=== PATIENT | male | born 1950 | race Caucasian/White ===

== ENCOUNTER 2017-01-26 16:09 | Emergency (ER) | payer MEDICARE ==
[2017-01-26] MEDS ORDERED: SODIUM CHLORIDE 0.9% 1,000 ML IV STA ×2 (16:32)
--- NOTE | 2017-01-26 16:35 | ED ---
General Adult HPI - General Chief complaint: Chest Pain Stated complaint: Chest Pain Time Seen by Provider: 01/26/17 16:25 Source: patient, RN notes reviewed, old records reviewed Mode of arrival: wheelchair Limitations: no limitations - History of Present Illness Initial comments: This is a 66-year-old male ER for evaluation of chest pain. Left sided chest pain sudden onset and sudden result resolution. Patient has patient cardiac chest pain and history of heart evaluation and ER visit for chest pain. Patient states most recently in August and symptoms have been fine since. All testing has been normal. Patient denies any history of atherosclerotic disease. No recent fever, does complain of cough and congestion. The patient currently with cough now - Related Data Home Medications Medication Instructions Recorded Confirmed Montelukast [Singulair] 10 mg PO HS 08/26/15 01/26/17 Tamsulosin HCl [Flomax] 0.4 mg PO HS 08/26/15 01/26/17 Flecainide [Tambocor] 100 mg PO Q12H 10/28/15 01/26/17 Atorvastatin Calcium 10 mg PO HS 08/31/16 01/26/17 Rivaroxaban [Xarelto] 20 mg PO AC-LUNCH 08/31/16 01/26/17 Previous Rx's Medication Instructions Recorded Pantoprazole Sodium [Protonix] 40 mg PO DAILY #30 tablet. 10/16/15 amLODIPine [Norvasc] 5 mg PO DAILY #7 tab 08/29/16 Aspirin 81 mg PO DAILY #1 chewable 09/01/16 Lisinopril-Hctz 10-12.5 mg 1 tab PO HS #30 tab 09/01/16 [Zestoretic 10-12.5] Allergies Allergy/AdvReac Type Severity Reaction Status Date / Time No Known Allergies Allergy Verified 01/26/17 16:20 Review of Systems ROS Statement: Those systems with pertinent positive or pertinent negative responses have been documented in the HPI. ROS Other: All systems not noted in ROS Statement are negative. Past Medical History Past Medical History: Atrial Fibrillation, Chest Pain / Angina, Hypertension, Osteoarthritis (OA), Prostate Disorder Additional Past Medical History / Comment(s): BPH, bilateral astigmatism. arthiritis L hand fingers mostly. History of Any Multi-Drug Resistant Organisms: None Reported Past Surgical History: Cholecystectomy Additional Past Surgical History / Comment(s): Cardioversion 09/2015 at [facility]-unsuccessful, Colonscopy-7yrs ago-normal. annita cataract surgery june 2016 Past Anesthesia/Blood Transfusion Reactions: No Reported Reaction Past Psychological History: No Psychological Hx Reported Additional Psychological History / Comment(s): Pt resides with his spouse. There is also an independent adult child living with them. He is independent. He uses no assistive device. He drives. Smoking Status: Never smoker Past Alcohol Use History: None Reported Past Drug Use History: None Reported - Past Family History Father History Unknown: Yes Family Medical History: CVA/TIA Additional Family Medical History / Comment(s): Father had a CVA. He lived to be 75 yrs. old. Mother History Unknown: Yes Family Medical History: CVA/TIA Additional Family Medical History / Comment(s): Mother had a CVA x 2. He lived to be 82 yrs old. General Exam Limitations: no limitations General appearance: alert, in no apparent distress Head exam: Present: atraumatic, normocephalic, normal inspection Eye exam: Present: normal appearance, PERRL, EOMI. Absent: scleral icterus, conjunctival injection, periorbital swelling ENT exam: Present: normal exam, mucous membranes moist Neck exam: Present: normal inspection. Absent: tenderness, meningismus, lymphadenopathy Respiratory exam: Present: normal lung sounds bilaterally. Absent: respiratory distress, wheezes, rales, rhonchi, stridor Cardiovascular Exam: Present: regular rate, normal rhythm, normal heart sounds. Absent: systolic murmur, diastolic murmur, rubs, gallop, clicks GI/Abdominal exam: Present: soft, normal bowel sounds. Absent: distended, tenderness, guarding, rebound, rigid Extremities exam: Present: normal inspection, full ROM, normal capillary refill. Absent: tenderness, pedal edema, joint swelling, calf tenderness Back exam: Present: normal inspection Neurological exam: Present: alert, oriented X3, CN II-XII intact Psychiatric exam: Present: normal affect, normal mood Skin exam: Present: warm, dry, intact, normal color. Absent: rash Course Vital Signs 01/26/17 16:19 Temperature 98 F Respiratory 67 H Rate Blood Pressure 126/61 O2 Sat by Pulse 96 Oximetry - Reevaluation(s) Reevaluation #1: 01/26/17 18:15 Patient is a symptomatic EKG Findings - EKG Comments: EKG Findings:: EKG shows normal sinus rhythm rate 62, RI 160, QRS 110, QTc 460 Medical Decision Making - Medical Decision Making 66 male the ER for evaluation of chest pain. Patient does have anterior chest pain which did resolve. Patient states he was a little anxious, does have recent stress test was normal and in review of records patient did have admission in August with normal stress test, patient states he feels normal at this time feels fine and would like to be discharged home - Lab Data Result diagrams: 01/26/17 16:38 01/26/17 16:38 Lab Results 01/26/17 01/26/17 01/26/17 Range/Units 16:38 16:38 16:38 WBC 6.9 (3.8-10.6) k/uL RBC 4.11 L (4.30-5.90) m/uL Hgb 12.4 L (13.0-17.5) gm/dL Hct 35.6 L (39.0-53.0) % MCV 86.6 (80.0-100.0) fL MCH 30.1 (25.0-35.0) pg MCHC 34.8 (31.0-37.0) g/dL RDW 13.6 (11.5-15.5) % Plt Count 213 (150-450) k/uL Neutrophils % 65 % Lymphocytes % 24 % Monocytes % 6 % Eosinophils % 3 % Basophils % 0 % Neutrophils # 4.5 (1.3-7.7) k/uL Lymphocytes # 1.7 (1.0-4.8) k/uL Monocytes # 0.4 (0-1.0) k/uL Eosinophils # 0.2 (0-0.7) k/uL Basophils # 0.0 (0-0.2) k/uL PT (9.0-12.0) sec INR (<1.1) APTT (22.0-30.0) sec D-Dimer (<0.60) mg/L FEU Sodium 142 (137-145) mmol/L Potassium 3.6 (3.5-5.1) mmol/L Chloride 107 (98-107) mmol/L Carbon Dioxide 26 (22-30) mmol/L Anion Gap 9 mmol/L BUN 22 H (9-20) mg/dL Creatinine 1.20 (0.66-1.25) mg/dL Est GFR (MDRD) Af Amer >60 (>60 ml/min/1.73 sqM) Est GFR (MDRD) Non-Af >60 (>60 ml/min/1.73 sqM) Glucose 123 H (74-99) mg/dL Calcium 9.3 (8.4-10.2) mg/dL Magnesium 1.6 (1.6-2.3) mg/dL Total Bilirubin 0.6 (0.2-1.3) mg/dL AST 33 (17-59) U/L ALT 49 (21-72) U/L Alkaline Phosphatase 97 (38-126) U/L Total Creatine Kinase 140 (55-170) U/L CK-MB (CK-2) 0.9 (0.0-2.4) ng/mL CK-MB (CK-2) Rel Index 0.6 Troponin I <0.012 (0.000-0.034) ng/mL NT-Pro-B Natriuret Pep pg/mL Total Protein 6.6 (6.3-8.2) g/dL Albumin 3.7 (3.5-5.0) g/dL Lipase 79 (23-300) U/L 01/26/17 01/26/17 Range/Units 16:38 16:38 WBC (3.8-10.6) k/uL RBC (4.30-5.90) m/uL Hgb (13.0-17.5) gm/dL Hct (39.0-53.0) % MCV (80.0-100.0) fL MCH (25.0-35.0) pg MCHC (31.0-37.0) g/dL RDW (11.5-15.5) % Plt Count (150-450) k/uL Neutrophils % % Lymphocytes % % Monocytes % % Eosinophils % % Basophils % % Neutrophils # (1.3-7.7) k/uL Lymphocytes # (1.0-4.8) k/uL Monocytes # (0-1.0) k/uL Eosinophils # (0-0.7) k/uL Basophils # (0-0.2) k/uL PT 14.4 H (9.0-12.0) sec INR 1.5 (<1.1) APTT 36.0 H (22.0-30.0) sec D-Dimer 0.18 (<0.60) mg/L FEU Sodium (137-145) mmol/L Potassium (3.5-5.1) mmol/L Chloride (98-107) mmol/L Carbon Dioxide (22-30) mmol/L Anion Gap mmol/L BUN (9-20) mg/dL Creatinine (0.66-1.25) mg/dL Est GFR (MDRD) Af Amer (>60 ml/min/1.73 sqM) Est GFR (MDRD) Non-Af (>60 ml/min/1.73 sqM) Glucose (74-99) mg/dL Calcium (8.4-10.2) mg/dL Magnesium (1.6-2.3) mg/dL Total Bilirubin (0.2-1.3) mg/dL AST (17-59) U/L ALT (21-72) U/L Alkaline Phosphatase (38-126) U/L Total Creatine Kinase (55-170) U/L CK-MB (CK-2) (0.0-2.4) ng/mL CK-MB (CK-2) Rel Index Troponin I (0.000-0.034) ng/mL NT-Pro-B Natriuret Pep 521 pg/mL Total Protein (6.3-8.2) g/dL Albumin (3.5-5.0) g/dL Lipase (23-300) U/L - Radiology Data Radiology results: report reviewed (Chest x-ray negative for acute disease), image reviewed Disposition Clinical Impression: Chest pain, Bronchitis Disposition: HOME SELF-CARE Condition: Good Instructions: Chest Pain (ED), Acute Bronchitis (ED) Referrals: Johann Rubalcava MD [Primary Care Provider] - 1-2 days
[2017-01-26 16:53] LABS: Basophils % (A) 0 %; CH 30.4; CHCM 35.2; Eosinophils # (A) 0.2 k/uL (0-0.7); Eosinophils % (A) 3 %; HCT 35.6 % (39.0-53.0); HDW 3.07; HGB 12.4 gm/dL (13.0-17.5); Luc # (Auto) 0.09; Luc % (Auto) 1; Lymphocytes # (A) 1.7 k/uL (1.0-4.8); Lymphocytes % (A) 24 %; MCH 30.1 pg (25.0-35.0); MCHC 34.8 g/dL (31.0-37.0); MCV 86.6 fL (80.0-100.0); Mean Platelet Volume 7.3; Monocytes # (A) 0.4 k/uL (0-1.0); Monocytes % (A) 6 %; Neutrophils # (A) 4.5 k/uL (1.3-7.7); Neutrophils % (A) 65 %; RBC 4.11 m/uL (4.30-5.90); RDW 13.6 % (11.5-15.5); WBC 6.9 k/uL (3.8-10.6); WBC (Perox) 7.23
[2017-01-26 17:10] LABS: INR 1.5 (<1.1); Prothrombin Time 14.4 sec (9.0-12.0)
[2017-01-26 17:18] LABS: Creatine Kinase 140 U/L (55-170)
[2017-01-26 17:32] LABS: Creatine Kinase MB 0.9 ng/mL (0.0-2.4); Troponin I <0.012 ng/mL (0.000-0.034)
[2017-01-26 17:37] LABS: ALT 49 U/L (21-72); AST 33 U/L (17-59); Alkaline Phosphatase 97 U/L (38-126); Anion Gap 9 mmol/L; Blood Urea Nitrogen 22 mg/dL (9-20); Calcium 9.3 mg/dL (8.4-10.2); Carbon Dioxide 26 mmol/L (22-30); Chloride 107 mmol/L (98-107); Glucose 123 mg/dL (74-99); Magnesium 1.6 mg/dL (1.6-2.3); Non-African American GFR(MDRD) >60 (>60 ml/min/1.73 sqM); Potassium 3.6 mmol/L (3.5-5.1); Sodium 142 mmol/L (137-145); Total Bilirubin 0.6 mg/dL (0.2-1.3); Total Protein 6.6 g/dL (6.3-8.2)
--- NOTE | 2017-01-26 18:06 | XR ---
EXAMINATION TYPE: XR chest 2V DATE OF EXAM: 01/26/2017 5:11 PM COMPARISON: September 18, 2016 HISTORY: Pain TECHNIQUE: Frontal and lateral views of the chest are obtained. FINDINGS: There is no focal air space opacity, pleural effusion, or pneumothorax seen. The cardiac silhouette size is within normal limits. The osseous structures are intact. IMPRESSION: No acute cardiopulmonary process.
[2017-01-26 18:21] VITALS: BP 119/69; PULSE 57; RESP 18; TEMP 97.2
== END 2017-01-26 18:31 | disposition home or self-care (01) ==
LOC: EC 16:09
DX: R07.9 Chest pain, unspecified (principal); J20.9 Acute bronchitis, unspecified; I48.91 Unspecified atrial fibrillation; I10 Essential (primary) hypertension; M19.042 Primary osteoarthritis, left hand; Z79.899 Other long term (current) drug therapy
CPT/HCPCS: 36415; 71020; 80053; 82550; 82553; 83690; 83735; 83880; 84484; 85025; 85379; 85610; 85730; 93005; 96360; 96361; 99285

== ENCOUNTER 2017-07-28 07:56 | Day surgery (SDC) | payer MEDICARE ==
[2017-07-26 14:49] VITALS: BMI 34.4
[~2017-07-28 07:56] MED LIST: LACTATED RINGERS 1,000 ML IV SCH; LIDOCAINE 1% 20 ML VIAL (10MG/ML) FOR IV START INTRADERMA PRN
[2017-07-28 08:39] VITALS: TEMP 97.8
[2017-07-28] MEDS ORDERED: PROPOFOL 10 MG/ML 20 ML VIAL IV ONE (08:50)
--- NOTE | 2017-07-28 09:18 | P.PCN ---
Date of Procedure: 07/28/17 Preoperative Diagnosis: Postoperative Diagnosis: Procedure(s) Performed: Procedure: Total colonoscopy. Preoperative diagnosis: Screening for neoplasia. Postoperative diagnosis: Mild sigmoid diverticulosis with no evidence of acute diverticulitis, strictures, polyps or cancer. Preparation: HalfLytely prep Sedation: Was provided by anesthesia. Brief clinical history: The patient is a 67-year-old male who is referred for this evaluation for screening for neoplasia age being his risk factor. His prior exam was more than 12 years ago. At this time, he has no abdominal complaints, bleeding or anemia. There is no family history of colon cancer. Procedure: With the patient on his left lateral decubitus position and after informed consent and adequate sedation, the perianal area was inspected and it did not show any fissures or fistulas. There were no masses felt on digital rectal examination. The Olympus CFQ 180 AL videocolonoscope was then inserted in the rectum in the usual fashion and advanced to the cecum. There was occasional diverticular orifice seen in the sigmoid but there was no evidence of acute diverticulitis or strictures. No polyps or tumors were seen. I retroflexed the endoscope in the rectum before the endoscope was withdrawn. The patient tolerated the procedure well. Plan: The patient was reassured. Discussed dietary measures. He will follow up with you as planned and I recommended repeat exam in 10 years. Implants: Indications for Procedure: Operative Findings: Description of Procedure:
[2017-07-28 09:33] VITALS: RESP 16
[2017-07-28 10:00] VITALS: BP 108/68; PULSE 53
== END 2017-07-28 10:11 | disposition home or self-care (01) ==
LOC: ORWHC2ENDO 07:56
DX: Z12.11 Encounter for screening for malignant neoplasm of colon (principal); K57.30 Diverticulosis of large intestine without perforation or abscess without bleeding; I48.91 Unspecified atrial fibrillation; Z79.01 Long term (current) use of anticoagulants; J45.909 Unspecified asthma, uncomplicated; I10 Essential (primary) hypertension; M19.90 Unspecified osteoarthritis, unspecified site; N40.0 Benign prostatic hyperplasia without lower urinary tract symptoms; I25.10 Atherosclerotic heart disease of native coronary artery without angina pectoris; Z79.899 Other long term (current) drug therapy
CPT/HCPCS: J2704; G0121

== ENCOUNTER 2017-12-05 10:03 | Observation (INO) | payer MEDICARE ==
[2017-12-05 10:28] VITALS: RESP 18
[2017-12-05] MEDS ORDERED: SODIUM CHLORIDE 0.9% 1,000 ML IV STA (10:59)
--- NOTE | 2017-12-05 11:08 | ED ---
General Adult HPI - General Chief complaint: Arrhythmia/Palpitations Stated complaint: Dizziness Time Seen by Provider: 12/05/17 10:25 Source: patient, EMS, RN notes reviewed Mode of arrival: EMS Limitations: no limitations - History of Present Illness Initial comments: This is a 67-year-old male who presents emergency department with past medical history significant for atrial fibrillation. Patient states last night he was taking his pulse and noted that the be fast so he spoke with Dr. Darren Katz put him on verapamil. Patient had no symptoms at this time. Patient states this morning when he woke up and he stood up he felt as though his a pass out everything went almost black on him. Patient states he sat down everything resolved and now he feels back to his baseline. Patient states his blood pressure dropped from sitting up to standing by 30 points. Patient states the fast he noted his heart rate to be was 136. Patient denied any chest pain patient denied any palpitations that he noted. Patient denies any shortness of breath or difficulty breathing. Patient denies abdominal pain patient denies nausea vomiting diarrhea. - Related Data Home Medications Medication Instructions Recorded Confirmed Montelukast [Singulair] 10 mg PO HS 08/26/15 12/05/17 Tamsulosin HCl [Flomax] 0.4 mg PO HS 08/26/15 12/05/17 Atorvastatin Calcium 10 mg PO HS 08/31/16 12/05/17 Rivaroxaban [Xarelto] 20 mg PO AC-LUNCH 08/31/16 12/05/17 Fluticasone/Salmeterol [Advair 1 puff INHALATION RT-BID 10/21/17 12/05/17 250-50 Diskus] Loratadine [Claritin] 10 mg PO DAILY 10/21/17 12/05/17 Verapamil [Isoptin] 80 mg PO DIRECTED 12/05/17 12/05/17 Previous Rx's Medication Instructions Recorded Pantoprazole Sodium [Protonix] 40 mg PO DAILY #30 tablet. 10/16/15 amLODIPine [Norvasc] 5 mg PO DAILY #7 tab 08/29/16 Flecainide [Tambocor] 50 mg PO Q12HR #60 tab 10/24/17 Nitroglycerin Sl Tabs [Nitrostat] 0.4 mg SUBLINGUAL Q5M PRN #20 tab 10/24/17 Allergies Allergy/AdvReac Type Severity Reaction Status Date / Time No Known Allergies Allergy Verified 12/05/17 10:58 Review of Systems ROS Statement: Those systems with pertinent positive or pertinent negative responses have been documented in the HPI. ROS Other: All systems not noted in ROS Statement are negative. Past Medical History Past Medical History: Atrial Fibrillation, Chest Pain / Angina, Hypertension, Osteoarthritis (OA), Prostate Disorder Additional Past Medical History / Comment(s): BPH, bilateral astigmatism. History of Any Multi-Drug Resistant Organisms: None Reported Past Surgical History: Appendectomy, Cholecystectomy Additional Past Surgical History / Comment(s): Cardioversion 09/2015 at [facility]-unsuccessful, Colonscopy. annita cataract surgery Past Anesthesia/Blood Transfusion Reactions: No Reported Reaction Past Psychological History: No Psychological Hx Reported Smoking Status: Never smoker Past Alcohol Use History: None Reported Past Drug Use History: None Reported - Past Family History Father History Unknown: Yes Family Medical History: CVA/TIA Additional Family Medical History / Comment(s): Father had a CVA. He lived to be 75 yrs. old. Mother History Unknown: Yes Family Medical History: CVA/TIA Additional Family Medical History / Comment(s): Mother had a CVA x 2. He lived to be 82 yrs old. General Exam - General Exam Comments Initial Comments: GENERAL: Patient is well-developed and well-nourished. Patient is nontoxic and well- hydrated and is in no acute distress ENT: Neck is soft and supple. No significant lymphadenopathy is noted. Oropharynx is clear. Moist mucous membranes. Neck has full range of motion without eliciting any pain. EYES: The sclera were anicteric and conjunctiva were pink and moist. Extraocular movements were intact and pupils were equal round and reactive to light. Eyelids were unremarkable. PULMONARY: Unlabored respirations. Good breath sounds bilaterally. No audible rales rhonchi or wheezing was noted. CARDIOVASCULAR: There is a regular rate and rhythm without any murmurs gallops or rubs. ABDOMEN: Soft and nontender with normal bowel sounds. No palpable organomegaly was noted. There is no palpable pulsatile mass. SKIN: Skin is clear with no lesions or rashes and otherwise unremarkable. NEUROLOGIC: Patient is alert and oriented x3. Cranial nerves II through XII are grossly intact. Motor and sensory are also intact. Normal speech, volume and content. Symmetrical smile. MUSCULOSKELETAL: Normal extremities with adequate strength and full range of motion. No lower extremity swelling or edema. No calf tenderness. LYMPHATICS: No significant lymphadenopathy is noted PSYCHIATRIC: Normal psychiatric evaluation. Limitations: no limitations Course Vital Signs 12/05/17 10:25 Temperature 97.8 F Pulse Rate 84 Respiratory 18 Rate Blood Pressure 137/85 O2 Sat by Pulse 94 L Oximetry Medical Decision Making - Medical Decision Making EKG shows atrial fibrillation at 86 bpm QRS is 120 QT was 416 QTC is 497. Patient's EKG shows a right bundle wiliam block when I compared this EKG to an old EKG there are no significant changes. Chest x-ray showed no acute abnormality. I spoke with Dr. Banks and he wanted the patient admitted overnight and have his heart rate medications adjusted. - Lab Data Result diagrams: 12/05/17 10:20 12/05/17 10:20 Lab Results 12/05/17 12/05/17 12/05/17 Range/Units 10:20 10:20 10:20 WBC (3.8-10.6) k/uL RBC (4.30-5.90) m/uL Hgb (13.0-17.5) gm/dL Hct (39.0-53.0) % MCV (80.0-100.0) fL MCH (25.0-35.0) pg MCHC (31.0-37.0) g/dL RDW (11.5-15.5) % Plt Count (150-450) k/uL Neutrophils % % Lymphocytes % % Monocytes % % Eosinophils % % Basophils % % Neutrophils # (1.3-7.7) k/uL Lymphocytes # (1.0-4.8) k/uL Monocytes # (0-1.0) k/uL Eosinophils # (0-0.7) k/uL Basophils # (0-0.2) k/uL PT 11.9 (9.0-12.0) sec INR 1.3 H (<1.2) APTT 26.2 (22.0-30.0) sec D-Dimer 0.18 (<0.60) mg/L FEU Sodium 142 (137-145) mmol/L Potassium 4.1 (3.5-5.1) mmol/L Chloride 106 (98-107) mmol/L Carbon Dioxide 25 (22-30) mmol/L Anion Gap 11 mmol/L BUN 18 (9-20) mg/dL Creatinine 1.00 (0.66-1.25) mg/dL Est GFR (MDRD) Af Amer >60 (>60 ml/min/1.73 sqM) Est GFR (MDRD) Non-Af >60 (>60 ml/min/1.73 sqM) Glucose 108 H (74-99) mg/dL Calcium 9.3 (8.4-10.2) mg/dL Magnesium 1.7 (1.6-2.3) mg/dL Total Bilirubin 0.8 (0.2-1.3) mg/dL AST 26 (17-59) U/L ALT 40 (21-72) U/L Alkaline Phosphatase 84 (38-126) U/L Total Creatine Kinase 44 L (55-170) U/L CK-MB (CK-2) 0.5 (0.0-2.4) ng/mL CK-MB (CK-2) Rel Index 1.1 Troponin I <0.012 (0.000-0.034) ng/mL Total Protein 6.6 (6.3-8.2) g/dL Albumin 3.6 (3.5-5.0) g/dL TSH 2.920 (0.465-4.680) mIU/L Free T4 1.45 (0.78-2.19) ng/dL 12/05/17 Range/Units 10:20 WBC 7.2 (3.8-10.6) k/uL RBC 5.09 (4.30-5.90) m/uL Hgb 14.8 (13.0-17.5) gm/dL Hct 43.5 (39.0-53.0) % MCV 85.5 (80.0-100.0) fL MCH 29.0 (25.0-35.0) pg MCHC 33.9 (31.0-37.0) g/dL RDW 14.4 (11.5-15.5) % Plt Count 226 (150-450) k/uL Neutrophils % 72 % Lymphocytes % 19 % Monocytes % 6 % Eosinophils % 1 % Basophils % 0 % Neutrophils # 5.2 (1.3-7.7) k/uL Lymphocytes # 1.4 (1.0-4.8) k/uL Monocytes # 0.4 (0-1.0) k/uL Eosinophils # 0.1 (0-0.7) k/uL Basophils # 0.0 (0-0.2) k/uL PT (9.0-12.0) sec INR (<1.2) APTT (22.0-30.0) sec D-Dimer (<0.60) mg/L FEU Sodium (137-145) mmol/L Potassium (3.5-5.1) mmol/L Chloride (98-107) mmol/L Carbon Dioxide (22-30) mmol/L Anion Gap mmol/L BUN (9-20) mg/dL Creatinine (0.66-1.25) mg/dL Est GFR (MDRD) Af Amer (>60 ml/min/1.73 sqM) Est GFR (MDRD) Non-Af (>60 ml/min/1.73 sqM) Glucose (74-99) mg/dL Calcium (8.4-10.2) mg/dL Magnesium (1.6-2.3) mg/dL Total Bilirubin (0.2-1.3) mg/dL AST (17-59) U/L ALT (21-72) U/L Alkaline Phosphatase (38-126) U/L Total Creatine Kinase (55-170) U/L CK-MB (CK-2) (0.0-2.4) ng/mL CK-MB (CK-2) Rel Index Troponin I (0.000-0.034) ng/mL Total Protein (6.3-8.2) g/dL Albumin (3.5-5.0) g/dL TSH (0.465-4.680) mIU/L Free T4 (0.78-2.19) ng/dL Disposition Clinical Impression: Atrial fibrillation with rapid ventricular response, Near syncope Disposition: ADMITTED IP TO THIS HOSP Referrals: Johann Rubalcava MD [Primary Care Provider] - 1-2 days Time of Disposition: 12:26
[2017-12-05 11:20] LABS: Basophils % (A) 0 %; Eosinophils # (A) 0.1 k/uL (0-0.7); Eosinophils % (A) 1 %; HCT 43.5 % (39.0-53.0); HGB 14.8 gm/dL (13.0-17.5); Lymphocytes # (A) 1.4 k/uL (1.0-4.8); Lymphocytes % (A) 19 %; MCHC 33.9 g/dL (31.0-37.0); MCV 85.5 fL (80.0-100.0); Mean Platelet Volume 7.7; Monocytes # (A) 0.4 k/uL (0-1.0); Monocytes % (A) 6 %; Neutrophils # (A) 5.2 k/uL (1.3-7.7); Neutrophils % (A) 72 %; Platelet Count 226 k/uL (150-450); RBC 5.09 m/uL (4.30-5.90); RDW 14.4 % (11.5-15.5); WBC 7.2 k/uL (3.8-10.6)
--- NOTE | 2017-12-05 11:20 | XR ---
EXAMINATION TYPE: XR chest 2V DATE OF EXAM: 12/05/2017 COMPARISON: 10/21/2017 HISTORY: Dysrhythmia and dizziness. TECHNIQUE: Frontal and lateral views of the chest are obtained. FINDINGS: There is no focal air space opacity, pleural effusion, or pneumothorax seen. The cardiac silhouette size is within normal limits. The osseous structures are intact. Multilevel moderate deg enerative changes of the thoracic spine are present. Cholecystectomy clips reside within the right up per quadrant. IMPRESSION: No acute cardiopulmonary process.
[2017-12-05 11:26] LABS: ALT 40 U/L (21-72); AST 26 U/L (17-59); Albumin 3.6 g/dL (3.5-5.0); Alkaline Phosphatase 84 U/L (38-126); Anion Gap 11 mmol/L; Blood Urea Nitrogen 18 mg/dL (9-20); Calcium 9.3 mg/dL (8.4-10.2); Carbon Dioxide 25 mmol/L (22-30); Chloride 106 mmol/L (98-107); Glucose 108 mg/dL (74-99); Magnesium 1.7 mg/dL (1.6-2.3); Potassium 4.1 mmol/L (3.5-5.1); Sodium 142 mmol/L (137-145); Total Bilirubin 0.8 mg/dL (0.2-1.3); Total Protein 6.6 g/dL (6.3-8.2)
[2017-12-05 11:43] LABS: T4, Free (Free Thyroxine) 1.45 ng/dL (0.78-2.19)
[2017-12-05 11:44] LABS: Creatine Kinase 44 U/L (55-170)
[2017-12-05 11:55] LABS: D-Dimer 0.18 mg/L FEU (<0.60)
[2017-12-05 11:56] LABS: Creatine Kinase MB 0.5 ng/mL (0.0-2.4); Troponin I <0.012 ng/mL (0.000-0.034)
[2017-12-05 11:59] LABS: INR 1.3 (<1.2); Partial Thromboplastin Time 26.2 sec (22.0-30.0); Prothrombin Time 11.9 sec (9.0-12.0)
[2017-12-05] MEDS ORDERED: NITROGLYCERIN SL TABS 0.4 MG TAB SUBLINGUAL PRN ×2 (12:27→18:15)
[2017-12-05 16:43] LABS: Creatine Kinase 43 U/L (55-170)
[2017-12-05 16:56] LABS: Creatine Kinase MB 0.5 ng/mL (0.0-2.4); Troponin I <0.012 ng/mL (0.000-0.034)
[2017-12-05] MEDS ORDERED: NALOXONE 0.4 MG/ML 1 ML VIAL IV PRN (18:18)
[2017-12-05] MEDS ORDERED: RIVAROXABAN 10 MG TAB PO STA (19:57)
[2017-12-05] MEDS: FLECAINIDE 50 MG TAB PO SCH (20:02)
--- NOTE | 2017-12-05 20:10 | P.HPIM ---
History of Present Illness H&P Date: 12/05/17 Chief Complaint: Rapid heart rate HISTORY OF PRESENT ILLNESS: 67-year-old male patient of Dr. Rubalcava with chronic stable medical conditions that include hypertension, hyperlipidemia, benign prostatic hypertrophy. Patient presented to the emergency department with atrial fibrillation, began last night he was taking his pulse noted to be fast so he called Dr. Barry who put him on a dose of verapamil and this seemed to help this morning patient got up and stood up and felt as though he was going to pass out and everything around him with black. He sat down and it resolved was instructed by Dr. Barry to be evaluated in the emergency department. Denies any chest pain shortness of breath difficulty breathing abdominal pain nausea, vomiting, diarrhea. REVIEW OF SYSTEMS GEN.: [ Tired] EYES: [None] HEENT: [None] NECK: [None] RESPIRATORY: [None] CARDIOVASCULAR: [None] GASTROINTESTINAL: [None] GENITOURINARY: [None] MUSCULOSKELETAL: [None] LYMPHATICS: [None] HEMATOLOGICAL: [None] PSYCHIATRY: [None] NEUROLOGICAL: [None] PAST MEDICAL HISTORY Past medical history: Atrial fibrillation, chest pain/angina, hypertension, osteoarthritis, benign static hypertrophy. Past surgical history: Appendectomy, cholecystectomy, cardioversion in 2015 at [facility] which was unsuccessful, colonoscopy, bilateral cataract surgery. Past psychological history: Denies SOCIAL HISTORY: Additional psychological/social history: None Smoking use history: Never Alcohol use history: Denies Drug use history: Denies Marital status: Living situation: Lives with Work history: Retired FAMILY HISTORY: Father: : CVA TIA lived to be 75 Mother: : CVA/TIA lived to be 82 ALLERGIES: NO KNOWN ALLERGIES HOME MEDICATION: Verapamil 80 mg by mouth as directed Amlodipine 5 mg by mouth daily Pantoprazole 40 mg by mouth daily Nitroglycerin sublingual 0.4 mg sublingual every 5 minutes when necessary Loratidine 10 mg by mouth daily Flecainide 50 mg by mouth every 12 hours Tamsulosin 0.4 mg by mouth at bedtime Xarelto 20 mg by mouth before meals lunch Singulair 10 mg by mouth at bedtime Advair 250-50 Diskus 1 puff inhalation twice daily Atorvastatin calcium 10 mg by mouth at bedtime VITAL SIGNS: [Temperature 96.7, pulse 106, respiratory rate 18, blood pressure 125/87, oxygen saturation 96% on 2 L. BMI noted] GENERAL: [Average built, sitting up, comfortable]. EYES: [Pupils equal. Conjunctiva susan]l. HEENT: [External appearance of nose and ears normal, oral cavity grossly normal] . NECK: [JVD not raised; masses not palpable]. HEART: [First and second heart sounds are irregular; no edema]. LUNGS:[ Respiratory rate normal; clear to auscultation]. ABDOMEN: [Soft, nontender, liver spleen not palpable, no masses palpable]. LYMPHATICS: [No lymph nodes palpable in the axilla and neck]. PSYCH: [Alert and oriented x3; mood and affect susan]l. NEUROLOGICAL: [Cranial nerves grossly intact; no facial asymmetry, power and sensation grossly intact]. INVESTIGATIONS: LABS: BMP and CBC grossly unremarkable, INR 1.3, d-dimer 0.18 ASSESSMENT: -Paroxysmal Atrial flutter fibrillation, in a patient who has a history of dysrhythmia, on Xarelto -Essential hypertension. -Hyperlipidemia. -Benign prostatic hypertrophy. -Obesity body mass index 35.2 PLAN: Home medications reordered, cardiology consulted as well as Dr. Barry. We' ll await additional input from cardiology, plan of care discussed with the patient the bedside we will follow closely. RET[employer] MARKETING EXECUTIVE STATEMENT: Patient was seen and examined by nurse practitioner Laxmi Kothari and all elements of the case were discussed with attending Dr. Godinez. Past Medical History Past Medical History: Atrial Fibrillation, Chest Pain / Angina, Hypertension, Osteoarthritis (OA), Prostate Disorder Additional Past Medical History / Comment(s): BPH, bilateral astigmatism. History of Any Multi-Drug Resistant Organisms: None Reported Past Surgical History: Appendectomy, Cholecystectomy Additional Past Surgical History / Comment(s): Cardioversion 09/2015 at [facility]-unsuccessful, Colonscopy. annita cataract surgery Past Anesthesia/Blood Transfusion Reactions: No Reported Reaction Smoking Status: Never smoker - Past Family History Father History Unknown: Yes Family Medical History: CVA/TIA Additional Family Medical History / Comment(s): Father had a CVA. He lived to be 75 yrs. old. Mother History Unknown: Yes Family Medical History: CVA/TIA Additional Family Medical History / Comment(s): Mother had a CVA x 2. He lived to be 82 yrs old. Medications and Allergies Home Medications Medication Instructions Recorded Confirmed Type Montelukast [Singulair] 10 mg PO HS 08/26/15 12/05/17 History Tamsulosin HCl [Flomax] 0.4 mg PO HS 08/26/15 12/05/17 History Pantoprazole Sodium [Protonix] 40 mg PO DAILY #30 tablet. 10/16/15 12/05/17 Rx amLODIPine [Norvasc] 5 mg PO DAILY #7 tab 08/29/16 12/05/17 Rx Atorvastatin Calcium 10 mg PO HS 08/31/16 12/05/17 History Rivaroxaban [Xarelto] 20 mg PO AC-LUNCH 08/31/16 12/05/17 History Fluticasone/Salmeterol [Advair 1 puff INHALATION RT-BID 10/21/17 12/05/17 History 250-50 Diskus] Loratadine [Claritin] 10 mg PO DAILY 10/21/17 12/05/17 History Flecainide [Tambocor] 50 mg PO Q12HR #60 tab 10/24/17 12/05/17 Rx Nitroglycerin Sl Tabs [Nitrostat] 0.4 mg SUBLINGUAL Q5M PRN #20 tab 10/24/1707/15 Rx Verapamil [Isoptin] 80 mg PO DIRECTED 12/05/17 12/05/17 History Allergies Allergy/AdvReac Type Severity Reaction Status Date / Time No Known Allergies Allergy Verified 12/05/17 10:58 Physical Exam Vitals: Vital Signs Temp Pulse Pulse Resp BP BP BP 12/05/17 18:04 97.5 F L 89 18 148/94 12/05/17 17:46 96.7 F L 106 H 18 125/87 12/05/17 17:00 104 H 18 12/05/17 16:00 98 F 83 18 137/86 12/05/17 15:00 110 H 18 146/83 12/05/17 14:01 96.9 F L 78 115/66 123/91 12/05/17 14:00 112 H 18 12/05/17 13:51 96.9 F L 104 H 18 123/85 12/05/17 13:32 97.1 F L 108 H 18 136/79 12/05/17 10:25 97.8 F 84 18 137/85 BP Pulse Ox 12/05/17 18:04 96 12/05/17 17:46 96 12/05/17 17:00 99 12/05/17 16:00 96 12/05/17 15:00 96 12/05/17 14:01 124/81 98 12/05/17 14:00 12/05/17 13:51 100 12/05/17 13:32 95 12/05/17 10:25 94 L Intake and Output 12/05/17 12/05/17 12/05/17 06:59 14:59 22:59 Intake Total 10 Balance 10 Intake: Amount of Fluid Infused ( 10 ml) Other: Weight 111.13 kg Patient Weight 12/06/17 06:59 Weight 111.13 kg Results CBC & Chem 7: 12/05/17 10:20 12/05/17 10:20 Labs: Abnormal Lab Results - Last 24 Hours (Table) 12/05/17 12/05/17 12/05/17 Range/Units 10:20 10:20 10:20 INR 1.3 H (<1.2) Glucose 108 H (74-99) mg/dL Total Creatine Kinase 44 L (55-170) U/L 12/05/17 Range/Units 16:12 INR (<1.2) Glucose (74-99) mg/dL Total Creatine Kinase 43 L (55-170) U/L Thrombosis Risk Factor Assmnt - Choose All That Apply Each Factor Represents 1 point: Obesity (BMI >25) Each Risk Factor Represents 2 Points: Age 61-74 years Thrombosis Risk Factor Assessment Total Risk Factor Score: 3 Thrombosis Risk Factor Assessment Level: Moderate Risk
[2017-12-05] MEDS ORDERED: TAMSULOSIN 0.4 MG CAP.ER.24H PO SCH (21:00)
[2017-12-05] MEDS ORDERED: MONTELUKAST 10 MG TAB PO SCH (21:00)
[2017-12-05] MEDS ORDERED: ATORVASTATIN 10 MG TAB PO SCH (21:00)
[2017-12-05] MEDS: VERAPAMIL 40 MG TAB PO SCH (21:21)
[2017-12-05] MEDS: SYMBICORT 80-4.5 MCG INHALER INHALATION SCH (21:37)
[2017-12-05 22:47] LABS: Creatine Kinase 50 U/L (55-170)
[2017-12-05 23:00] LABS: Creatine Kinase MB 0.5 ng/mL (0.0-2.4); Troponin I <0.012 ng/mL (0.000-0.034)
[2017-12-06] MEDS ORDERED: PANTOPRAZOLE 40 MG TABLET PO SCH (06:30)
[2017-12-06 06:52] LABS: Basophils % (A) 0 %; Eosinophils # (A) 0.2 k/uL (0-0.7); Eosinophils % (A) 3 %; HCT 43.5 % (39.0-53.0); HGB 14.4 gm/dL (13.0-17.5); Lymphocytes # (A) 2.2 k/uL (1.0-4.8); Lymphocytes % (A) 28 %; MCH 28.5 pg (25.0-35.0); MCHC 33.1 g/dL (31.0-37.0); MCV 86.2 fL (80.0-100.0); Mean Platelet Volume 7.2; Monocytes # (A) 0.6 k/uL (0-1.0); Monocytes % (A) 7 %; Neutrophils # (A) 4.6 k/uL (1.3-7.7); Neutrophils % (A) 60 %; Platelet Count 240 k/uL (150-450); RBC 5.05 m/uL (4.30-5.90); RDW 13.3 % (11.5-15.5); WBC 7.6 k/uL (3.8-10.6)
[2017-12-06 07:09] LABS: Anion Gap 10 mmol/L; Blood Urea Nitrogen 16 mg/dL (9-20); Calcium 9.6 mg/dL (8.4-10.2); Carbon Dioxide 28 mmol/L (22-30); Chloride 104 mmol/L (98-107); Cholesterol 129 mg/dL (<200); Glucose 97 mg/dL (74-99); HDL Cholesterol 32 mg/dL (40-60); LDL Cholesterol,Calculated 74 mg/dL (0-99); Potassium 4.1 mmol/L (3.5-5.1); Sodium 142 mmol/L (137-145); Triglycerides 116 mg/dL (<150)
[2017-12-06] MEDS: VERAPAMIL 40 MG TAB PO SCH (08:29)
[2017-12-06] MEDS: FLECAINIDE 50 MG TAB PO SCH (08:30)
[2017-12-06] MEDS: ASPIRIN 325 MG TAB PO SCH ×2 (08:30→08:36)
[2017-12-06 08:35] VITALS: PULSE 92
[2017-12-06] MEDS ORDERED: LORATADINE 10 MG TAB PO SCH (09:00)
[2017-12-06] MEDS ORDERED: amLODIPine 5 MG TAB PO SCH (09:00)
[2017-12-06] MEDS: SYMBICORT 80-4.5 MCG INHALER INHALATION SCH (10:53)
[2017-12-06 11:32] VITALS: BP 139/66; TEMP 97.5
--- NOTE | 2017-12-06 11:57 | P.CRDCN ---
History of Present Illness Consult date: 12/06/17 Requesting physician: Alfredo Godinez Consult reason: atrial fibrillation Chief complaint: Palpitations and near syncope History of present illness: This is a pleasant 67-year-old gentleman with history of hypertension , paroxysmal atrial fibrillation, hyperlipidemia, mild asthma, nonsmoker, nondiabetic, mild hyperlipidemia who follows with Dr. Tray Fernandes in the office. He is scheduled to undergo atrial fibrillation ablation with pulmonary vein isolation on Tuesday with Dr. Katz. Patient states that he's been in a normal sinus rhythm since September, on Tuesday he noted that his heartbeat was irregular, he had a prescription called into the pharmacy by Dr. Katz for verapamil 80 mg. He states that his picked up his prescription, he took a verapamil along with all of his other medications, states that he went to stand up and felt as though everything was going black and he may pass out. He sat down, his son who works for EMS did check orthostatics on him which were noted to be significant by a drop of at least 30 systolic. He came to the emergency room for that reason. Blood pressure on arrival here 137/85, heart rate in the 80s, 94% on room air. Orthostatics were obtained here which came back to be negative. But pressure this morning is 138/60, heart rate in the 90s, he's been up ambulating in the hallway most of the morning. CBC is normal, d-dimer negative, sodium 142, potassium 4.1, BUN 16, creatinine 1.1. Troponins negative 3, TSH 2.9. At the time of my examination this morning, he continues to be in A. fib with controlled ventricular response, feels well overall quite eager to be discharged home. Past Medical History Past Medical History: Atrial Fibrillation, Chest Pain / Angina, Hypertension, Osteoarthritis (OA), Prostate Disorder Additional Past Medical History / Comment(s): BPH, bilateral astigmatism. History of Any Multi-Drug Resistant Organisms: None Reported Past Surgical History: Appendectomy, Cholecystectomy Additional Past Surgical History / Comment(s): Cardioversion 09/2015 at [facility]-unsuccessful, Colonscopy. annita cataract surgery Past Anesthesia/Blood Transfusion Reactions: No Reported Reaction Smoking Status: Never smoker - Past Family History Father History Unknown: Yes Family Medical History: CVA/TIA Additional Family Medical History / Comment(s): Father had a CVA. He lived to be 75 yrs. old. Mother History Unknown: Yes Family Medical History: CVA/TIA Additional Family Medical History / Comment(s): Mother had a CVA x 2. He lived to be 82 yrs old. Medications and Allergies Home Medications Medication Instructions Recorded Confirmed Type Montelukast [Singulair] 10 mg PO HS 08/26/15 12/05/17 History Tamsulosin HCl [Flomax] 0.4 mg PO HS 08/26/15 12/05/17 History Pantoprazole Sodium [Protonix] 40 mg PO DAILY #30 tablet. 10/16/15 12/05/17 Rx amLODIPine [Norvasc] 5 mg PO DAILY #7 tab 08/29/16 12/05/17 Rx Atorvastatin Calcium 10 mg PO HS 08/31/16 12/05/17 History Rivaroxaban [Xarelto] 20 mg PO AC-LUNCH 08/31/16 12/05/17 History Fluticasone/Salmeterol [Advair 1 puff INHALATION RT-BID 10/21/17 12/05/17 History 250-50 Diskus] Loratadine [Claritin] 10 mg PO DAILY 10/21/17 12/05/17 History Flecainide [Tambocor] 50 mg PO Q12HR #60 tab 10/24/17 12/05/17 Rx Nitroglycerin Sl Tabs [Nitrostat] 0.4 mg SUBLINGUAL Q5M PRN #20 tab 10/24/1707/15 Rx Verapamil [Isoptin] 80 mg PO DIRECTED 12/05/17 12/05/17 History Allergies Allergy/AdvReac Type Severity Reaction Status Date / Time No Known Allergies Allergy Verified 12/05/17 10:58 Physical Exam Vitals: Vital Signs Temp Pulse Pulse Resp BP BP BP 12/06/17 11:32 97.5 F L 92 18 139/66 12/06/17 08:29 96.6 F L 92 18 144/93 12/06/17 04:00 66 18 123/69 12/05/17 23:23 108 H 18 12/05/17 23:20 97.2 F L 108 H 18 117/75 12/05/17 20:00 105 H 18 12/05/17 19:45 97.9 F 105 H 18 130/69 12/05/17 18:04 97.5 F L 89 18 148/94 12/05/17 17:46 96.7 F L 106 H 18 125/87 12/05/17 17:00 104 H 18 12/05/17 16:00 98 F 83 18 137/86 12/05/17 15:00 110 H 18 146/83 12/05/17 14:01 96.9 F L 78 115/66 123/91 12/05/17 14:00 112 H 18 12/05/17 13:51 96.9 F L 104 H 18 123/85 12/05/17 13:32 97.1 F L 108 H 18 136/79 BP Pulse Ox 12/06/17 11:32 96 12/06/17 08:29 95 12/06/17 04:00 95 12/05/17 23:23 12/05/17 23:20 96 12/05/17 20:00 12/05/17 19:45 96 12/05/17 18:04 96 12/05/17 17:46 96 12/05/17 17:00 99 12/05/17 16:00 96 12/05/17 15:00 96 12/05/17 14:01 124/81 98 12/05/17 14:00 12/05/17 13:51 100 12/05/17 13:32 95 Intake and Output 12/05/17 12/06/17 12/06/17 22:59 06:59 14:59 Intake Total 10 Balance 10 Intake: Amount of Fluid Infused ( 10 ml) Other: Voiding Method Toilet Toilet # Voids 2 Weight 112.2 kg PHYSICAL EXAMINATION: HEENT: Head is atraumatic, normocephalic. Pupils equal, round. Neck is supple. There is no elevated jugular venous pressure. HEART EXAMINATION: Heart S1 and S2 irregularly irregular CHEST EXAMINATION: Lungs are clear to auscultation and precussion. No chest wall tenderness is noted on palpation or with deep breathing. ABDOMEN: Soft, nontender. Bowel sounds are heard. No organomegaly noted. EXTREMITIES: 2+ peripheral pulses with no evidence of peripheral edema and no calf tenderness noted. NEUROLOGIC patient is awake, alert and oriented -3. . Results 12/06/17 06:05 12/06/17 06:05 Cardiac Enzymes 12/05/17 12/05/17 12/05/17 Range/Units 10:20 10:20 16:12 AST 26 (17-59) U/L CK-MB (CK-2) 0.5 0.5 (0.0-2.4) ng/mL Troponin I <0.012 <0.012 (0.000-0.034) ng/mL 12/05/17 Range/Units 22:07 AST (17-59) U/L CK-MB (CK-2) 0.5 (0.0-2.4) ng/mL Troponin I <0.012 (0.000-0.034) ng/mL Coagulation 12/05/17 Range/Units 10:20 PT 11.9 (9.0-12.0) sec APTT 26.2 (22.0-30.0) sec Lipids 12/06/17 Range/Units 06:05 Triglycerides 116 (<150) mg/dL Cholesterol 129 (<200) mg/dL HDL Cholesterol 32 L (40-60) mg/dL CBC 12/06/17 Range/Units 06:05 WBC 7.6 (3.8-10.6) k/uL RBC 5.05 (4.30-5.90) m/uL Hgb 14.4 (13.0-17.5) gm/dL Hct 43.5 (39.0-53.0) % Plt Count 240 (150-450) k/uL Comprehensive Metabolic Panel 12/05/17 12/06/17 Range/Units 10:20 06:05 Sodium 142 142 (137-145) mmol/L Potassium 4.1 4.1 (3.5-5.1) mmol/L Chloride 106 104 (98-107) mmol/L Carbon Dioxide 25 28 (22-30) mmol/L BUN 18 16 (9-20) mg/dL Creatinine 1.00 1.10 (0.66-1.25) mg/dL Glucose 108 H 97 (74-99) mg/dL Calcium 9.3 9.6 (8.4-10.2) mg/dL AST 26 (17-59) U/L ALT 40 (21-72) U/L Alkaline Phosphatase 84 (38-126) U/L Total Protein 6.6 (6.3-8.2) g/dL Albumin 3.6 (3.5-5.0) g/dL Current Medications Generic Name Dose Route Start Last Admin Trade Name Freq PRN Reason Stop Dose Admin Amlodipine Besylate 5 mg 12/06/17 09:00 12/06/17 08:29 Norvasc PO 5 mg DAILY [facility] Administration Aspirin 325 mg 12/06/17 09:00 12/06/17 08:36 Aspirin PO Not Given DAILY [facility] Atorvastatin Calcium 10 mg 12/05/17 21:00 12/05/17 20:02 Lipitor PO 10 mg HS [facility] Administration Budesonide/Formoterol Fumarate 2 puff 12/05/17 20:00 12/06/17 10:53 Symbicort 80-4.5 Mcg Inhaler INHALATION Not Given RT-BID [facility] Flecainide Acetate 50 mg 12/05/17 21:00 12/06/17 08:30 Tambocor PO 50 mg Q12HR [facility] Administration Loratadine 10 mg 12/06/17 09:00 12/06/17 08:29 Claritin PO 10 mg DAILY [facility] Administration Montelukast Sodium 10 mg 12/05/17 21:00 12/05/17 20:02 Singulair PO 10 mg HS [facility] Administration Naloxone HCl 0.2 mg 12/05/17 18:18 Narcan IV Q2M PRN Opioid Reversal Nitroglycerin 0.4 mg 12/05/17 18:15 Nitrostat SUBLINGUAL Q5M PRN Chest Pain Pantoprazole Sodium 40 mg 12/06/17 06:30 12/06/17 06:05 Protonix PO 40 mg DAILY@0630 [facility] Administration Rivaroxaban 20 mg 12/06/17 12:30 Xarelto PO AC-LUNCH [facility] Tamsulosin HCl 0.4 mg 12/05/17 21:00 12/05/17 20:02 Flomax PO 0.4 mg HS [facility] Administration Verapamil HCl 40 mg 12/05/17 21:00 12/06/17 08:29 Isoptin PO 40 mg BID [facility] Administration Intake and Output 12/05/17 12/06/17 12/06/17 22:59 06:59 14:59 Intake Total 10 Balance 10 Intake: Amount of Fluid Infused ( 10 ml) Other: Voiding Method Toilet Toilet # Voids 2 Weight 112.2 kg 12/06/17 06:05 12/06/17 06:05 EKG Interpretations (text) EKG shows atrial fibrillation with moderately rapid ventricular response Assessment and Plan Plan: Assessment and plan #1 atrial fibrillation, paroxysmal. Patient remains in atrial fibrillation this morning, rate under control. #2 near syncope, likely secondary to orthostatic hypotension. Blood pressure today is normal, no orthostatics documented. #3 hypertension #4 mild hyperlipidemia #5 paroxysmal A. fib, patient scheduled for A. fib ablation and possible pulmonary vein isolation next Tuesday #6 mild asthma Plan We will discontinue the Norvasc, continue verapamil 40 mg one tablet by mouth twice a day along with the patient's other home medications. From cardiology's perspective he may be able to be discharged. DNP note has been reviewed, I agree with a documented findings and plan of care. Patient was seen and examined.
[2017-12-06] MEDS ORDERED: RIVAROXABAN 10 MG TAB PO SCH (12:30)
--- NOTE | 2017-12-06 20:47 | P.DS ---
Providers Date of admission: 12/05/17 12:27 Expected date of discharge: 12/06/17 Attending physician: Alfredo Godinez Consults: 12/05/17 12:27 Consult Physician Urgent Consulting Provider: [facility] Consult Reason/Comments: A. fib with rapid ventricular response, near syncope Do you want consulting provider notified?: Already Contacted Primary care physician: [facility] Course: FINAL DIAGNOSES: -Paroxysmal Atrial flutter fibrillation, in a patient who has a history of dysrhythmia, on Xarelto -Essential hypertension. -Hyperlipidemia. -Benign prostatic hypertrophy. -Obesity body mass index 35.2 HOSPTIAL COURSE: 67-year-old male who presented to the emergency department with atrial fibrillation and had an episode where he felt as though he was going to black out. Prior to admission patient received a dose of verapamil to try and get his heart rate under control from Dr. Barry. Patient experienced his episode of syncope and was directed to come to the emergency department. Home medications were ordered cardiology consulted, medications adjusted. Patient had no further episodes of passing out in atrial fibrillation under control, tolerating his diet ambulatory in the room and [address]. Consultants agree patient is stable for discharge. PHYSICAL EXAM: CARDIOVASCULAR: Irregular rhythm, rate controlled, no edema RESPIRATORY: Respiratory effort normal lung sounds clear to auscultation bilaterally. GI: Abdomen soft nontender liver and spleen not palpable. PSYCHIATRY: Alert and oriented 3 mood and affect normal. Patient was seen and examined by nurse practitioner Laxmi Kothari in all elements of the case discussed with attending Dr. Godinez DISPOSITION: Discharge home Plan - Discharge Summary Discharge Rx Participant: Yes New Discharge Prescriptions: New Verapamil [Isoptin] 40 mg PO BID tab Continue Montelukast [Singulair] 10 mg PO HS Tamsulosin HCl [Flomax] 0.4 mg PO HS Pantoprazole Sodium [Protonix] 40 mg PO DAILY #30 tablet. Rivaroxaban [Xarelto] 20 mg PO AC-LUNCH Atorvastatin Calcium 10 mg PO HS Loratadine [Claritin] 10 mg PO DAILY Fluticasone/Salmeterol [Advair 250-50 Diskus] 1 puff INHALATION RT-BID Flecainide [Tambocor] 50 mg PO Q12HR #60 tab Discontinued amLODIPine [Norvasc] 5 mg PO DAILY #7 tab Nitroglycerin Sl Tabs [Nitrostat] 0.4 mg SUBLINGUAL Q5M PRN #20 tab PRN Reason: Chest Pain Verapamil [Isoptin] 80 mg PO DIRECTED Discharge Medication List Montelukast [Singulair] 10 mg PO HS 08/26/15 [History] Tamsulosin HCl [Flomax] 0.4 mg PO HS 08/26/15 [History] Pantoprazole Sodium [Protonix] 40 mg PO DAILY #30 tablet. 10/16/15 [Rx] Atorvastatin Calcium 10 mg PO HS 08/31/16 [History] Rivaroxaban [Xarelto] 20 mg PO AC-LUNCH 08/31/16 [History] Fluticasone/Salmeterol [Advair 250-50 Diskus] 1 puff INHALATION RT-BID 10/21/17 [History] Loratadine [Claritin] 10 mg PO DAILY 10/21/17 [History] Flecainide [Tambocor] 50 mg PO Q12HR #60 tab 10/24/17 [Rx] Verapamil [Isoptin] 40 mg PO BID tab 12/06/17 [Rx] Follow up Appointment(s)/Referral(s): Bronson Suh MD [REFERRING] - 12/13/17 Alisia Fernandes MD [STAFF PHYSICIAN] - 1 Week (Office will call with appointment time.) Johann Rubalcava MD [Primary Care Provider] - 1-2 days (Please call office to make an appointment) Patient Instructions/Handouts: A-fib (Atrial Fibrillation) (DC), Heart Healthy Diet (DC) Activity/Diet/Wound Care/Special Instructions: Heart Healthy diet Discharge Disposition: HOME SELF-CARE
--- NOTE | 2017-12-06 21:14 | HP ---
HISTORY AND PHYSICAL DATE OF ADMISSION: 12/05/17 DATE OF SERVICE: 12/05/17. ATTENDING NOTE: This patient is seen examined by me on yesterday 12/05/17. HISTORY OF PRESENT ILLNESS: This is a patient who follows with Dr. Rubalcava and Dr. Katz. The patient presented after noticed his pulse to be racing high and the patient already taking flecainide. The patient's dose of verapamil was an increased by Dr. Katz. Next morning patient then nearly passed out, and then patient was brought in. Patient presented to the ER. EKG did showed atrial fibrillation and Cardiology was consulted. EXAMINATION: HEART: Sounds irregular. LUNGS: Clear. White count 7.2, hemoglobin 14.8 potassium 4.1. TSH normal. Troponin negative. ASSESSMENT: 1. Persistent atrial flutter fibrillation with rapid ventricular rate with episode of syncope. 2. Essential hypertension. 3. Hyperlipidemia. 4. Benign prostatic hypertrophy. 5. Obesity BMI 35.2. PLAN: Cardiology was consulted along with Dr. Katz. We will await their input. Care was discussed with the patient. MMODL / IJN: [id number] /
== END 2017-12-06 12:31 | disposition home or self-care (01) ==
LOC: EC 10:03 → 6SEL 12:27 → INTOOBSV 12:27 → 6SEL 17:32
PROVIDERS: ADMIT Hospitalist; ATTEND Hospitalist
DX: I48.0 Paroxysmal atrial fibrillation (principal); I10 Essential (primary) hypertension; R55 Syncope and collapse; E78.5 Hyperlipidemia, unspecified; Z79.01 Long term (current) use of anticoagulants; N40.0 Benign prostatic hyperplasia without lower urinary tract symptoms; Z68.35 Body mass index [BMI] 35.0-35.9, adult; E66.9 Obesity, unspecified; I48.92 Unspecified atrial flutter; I48.1 Persistent atrial fibrillation; J45.909 Unspecified asthma, uncomplicated; Z79.899 Other long term (current) drug therapy; Z82.3 Family history of stroke; M19.90 Unspecified osteoarthritis, unspecified site
CPT/HCPCS: 36415; 71046; 80048; 80053; 80061; 82550; 82553; 83735; 84439; 84443; 84484; 85025; 85379; 85610; 85730; 93005; 94640; 96360; 96361; 99285

== ENCOUNTER 2017-12-13 08:16 | Day surgery (SDC) | payer MEDICARE ==
[2017-12-01 16:34] VITALS: BMI 35.2
[~2017-12-13 08:16] MED LIST changes: -LIDOCAINE 1% 20 ML VIAL (10MG/ML) FOR IV START INTRADERMA PRN; +SODIUM CHLORIDE 0.9% 1,000 ML IV SCH
[2017-12-13] MEDS ORDERED: LIDOCAINE 1% INJ 10MG/ML (20 ML MDV) ONE (10:55)
[2017-12-13] MEDS ORDERED: fentaNYL (PF) 50 MCG/ML 2 ML AMP ONE (10:55)
[2017-12-13] MEDS ORDERED: MIDAZOLAM 2 MG/2 ML VIAL ONE (10:55)
[2017-12-13] MEDS ORDERED: PROPOFOL 10 MG/ML 20 ML VIAL IV ONE (10:55)
[2017-12-13] MEDS ORDERED: HEPARIN SODIUM,PORCINE 10,000 UNIT/ML 1 ML VIAL ONE (10:55)
[2017-12-13] MEDS ORDERED: PROTAMINE SULFATE 10 MG/ML 5 ML VIAL IV ONE (10:55)
[2017-12-13] MEDS ORDERED: ISOPROTERENOL 250 MCG/1.25 ML SYR IV ONE (10:55)
[2017-12-13] MEDS ORDERED: PHENYLEPHRINE-0.9% NACL SYG 1 MG/10 ML SYRINGE ONE (10:55)
[2017-12-13] MEDS ORDERED: SUCCINYLCHOLINE CHLORIDE VIAL 200 MG/10 ML VIAL IV ONE (10:55)
[2017-12-13] MEDS ORDERED: HEPARIN SOD,PORK IN 0.45% NACL 25,000 UNIT in 0.45% NACL 1 500ML.BAG IV ONE (11:55)
[2017-12-13] MEDS ORDERED: LIDOCAINE 2% INJ 20 MG/ML SQ ONE (11:57)
[2017-12-13] MEDS ORDERED: IOHEXOL 350 MG/ML 125ML BOTTLE INJ ONE (14:09)
[2017-12-13] MEDS ORDERED: HYDROcodone/APAP 5-325MG 1 EACH TAB PO PRN (14:27)
[2017-12-13] MEDS ORDERED: ACETAMINOPHEN TAB 325 MG TAB PO PRN (14:27)
--- NOTE | 2017-12-13 14:51 | P.PCN ---
Preoperative Diagnosis: Indication for the procedure Recurrent paroxysmal atrial fibrillation, symptomatic, drug refractory and mild sick sinus syndrome with bradycardia Unable to use higher doses of flecainide for suppression of atrial fibrillation Hospital admission for paroxysmal atrial fibrillation Procedures performed (PVI - CRYO Ablation) Invasive hemodynamic monitoring while general anesthesia, right femoral arterial line for monitoring and sampling Comprehensive diagnostic EP study with attempted arrhythmia induction CS pacing and recording Drug infusion Catheter the mapping of the tachycardia (NOT 3D mapping) Intracardiac echocardiography Pulmonary vein isolation with transseptal and comprehensive EPS, [id number] Procedure details Patient was brought to the EP lab in a fasting state. Written informed consent was obtained prior to the procedure. Procedure performed under general anesthesia After initial muscle relaxant use, muscle relaxants were not given thereafter in order to assess phrenic nerve during procedure Patient prepped and draped as per protocol Full cryo-set up with standard preparation of the cryoablation tools done Femoral Venous access obtained on the right and left groins Sheaths placed Diagnostic catheters for the high right atrium, phrenic nerve stimulation and pacing, His bundle, RV and coronary sinus placed Intracardiac echo catheter placed Long sheath placed in the right atrium Left and right transseptal catheterization performed under intracardiac echo guidance Intravenous heparin with aCT above 300 Later, catheter positioning and balloon positioning under intracardiac echo Baseline measurements Sinus cycle length 1101 him a [place] interval 136 ms, QRS 104 ms, QT 496 ms. Baseline AH interval 67 ms and Baseline HV interval 52 ms Comprehensive diagnostic EP study with drug infusion Atrial pacing performed from the high right atrium and the coronary sinus Sinus recovery times at 600 504 100 ms were 950, 1036 and 1537 ms respectively AV node Wenckebach block to 30 ms no delta waves pathway conduction, pacing the HRA VA Wenckebach block to 90 ms Transseptal catheterization performed RA pressure 22/12/17 LA pressure 34/10/21 Transseptal catheterization performed with standard sheath. The cryoablation sheath was then placed with an over the wire exchange without any acute complications. All 4 pulmonary veins were isolated in the following sequence: Left superior followed by left inferior followed by right superior followed by right inferior The cryo-ablation balloon was placed at the os of each vein 1.5 mL of IV dye was injected to confirm an occluded vein Goal during cryoablation was to achieve -30C in the first 30 seconds. If not the balloon was repositioned to obtain this result After completion of Cryoblation with durations from 180-240 seconds, entrance block was confirmed with the Attain circular catheter in a roving fashion around the antrum of the pulmonary veins Phrenic nerve pacing was performed from the SVC, right innominate vein area and diaphragm voltage was monitored as well as manually Parameter goals for each cryo freeze -30C by 30 seconds -40C by 60 seconds Mediated between minus 40-55 Thaw time greater than 10 seconds Balloon visualized by intracardiac echo to ensure that the proximal one third was within the left atrium/antrum Left superior pulmonary vein A total of 5 minutes of cryoablation with complete entrance and exit block Left inferior pulmonary vein Total of 5 minutes of cryoablation with entrance and exit block Right superior pulmonary vein, during phrenic nerve pacing 4 minutes of cryoablation with complete entrance and exit block Right inferior pulmonary vein, during phrenic nerve pacing 3 minutes followed by 3 minutes of cryoablation, complete isolation with entrance and exit block At the end of the procedure the Achieve catheter was once again used to check for entrance block Phrenic nerve stimulation was performed to confirm diaphragmatic stimulation the end of the procedure Cine fluoroscopy was performed at the very end of the procedure to confirm movement of both diaphragms with inspiration and expiration At the end of the procedure the patient was extubated Heparin was reversed Venous sheaths were removed and hemostasis assured Result Successful pulmonary vein isolation using cryo-ablation Complete entrance block in all 4 veins confirmed No evidence for phrenic nerve injury Anesthesia: GETA Condition: stable Disposition: floor
[2017-12-13] MEDS ORDERED: ACETAMINOPHEN IV (For NPO) 1,000 MG/100 ML VIAL IVPB ONE (15:54)
[2017-12-13] MEDS ORDERED: ACETAMINOPHEN IV (For NPO) 1,000 MG in EMPTY BAG 1 BAG IVPB ONE (18:00)
[2017-12-13] MEDS: SYMBICORT 80-4.5 MCG INHALER INHALATION SCH (19:09)
[2017-12-13] MEDS: FLECAINIDE 50 MG TAB PO SCH (20:12)
[2017-12-13] MEDS ORDERED: ATORVASTATIN 10 MG TAB PO SCH (21:00)
[2017-12-13] MEDS ORDERED: TAMSULOSIN 0.4 MG CAP.ER.24H PO SCH (21:00)
[2017-12-13] MEDS ORDERED: MONTELUKAST 10 MG TAB PO SCH (21:00)
[2017-12-14 04:14] VITALS: RESP 18
--- NOTE | 2017-12-14 08:18 | P.DS ---
Providers Attending physician: Chriss Katz Primary care physician: [facility] Course: Patient is doing well. No chest discomfort no breathing trouble cough. He has a slight sore throat. Because of feeling well minimal pain/tenderness On examination ulcer disease in the 60s sinus rhythm afebrile 98.7F blood pressure 119/81 mmHg normal respirations Breath sounds are clear no rhonchi no crackles Heart sounds S1-S2 normal no murmurs or gallops Abdomen soft nontender Extent is warm edema present. Well-known hematoma no tenderness Impression Paroxysmal atrial fibrillation, symptomatic sick sinus syndrome Plan Discharge home by [address] Fernandes. No changes in medications. Continue anticoagulation Patient Condition at Discharge: Stable Plan - Discharge Summary Discharge Rx Participant: Yes New Discharge Prescriptions: Continue Montelukast [Singulair] 10 mg PO HS Tamsulosin HCl [Flomax] 0.4 mg PO HS Pantoprazole Sodium [Protonix] 40 mg PO DAILY #30 tablet. Rivaroxaban [Xarelto] 20 mg PO AC-LUNCH Atorvastatin Calcium 10 mg PO HS Loratadine [Claritin] 10 mg PO DAILY Fluticasone/Salmeterol [Advair 250-50 Diskus] 1 puff INHALATION RT-BID Flecainide [Tambocor] 50 mg PO Q12HR #60 tab Verapamil [Isoptin] 40 mg PO BID tab Discharge Medication List Montelukast [Singulair] 10 mg PO HS 08/26/15 [History] Tamsulosin HCl [Flomax] 0.4 mg PO HS 08/26/15 [History] Pantoprazole Sodium [Protonix] 40 mg PO DAILY #30 tablet. 10/16/15 [Rx] Atorvastatin Calcium 10 mg PO HS 08/31/16 [History] Rivaroxaban [Xarelto] 20 mg PO AC-LUNCH 08/31/16 [History] Fluticasone/Salmeterol [Advair 250-50 Diskus] 1 puff INHALATION RT-BID 10/21/17 [History] Loratadine [Claritin] 10 mg PO DAILY 10/21/17 [History] Flecainide [Tambocor] 50 mg PO Q12HR #60 tab 10/24/17 [Rx] Verapamil [Isoptin] 40 mg PO BID tab 12/06/17 [Rx] Follow up Appointment(s)/Referral(s): Alisia Fernandes MD [STAFF PHYSICIAN] - 1 Week Patient Instructions/Handouts: Electrophysiology Study (DC) Activity/Diet/Wound Care/Special Instructions: Post EP study - Ablation instructions 1. Keep access sites dry for 2 days. 2. No heavy lifting or straining for 2 days. 3. Avoid bending the hips repeatedly for 2 days. 4. You may go up and down stairs slowly Call if the following is noted 1. Bleeding, increasing swelling or pain at the access sites. 2. Increasing chest discomfort, especially upon taking a deep breath. 3. Increasing shortness of breath, at rest or with exertion. 4. Undue cough / phlegm 5. Difficulty or pain while swallowing. 6. Pain or change in color in the extremities. 7. Fever, chills, rigors. 8. Increasing headache or neurologic symptoms. 9. Dizziness, fainting, palpitations Follow Dr. Fernandes in 2 weeks Continue all home medications as before including verapamil short-acting 40 mg twice daily Continue home medications unchanged Continue anticoagulation Discharge Disposition: HOME SELF-CARE
[2017-12-14] MEDS: FLECAINIDE 50 MG TAB PO SCH (08:39)
[2017-12-14] MEDS: SYMBICORT 80-4.5 MCG INHALER INHALATION SCH (08:47)
[2017-12-14] MEDS ORDERED: VERAPAMIL 40 MG TAB PO SCH (09:00)
[2017-12-14] MEDS ORDERED: PANTOPRAZOLE 40 MG TABLET PO SCH (09:00)
[2017-12-14 11:47] VITALS: BP 140/88; PULSE 65; TEMP 97.6
[2017-12-14] MEDS ORDERED: RIVAROXABAN 10 MG TAB PO SCH (12:30)
== END 2017-12-14 15:16 | disposition home or self-care (01) ==
LOC: CATHEP 08:16 → 3OBS 17:07 → CATHEP 12-14 15:16
PROVIDERS: ATTEND Internal Medicine Clinical Cardiac Electrophysiology
DX: I48.0 Paroxysmal atrial fibrillation (principal); Z79.01 Long term (current) use of anticoagulants; I49.5 Sick sinus syndrome; I10 Essential (primary) hypertension; E78.00 Pure hypercholesterolemia, unspecified; J45.20 Mild intermittent asthma, uncomplicated; N40.0 Benign prostatic hyperplasia without lower urinary tract symptoms; Z79.51 Long term (current) use of inhaled steroids; Z79.899 Other long term (current) drug therapy
CPT/HCPCS: 94640 ×2; 85347; 93662; 93609; 93656; C1894 ×3; C1769 ×4; C1730 ×2; C1759; C1893; C1733; C1766; J2001; J1644; J0131; Q9967

== ENCOUNTER → 2018-02-15 | Outpatient (CLI) | payer MEDICARE ==
--- NOTE | 2018-02-15 16:51 | XR ---
EXAMINATION TYPE: XR chest 2V DATE OF EXAM: 02/15/2018 COMPARISON: Prior chest 12/05/2017 HISTORY: Chronic cough TECHNIQUE: Frontal and lateral views of the chest are obtained. FINDINGS: Patient is rotated. Heart remains enlarged. No pneumothorax or pleural effusion evident. P ulmonary vascularity and brittnee are stable. Surgical clips again noted in the upper abdomen. Suspect in terval airspace disease in the right lower lobe. IMPRESSION: Findings may represent right lower lobe pneumonia. Persistent cardiomegaly. Follow-up t o resolution. Results relayed to the office of the referring clinician at the time of interpretation at exam telephonically.
--- NOTE | 2018-02-15 16:52 | XR ---
Soft tissue neck HISTORY: Chronic cough 2 views of the neck Cervical vertebral bodies show preserved height, alignment, and bone mineralization. Prevertebral sof t tissues are normal. Airway is patent. No radiopaque foreign body. Epiglottis shows normal appearanc e in profile. IMPRESSION: No significant abnormalities evident.
== END | disposition home or self-care (01) ==
LOC: RADXRMAIN 13:41
PROVIDERS: ATTEND Pediatrics
DX: I51.7 Cardiomegaly (principal)
CPT/HCPCS: 70360; 71046

== ENCOUNTER → 2018-03-06 | Outpatient (CLI) | payer MEDICARE ==
--- NOTE | 2018-03-06 14:29 | XR ---
EXAMINATION TYPE: XR chest 2V DATE OF EXAM: 03/06/2018 COMPARISON: 02/15/2018 TECHNIQUE: PA and lateral views submitted. HISTORY: Chronic cough FINDINGS: The lungs are clear and there is no pneumothorax, pleural effusion, or focal pneumonia. Hypertrophi c and degenerative change of the spine. Surgical clips in the abdomen. IMPRESSION: 1. No acute process.
== END | disposition home or self-care (01) ==
LOC: RADXRMAIN 14:15
PROVIDERS: ATTEND Pediatrics
DX: R05 Cough (principal)
CPT/HCPCS: 71046

== ENCOUNTER 2018-03-25 16:33 | Emergency (ER) | payer MEDICARE ==
[2018-03-25 16:45] VITALS: RESP 18
--- NOTE | 2018-03-25 17:28 | ED ---
Lower Extremity Injury HPI - General Chief Complaint: Extremity Injury, Lower Stated Complaint: Leg injury Time Seen by Provider: 03/25/18 16:46 Source: patient Mode of arrival: ambulatory Limitations: no limitations - History of Present Illness Initial Comments: Patient is a 67-year-old male that presents for left leg injury. He states that he is currently on Zaroxolyn for atrial fibrillation and that last week he was hit with a softball on his condition again. Since that time, he has had bruising as well as swelling of the left leg with some mild pain. He states that the pain has been fairly consistent and swelling decreasing. He has also been putting ice on it and wrapping the leg. He states that there is some discomfort that is intermittent but worse with movement. - Related Data Home Medications Medication Instructions Recorded Confirmed Montelukast [Singulair] 10 mg PO HS 08/26/15 12/05/17 Tamsulosin HCl [Flomax] 0.4 mg PO HS 08/26/15 12/05/17 Atorvastatin Calcium 10 mg PO HS 08/31/16 12/05/17 Rivaroxaban [Xarelto] 20 mg PO AC-LUNCH 08/31/16 12/05/17 Fluticasone/Salmeterol [Advair 1 puff INHALATION RT-BID 10/21/17 12/05/17 250-50 Diskus] Loratadine [Claritin] 10 mg PO DAILY 10/21/17 12/05/17 Previous Rx's Medication Instructions Recorded Pantoprazole Sodium [Protonix] 40 mg PO DAILY #30 tablet. 10/16/15 Flecainide [Tambocor] 50 mg PO Q12HR #60 tab 10/24/17 Verapamil [Isoptin] 40 mg PO BID tab 12/06/17 Allergies Allergy/AdvReac Type Severity Reaction Status Date / Time No Known Allergies Allergy Verified 12/05/17 10:58 Review of Systems ROS Statement: Those systems with pertinent positive or pertinent negative responses have been documented in the HPI. Constitutional: Negative for chills, fatigue and fever. HENT: Negative for congestion. Respiratory: Negative for chest tightness, shortness of breath and wheezing. Negative for cough Cardiovascular: Negative for chest pain and palpitations. Gastrointestinal: Negative for abdominal pain. Negative for abdominal distention , diarrhea, nausea and vomiting. Genitourinary: Negative for dysuria. Musculoskeletal: Negative for back pain, neck pain and neck stiffness. Positive for swelling of the left calf and pain in the left calf Skin: Positive for ecchymosis of the left lower leg Neurological: Negative for dizziness, speech difficulty, weakness and light- headedness. Psychiatric/Behavioral: Negative for agitation and confusion. The patient is not nervous/anxious. ROS Other: All systems not noted in ROS Statement are negative. Past Medical History Past Medical History: Atrial Fibrillation, Chest Pain / Angina, Hypertension, Osteoarthritis (OA), Prostate Disorder Additional Past Medical History / Comment(s): BPH, bilateral astigmatism. History of Any Multi-Drug Resistant Organisms: None Reported Past Surgical History: Appendectomy, Cholecystectomy Additional Past Surgical History / Comment(s): Cardioversion 09/2015 at [facility]-unsuccessful, Colonscopy. annita cataract surgery ablation 2017 Past Anesthesia/Blood Transfusion Reactions: No Reported Reaction Past Psychological History: No Psychological Hx Reported Smoking Status: Never smoker Past Alcohol Use History: None Reported Past Drug Use History: None Reported - Past Family History Father History Unknown: Yes Family Medical History: CVA/TIA Additional Family Medical History / Comment(s): Father had a CVA. He lived to be 75 yrs. old. Mother History Unknown: Yes Family Medical History: CVA/TIA Additional Family Medical History / Comment(s): Mother had a CVA x 2. He lived to be 82 yrs old. General Exam - General Exam Comments Initial Comments: Constitutional: Pt is oriented to person, place, and time. Pt appears well- developed and well-nourished. No distress. HENT: Head: Normocephalic and atraumatic. Eyes: EOM are normal. Neck: Normal range of motion. Neck supple. Cardiovascular: Normal rate, regular rhythm, S1 normal, S2 normal and normal heart sounds. Exam reveals no gallop and no friction rub. No murmur heard. 2+ DP and PT pulses of the left foot Pulmonary/Chest: Effort normal and breath sounds normal. No tachypnea and no bradypnea. No respiratory distress. No wheezes or rales noted. Abdominal: Soft. Bowel sounds are normal. Pt exhibits no shifting dullness, no distension, no pulsatile liver, no fluid wave, no abdominal bruit and no ascites. There is no tenderness. There is no rigidity, no rebound, no guarding, no tenderness at McBurney's point and negative Cottrell's sign. Musculoskeletal: Normal range of motion. There is no significant tenderness to palpation of the left leg. There is mild swelling of the left calf compared to the right. There is ecchymosis with no obvious cellulitis on the anterior aspect of the calf as well as the anterior aspect of the left ankle. Neurological: Pt is alert and oriented to person, place, and time. No cranial nerve deficit. Skin: Skin is warm and dry. No rash noted. Pt is not diaphoretic. No erythema. No pallor. Psychiatric: Pt has a normal mood and affect. Pt behavior is normal. Thought content normal. Limitations: no limitations Course Vital Signs 03/25/18 16:41 Temperature 97.0 F L Pulse Rate 68 Respiratory 18 Rate Blood Pressure 145/81 O2 Sat by Pulse 96 Oximetry Medical Decision Making - Medical Decision Making Laboratory studies revealed that hemoglobin was stable. Also based on physical exam, this does not appear to be compartment syndrome as there is good pulses in the foot and calf have good coloration. However, patient was advised to return to emergency department if there are significant changes in the appearance of the leg and or if the pain became worse. Lower show any Doppler was performed and showed no evidence of DVT as well. Additionally, the patient was advised to follow-up with his PCP on Tuesday. Patient and are agreeable plan. - Lab Data Result diagrams: 03/25/18 17:29 Lab Results 03/25/18 03/25/18 Range/Units 17:29 17:29 WBC 7.9 (3.8-10.6) k/uL RBC 4.55 (4.30-5.90) m/uL Hgb 12.8 L (13.0-17.5) gm/dL Hct 38.4 L (39.0-53.0) % MCV 84.5 (80.0-100.0) fL MCH 28.1 (25.0-35.0) pg MCHC 33.3 (31.0-37.0) g/dL RDW 13.9 (11.5-15.5) % Plt Count 223 (150-450) k/uL Neutrophils % 58 % Lymphocytes % 30 % Monocytes % 8 % Eosinophils % 3 % Basophils % 0 % Neutrophils # 4.6 (1.3-7.7) k/uL Lymphocytes # 2.3 (1.0-4.8) k/uL Monocytes # 0.6 (0-1.0) k/uL Eosinophils # 0.2 (0-0.7) k/uL Basophils # 0.0 (0-0.2) k/uL PT 10.4 (9.0-12.0) sec INR 1.1 (<1.2) APTT 26.1 (22.0-30.0) sec Disposition Clinical Impression: Leg hematoma Disposition: HOME SELF-CARE Condition: Good Instructions: Hematoma (ED) Is patient prescribed a controlled substance at d/c from ED?: No Referrals: Johann Rubalcava MD [Primary Care Provider] - 1-2 days Time of Disposition: 19:13
[2018-03-25 17:39] LABS: Basophils % (A) 0 %; Eosinophils # (A) 0.2 k/uL (0-0.7); Eosinophils % (A) 3 %; HCT 38.4 % (39.0-53.0); HGB 12.8 gm/dL (13.0-17.5); Lymphocytes # (A) 2.3 k/uL (1.0-4.8); Lymphocytes % (A) 30 %; MCH 28.1 pg (25.0-35.0); MCHC 33.3 g/dL (31.0-37.0); MCV 84.5 fL (80.0-100.0); Mean Platelet Volume 7.7; Monocytes # (A) 0.6 k/uL (0-1.0); Monocytes % (A) 8 %; Neutrophils # (A) 4.6 k/uL (1.3-7.7); Neutrophils % (A) 58 %; Platelet Count 223 k/uL (150-450); RBC 4.55 m/uL (4.30-5.90); RDW 13.9 % (11.5-15.5); WBC 7.9 k/uL (3.8-10.6)
[2018-03-25 17:49] LABS: INR 1.1 (<1.2); Partial Thromboplastin Time 26.1 sec (22.0-30.0); Prothrombin Time 10.4 sec (9.0-12.0)
--- NOTE | 2018-03-25 19:06 | US ---
EXAMINATION TYPE: US venous doppler duplex LE LT DATE OF EXAM: 03/25/2018 6:58 PM COMPARISON: NONE CLINICAL HISTORY: 67-year-old male Pain. Left lower leg pain following hit by softball 1 week ago, horace tient on blood thinners SIDE PERFORMED: Left TECHNIQUE: The lower extremity deep venous system is examined utilizing real time linear array sonog adi with graded compression, doppler sonography and color-flow sonography. FINDINGS: VESSELS IMAGED: External Iliac Vein (EIV) Common Femoral Vein Deep Femoral Vein Greater Saphenous Vein * Femoral Vein Popliteal Vein Small Saphenous Vein * Proximal Calf Veins (* superficial vessels) Left Leg: Appears negative for DVT IMPRESSION: No evidence for DVT within the left lower extremity imaged from the groin to the upper calf.
[2018-03-25 19:26] VITALS: BP 130/81; PULSE 56; TEMP 98.4
== END 2018-03-25 19:26 | disposition home or self-care (01) ==
LOC: EC 16:33
DX: S80.12XA Contusion of left lower leg, initial encounter (principal); S90.02XA Contusion of left ankle, initial encounter; M79.89 Other specified soft tissue disorders; I48.91 Unspecified atrial fibrillation; I10 Essential (primary) hypertension; N40.0 Benign prostatic hyperplasia without lower urinary tract symptoms; Z79.01 Long term (current) use of anticoagulants; Z79.51 Long term (current) use of inhaled steroids; Z79.899 Other long term (current) drug therapy; W21.07XA Struck by softball, initial encounter; Y92.89 Other specified places as the place of occurrence of the external cause
CPT/HCPCS: 36415; 85025; 85610; 85730; 99284

== ENCOUNTER → 2018-04-10 | Outpatient (CLI) | payer MEDICARE ==
--- NOTE | 2018-04-10 08:11 | CT ---
EXAMINATION TYPE: CT sinus wo con DATE OF EXAM: 04/10/2018 COMPARISON: NONE HISTORY: Chronic sinusitis CT DLP: 583 mGycm. Automated Exposure Control for Dose Reduction was Utilized. TECHNIQUE: CT scan of the sinuses is performed without contrast, axial images are obtained, coronal r eformatted images are also reviewed. FINDINGS: There is very mild mucosal thickening involving the ethmoid air cells and maxillary antrum. No air-fluid levels. The ostiomeatal complex is patent bilaterally on the coronal images. Visualized portion of mastoid air cells show no abnormal opacification. The globes are intact bilate rally. IMPRESSION: 1. Findings suggest mild chronic sinusitis.
== END | disposition home or self-care (01) ==
LOC: RADCTMAIN 06:56
PROVIDERS: ATTEND Otolaryngology
DX: J32.9 Chronic sinusitis, unspecified (principal)
CPT/HCPCS: 70486

== ENCOUNTER 2018-04-21 13:08 | Day surgery (SDC) | payer MEDICARE ==
--- NOTE | 2018-04-21 12:27 | HP ---
HISTORY AND PHYSICAL This is a 67-year-old gentleman with a known history of paroxysmal symptomatic atrial fibrillation, hypertension, hyperlipidemia, who underwent radiofrequency ablation performed by Dr. Katz on December 13. He had a cryoablation performed 2 days later, developed atrial tachycardia requiring cardioversion. For the last 2 days he has been having symptoms of palpitations and I saw him here in the office today. He has atrial flutter/atrial fibrillation at the rate of about 120 beats per minute and patient is symptomatic with some dizziness. He did have his meal today. I have advised him to proceed with electrical cardioversion after another 6 hours or so. I explained to him the rationale, risks, benefits, and options. The EKG suggests atrial flutter with a 3:1 block with a rate of about 115. Right bundle branch block pattern is noted. The patient will have electrical cardioversion. I explained to him the rationale, risks, benefits, and options. He understands and wishes to proceed. He also additionally has hypertension which is under decent control. At the time of my evaluation, he is feeling well, but appears to have symptoms when he ambulates. He is on Xarelto 20 mg daily with which he has been very faithful. I am advising electrical cardioversion to be performed and patient understands risks, benefits, options and wishes to proceed. PAST MEDICAL HISTORY: 1. Paroxysmal persistent atrial fibrillation with status post pulmonary vein isolation and electrical cardioversion for atrial tachycardia performed in November. 2. Hypertension. 3. Hyperlipidemia. 4. Patient had a stress echo in August 2016, which was normal and a carotid Doppler that was unremarkable also. PHYSICAL EXAMINATION: On examination, blood pressure is 140/70, pulse rate is about 120, irregular. HEENT: Unremarkable. Fundus was not examined by me. Neck is supple. There is no JVD. I do not hear a carotid bruit. There is no thyromegaly. Heart exam reveals S1, S2 heard normally with tachycardia and some irregularity. No significant murmurs. Lungs reveal bilateral decent air entry. Abdomen is soft, nontender. Lower extremities reveal diminished pulses. Central nervous system is normal. IMPRESSION: 1. Paroxysmal persistent atrial flutter fibrillation syndrome, status post previous pulmonary vein isolation. 2. Hypertension. 3. Hyperlipidemia. RECOMMENDATION: I am recommending that we continue current medications, while I will increase the flecainide to 100 mg b.i.d. and we will proceed with electrical cardioversion today. Patient is well anticoagulated and he will be kept n.p.o. Discussed my thoughts in detail with the patient and he understands and wishes to proceed with the procedure. DAQUAN / BHAVIN: [id number] / MTDD
[2018-04-21] MEDS ORDERED: SODIUM CHLORIDE 0.9% 500 ML IV ONE (13:30)
[2018-04-21 13:39] VITALS: TEMP 98.7
[2018-04-21] MEDS ORDERED: PROPOFOL 10 MG/ML 20 ML VIAL IV ONE (13:50)
[2018-04-21 14:01] LABS: Anion Gap 14 mmol/L; Blood Urea Nitrogen 23 mg/dL (9-20); Calcium 9.4 mg/dL (8.4-10.2); Carbon Dioxide 22 mmol/L (22-30); Chloride 110 mmol/L (98-107); Glucose 90 mg/dL (74-99); Potassium 4.2 mmol/L (3.5-5.1); Sodium 146 mmol/L (137-145)
--- NOTE | 2018-04-21 14:45 | CE ---
CARDIAC ELECTROPHYSIOLOGY REPORT DATE OF SERVICE: 04/21/2018 PROCEDURE: Electrical cardioversion. Performed by Dr. Naima Fernandes. CLINICAL INFORMATION: Mr. Dung Sahni is a 67-year-old gentleman with a history of hypertension and paroxysmal symptomatic atrial fib, who underwent a cryoablation performed by Dr. Katz in November. Following 2 days later he had about atrial tachycardia requiring cardioversion. For the last 2-3 days he has been having atrial flutter with a rapid rate. I saw him in the office today and advised cardioversion, rate was in the 120s. Risks, benefits, options and rationale were explained. PROCEDURE NOTE: Under the influence of ultra short-acting intravenous anesthetic agent with the attendance of the anesthesiologist, initially an 100 joule shock was delivered with anterior and posterior patches in a synchronized fashion. Patient converted from atrial flutter to a sustained atrial fibrillation. I then gave an additional shock at 250 joules synchronized and with this he converted to sinus rhythm, remained hemodynamically stable and neurologically intact. This was a successful cardioversion on the second shock. Patient will be discharged around 6 pm after he is up and about, has ambulated and also had some supper. He will be discharged home on flecainide 100 mg b.i.d., verapamil 40 mg b.i.d., and I will see him in the office as scheduled in the next couple of weeks. MMODL / DAMIENN: [id number] /
[2018-04-21 15:22] VITALS: RESP 18
[2018-04-21 16:26] VITALS: BP 125/77; PULSE 82
== END 2018-04-21 17:50 | disposition home or self-care (01) ==
LOC: CATHCVL 13:08
PROVIDERS: ATTEND Internal Medicine Interventional Cardiology
DX: I48.0 Paroxysmal atrial fibrillation (principal); I48.1 Persistent atrial fibrillation; I10 Essential (primary) hypertension; E78.5 Hyperlipidemia, unspecified; J45.909 Unspecified asthma, uncomplicated; N40.0 Benign prostatic hyperplasia without lower urinary tract symptoms; K21.9 Gastro-esophageal reflux disease without esophagitis; Z79.01 Long term (current) use of anticoagulants; Z79.51 Long term (current) use of inhaled steroids; Z79.899 Other long term (current) drug therapy
CPT/HCPCS: 92960; 80048; J2704

== ENCOUNTER 2018-07-13 14:56 | Emergency (ER) | payer MEDICARE ==
[2018-07-13 15:06] VITALS: RESP 16
[2018-07-13] MEDS ORDERED: SODIUM CHLORIDE 0.9% 1,000 ML IV STA (15:34)
[2018-07-13] MEDS ORDERED: SODIUM CHLORIDE 0.9% 500 ML IV STA (15:34)
--- NOTE | 2018-07-13 15:37 | ED ---
Arrhythmia/Palpitations HPI - General Chief Complaint: Arrhythmia/Palpitations Stated Complaint: Cardiac Issues Time Seen by Provider: 07/13/18 15:18 Source: patient, RN notes reviewed Mode of arrival: EMS Limitations: no limitations - History of Present Illness Initial Comments: This is a 68-year-old male with a history of atrial fibrillation who states he had an ablation in November and was cardioverted at the end of March of this year who states he had the onset prior to admission of palpitations and elevated heart rate. He was brought in by EMS he did spontaneously convert and route he had no chest pain source of breath fevers chills nausea vomiting sweats or other symptoms. He states it felt like his typical atrial fibrillation. He has been taking his medications as directed he drinks about 2 cups of coffee per day. Nothing out of the ordinary. He states he has been taking his medications as directed and take the same medication for about 6 months. No other modifying factors at this time MD Complaint: rapid heart beat, irregular heart beat, atrial fibrillation - Related Data Home Medications Medication Instructions Recorded Confirmed Montelukast [Singulair] 10 mg PO HS 08/26/15 07/13/18 Tamsulosin HCl [Flomax] 0.4 mg PO HS 08/26/15 07/13/18 Atorvastatin Calcium 10 mg PO HS 08/31/16 07/13/18 Rivaroxaban [Xarelto] 20 mg PO AC-LUNCH 08/31/16 07/13/18 Fluticasone/Salmeterol [Advair 1 puff INHALATION RT-BID 10/21/17 07/13/18 250-50 Diskus] Loratadine [Claritin] 10 mg PO DAILY 10/21/17 07/13/18 Flecainide [Tambocor] 100 mg PO BID 07/13/18 07/13/18 Fluticasone Nasal [place] [Flonase 1 spray EA NOSTRIL HS 07/13/18 07/13/18 Nasal [place]] Previous Rx's Medication Instructions Recorded Pantoprazole Sodium [Protonix] 40 mg PO DAILY #30 tablet. 10/16/15 Verapamil [Isoptin] 40 mg PO BID tab 12/06/17 Allergies Allergy/AdvReac Type Severity Reaction Status Date / Time No Known Allergies Allergy Verified 07/13/18 15:39 Review of Systems ROS Statement: Those systems with pertinent positive or pertinent negative responses have been documented in the HPI. ROS Other: All systems not noted in ROS Statement are negative. Past Medical History Past Medical History: Atrial Fibrillation, Chest Pain / Angina, Hypertension, Osteoarthritis (OA), Prostate Disorder Additional Past Medical History / Comment(s): BPH, bilateral astigmatism. History of Any Multi-Drug Resistant Organisms: None Reported Past Surgical History: Appendectomy, Cholecystectomy Additional Past Surgical History / Comment(s): Cardioversion 09/2015 at [facility]-unsuccessful, Colonscopy. annita cataract surgery ablation 2018 Past Anesthesia/Blood Transfusion Reactions: No Reported Reaction Past Psychological History: No Psychological Hx Reported Smoking Status: Never smoker Past Alcohol Use History: None Reported Past Drug Use History: None Reported - Past Family History Father History Unknown: Yes Family Medical History: CVA/TIA Additional Family Medical History / Comment(s): Father had a CVA. He lived to be 75 yrs. old. Mother History Unknown: Yes Family Medical History: CVA/TIA Additional Family Medical History / Comment(s): Mother had a CVA x 2. He lived to be 82 yrs old. General Exam - General Exam Comments Initial Comments: This is a well-developed well-nourished awake alert oriented 3 male Limitations: no limitations General appearance: alert, in no apparent distress Head exam: Present: atraumatic, normocephalic, normal inspection Eye exam: Present: normal appearance, PERRL, EOMI. Absent: scleral icterus, conjunctival injection, periorbital swelling ENT exam: Present: normal exam, mucous membranes moist Neck exam: Present: normal inspection. Absent: tenderness, meningismus, lymphadenopathy Respiratory exam: Present: normal lung sounds bilaterally. Absent: respiratory distress, wheezes, rales, rhonchi, stridor Cardiovascular Exam: Present: regular rate, normal rhythm, normal heart sounds. Absent: systolic murmur, diastolic murmur, rubs, gallop, clicks GI/Abdominal exam: Present: soft, normal bowel sounds. Absent: distended, tenderness, guarding, rebound, rigid Extremities exam: Present: normal inspection, full ROM, normal capillary refill. Absent: tenderness, pedal edema, joint swelling, calf tenderness Back exam: Present: normal inspection Neurological exam: Present: alert, oriented X3, CN II-XII intact Psychiatric exam: Present: normal affect, normal mood Skin exam: Present: warm, dry, intact, normal color. Absent: rash Course Vital Signs 07/13/18 07/13/18 07/13/18 15:04 16:37 17:52 Temperature 97.9 F Pulse Rate 83 59 L 56 L Respiratory 16 16 16 Rate Blood Pressure 147/91 133/77 163/87 O2 Sat by Pulse 94 L 97 98 Oximetry EKG Findings - EKG Results: EKG: interpreted by JEWELL, sinus rhythm (As rhythm with first-degree AV block rate was 84. Interval 220 QRS duration 142 QT since QTC 420/505 right bundle- branch block nonspecific T-wave configuration) Medical Decision Making - Medical Decision Making Patient is feeling improved no further episodes A. fib patient did require magnesium as he was at the low end of normal he will be discharged after the infusion he is to follow-up with his doctor return when necessary - Lab Data Result diagrams: 07/13/18 15:22 07/13/18 15:22 Lab Results 07/13/18 07/13/18 07/13/18 Range/Units 15:22 15:22 15:22 WBC 7.4 (3.8-10.6) k/uL RBC 4.98 (4.30-5.90) m/uL Hgb 14.4 (13.0-17.5) gm/dL Hct 42.1 (39.0-53.0) % MCV 84.6 (80.0-100.0) fL MCH 29.0 (25.0-35.0) pg MCHC 34.3 (31.0-37.0) g/dL RDW 13.6 (11.5-15.5) % Plt Count 226 (150-450) k/uL Neutrophils % 66 % Lymphocytes % 24 % Monocytes % 6 % Eosinophils % 3 % Basophils % 0 % Neutrophils # 4.9 (1.3-7.7) k/uL Lymphocytes # 1.8 (1.0-4.8) k/uL Monocytes # 0.5 (0-1.0) k/uL Eosinophils # 0.2 (0-0.7) k/uL Basophils # 0.0 (0-0.2) k/uL PT (9.0-12.0) sec INR (<1.2) APTT (22.0-30.0) sec Sodium 141 (137-145) mmol/L Potassium 4.3 (3.5-5.1) mmol/L Chloride 109 H (98-107) mmol/L Carbon Dioxide 23 (22-30) mmol/L Anion Gap 9 mmol/L BUN 16 (9-20) mg/dL Creatinine 0.90 (0.66-1.25) mg/dL Est GFR (CKD-EPI)AfAm >90 (>60 ml/min/1.73 sqM) Est GFR (CKD-EPI)NonAf 88 (>60 ml/min/1.73 sqM) Glucose 95 (74-99) mg/dL Calcium 9.3 (8.4-10.2) mg/dL Magnesium 1.8 (1.6-2.3) mg/dL Total Bilirubin 0.6 (0.2-1.3) mg/dL AST 29 (17-59) U/L ALT 40 (21-72) U/L Alkaline Phosphatase 106 (38-126) U/L Total Creatine Kinase 106 (55-170) U/L CK-MB (CK-2) 0.8 (0.0-2.4) ng/mL CK-MB (CK-2) Rel Index 0.8 Troponin I <0.012 (0.000-0.034) ng/mL Total Protein 6.8 (6.3-8.2) g/dL Albumin 3.8 (3.5-5.0) g/dL TSH 2.100 (0.465-4.680) mIU/L 07/13/18 Range/Units 15:22 WBC (3.8-10.6) k/uL RBC (4.30-5.90) m/uL Hgb (13.0-17.5) gm/dL Hct (39.0-53.0) % MCV (80.0-100.0) fL MCH (25.0-35.0) pg MCHC (31.0-37.0) g/dL RDW (11.5-15.5) % Plt Count (150-450) k/uL Neutrophils % % Lymphocytes % % Monocytes % % Eosinophils % % Basophils % % Neutrophils # (1.3-7.7) k/uL Lymphocytes # (1.0-4.8) k/uL Monocytes # (0-1.0) k/uL Eosinophils # (0-0.7) k/uL Basophils # (0-0.2) k/uL PT 12.7 H (9.0-12.0) sec INR 1.3 H (<1.2) APTT 36.5 H (22.0-30.0) sec Sodium (137-145) mmol/L Potassium (3.5-5.1) mmol/L Chloride (98-107) mmol/L Carbon Dioxide (22-30) mmol/L Anion Gap mmol/L BUN (9-20) mg/dL Creatinine (0.66-1.25) mg/dL Est GFR (CKD-EPI)AfAm (>60 ml/min/1.73 sqM) Est GFR (CKD-EPI)NonAf (>60 ml/min/1.73 sqM) Glucose (74-99) mg/dL Calcium (8.4-10.2) mg/dL Magnesium (1.6-2.3) mg/dL Total Bilirubin (0.2-1.3) mg/dL AST (17-59) U/L ALT (21-72) U/L Alkaline Phosphatase (38-126) U/L Total Creatine Kinase (55-170) U/L CK-MB (CK-2) (0.0-2.4) ng/mL CK-MB (CK-2) Rel Index Troponin I (0.000-0.034) ng/mL Total Protein (6.3-8.2) g/dL Albumin (3.5-5.0) g/dL TSH (0.465-4.680) mIU/L - Radiology Data Radiology results: report reviewed (Imaging shows no evidence of acute findings) , image reviewed Disposition Clinical Impression: Paroxysmal atrial fibrillation Disposition: HOME SELF-CARE Condition: Good Instructions: Palpitations (ED), A-fib (Atrial Fibrillation) (ED) Is patient prescribed a controlled substance at d/c from ED?: No Referrals: Johann Rubalcava MD [Primary Care Provider] - 1-2 days
[2018-07-13 15:51] LABS: Basophils % (A) 0 %; Eosinophils # (A) 0.2 k/uL (0-0.7); Eosinophils % (A) 3 %; HCT 42.1 % (39.0-53.0); HGB 14.4 gm/dL (13.0-17.5); Lymphocytes # (A) 1.8 k/uL (1.0-4.8); Lymphocytes % (A) 24 %; MCHC 34.3 g/dL (31.0-37.0); MCV 84.6 fL (80.0-100.0); Mean Platelet Volume 7.1; Monocytes # (A) 0.5 k/uL (0-1.0); Monocytes % (A) 6 %; Neutrophils # (A) 4.9 k/uL (1.3-7.7); Neutrophils % (A) 66 %; Platelet Count 226 k/uL (150-450); RBC 4.98 m/uL (4.30-5.90); RDW 13.6 % (11.5-15.5); WBC 7.4 k/uL (3.8-10.6)
[2018-07-13 16:02] LABS: INR 1.3 (<1.2)
[2018-07-13 16:03] LABS: ALT 40 U/L (21-72); AST 29 U/L (17-59); Albumin 3.8 g/dL (3.5-5.0); Alkaline Phosphatase 106 U/L (38-126); Anion Gap 9 mmol/L; Blood Urea Nitrogen 16 mg/dL (9-20); Calcium 9.3 mg/dL (8.4-10.2); Carbon Dioxide 23 mmol/L (22-30); Chloride 109 mmol/L (98-107); Glucose 95 mg/dL (74-99); Magnesium 1.8 mg/dL (1.6-2.3); Partial Thromboplastin Time 36.5 sec (22.0-30.0); Potassium 4.3 mmol/L (3.5-5.1); Prothrombin Time 12.7 sec (9.0-12.0); Sodium 141 mmol/L (137-145); Total Bilirubin 0.6 mg/dL (0.2-1.3); Total Protein 6.8 g/dL (6.3-8.2)
[2018-07-13 16:08] LABS: Creatine Kinase 106 U/L (55-170)
[2018-07-13 16:21] LABS: Creatine Kinase MB 0.8 ng/mL (0.0-2.4); Troponin I <0.012 ng/mL (0.000-0.034)
[2018-07-13] MEDS ORDERED: MAGNESIUM SULFATE-D5W PMX 1 GM in DEXTROSE/WATER 1 100ML.BAG IVPB ONE (16:57)
[2018-07-13 17:53] VITALS: BP 163/87; PULSE 56
[2018-07-13 18:29] VITALS: TEMP 97.8
--- NOTE | 2018-07-14 10:24 | XR ---
EXAMINATION TYPE: XR chest 2V DATE OF EXAM: 07/13/2018 COMPARISON: 03/06/2018 TECHNIQUE: PA and lateral views submitted. HISTORY: Dysrhythmia FINDINGS: The case was originally not dictated by the radiologist preparation room worker and is submitted on 03/15/20 18 at 10:20 AM for dictation. The heart size is stable. Hypertrophic and degenerative changes are seen. Linear change at the left l susy base noted. Surgical clips in the right upper quadrant. No overt failure or pneumothorax. IMPRESSION: 1. Left basilar linear changes most likely the basis of atelectasis correlate clinically to exclude o ther etiologies.
== END 2018-07-13 18:28 | disposition home or self-care (01) ==
LOC: EC 14:56
DX: I48.0 Paroxysmal atrial fibrillation (principal); I10 Essential (primary) hypertension; N40.0 Benign prostatic hyperplasia without lower urinary tract symptoms; Z79.01 Long term (current) use of anticoagulants; Z79.51 Long term (current) use of inhaled steroids; Z79.899 Other long term (current) drug therapy; Z98.890 Other specified postprocedural states
CPT/HCPCS: 36415; 93005; 80053; 82550; 82553; 83735; 84443; 84484; 85025; 85610; 85730; 71046; 99285; 96365; 96361; J3475

== ENCOUNTER 2018-08-30 23:35 | Observation (INO) | payer MEDICARE ==
--- NOTE | 2018-08-31 01:05 | ED ---
Arrhythmia/Palpitations HPI - General Source: patient Mode of arrival: wheelchair Limitations: no limitations - History of Present Illness Complaint: rapid heart beat, irregular heart beat Onset/Timin -: hour(s) Context: occurred during rest Arrhythmia History: atrial fibrillation, history of ablation Associated Symptoms: denies other symptoms <Yuri Jovel - Last Filed: 08/31/18 01:02> <Kristopher Ramos - Last Filed: 08/31/18 08:42> - General Chief Complaint: Arrhythmia/Palpitations Stated Complaint: Afib-sent by Time Seen by Provider: 08/31/18 00:17 - Related Data Home Medications Medication Instructions Recorded Confirmed Montelukast [Singulair] 10 mg PO HS 08/26/15 08/31/18 Tamsulosin HCl [Flomax] 0.4 mg PO HS 08/26/15 08/31/18 Atorvastatin Calcium 10 mg PO HS 08/31/16 08/31/18 Fluticasone/Salmeterol [Advair 1 puff INHALATION RT-BID 10/21/17 08/31/18 250-50 Diskus] Loratadine [Claritin] 10 mg PO HS 10/21/17 08/31/18 Flecainide [Tambocor] 100 mg PO BID 07/13/18 08/31/18 Fluticasone Nasal [place] [Flonase 1 spray EA NOSTRIL HS 07/13/18 08/31/18 Nasal [place]] Esomeprazole Magnesium [NexIUM] 40 mg PO DAILY 08/31/18 08/31/18 Magnesium Powder 5 ml PO DAILY 08/31/18 08/31/18 Rivaroxaban [Xarelto] 20 mg PO AC-LUNCH 08/31/18 08/31/18 Previous Rx's Medication Instructions Recorded Verapamil [Isoptin] 40 mg PO BID tab 12/06/17 Allergies Allergy/AdvReac Type Severity Reaction Status Date / Time No Known Allergies Allergy Verified 08/31/18 08:36 Review of Systems ROS Other: All systems not noted in ROS Statement are negative. Constitutional: Denies: fever, chills Respiratory: Denies: cough, dyspnea Cardiovascular: Reports: palpitations. Denies: chest pain, orthopnea, edema, syncope Gastrointestinal: Denies: abdominal pain, nausea, vomiting Genitourinary: Denies: dysuria Skin: Denies: rash, lesions Neurological: Denies: headache, weakness, numbness <Yuri Jovel - Last Filed: 08/31/18 01:02> ROS Other: All systems not noted in ROS Statement are negative. <Kristopher Ramos - Last Filed: 08/31/18 08:42> ROS Statement: Those systems with pertinent positive or pertinent negative responses have been documented in the HPI. Past Medical History Past Medical History: Atrial Fibrillation, Chest Pain / Angina, Hypertension, Osteoarthritis (OA), Prostate Disorder Additional Past Medical History / Comment(s): BPH, bilateral astigmatism. History of Any Multi-Drug Resistant Organisms: None Reported Past Surgical History: Appendectomy, Cholecystectomy Additional Past Surgical History / Comment(s): Cardioversion 09/2015 at [facility]-unsuccessful, Colonscopy. annita cataract surgery ablation 2018 Past Anesthesia/Blood Transfusion Reactions: No Reported Reaction Past Psychological History: No Psychological Hx Reported Smoking Status: Never smoker Past Alcohol Use History: None Reported Past Drug Use History: None Reported - Past Family History Father History Unknown: Yes Family Medical History: CVA/TIA Additional Family Medical History / Comment(s): Father had a CVA. He lived to be 75 yrs. old. Mother History Unknown: Yes Family Medical History: CVA/TIA Additional Family Medical History / Comment(s): Mother had a CVA x 2. He lived to be 82 yrs old. <Yuri Jovel - Last Filed: 08/31/18 01:02> General Exam Limitations: no limitations General appearance: alert, in no apparent distress Head exam: Present: atraumatic, normocephalic Eye exam: Present: normal appearance. Absent: scleral icterus, conjunctival injection Respiratory exam: Present: normal lung sounds bilaterally. Absent: respiratory distress, wheezes, rales, rhonchi, stridor Cardiovascular Exam: Present: tachycardia, irregular rhythm, normal heart sounds. Absent: systolic murmur, diastolic murmur, rubs, gallop GI/Abdominal exam: Present: soft. Absent: distended, tenderness, guarding, rebound, mass Extremities exam: Present: normal inspection, normal capillary refill. Absent: pedal edema, calf tenderness Back exam: Present: normal inspection. Absent: CVA tenderness (R), CVA tenderness (L) Neurological exam: Present: alert Skin exam: Present: warm, dry, intact, normal color. Absent: rash <Yuri Jovel - Last Filed: 08/31/18 01:02> Vital Signs 08/30/18 08/31/18 08/31/18 23:46 01:00 02:25 Temperature 98.0 F Pulse Rate 76 120 H 106 H Respiratory 18 16 16 Rate Blood Pressure 123/73 127/86 126/62 O2 Sat by Pulse 97 97 Oximetry 08/31/18 08/31/18 08/31/18 03:25 04:25 05:00 Temperature Pulse Rate 102 H 102 H 100 Respiratory 16 16 16 Rate Blood Pressure 111/59 136/74 132/70 O2 Sat by Pulse 100 97 97 Oximetry 08/31/18 08/31/18 06:25 08:00 Temperature Pulse Rate 102 H 87 Respiratory 16 20 Rate Blood Pressure 121/83 130/76 O2 Sat by Pulse 97 98 Oximetry EKG Findings - EKG Results: EKG: interpreted by ERMD, normal axis EKG shows: atrial fibrillation (Rate approximately 117 bpm) - Blocks, [place], Hypertrophy, ST Abn: AV and intraventricular conduction: right bundle branch block (fixed/ intermittent, complete/incomplete) Repolarization changes or abnormalities: ST or T wave suggestive of ischemia <Yuri Jovel - Last Filed: 08/31/18 01:02> Medical Decision Making <Yuri Jovel - Last Filed: 08/31/18 01:02> - Lab Data Result diagrams: 08/31/18 00:05 08/31/18 00:05 <Kristopher Ramos - Last Filed: 08/31/18 08:42> - Medical Decision Making The patient was endorsed to me by Dr. Jovel at our shift change pending cardiology evaluation. Patient initially did not want to be admitted. Patient will be admitted for cardioversion. Dr. Miller did come the emergency department see the patient. Patient is awake alert oriented 3 in no distress. He still maintains atrial fibrillation rhythm. (Kristopher Ramos) - Lab Data Lab Results 08/31/18 08/31/18 08/31/18 Range/Units 00:05 00:05 00:05 WBC 9.2 (3.8-10.6) k/uL RBC 5.04 (4.30-5.90) m/uL Hgb 14.4 (13.0-17.5) gm/dL Hct 45.2 (39.0-53.0) % MCV 89.6 D (80.0-100.0) fL MCH 28.6 (25.0-35.0) pg MCHC 31.9 (31.0-37.0) g/dL RDW 13.7 (11.5-15.5) % Plt Count 229 (150-450) k/uL Neutrophils % 62 % Lymphocytes % 25 % Monocytes % 8 % Eosinophils % 3 % Basophils % 0 % Neutrophils # 5.7 (1.3-7.7) k/uL Lymphocytes # 2.3 (1.0-4.8) k/uL Monocytes # 0.7 (0-1.0) k/uL Eosinophils # 0.3 (0-0.7) k/uL Basophils # 0.0 (0-0.2) k/uL PT (9.0-12.0) sec INR (<1.2) APTT (22.0-30.0) sec Sodium 141 (137-145) mmol/L Potassium 4.2 (3.5-5.1) mmol/L Chloride 108 H (98-107) mmol/L Carbon Dioxide 23 (22-30) mmol/L Anion Gap 10 mmol/L BUN 20 (9-20) mg/dL Creatinine 1.01 (0.66-1.25) mg/dL Est GFR (CKD-EPI)AfAm 89 (>60 ml/min/1.73 sqM) Est GFR (CKD-EPI)NonAf 77 (>60 ml/min/1.73 sqM) Glucose 106 H (74-99) mg/dL Calcium 9.5 (8.4-10.2) mg/dL Magnesium 1.9 (1.6-2.3) mg/dL Total Bilirubin 0.4 (0.2-1.3) mg/dL AST 30 (17-59) U/L ALT 33 (21-72) U/L Alkaline Phosphatase 118 (38-126) U/L Total Creatine Kinase 168 (55-170) U/L CK-MB (CK-2) 1.0 (0.0-2.4) ng/mL CK-MB (CK-2) Rel Index 0.6 Troponin I <0.012 (0.000-0.034) ng/mL Total Protein 6.9 (6.3-8.2) g/dL Albumin 3.8 (3.5-5.0) g/dL Urine Color Urine Appearance (Clear) Urine pH (5.0-8.0) Ur Specific [place] (1.001-1.035) Urine Protein (Negative) Urine Glucose (UA) (Negative) Urine Ketones (Negative) Urine Blood (Negative) Urine Nitrite (Negative) Urine Bilirubin (Negative) Urine Urobilinogen (<2.0) mg/dL Ur Leukocyte Esterase (Negative) 08/31/18 08/31/18 Range/Units 00:05 01:06 WBC (3.8-10.6) k/uL RBC (4.30-5.90) m/uL Hgb (13.0-17.5) gm/dL Hct (39.0-53.0) % MCV (80.0-100.0) fL MCH (25.0-35.0) pg MCHC (31.0-37.0) g/dL RDW (11.5-15.5) % Plt Count (150-450) k/uL Neutrophils % % Lymphocytes % % Monocytes % % Eosinophils % % Basophils % % Neutrophils # (1.3-7.7) k/uL Lymphocytes # (1.0-4.8) k/uL Monocytes # (0-1.0) k/uL Eosinophils # (0-0.7) k/uL Basophils # (0-0.2) k/uL PT 11.9 (9.0-12.0) sec INR 1.3 H (<1.2) APTT 32.5 H (22.0-30.0) sec Sodium (137-145) mmol/L Potassium (3.5-5.1) mmol/L Chloride (98-107) mmol/L Carbon Dioxide (22-30) mmol/L Anion Gap mmol/L BUN (9-20) mg/dL Creatinine (0.66-1.25) mg/dL Est GFR (CKD-EPI)AfAm (>60 ml/min/1.73 sqM) Est GFR (CKD-EPI)NonAf (>60 ml/min/1.73 sqM) Glucose (74-99) mg/dL Calcium (8.4-10.2) mg/dL Magnesium (1.6-2.3) mg/dL Total Bilirubin (0.2-1.3) mg/dL AST (17-59) U/L ALT (21-72) U/L Alkaline Phosphatase (38-126) U/L Total Creatine Kinase (55-170) U/L CK-MB (CK-2) (0.0-2.4) ng/mL CK-MB (CK-2) Rel Index Troponin I (0.000-0.034) ng/mL Total Protein (6.3-8.2) g/dL Albumin (3.5-5.0) g/dL Urine Color Light Yellow Urine Appearance Clear (Clear) Urine pH 5.5 (5.0-8.0) Ur Specific [place] 1.007 (1.001-1.035) Urine Protein Negative (Negative) Urine Glucose (UA) Negative (Negative) Urine Ketones Negative (Negative) Urine Blood Negative (Negative) Urine Nitrite Negative (Negative) Urine Bilirubin Negative (Negative) Urine Urobilinogen <2.0 (<2.0) mg/dL Ur Leukocyte Esterase Negative (Negative) Disposition <Yuri Jovel - Last Filed: 08/31/18 01:02> <Kristopher Ramos - Last Filed: 08/31/18 08:42> Clinical Impression: Atrial fibrillation Disposition: ADMITTED IP TO THIS HOSP Condition: Stable Referrals: Johann Rubalcava MD [Primary Care Provider] - 1-2 days
[2018-08-31] MEDS ORDERED: FLECAINIDE 50 MG TAB PO STA (01:08)
--- NOTE | 2018-08-31 01:11 | XR ---
EXAMINATION TYPE: XR chest 1V portable DATE OF EXAM: 08/31/2018 COMPARISON: 07/13/2018 HISTORY: Atrial fibrillation TECHNIQUE: Single frontal view of the chest is obtained. FINDINGS: There is no heart failure nor confluent pneumonic infiltrate. Heart appears enlarged. Cost ophrenic angles are clear. There are chest leads. Bony thorax appears intact. IMPRESSION: Mild cardiomegaly. No acute lung disease. No change.
[2018-08-31 01:12] LABS: Basophils % (A) 0 %; Eosinophils # (A) 0.3 k/uL (0-0.7); Eosinophils % (A) 3 %; HCT 45.2 % (39.0-53.0); HGB 14.4 gm/dL (13.0-17.5); Lymphocytes # (A) 2.3 k/uL (1.0-4.8); Lymphocytes % (A) 25 %; MCH 28.6 pg (25.0-35.0); MCHC 31.9 g/dL (31.0-37.0); Monocytes # (A) 0.7 k/uL (0-1.0); Monocytes % (A) 8 %; Neutrophils # (A) 5.7 k/uL (1.3-7.7); Neutrophils % (A) 62 %; Platelet Count 229 k/uL (150-450); RBC 5.04 m/uL (4.30-5.90); RDW 13.7 % (11.5-15.5); WBC 9.2 k/uL (3.8-10.6)
[2018-08-31 01:15] LABS: MCV 89.6 fL (80.0-100.0)
[2018-08-31 01:21] LABS: INR 1.3 (<1.2); Partial Thromboplastin Time 32.5 sec (22.0-30.0); Prothrombin Time 11.9 sec (9.0-12.0)
[2018-08-31 01:22] LABS: Albumin 3.8 g/dL (3.5-5.0); Calcium 9.5 mg/dL (8.4-10.2); Magnesium 1.9 mg/dL (1.6-2.3); Potassium 4.2 mmol/L (3.5-5.1); Total Bilirubin 0.4 mg/dL (0.2-1.3); Total Protein 6.9 g/dL (6.3-8.2)
[2018-08-31 01:32] LABS: Appearance,Urine Clear (Clear); Bilirubin,Urine Negative (Negative); Blood,Urine Negative (Negative); Color,Urine Light Yellow; Glucose,Urine (UA) Negative (Negative); Ketones,Urine Negative (Negative); Leukocyte Esterase,Urine Negative (Negative); Nitrite,Urine Negative (Negative); PH, Urine 5.5 (5.0-8.0); Protein,Urine Negative (Negative); Specific Gravity,Urine 1.007 (1.001-1.035); Urobilinogen,Urine <2.0 mg/dL (<2.0)
[2018-08-31 01:33] LABS: Creatine Kinase 168 U/L (55-170)
[2018-08-31 01:46] LABS: Troponin I <0.012 ng/mL (0.000-0.034)
[2018-08-31] MEDS ORDERED: NALOXONE 0.4 MG/ML 1 ML VIAL IV PRN (08:42)
[2018-08-31] MEDS ORDERED: SODIUM CHLORIDE 0.9% 1,000 ML IV SCH ×2 (08:45→12:15)
[2018-08-31] MEDS ORDERED: FLECAINIDE 50 MG TAB PO SCH (09:00)
[2018-08-31] MEDS ORDERED: MAGNESIUM OXIDE 400 MG TAB PO SCH (09:00)
[2018-08-31] MEDS ORDERED: VERAPAMIL 40 MG TAB PO SCH (09:00)
--- NOTE | 2018-08-31 10:37 | CONS ---
CONSULTATION Mr. Sahni is a 68-year-old gentleman with history of paroxysmal atrial fibrillation status post ablation, hypertension, and COPD who comes into hospital complaining of palpitations. He was found to be in atrial fibrillation with rapid ventricular rate. In the ER they gave him a dose of flecainide following which his heart rate became better controlled. At the time of my evaluation, he appears comfortable at rest, but remains in atrial fibrillation. The patient had cryoablation for atrial fibrillation in November of this year. Subsequently in March, Dr. Naima Fernandes his primary packaging sales consultant had performed an electrical cardioversion. He had an echocardiogram in March of this year that showed normal LV systolic function with a mildly dilated aortic root. I reviewed the patient's symptomatology, EKG, his office records and prior interventions and advised him to undergo a cardioversion today. If we can successfully cardiovert him, we may be able to discharge him home later this afternoon or tomorrow morning. The patient is currently on anticoagulation in the form of Xarelto. PAST MEDICAL HISTORY: Past medical history is significant for paroxysmal atrial fibrillation, status post ablation, status post prior cardioversions, hypertension, and dyslipidemia. CURRENT MEDICATIONS: Current medications include verapamil 40 b.i.d., Xarelto 20 q. daily, Singulair, Claritin, Advair, Flonase, Tambocor 100 b.i.d., Nexium, and atorvastatin. ALLERGIES: There are no known drug allergies. FAMILY HISTORY: Family history is negative for premature coronary artery disease. SOCIAL HISTORY: Social history is negative for current smoking, EtOH abuse, or drug abuse. REVIEW OF SYSTEMS: HEENT is unremarkable. CARDIAC: As described above. RESPIRATORY: As described above. GI: Negative. GENITOURINARY: Negative. ALLERGY/IMMUNOLOGY: Negative. SKIN: Negative. MUSCULOSKELETAL: Negative. ENDOCRINE: Negative. HEMATOLOGICAL: Negative. DERM: Negative. CONSTITUTIONAL: Negative. ONCOLOGICAL: Negative. CLIENT SUPPORT PROFESSIONAL: Negative. Rest of the system review is not relevant. PHYSICAL EXAMINATION: On exam, patient is comfortable at rest. Afebrile. Heart rate is 90 beats per minute, irregular. Blood pressure is 149/88. Respiratory rate is 18. O2 sat is 98% on 2 L. There is no jugular venous distention. Carotid upstroke is normal. There is no bruit. Chest exam reveals good air entry bilaterally. Heart exam reveals first and second heart sounds, irregular rhythm. No murmur. Abdomen is soft, nontender. Examination of the extremities did not reveal any edema. Peripheral pulses are felt. EKG shows atrial fibrillation with nonspecific ST-T wave changes and right bundle branch block. LABS: Labs show that hemoglobin is 14.4, creatinine is 1, potassium is 4.2. Troponin is 0.012. ASSESSMENT: 1. Paroxysmal atrial fibrillation with poorly controlled ventricular rate. 2. History of hypertension. PLAN: Patient will undergo BESSIE and cardioversion later this morning. MMODL / IJN: [id number] /
[2018-08-31] MEDS ORDERED: LACTATED RINGERS 1,000 ML IV ONE ×2 (11:03)
[2018-08-31] MEDS ORDERED: LIDOCAINE 1% INJ 10MG/ML (20 ML MDV) ONE (11:10)
[2018-08-31] MEDS ORDERED: fentaNYL (PF) 50 MCG/ML 2 ML AMP ONE (11:10)
[2018-08-31] MEDS ORDERED: PROPOFOL 10 MG/ML 20 ML VIAL IV ONE (11:10)
[2018-08-31] MEDS ORDERED: MIDAZOLAM 2 MG/2 ML VIAL ONE (11:10)
[2018-08-31] MEDS: BENZOCAINE SPRAY 1 CAN MUCOUS MEM ONE ×2 (11:10→11:14)
[2018-08-31 11:14] VITALS: RESP 16
[2018-08-31] MEDS ORDERED: RIVAROXABAN 20 MG TAB PO SCH (12:30)
--- NOTE | 2018-08-31 12:52 | CE ---
CARDIAC ELECTROPHYSIOLOGY REPORT CARDIOVERSION NOTE After obtaining informed consent, the patient was anesthetized by the federal district clerk, is adequately anticoagulated with Xarelto. He underwent single synchronized shock of about 260 joules converted to sinus rhythm. He is on flecainide, which he is going to continue. He is on Xarelto, which he is going to continue. The patient upon discharge will be followed by his primary motor coach bus driver, Dr. Fernandes. MMMARGIE / DAMIENN: [id number] /
--- NOTE | 2018-08-31 12:58 | ECHOT ---
TRANSESOPHAGEAL ECHOCARDIOGRAM INDICATION: Paroxysmal atrial fibrillation to rule out intracardiac thrombus prior to cardioversion. The patient was anesthetized by the yeast culture operator. A transesophageal echocardiogram was performed using an Omniplane probe in left lateral position. The patient tolerated the procedure well without any obvious immediate complications. FINDINGS: 1. There is no intracardiac thrombus within the left atrial appendage, left atrium, right atrium, right ventricle or left ventricle. 2. Left ventricle has normal size and systolic function. 3. Mitral valve is anatomically normal. There is mild mitral regurgitation noted. 4. Aortic valve is a 3-leaflet valve. There is mild aortic regurgitation noted. 5. Interatrial septum: There is evidence of left to right shunt by color-flow Doppler and [id number] shunt by agitated saline contrast study. 6. He has a small atrial septal defect measuring about 0.8 cm. CONCLUSIONS: 1. No intracardiac thrombus. 2. Normal left ventricular function. 3. Mild aortic regurgitation. 4. Small atrial septal defect measuring 0.8 cm with bidirectional shunt. PLAN: Patient will undergo cardioversion. MMODL / IJN: [id number] /
[2018-08-31 16:08] VITALS: BP 109/74; PULSE 63; TEMP 96.5
[2018-08-31] MEDS ORDERED: SYMBICORT 80-4.5 MCG INHALER INHALATION SCH (20:00)
--- NOTE | 2018-08-31 20:04 | DS ---
DISCHARGE SUMMARY DATE OF ADMISSION: 08/31/2018. DATE OF DISCHARGE: 08/31/2018. PRESENT COMPLAINT: Heart racing. HISTORY OF PRESENTING COMPLAINT: A very pleasant 68-year-old patient who follows with Dr. Rubalcava and also Dr. Naima Fernandes. Chronic stable medical conditions include GERD, hypertension, primary osteoarthritis, BPH. The patient has a known history of paroxysmal atrial fibrillation and has been on Xarelto. Last night the patient started watching the game, suddenly felt his heart racing, became very slightly short of breath. No dizziness. No lightheadedness. No chest pain. He decided to come in. The patient was found to be in atrial fibrillation with rapid ventricular rate. The patient's troponin was negative. The patient did undergo a BESSIE by Dr. Alex Miller. No thrombus was found. A small ASD was found. Then patient underwent DC cardioversion and has been back in sinus rhythm. REVIEW OF SYSTEMS: CONSTITUTIONAL: None. HEENT: None. CARDIOVASCULAR: As above. GASTROINTESTINAL: Heartburn. GENITOURINARY: BPH symptoms. DERMATOLOGICAL, HEMATOLOGIC, LYMPHATICS: None. PSYCHIATRY: None. NEUROLOGIC: None. MUSCULOSKELETAL: Arthritic pain in joints. PAST MEDICAL HISTORY: Paroxysmal atrial fibrillation, GERD, hypertension, osteoarthritis, BPH. PAST SURGICAL HISTORY: Appendectomy, cholecystectomy, PVI, cryoablation, cardioversions, bilateral cataracts removed. SOCIAL HISTORY: . Does not smoke or drink alcohol. FAMILY HISTORY: Mother had 2 strokes. HOME MEDICATIONS: 1. Isoptin 40 mg b.i.d. 2. Flomax 0.4 mg at bedtime. 3. Xarelto 20 mg before lunch. 4. Singulair 10 mg at bedtime. 5. Magnesium. 6. Claritin 10 mg at bedtime. 7. Advair 250/50 one puff b.i.d. 8. Flonase. 9. Tambocor 100 mg b.i.d. 10.Nexium 40 mg p.o. daily. 11.Atorvastatin 10 mg p.o. at bedtime. ALLERGIES: None. PHYSICAL EXAMINATION: Vital signs on presentation, temperature 98, pulse 120, respirations 16, blood pressure 127/86, pulse ox 97% on room air. GENERAL APPEARANCE: Well built. BMI 34.4, lying in bed, awake. EYES: Pupils equal. Conjunctivae normal. HEENT: External appearance of nose and ears normal. Oral cavity normal. NECK: JVD not raised. Mass not palpable. Respiratory effort normal. LUNGS: Slightly decreased breath sounds. CARDIOVASCULAR: 1st and 2nd heart sounds normal. No edema. ABDOMEN: Soft, nontender. Liver and spleen not palpable. LYMPHATIC: No lymph nodes palpable in the neck and axillae. PSYCHIATRY: Alert, oriented X3. Mood and affect normal. NEUROLOGIC: Pupils equal. Cranial nerves grossly intact. Power and sensation grossly intact. INVESTIGATIONS: White count 9.2, hemoglobin 14.4, potassium 4.2, BUN and creatinine normal. Troponin less than 0.012. EKG tracing personally reviewed by me shows right bundle branch block and atrial fibrillation with rapid ventricular rate. Chest x-ray personally reviewed by, it is a portable film, shows some cardiomegaly. No venous prominence. BESSIE done earlier today shows normal LV function and a small ASD measuring 0.8 cm. ASSESSMENT: 1. Paroxysmal atrial fibrillation, symptomatic, with a rapid ventricular rate. The patient was DC cardioverted, has gone back into sinus rhythm. 2. Mild persistent asthma controlled. 3. Gastroesophageal reflux disease. 4. Essential hypertension. 5. Primary osteoarthritis. 6. Benign prostatic hypertrophy. PLAN: Home medications are resumed. The patient was seen by Cardiology, was DC cardioverted. Back on Xarelto. The patient is to continue on his home medications. Care was discussed. CONSULTATION: Dr. Alex Miller. FOLLOWUP: 1. Follow up with Dr. Naima Fernandes in 1 week. 2. Follow up with Dr. Rubalcava on 09/05/2018. MMGIOL / DAMIENN: [id number] /
[2018-08-31] MEDS ORDERED: ATORVASTATIN 10 MG TAB PO SCH (21:00)
[2018-08-31] MEDS ORDERED: LORATADINE 10 MG TAB PO SCH (21:00)
[2018-08-31] MEDS ORDERED: MONTELUKAST 10 MG TAB PO SCH (21:00)
[2018-08-31] MEDS ORDERED: FLUTICASONE 50MCG/SPRAY NASAL 16GM EA NOSTRIL SCH (21:00)
[2018-08-31] MEDS ORDERED: TAMSULOSIN 0.4 MG CAP.ER.24H PO SCH (21:00)
[2018-09-01] MEDS ORDERED: PANTOPRAZOLE 40 MG TABLET PO SCH (07:30)
== END 2018-08-31 18:06 | disposition home or self-care (01) ==
LOC: EC 23:35 → 6SEL 08-31 08:43
PROVIDERS: ADMIT Hospitalist; ATTEND Hospitalist
DX: I48.0 Paroxysmal atrial fibrillation (principal); J45.30 Mild persistent asthma, uncomplicated; K21.9 Gastro-esophageal reflux disease without esophagitis; I10 Essential (primary) hypertension; M19.91 Primary osteoarthritis, unspecified site; N40.0 Benign prostatic hyperplasia without lower urinary tract symptoms; E78.5 Hyperlipidemia, unspecified; J44.9 Chronic obstructive pulmonary disease, unspecified; Z90.49 Acquired absence of other specified parts of digestive tract; Z82.3 Family history of stroke; Z79.899 Other long term (current) drug therapy; Z79.51 Long term (current) use of inhaled steroids; Z79.01 Long term (current) use of anticoagulants
CPT/HCPCS: 99285; 36415; 93005 ×2; 93312; 93320; 93325; 92960; 80053; 82550; 82553; 83735; 84484; 85025; 85610; 85730; 81003; 71045; G0378; J2250; J2001; J3010; J2704

== ENCOUNTER → 2018-10-31 | Outpatient (CLI) | payer MEDICARE ==
[2018-10-31 15:00] LABS: HCT 43.3 % (39.0-53.0); HGB 14.6 gm/dL (13.0-17.5); MCH 29.9 pg (25.0-35.0); MCHC 33.7 g/dL (31.0-37.0); MCV 88.6 fL (80.0-100.0); Mean Platelet Volume 7.3; Platelet Count 187 k/uL (150-450); RBC 4.89 m/uL (4.30-5.90); RDW 13.5 % (11.5-15.5); WBC 18.1 k/uL (3.8-10.6)
[2018-10-31 15:18] LABS: Potassium 4.5 mmol/L (3.5-5.1)
== END | disposition home or self-care (01) ==
LOC: LABPAT 13:46
PROVIDERS: ATTEND Internal Medicine Clinical Cardiac Electrophysiology
DX: Z01.812 Encounter for preprocedural laboratory examination (principal); I47.1 Supraventricular tachycardia; I48.1 Persistent atrial fibrillation
CPT/HCPCS: 36415; 80051; 82565; 84520; 85027

== ENCOUNTER 2018-11-14 06:05 | Day surgery (SDC) | payer MEDICARE ==
[~2018-11-14 06:05] MED LIST changes: -LACTATED RINGERS 1,000 ML IV SCH
[2018-11-14 07:10] LABS: Basophils % (A) 0 %; Eosinophils # (A) 0.1 k/uL (0-0.7); Eosinophils % (A) 1 %; HCT 42.8 % (39.0-53.0); HGB 13.6 gm/dL (13.0-17.5); Lymphocytes # (A) 2.3 k/uL (1.0-4.8); Lymphocytes % (A) 24 %; MCH 28.6 pg (25.0-35.0); MCHC 31.8 g/dL (31.0-37.0); MCV 89.9 fL (80.0-100.0); Mean Platelet Volume 6.6; Monocytes # (A) 0.6 k/uL (0-1.0); Monocytes % (A) 6 %; Neutrophils # (A) 6.6 k/uL (1.3-7.7); Neutrophils % (A) 68 %; Platelet Count 197 k/uL (150-450); RBC 4.76 m/uL (4.30-5.90); RDW 13.8 % (11.5-15.5); WBC 9.6 k/uL (3.8-10.6)
[2018-11-14] MEDS ORDERED: SUCCINYLCHOLINE CHLORIDE 100 MG/5 ML SYR IV ONE (07:27)
[2018-11-14] MEDS ORDERED: PROTAMINE SULFATE 10 MG/ML 5 ML VIAL IV ONE (07:27)
[2018-11-14] MEDS ORDERED: NEOSTIGMINE 1 MG/ML 10 ML VIAL ONE (07:27)
[2018-11-14] MEDS ORDERED: MIDAZOLAM 2 MG/2 ML VIAL ONE (07:27)
[2018-11-14] MEDS ORDERED: fentaNYL (PF) 50 MCG/ML 2 ML AMP ONE (07:27)
[2018-11-14] MEDS ORDERED: ROCURONIUM BROMIDE 10 MG/ML 10 ML VIAL IV ONE (07:27)
[2018-11-14] MEDS ORDERED: HEPARIN SODIUM,PORCINE 10,000 UNIT/ML 1 ML VIAL ONE (07:27)
[2018-11-14] MEDS ORDERED: PROPOFOL 10 MG/ML 20 ML VIAL IV ONE (07:27)
[2018-11-14] MEDS ORDERED: GLYCOPYRROLATE 0.2 MG/ML 2 ML VIAL ONE (07:27)
[2018-11-14] MEDS ORDERED: HEPARIN SODIUM (1,000 UNIT/ML) 1,000 UNIT in SODIUM CHLORIDE 0.9% 1,000 ML IRRIGATION ONE (07:50)
[2018-11-14] MEDS ORDERED: LIDOCAINE 1% INJ 10MG/ML (20 ML MDV) SQ ONE (08:05)
[2018-11-14] MEDS ORDERED: HEPARIN SOD,PORK IN 0.45% NACL 25,000 UNIT in 0.45% NACL 1 250ML.BAG IV ONE (09:40)
[2018-11-14] MEDS ORDERED: ACETAMINOPHEN TAB 325 MG TAB PO PRN (13:07)
[2018-11-14] MEDS ORDERED: ACETAMINOPHEN IV (For NPO) 1,000 MG in EMPTY BAG 1 BAG IVPB ONE (13:30)
[2018-11-14] MEDS ORDERED: ACETAMINOPHEN IV (For NPO) 1,000 MG/100 ML VIAL IVPB ONE (13:36)
[2018-11-14 14:56] VITALS: RESP 18
[2018-11-14 15:23] VITALS: BMI 34.4
[2018-11-14] MEDS ORDERED: RIVAROXABAN 20 MG TAB PO SCH (17:30)
[2018-11-14] MEDS: PROMETHAZINE HCL 6.25 MG/5 ML CUP PO PRN (18:46)
[2018-11-14] MEDS: FLECAINIDE 50 MG TAB PO SCH (19:59)
[2018-11-14] MEDS: VERAPAMIL 40 MG TAB PO SCH (19:59)
[2018-11-14] MEDS ORDERED: BENZOCAINE/MENTHOL LOZENG 1 EACH LOZENGE MUCOUS MEM PRN (20:13)
[2018-11-14] MEDS ORDERED: MONTELUKAST 10 MG TAB PO SCH (21:00)
[2018-11-14] MEDS ORDERED: ATORVASTATIN 10 MG TAB PO SCH (21:00)
[2018-11-15] MEDS: HYDROcodone/APAP 5-325MG 1 EACH TAB PO PRN ×2 (03:18→12:49)
[2018-11-15] MEDS: PROMETHAZINE HCL 6.25 MG/5 ML CUP PO PRN (03:22)
[2018-11-15] MEDS ORDERED: FUROSEMIDE 40 MG TAB PO SCH (07:00)
--- NOTE | 2018-11-15 08:09 | PCN ---
PROCEDURE NOTE Dung Sahni is a 68-year-old male patient with a history of paroxysmal atrial fibrillation who had undergone cryoablation earlier this year. He came back with atrial tachycardia recurrent episodes despite flecainide. His dose of flecainide was increased to 100 mg twice daily and he is also on low-dose verapamil. He is having breakthrough episodes on this. He also has underlying sick sinus syndrome. Patient was brought to the EP lab in a fasting state. Written informed consent was obtained prior to the procedure. The initial diagnostic study was performed under conscious sedation. The rest of the mapping and ablation was performed under general anesthesia. Right groin was prepped and draped as per protocol. Three venous sheaths were placed in the right femoral vein, via these diagnostic catheters were placed in the right heart including high right atrium, His bundle area, RV coronary sinus. Later in intracardiac echo catheter. A PentaRay catheter and mapping ablation catheter were placed. Sinus cycle length 941 milliseconds. WI interval 153 milliseconds, QRS 142 milliseconds and QT interval 444 milliseconds. AH interval 48 milliseconds, HV interval 52 milliseconds. Baseline AH 48 milliseconds, baseline HV interval 52 milliseconds. Sinus node recovery times at 500 milliseconds were 1218 milliseconds, VA Wenckebach block 330 milliseconds, ventricular extra stimulation was performed. Ventricular ERP 600/240 milliseconds. AV node Wenckebach block 310 milliseconds. Atrial extra stimulation was performed after double extrastimuli from the high right atrium and the atrial ERP is a 500/370/300 milliseconds. CS extra stimulation was performed from the coronary sinus and the ERP is 450\260\250 millisecond. Burst stimulation was performed from the coronary sinus and irregular atrial tachycardia/organized atrial fibrillation was induced and burst stimulation at 320 milliseconds. Therefore, the rest of the procedure was performed under general anesthesia. Intracardiac echocardiography was performed. The interatrial septum was identified. Left right transseptal catheterization was performed. RA and LA pressures were measured . Blood pressures were measured and documented. The 3D mapping/paced mapping, voltage mapping was performed. All 4 pulmonary veins were completely isolated. However, fractionated electrograms were noted along the anterior antrum of the right-sided veins and fractionated electrograms were also noted along the anterior left-sided veins in the ridge. These two areas were completely ablated anteriorly only. This resulted in slight alterization of atrial tachycardia. A roof line was made anteriorly and when this roof line was completed anatomically and the tachycardia organized to an atrial tachycardia with a cycle length of about 285 milliseconds with concentric activation. A 3D anatomic mapping was performed from the left atrium but the left atrium was not involved in the atrial tachycardia and cycle length was not met and therefore heparin was discontinued and the right atrium was mapped. This appeared to be in a vijaya- tricuspid circuit and entrainment mapping was performed in the cava tricuspid isthmus. The post pacing interval was close to the tachycardia cycle length. RF ablation was applied in the cava tricuspid isthmus and this resulted in termination of the tachycardia and resumption of sinus rhythm. Following that, a full atrial flutter line was made, complete bidirectional block was proven, non capture along the line was proven. Isthmus conduction time of 175-180 milliseconds was noted, differential pacing proved bidirectional block was performed. This was a long procedure involving 3D electron anatomic mapping of the right atrium and twice on the left atrium, first to map the initial tachycardia with a scar map and second to perform activation mapping of the left atrium. There was no evidence for perimitral reentry. This was a long procedure involving the mapping of the right and left atrium on multiple occasions as well as in multiple linear ablations including pulmonary vein isolation anteriorly along the antrum of the right and left veins outside of the PVI to enlarge the PPA dimensions. This finally resulted in organization to an atrial flutter when the roof line was completed. The patient tolerated the procedure well without any acute complications. PLAN: Reduce flecainide 50 mg twice daily and then you can stop this for a month. Continue anticoagulation with Xarelto. MMODL / IJN: [id number] /
--- NOTE | 2018-11-15 08:11 | P.DS ---
Providers Attending physician: Chriss Katz Primary care physician: [facility] Course: This morning the patient complains of a bit of chest discomfort which is constant mid chest. He also has a cough with expectoration no fever chills or breathing difficulty. He is sitting up comfortably in bed he has been ablating in the hallways Blood pressure 121/75 mmHg pulse rate is in the 70s and 80s in sinus rhythm temperature is normal 98.4F normal respirations Breath sounds are clear no rhonchi no crackles but air entry is reduced bilaterally at the bases Heart sounds S1 and S2 normal no rub or gallop Abdomen soft nontender No lower symmetry edema no JVD Impression Inducible organized atrial fibrillation/irregular atrial tachycardia status post ablation at the antral level, anteriorly in both the right left sites, left atrial roof line which resulted in further organization of the atrial tachycardia to atrial flutter and then successful atrial flutter ablation for the management of atrial fibrillation Previously the patient had a successful PVI with cryoablation and the pulmonary veins were quiescent and isolated at the ostial level Plan Colchicine 0.6 g twice daily for 3 days with an H2 wes Incentive spirometry Discussed with numbness Continue and granulation Reduce flecainide to 50 g twice daily Follow up with Dr. Fernandes in a week Oral fluids ad gonzález. Patient Condition at Discharge: Stable Plan - Discharge Summary Discharge Rx Participant: Yes New Discharge Prescriptions: New RX: Flecainide [Tambocor] 50 mg PO Q12HR #90 tablet Discontinued RX: Flecainide [Tambocor] 100 mg PO BID No Action RX: Montelukast [Singulair] 10 mg PO HS RX: Tamsulosin HCl [Flomax] 0.4 mg PO HS RX: Atorvastatin Calcium 10 mg PO HS RX: Loratadine [Claritin] 10 mg PO HS RX: Verapamil [Isoptin] 40 mg PO BID tab Fluticasone Nasal [place] [Flonase Nasal [place]] 1 spray EA NOSTRIL HS Rivaroxaban [Xarelto] 20 mg PO AC-LUNCH Guaifenesin W/ Codeine 1 dose PO Q4HR PRN PRN Reason: Cough Fluticasone/Salmeterol [Advair 100-50 Diskus] 1 puff INHALATION BID Discharge Medication List RX: Montelukast [Singulair] 10 mg PO HS 08/26/15 [History] RX: Tamsulosin HCl [Flomax] 0.4 mg PO HS 08/26/15 [History] RX: Atorvastatin Calcium 10 mg PO HS 08/31/16 [History] RX: Loratadine [Claritin] 10 mg PO HS 10/21/17 [History] RX: Verapamil [Isoptin] 40 mg PO BID tab 12/06/17 [Rx] Fluticasone Nasal [place] [Flonase Nasal [place]] 1 spray EA NOSTRIL HS 07/13/18 [ History] Rivaroxaban [Xarelto] 20 mg PO AC-LUNCH 08/31/18 [History] Guaifenesin W/ Codeine 1 dose PO Q4HR PRN 11/10/18 [History] Fluticasone/Salmeterol [Advair 100-50 Diskus] 1 puff INHALATION BID 11/14/18 [ History] RX: Flecainide [Tambocor] 50 mg PO Q12HR #90 tablet 11/14/18 [Rx] Follow up Appointment(s)/Referral(s): Alisia Fernandes MD [Family Provider] - 1 Week (Groin check with Dr. Fernandes) Activity/Diet/Wound Care/Special Instructions: Post EP study - Ablation instructions 1. Keep access sites dry for 2 days. 2. No heavy lifting or straining for 2 days. 3. Avoid bending the hips repeatedly for 2 days. 4. You may go up and down stairs slowly Call if the following is noted 1. Bleeding, increasing swelling or pain at the access sites. 2. Increasing chest discomfort, especially upon taking a deep breath. 3. Increasing shortness of breath, at rest or with exertion. 4. Undue cough / phlegm 5. Difficulty or pain while swallowing. 6. Pain or change in color in the extremities. 7. Fever, chills, rigors. 8. Increasing headache or neurologic symptoms. 9. Dizziness, fainting, palpitations Reduce flecainide to 50 MG twice daily Discharge Disposition: HOME SELF-CARE
[2018-11-15] MEDS: FLECAINIDE 50 MG TAB PO SCH (08:43)
[2018-11-15] MEDS: VERAPAMIL 40 MG TAB PO SCH (08:43)
[2018-11-15] MEDS ORDERED: COLCHICINE 0.6 MG EACH PO SCH (09:00)
[2018-11-15 11:47] VITALS: BP 180/95; PULSE 87; TEMP 98.2
[2018-11-15 13:05] LABS: Appearance,Urine Clear (Clear); Bilirubin,Urine Negative (Negative); Blood,Urine Negative (Negative); Color,Urine Yellow; Glucose,Urine (UA) Negative (Negative); Ketones,Urine Negative (Negative); Leukocyte Esterase,Urine Negative (Negative); Nitrite,Urine Negative (Negative); Protein,Urine Negative (Negative); Specific Gravity,Urine 1.018 (1.001-1.035); Urobilinogen,Urine <2.0 mg/dL (<2.0)
[2018-11-15 13:44] LABS: Basophils % (A) 0 %; Eosinophils # (A) 0.1 k/uL (0-0.7); Eosinophils % (A) 1 %; HCT 43.3 % (39.0-53.0); HGB 13.9 gm/dL (13.0-17.5); Lymphocytes % (A) 9 %; MCH 28.8 pg (25.0-35.0); MCHC 32.2 g/dL (31.0-37.0); MCV 89.4 fL (80.0-100.0); Mean Platelet Volume 6.7; Monocytes # (A) 0.6 k/uL (0-1.0); Monocytes % (A) 5 %; Neutrophils % (A) 85 %; Platelet Count 212 k/uL (150-450); RBC 4.84 m/uL (4.30-5.90); RDW 13.7 % (11.5-15.5); WBC 11.8 k/uL (3.8-10.6)
--- NOTE | 2018-11-15 13:53 | XR ---
EXAMINATION TYPE: XR chest 2V DATE OF EXAM: 11/15/2018 COMPARISON: 08/31/2018 TECHNIQUE: PA and lateral views submitted. HISTORY: Cough possible pneumonia FINDINGS: The lungs are clear and there is no pneumothorax, pleural effusion, or focal pneumonia. Heart size stable. Linear changes at the right lung base are noted. No pneumothorax. Underlying COPD suspected. Hypertrophic and degenerative change of the spine. Surgical clips in the abdomen. IMPRESSION: 1. Mild cardiomegaly with right basilar atelectasis favored over early infiltrate. Correlate clinical ly. 2. Correlate for COPD.
--- NOTE | 2018-11-16 13:04 | ECHOF ---
Referral Reason:pericarditis MEASUREMENTS -------- HEIGHT: 177.8 cm WEIGHT: 108.4 kg BP: 180/95 RVIDd: 3.0 cm (< 3.3) IVSd: 1.5 cm (0.6 - 1.1) LVIDd: 5.3 cm (3.9 - 5.3) LVPWd: 1.5 cm (0.6 - 1.1) IVSs: 2.1 cm LVIDs: 3.3 cm LVPWs: 1.7 cm LA Diam: 4.5 cm (2.7 - 3.8) LAESV Index (A-L): 42.97 ml/m Ao Diam: 4.5 cm (2.0 - 3.7) AV Cusp: 1.8 cm (1.5 - 2.6) EPSS: 1.0 cm MV E Vijay: 0.65 m/s MV DecT: 159 ms MV A Vijay: 0.38 m/s MV E/A Ratio: 1.72 AR PHT: 1001 ms RAP: 5.00 mmHg RVSP: 47.75 mmHg MV EF SLOPE: 28.48 mm/s (70 - 150) MV EXCURSION: 1.23 cm (> 18.000) FINDINGS -------- Sinus rhythm. This was a technically difficult study with suboptimal views. The left ventricular size is normal. There is moderate concentric left ventricular hypertrophy. O verall left ventricular systolic function is normal with, an EF between 55 - 60 %. The right ventricle is normal in size. LA is severely dilated >40 ml/m2 The right atrium is normal in size. There is mild aortic valve sclerosis. There is mild aortic regurgitation. Mild mitral regurgitation is present. Loose chordae Mild tricuspid regurgitation present. There is moderate pulmonary hypertension. The right ventric ular systolic pressure, as measured by Doppler, is 47.75mmHg. Trace/mild (physiologic) pulmonic regurgitation. 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 IVC Not well visulized. There is no pericardial effusion. 3 ml of Lumason was utilized for enhancement of images. CONCLUSIONS -------- 1. Sinus rhythm. 2. This was a technically difficult study with suboptimal views. 3. The left ventricular size is normal. 4. There is moderate concentric left ventricular hypertrophy. 5. Overall left ventricular systolic function is normal with, an EF between 55 - 60 %. 6. The right ventricle is normal in size. 7. LA is severely dilated >40 ml/m2 8. The right atrium is normal in size. 9. Loose chordae 10. 3 ml of Lumason was utilized for enhancement of images. 11. There is mild aortic valve sclerosis. 12. There is mild aortic regurgitation. 13. Mild mitral regurgitation is present. 14. Mild tricuspid regurgitation present. 15. There is moderate pulmonary hypertension. 16. The right ventricular systolic pressure, as measured by Doppler, is 47.75mmHg. 17. Trace/mild (physiologic) pulmonic regurgitation. 18. 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 19. IVC Not well visulized. 20. There is no pericardial effusion. SCRATCHER: LENNY Dean
== END 2018-11-15 15:55 | disposition home or self-care (01) ==
LOC: CATHEP 06:05 → 1SOBS 12:35 → CATHEP 11-15 15:55
PROVIDERS: ATTEND Internal Medicine Clinical Cardiac Electrophysiology
DX: I48.0 Paroxysmal atrial fibrillation (principal); I08.3 Combined rheumatic disorders of mitral, aortic and tricuspid valves; I47.1 Supraventricular tachycardia; I49.5 Sick sinus syndrome; I27.20 Pulmonary hypertension, unspecified; I10 Essential (primary) hypertension; E78.00 Pure hypercholesterolemia, unspecified; J45.20 Mild intermittent asthma, uncomplicated; N40.0 Benign prostatic hyperplasia without lower urinary tract symptoms; Z79.01 Long term (current) use of anticoagulants; Z79.51 Long term (current) use of inhaled steroids; Z79.899 Other long term (current) drug therapy
CPT/HCPCS: 85347; 93462; 93662; 93613; 93653; 85025 ×2; 81003; 87086; 71046; C8929; C1894 ×2; C1769 ×3; C1730 ×3; C1731; C1759; C1893; C1732; J2250; J2720; J1644 ×3; J2710; J2001; J3010; J0131; J0330; J2704; Q9950; 93306

== ENCOUNTER 2018-11-15 21:09 | Emergency (ER) | payer MEDICARE ==
--- NOTE | 2018-11-15 21:47 | ED ---
General Adult HPI - General Chief complaint: Abdominal Pain Stated complaint: Abd pain Time Seen by Provider: 11/15/18 21:20 Source: EMS, RN notes reviewed Mode of arrival: EMS Limitations: no limitations - History of Present Illness Initial comments: This is a 68-year-old male who comes emergency Department complaining of lower abdominal pain. Patient states he has only been able to urinate dribbles since last night and the pain continues to get worse. Patient states he recently had an ablation in the last 2 days. Patient states also been slightly constipated his last normal bowel movement was on Tuesday. Patient denies any dysuria or hematuria. Patient denies any catheterization that he knows of. Patient denies any history of urinary tract infections or urinary retention the past. Patient denies any injury or trauma. - Related Data Home Medications Medication Instructions Recorded Confirmed Montelukast [Singulair] 10 mg PO HS 08/26/15 11/14/18 Tamsulosin HCl [Flomax] 0.4 mg PO HS 08/26/15 11/14/18 Atorvastatin Calcium 10 mg PO HS 08/31/16 11/14/18 Loratadine [Claritin] 10 mg PO HS 10/21/17 11/14/18 Fluticasone Nasal [place] [Flonase 1 spray EA NOSTRIL HS 07/13/18 11/14/18 Nasal [place]] Rivaroxaban [Xarelto] 20 mg PO AC-LUNCH 08/31/18 11/14/18 Guaifenesin W/ Codeine 1 dose PO Q4HR PRN 11/10/18 11/14/18 Fluticasone/Salmeterol [Advair 1 puff INHALATION BID 11/14/18 11/14/18 100-50 Diskus] Previous Rx's Medication Instructions Recorded Verapamil [Isoptin] 40 mg PO BID tab 12/06/17 Flecainide [Tambocor] 50 mg PO Q12HR #90 tablet 11/14/18 Allergies Allergy/AdvReac Type Severity Reaction Status Date / Time No Known Allergies Allergy Verified 11/10/18 10:52 Review of Systems ROS Statement: Those systems with pertinent positive or pertinent negative responses have been documented in the HPI. ROS Other: All systems not noted in ROS Statement are negative. Past Medical History Past Medical History: Atrial Fibrillation, Atrial Flutter, Asthma, Chest Pain / Angina, Eye Disorder, GERD/Reflux, Hypertension, Osteoarthritis (OA), Prostate Disorder Additional Past Medical History / Comment(s): Paroxysmal Afib, aflutter, RVR, bronchitis, BPH, bilateral astigmatism, sinus problems. History of Any Multi-Drug Resistant Organisms: None Reported Past Surgical History: Appendectomy, Cholecystectomy Additional Past Surgical History / Comment(s): 12/13/17 PVI/cryoablation, cardioversions, colonoscopy, bilateral cataract removals. Past Anesthesia/Blood Transfusion Reactions: No Reported Reaction Additional Psychological History / Comment(s): Pt resides with his spouse. He is retired. There is also an independent adult child living with them. He is independent. He uses no assistive device. He drives.no past service. Past Alcohol Use History: None Reported - Past Family History Father History Unknown: Yes Family Medical History: CVA/TIA Additional Family Medical History / Comment(s): Father had a CVA. He lived to be 75 yrs. old. Mother History Unknown: Yes Family Medical History: CVA/TIA Additional Family Medical History / Comment(s): Mother had a CVA x 2. He lived to be 82 yrs old. General Exam - General Exam Comments Initial Comments: GENERAL: Patient is well-developed and well-nourished. Patient is nontoxic and well- hydrated and is in moderate distress. ENT: Neck is soft and supple. No significant lymphadenopathy is noted. Neck has full range of motion without eliciting any pain EYES: The sclera were anicteric and conjunctiva were pink and moist. Extraocular movements were intact and pupils were equal round and reactive to light. Eyelids were unremarkable. PULMONARY: Unlabored respirations. Good breath sounds bilaterally. No audible rales rhonchi or wheezing was noted. CARDIOVASCULAR: Patient is tachycardic ABDOMEN: Patient's abdomen is distended in the suprapubic region and extremely tender to palpation. Upper abdomen is nontender nondistended SKIN: Skin is clear with no lesions or rashes and otherwise unremarkable. NEUROLOGIC: Patient is alert and oriented x3. Cranial nerves II through XII are grossly intact. Motor and sensory are also intact. Normal speech, volume and content. Symmetrical smile. MUSCULOSKELETAL: Normal extremities with adequate strength and full range of motion. LYMPHATICS: No significant lymphadenopathy is noted PSYCHIATRIC: Normal psychiatric evaluation. Limitations: no limitations Course Vital Signs 11/15/18 11/15/18 11/15/18 21:20 21:30 22:01 Temperature 98.4 F Pulse Rate 118 H 126 H 98 Respiratory 20 14 21 Rate Blood Pressure 139/118 139/118 149/102 O2 Sat by Pulse 92 L 95 92 L Oximetry 11/16/18 00:01 Temperature 98 F Pulse Rate 89 Respiratory 20 Rate Blood Pressure 132/92 O2 Sat by Pulse 96 Oximetry Medical Decision Making - Medical Decision Making Patient had a Tariq placed and had initially 600 out very quickly and he felt much improved. After another half hour he had no pain whatsoever. - Lab Data Lab Results 11/15/18 Range/Units 22:01 Urine Color Yellow Urine Appearance Clear (Clear) Urine pH 5.0 (5.0-8.0) Ur Specific Jenner 1.010 (1.001-1.035) Urine Protein Negative (Negative) Urine Glucose (UA) Negative (Negative) Urine Ketones Negative (Negative) Urine Blood Moderate H (Negative) Urine Nitrite Negative (Negative) Urine Bilirubin Negative (Negative) Urine Urobilinogen <2.0 (<2.0) mg/dL Ur Leukocyte Esterase Negative (Negative) Urine RBC 165 H (0-5) /hpf Urine WBC 2 (0-5) /hpf Urine Bacteria Rare H (None) /hpf Urine Mucus Rare H (None) /hpf Disposition Clinical Impression: Urinary retention Disposition: HOME SELF-CARE Instructions: Urinary Retention in Men (ED) Is patient prescribed a controlled substance at d/c from ED?: No Referrals: Johann Rubalcava MD [Primary Care Provider] - 1-2 days
[2018-11-15 22:27] LABS: Appearance,Urine Clear (Clear); Bacteria,Urine Rare /hpf; Bilirubin,Urine Negative (Negative); Blood,Urine Moderate (Negative); Color,Urine Yellow; Glucose,Urine (UA) Negative (Negative); Ketones,Urine Negative (Negative); Leukocyte Esterase,Urine Negative (Negative); Mucus,Urine Rare /hpf; Nitrite,Urine Negative (Negative); Protein,Urine Negative (Negative); RBC,Urine 165 /hpf (0-5); Urobilinogen,Urine <2.0 mg/dL (<2.0); WBC,Urine 2 /hpf (0-5)
--- NOTE | 2018-11-15 22:45 | XR ---
EXAMINATION TYPE: XR KUB DATE OF EXAM: 11/15/2018 COMPARISON: NONE HISTORY: Abdominal pain TECHNIQUE: 2 views upright FINDINGS: There is no sign of intestinal obstruction or pneumoperitoneum. There are clips from cholec ystectomy. There are no pathologic calcifications over the kidneys. Lung bases are clear. There is no sign of a mass. IMPRESSION: Nonacute abdomen.
[2018-11-16 00:03] VITALS: BP 132/92; PULSE 89; RESP 20; TEMP 98
== END 2018-11-16 | disposition home or self-care (01) ==
LOC: EC 21:09
DX: R33.9 Retention of urine, unspecified (principal); J45.909 Unspecified asthma, uncomplicated; I48.91 Unspecified atrial fibrillation; I48.92 Unspecified atrial flutter; K21.9 Gastro-esophageal reflux disease without esophagitis; I10 Essential (primary) hypertension; N40.0 Benign prostatic hyperplasia without lower urinary tract symptoms; M19.90 Unspecified osteoarthritis, unspecified site; Z79.51 Long term (current) use of inhaled steroids; Z79.01 Long term (current) use of anticoagulants; Z79.899 Other long term (current) drug therapy; Z90.49 Acquired absence of other specified parts of digestive tract
CPT/HCPCS: 51702; 74018; 81001; 99284

== ENCOUNTER 2018-11-18 05:24 | Inpatient (IN) | payer MEDICARE ==
[2018-11-18] MEDS ORDERED: DILTIAZEM DRIP BOLUS FROM BAG 1 MG SOLN IV ONE ×2 (06:10→07:29)
--- NOTE | 2018-11-18 06:15 | ED ---
Arrhythmia/Palpitations HPI - General Chief Complaint: Arrhythmia/Palpitations Stated Complaint: Palpitations Time Seen by Provider: 11/18/18 05:58 Source: patient Mode of arrival: ambulatory Limitations: no limitations - History of Present Illness Initial Comments: This patient is a 68-year-old man who presents tonight for 2 issues. The patient states that he believes the main inciting thing was that he was not able urinate and then started having lower abdominal pain that he believes is related to his bladder. The patient states that shortly after this started he noticed that his heart felt like it had gone back into atrial fibrillation. He noticed rapid irregular heartbeat that he has had previously. The patient states that he had recently undergone an ablation for atrial fibrillation and that they had been able to restore him to sinus rhythm. The patient however did go back into suspected atrial fibrillation when he had urinary retention following the procedure, and was seen here. MD Complaint: rapid heart beat, irregular heart beat, atrial fibrillation -: hour(s) Context: occurred during rest Arrhythmia History: atrial fibrillation, history of ablation Associated Symptoms: denies other symptoms - Related Data Home Medications Medication Instructions Recorded Confirmed Montelukast [Singulair] 10 mg PO HS 08/26/15 11/18/18 Tamsulosin HCl [Flomax] 0.8 mg PO HS 08/26/15 11/18/18 Atorvastatin Calcium 10 mg PO HS 08/31/16 11/18/18 Loratadine [Claritin] 10 mg PO HS 10/21/17 11/18/18 Fluticasone Nasal [place] [Flonase 1 spray EA NOSTRIL HS 07/13/18 11/18/18 Nasal [place]] Rivaroxaban [Xarelto] 20 mg PO AC-LUNCH 08/31/18 11/18/18 Fluticasone/Salmeterol [Advair 1 puff INHALATION RT-BID 11/14/18 11/18/18 100-50 Diskus] Nitrofurantoin Macrocrystal 100 mg PO Q12H 11/18/18 11/18/18 [Macrodantin] Previous Rx's Medication Instructions Recorded Verapamil [Isoptin] 40 mg PO BID tab 12/06/17 Flecainide [Tambocor] 50 mg PO Q12HR #90 tablet 11/14/18 Allergies Allergy/AdvReac Type Severity Reaction Status Date / Time No Known Allergies Allergy Verified 11/18/18 08:12 Review of Systems ROS Statement: Those systems with pertinent positive or pertinent negative responses have been documented in the HPI. ROS Other: All systems not noted in ROS Statement are negative. Constitutional: Denies: fever, chills Respiratory: Reports: dyspnea. Denies: cough Cardiovascular: Reports: palpitations. Denies: chest pain, edema, syncope Gastrointestinal: Reports: as per HPI, abdominal pain. Denies: nausea, vomiting , diarrhea, constipation Genitourinary: Reports: other (Urine retention). Denies: dysuria, hematuria, testicular pain Musculoskeletal: Reports: back pain (Chronic back pain) Skin: Denies: rash Neurological: Denies: headache, weakness, numbness Past Medical History Past Medical History: Atrial Fibrillation, Atrial Flutter, Asthma, Chest Pain / Angina, Eye Disorder, GERD/Reflux, Hypertension, Osteoarthritis (OA), Prostate Disorder Additional Past Medical History / Comment(s): Paroxysmal Afib, aflutter, RVR, bronchitis, BPH, bilateral astigmatism, sinus problems. History of Any Multi-Drug Resistant Organisms: None Reported Past Surgical History: Appendectomy, Cardiac Ablation, Cholecystectomy Additional Past Surgical History / Comment(s): 12/13/17 PVI/cryoablation, cardioversions, colonoscopy, bilateral cataract removals. Past Anesthesia/Blood Transfusion Reactions: No Reported Reaction Past Psychological History: No Psychological Hx Reported Past Alcohol Use History: None Reported - Past Family History Father History Unknown: Yes Family Medical History: CVA/TIA Additional Family Medical History / Comment(s): Father had a CVA. He lived to be 75 yrs. old. Mother History Unknown: Yes Family Medical History: CVA/TIA Additional Family Medical History / Comment(s): Mother had a CVA x 2. He lived to be 82 yrs old. General Exam Limitations: no limitations General appearance: alert, in distress Head exam: Present: atraumatic, normocephalic ENT exam: Present: normal oropharynx Respiratory exam: Present: normal lung sounds bilaterally. Absent: respiratory distress, wheezes, rales, rhonchi, stridor Cardiovascular Exam: Present: tachycardia, irregular rhythm, normal heart sounds. Absent: systolic murmur, diastolic murmur, rubs, gallop GI/Abdominal exam: Present: soft, guarding (Suprapubic), other (There is suprapubic fullness consistent with bladder). Absent: distended, tenderness, rebound, rigid Extremities exam: Present: normal inspection, normal capillary refill. Absent: pedal edema, calf tenderness Skin exam: Present: warm, dry, intact, normal color. Absent: rash, cyanosis, diaphoretic, erythema, petechiae, pallor, mottled Course Vital Signs 11/18/18 11/18/18 11/18/18 05:24 06:00 06:58 Temperature 97.8 F Pulse Rate 78 116 H Pulse Rate [ 146 H Group Managing Director ] Respiratory 16 18 Rate Blood Pressure 139/89 103/76 O2 Sat by Pulse 97 98 Oximetry 11/18/18 11/18/18 11/18/18 07:30 08:00 09:00 Temperature Pulse Rate 113 H 112 H 133 H Pulse Rate [ Group Managing Director ] Respiratory 14 18 32 H Rate Blood Pressure 103/76 115/70 109/77 O2 Sat by Pulse 99 98 96 Oximetry 11/18/18 11/18/18 11/18/18 09:30 10:00 10:30 Temperature Pulse Rate 114 H 137 H 112 H Pulse Rate [ Group Managing Director ] Respiratory 14 14 9 L Rate Blood Pressure 117/84 102/72 105/64 O2 Sat by Pulse 96 96 94 L Oximetry EKG Findings - EKG Results: EKG: interpreted by ERMD EKG shows: atrial fibrillation (Rate approximately 136 bpm) - Blocks, [place], Hypertrophy, ST Abn: AV and intraventricular conduction: right bundle branch block (fixed/ intermittent, complete/incomplete) Repolarization changes or abnormalities: ST or T wave suggestive of ischemia ( Inferolateral) Medical Decision Making - Lab Data Result diagrams: 11/18/18 06:20 11/18/18 06:20 Lab Results 11/18/18 11/18/18 11/18/18 Range/Units 06:20 06:20 06:20 WBC 10.4 (3.8-10.6) k/uL RBC 4.75 (4.30-5.90) m/uL Hgb 13.7 (13.0-17.5) gm/dL Hct 42.3 (39.0-53.0) % MCV 88.9 (80.0-100.0) fL MCH 28.8 (25.0-35.0) pg MCHC 32.4 (31.0-37.0) g/dL RDW 13.7 (11.5-15.5) % Plt Count 217 (150-450) k/uL Neutrophils % 78 % Lymphocytes % 13 % Monocytes % 6 % Eosinophils % 2 % Basophils % 0 % Neutrophils # 8.1 H (1.3-7.7) k/uL Lymphocytes # 1.3 (1.0-4.8) k/uL Monocytes # 0.6 (0-1.0) k/uL Eosinophils # 0.2 (0-0.7) k/uL Basophils # 0.0 (0-0.2) k/uL PT (9.0-12.0) sec INR (<1.2) APTT (22.0-30.0) sec Sodium (137-145) mmol/L Potassium (3.5-5.1) mmol/L Chloride (98-107) mmol/L Carbon Dioxide (22-30) mmol/L Anion Gap mmol/L BUN (9-20) mg/dL Creatinine (0.66-1.25) mg/dL Est GFR (CKD-EPI)AfAm (>60 ml/min/1.73 sqM) Est GFR (CKD-EPI)NonAf (>60 ml/min/1.73 sqM) Glucose (74-99) mg/dL Calcium (8.4-10.2) mg/dL Magnesium (1.6-2.3) mg/dL Total Bilirubin (0.2-1.3) mg/dL AST (17-59) U/L ALT (21-72) U/L Alkaline Phosphatase (38-126) U/L Total Creatine Kinase 91 (55-170) U/L CK-MB (CK-2) 1.2 (0.0-2.4) ng/mL CK-MB (CK-2) Rel Index 1.3 Troponin I 0.088 H* (0.000-0.034) ng/mL Total Protein (6.3-8.2) g/dL Albumin (3.5-5.0) g/dL Triglycerides (<150) mg/dL Cholesterol (<200) mg/dL LDL Cholesterol, Calc (0-99) mg/dL HDL Cholesterol (40-60) mg/dL Urine Color Yellow Urine Appearance Cloudy (Clear) Urine pH 5.5 (5.0-8.0) Ur Specific [place] 1.014 (1.001-1.035) Urine Protein Trace H (Negative) Urine Glucose (UA) Negative (Negative) Urine Ketones Negative (Negative) Urine Blood Large H (Negative) Urine Nitrite Negative (Negative) Urine Bilirubin Negative (Negative) Urine Urobilinogen <2.0 (<2.0) mg/dL Ur Leukocyte Esterase Moderate H (Negative) Urine RBC 135 H (0-5) /hpf Urine WBC 38 H (0-5) /hpf Urine Bacteria Rare H (None) /hpf Urine Mucus Rare H (None) /hpf Urine Yeast (Budding) Occasional H (None) /hpf 11/18/18 11/18/18 11/18/18 Range/Units 06:20 06:20 06:20 WBC (3.8-10.6) k/uL RBC (4.30-5.90) m/uL Hgb (13.0-17.5) gm/dL Hct (39.0-53.0) % MCV (80.0-100.0) fL MCH (25.0-35.0) pg MCHC (31.0-37.0) g/dL RDW (11.5-15.5) % Plt Count (150-450) k/uL Neutrophils % % Lymphocytes % % Monocytes % % Eosinophils % % Basophils % % Neutrophils # (1.3-7.7) k/uL Lymphocytes # (1.0-4.8) k/uL Monocytes # (0-1.0) k/uL Eosinophils # (0-0.7) k/uL Basophils # (0-0.2) k/uL PT 11.7 (9.0-12.0) sec INR 1.1 (<1.2) APTT 31.8 H (22.0-30.0) sec Sodium 140 (137-145) mmol/L Potassium 4.4 (3.5-5.1) mmol/L Chloride 102 (98-107) mmol/L Carbon Dioxide 31 H (22-30) mmol/L Anion Gap 7 mmol/L BUN 22 H (9-20) mg/dL Creatinine 1.16 (0.66-1.25) mg/dL Est GFR (CKD-EPI)AfAm 76 (>60 ml/min/1.73 sqM) Est GFR (CKD-EPI)NonAf 65 (>60 ml/min/1.73 sqM) Glucose 103 H (74-99) mg/dL Calcium 9.4 (8.4-10.2) mg/dL Magnesium 2.4 H (1.6-2.3) mg/dL Total Bilirubin 0.9 (0.2-1.3) mg/dL AST 26 (17-59) U/L ALT 48 (21-72) U/L Alkaline Phosphatase 98 (38-126) U/L Total Creatine Kinase (55-170) U/L CK-MB (CK-2) (0.0-2.4) ng/mL CK-MB (CK-2) Rel Index Troponin I (0.000-0.034) ng/mL Total Protein 5.9 L (6.3-8.2) g/dL Albumin 3.1 L (3.5-5.0) g/dL Triglycerides 91 (<150) mg/dL Cholesterol 147 (<200) mg/dL LDL Cholesterol, Calc 73 (0-99) mg/dL HDL Cholesterol 56 (40-60) mg/dL Urine Color Urine Appearance (Clear) Urine pH (5.0-8.0) Ur Specific [place] (1.001-1.035) Urine Protein (Negative) Urine Glucose (UA) (Negative) Urine Ketones (Negative) Urine Blood (Negative) Urine Nitrite (Negative) Urine Bilirubin (Negative) Urine Urobilinogen (<2.0) mg/dL Ur Leukocyte Esterase (Negative) Urine RBC (0-5) /hpf Urine WBC (0-5) /hpf Urine Bacteria (None) /hpf Urine Mucus (None) /hpf Urine Yeast (Budding) (None) /hpf Critical Care Time Critical Care Time: Yes (40 minutes) Disposition Clinical Impression: Atrial fibrillation with RVR, Chest pain, Urinary retention, Elevated troponin Disposition: ADMITTED IP TO THIS HOSP Condition: Fair
[2018-11-18 06:37] LABS: Basophils % (A) 0 %; Eosinophils # (A) 0.2 k/uL (0-0.7); Eosinophils % (A) 2 %; HCT 42.3 % (39.0-53.0); HGB 13.7 gm/dL (13.0-17.5); Lymphocytes # (A) 1.3 k/uL (1.0-4.8); Lymphocytes % (A) 13 %; MCH 28.8 pg (25.0-35.0); MCHC 32.4 g/dL (31.0-37.0); MCV 88.9 fL (80.0-100.0); Monocytes # (A) 0.6 k/uL (0-1.0); Monocytes % (A) 6 %; Neutrophils # (A) 8.1 k/uL (1.3-7.7); Neutrophils % (A) 78 %; Platelet Count 217 k/uL (150-450); RBC 4.75 m/uL (4.30-5.90); RDW 13.7 % (11.5-15.5); WBC 10.4 k/uL (3.8-10.6)
--- NOTE | 2018-11-18 06:42 | XR ---
EXAMINATION TYPE: XR chest 1V portable DATE OF EXAM: 11/18/2018 COMPARISON: 11/15/2018 HISTORY: Palpitations TECHNIQUE: Single frontal view of the chest is obtained. FINDINGS: There is no heart failure nor confluent pneumonic infiltrate. Heart appears enlarged. Cost ophrenic angles are clear. IMPRESSION: Cardiomegaly. No active cardiopulmonary disease. No change.
[2018-11-18 06:45] LABS: Albumin 3.1 g/dL (3.5-5.0); Calcium 9.4 mg/dL (8.4-10.2); INR 1.1 (<1.2); Magnesium 2.4 mg/dL (1.6-2.3); Partial Thromboplastin Time 31.8 sec (22.0-30.0); Potassium 4.4 mmol/L (3.5-5.1); Prothrombin Time 11.7 sec (9.0-12.0); Total Bilirubin 0.9 mg/dL (0.2-1.3); Total Protein 5.9 g/dL (6.3-8.2)
[2018-11-18 06:47] LABS: Appearance,Urine Cloudy (Clear); Bacteria,Urine Rare /hpf; Bilirubin,Urine Negative (Negative); Blood,Urine Large (Negative); Budding Yeast,Urine Occasional /hpf; Color,Urine Yellow; Glucose,Urine (UA) Negative (Negative); Ketones,Urine Negative (Negative); Leukocyte Esterase,Urine Moderate (Negative); Mucus,Urine Rare /hpf; Nitrite,Urine Negative (Negative); PH, Urine 5.5 (5.0-8.0); Protein,Urine Trace (Negative); RBC,Urine 135 /hpf (0-5); Specific Gravity,Urine 1.014 (1.001-1.035); Urobilinogen,Urine <2.0 mg/dL (<2.0); WBC,Urine 38 /hpf (0-5)
[2018-11-18] MEDS: DILTIAZEM 50 MG in SODIUM CHLORIDE 0.9% 40 ML IV SCH ×2 (06:54→20:46)
[2018-11-18 07:13] LABS: Creatine Kinase MB 1.2 ng/mL (0.0-2.4)
[2018-11-18 07:21] LABS: Troponin I 0.088 ng/mL (0.000-0.034)
[2018-11-18] MEDS ORDERED: NITROGLYCERIN SL TABS 0.4 MG TAB SUBLINGUAL PRN (07:45)
[2018-11-18] MEDS ORDERED: FLECAINIDE 50 MG TAB PO SCH (09:00)
[2018-11-18] MEDS: VERAPAMIL 40 MG TAB PO SCH ×3 (10:27→20:47)
[2018-11-18 13:12] LABS: Creatine Kinase MB 0.8 ng/mL (0.0-2.4)
[2018-11-18 13:13] LABS: Troponin I 0.081 ng/mL (0.000-0.034)
[2018-11-18 14:40] VITALS: BMI 33.7
[2018-11-18] MEDS: RIVAROXABAN 20 MG TAB PO SCH (15:09)
--- NOTE | 2018-11-18 18:01 | P.CRDCN ---
History of Present Illness Consult date: 11/18/18 History of present illness: This is a 68-year-old gentleman with history of atrial fibrillation with successful cryoablation of all 4 pulmonary veins done in November. Patient was having breakthrough atrial tachycardia and was brought in about a week ago and had an ablation done. Patient went home after the procedure but developed significant lower abdominal pain and came to the emergency room about 3 days ago. He was found to have distended bladder and had a Tariq insertion with the drainage of large amount of urine. He felt better and his Tariq was removed. Patient was sent home in a stable condition. However, patient was hardly urinating and developed lower abdominal pain and came to the emergency room again. Once he started having abdominal pain. His heart became irregular and out of atrial fibrillation with rapid ventricular response. Currently is on IV Cardizem with heart rates in the about 100 to 110 and patient seemed to be comfortable. Patient also had Tariq insertion. Patient has history of prostate problem. Most probably needs a urology consult. I'm going to increase the dose of flecainide to 100 mg by mouth twice a day and continue with the Cardizem. He patient doesn't convert to sinus rhythm, we consider cardioversion or trial off amiodarone. In the past, echo Cardigan showed preserved LV function Review of Systems As per the chart Past Medical History Past Medical History: Atrial Fibrillation, Atrial Flutter, Asthma, Chest Pain / Angina, Eye Disorder, GERD/Reflux, Hypertension, Osteoarthritis (OA), Prostate Disorder Additional Past Medical History / Comment(s): Paroxysmal Afib, aflutter, RVR, bronchitis, BPH, bilateral astigmatism, sinus problems. History of Any Multi-Drug Resistant Organisms: None Reported Past Surgical History: Appendectomy, Cardiac Ablation, Cholecystectomy Additional Past Surgical History / Comment(s): 12/13/17 PVI/cryoablation, cardioversions, colonoscopy, bilateral cataract removals. Past Anesthesia/Blood Transfusion Reactions: No Reported Reaction Past Psychological History: No Psychological Hx Reported Additional Psychological History / Comment(s): Pt resides with his spouse. He is retired. There is also an independent adult child living with them. He is independent. He uses no assistive device. He drives.no past service. Smoking Status: Never smoker Past Alcohol Use History: None Reported Past Drug Use History: None Reported - Past Family History Father History Unknown: Yes Family Medical History: CVA/TIA Additional Family Medical History / Comment(s): Father had a CVA. He lived to be 75 yrs. old. Mother History Unknown: Yes Family Medical History: CVA/TIA Additional Family Medical History / Comment(s): Mother had a CVA x 2. He lived to be 82 yrs old. Medications and Allergies Home Medications Medication Instructions Recorded Confirmed Type Montelukast [Singulair] 10 mg PO HS 08/26/15 11/18/18 History Tamsulosin HCl [Flomax] 0.8 mg PO HS 08/26/15 11/18/18 History Atorvastatin Calcium 10 mg PO HS 08/31/16 11/18/18 History Loratadine [Claritin] 10 mg PO HS 10/21/17 11/18/18 History Verapamil [Isoptin] 40 mg PO BID tab 12/06/17 11/18/18 Rx Fluticasone Nasal [place] [Flonase 1 spray EA NOSTRIL HS 07/13/18 11/18/18 History Nasal [place]] Rivaroxaban [Xarelto] 20 mg PO AC-LUNCH 08/31/18 11/18/18 History Flecainide [Tambocor] 50 mg PO Q12HR #90 tablet 11/14/18 11/18/18 Rx Fluticasone/Salmeterol [Advair 1 puff INHALATION RT-BID 11/14/18 11/18/18 History 100-50 Diskus] Nitrofurantoin Macrocrystal 100 mg PO Q12H 11/18/18 11/18/18 History [Macrodantin] Allergies Allergy/AdvReac Type Severity Reaction Status Date / Time No Known Allergies Allergy Verified 11/18/18 08:12 Physical Exam Vitals: Vital Signs Temp Pulse Pulse Resp BP BP Pulse Ox 11/18/18 15:43 97.4 F L 107 H 12 106/68 98 11/18/18 12:00 97.4 F L 104 H 12 104/83 98 11/18/18 10:30 112 H 9 L 105/64 94 L 11/18/18 10:00 137 H 14 102/72 96 11/18/18 09:30 114 H 14 117/84 96 11/18/18 09:00 133 H 32 H 109/77 96 11/18/18 08:00 112 H 18 115/70 98 11/18/18 07:30 113 H 14 103/76 99 11/18/18 06:58 116 H 18 103/76 98 11/18/18 06:00 146 H 11/18/18 05:24 97.8 F 78 16 139/89 97 Intake and Output 11/18/18 11/18/18 11/18/18 06:59 14:59 22:59 Intake Total 1005 Output Total 800 900 Balance -800 105 Intake: Intake, IV Titration 25 Amount Diltiazem 50 mg In Sodium 25 Chloride 0.9% 40 ml @ 5 MG/HR 5 mls/hr IV .Q10H [facility] Rx#:[id number] Oral 980 Output: Urine 800 900 Uretheral (Tariq) 800 Other: Voiding Method Indwelling Catheter Weight 106.594 kg 106.594 kg GENERAL EXAM: Patient is alert and oriented and doesn't appear to be in any acute distress HEENT: Normocephalic. Normal reaction of pupils, equal size, normal range of extraocular motion. No erythema or exudates in the throat. NECK: No masses, no nuchal rigidity. CHEST: No chest wall deformity. LUNGS: Equal air entry with no crackles or wheeze. HEART: Supple and S2 normal with irregular heart sounds ABDOMEN: No hepatosplenomegaly, normal bowel sounds, no guarding or rigidity. SKIN: No rashesS1 and S2 normal with no audible mumurs or gallops. Regular rhythm, femorals equal on both side CENTRAL NERVOUS SYSTEM: No focal deficits. EXTREMITIES: No cyanosis, clubbing or edema. Results 11/18/18 06:20 11/18/18 06:20 Cardiac Enzymes 11/18/18 11/18/18 11/18/18 Range/Units 06:20 06:20 11:57 AST 26 (17-59) U/L CK-MB (CK-2) 1.2 0.8 (0.0-2.4) ng/mL Troponin I 0.088 H* 0.081 H* (0.000-0.034) ng/mL Coagulation 11/18/18 Range/Units 06:20 PT 11.7 (9.0-12.0) sec APTT 31.8 H (22.0-30.0) sec CBC 11/18/18 Range/Units 06:20 WBC 10.4 (3.8-10.6) k/uL RBC 4.75 (4.30-5.90) m/uL Hgb 13.7 (13.0-17.5) gm/dL Hct 42.3 (39.0-53.0) % Plt Count 217 (150-450) k/uL Comprehensive Metabolic Panel 11/18/18 Range/Units 06:20 Sodium 140 (137-145) mmol/L Potassium 4.4 (3.5-5.1) mmol/L Chloride 102 (98-107) mmol/L Carbon Dioxide 31 H (22-30) mmol/L BUN 22 H (9-20) mg/dL Creatinine 1.16 (0.66-1.25) mg/dL Glucose 103 H (74-99) mg/dL Calcium 9.4 (8.4-10.2) mg/dL AST 26 (17-59) U/L ALT 48 (21-72) U/L Alkaline Phosphatase 98 (38-126) U/L Total Protein 5.9 L (6.3-8.2) g/dL Albumin 3.1 L (3.5-5.0) g/dL Current Medications Generic Name Dose Route Start Last Admin Trade Name Freq PRN Reason Stop Dose Admin Aspirin 325 mg 11/19/18 09:00 Aspirin PO DAILY [facility] Atorvastatin Calcium 10 mg 11/18/18 21:00 Lipitor PO HS [facility] Budesonide/Formoterol Fumarate 2 puff 11/18/18 20:00 Symbicort 80-4.5 Mcg Inhaler INHALATION RT-BID [facility] Flecainide Acetate 50 mg 11/18/18 09:00 11/18/18 10:27 Tambocor PO 50 mg Q12HR [facility] Administration Guaifenesin/Codeine Phosphate 10 ml 11/18/18 07:48 Robitussin Ac PO Q4HR PRN [facility] Diltiazem HCl 50 mg/ Sodium 50 mls @ 5 mls/hr 11/18/18 06:15 11/18/18 06:54 Chloride IV 5 mg/hr .Q10H [facility] 5 mls/hr Administration 5 MG/HR Montelukast Sodium 10 mg 11/18/18 21:00 Singulair PO HS [facility] Nitroglycerin 0.4 mg 11/18/18 07:45 Nitrostat SUBLINGUAL Q5M PRN Chest Pain Rivaroxaban 20 mg 11/18/18 12:30 11/18/18 15:09 Xarelto PO 20 mg AC-LUNCH [facility] Administration Tamsulosin HCl 0.4 mg 11/18/18 21:00 Flomax PO HS [facility] Verapamil HCl 40 mg 11/18/18 09:00 11/18/18 10:27 Isoptin PO 40 mg BID [facility] Administration Intake and Output 11/18/18 11/18/18 11/18/18 06:59 14:59 22:59 Intake Total 1005 Output Total 800 900 Balance -800 105 Intake: Intake, IV Titration 25 Amount Diltiazem 50 mg In Sodium 25 Chloride 0.9% 40 ml @ 5 MG/HR 5 mls/hr IV .Q10H [facility] Rx#:[id number] Oral 980 Output: Urine 800 900 Uretheral (Tariq) 800 Other: Voiding Method Indwelling Catheter Weight 106.594 kg 106.594 kg Patient Weight 11/19/18 06:59 Weight 106.594 kg 11/18/18 06:20 11/18/18 06:20 EKG Interpretations (text) Atrial fibrillation with rapid ventricular response Assessment and Plan (1) Atrial fibrillation with RVR Current Visit: No Status: Acute Code(s): I48.91 - UNSPECIFIED ATRIAL FIBRILLATION SNOMED Code(s): 703678435883396 (2) Urinary retention Current Visit: No Status: Acute Code(s): R33.9 - RETENTION OF URINE, UNSPECIFIED SNOMED Code(s): 666490232 Plan: Continue with IV Cardizem and anticoagulation. I will increase the dose of flecainide to 100 mg by mouth twice a day. If patient doesn't convert to sinus rhythm, may consider cardioversion or a trial of amiodarone and patient also needs urology consult
[2018-11-18] MEDS: SYMBICORT 80-4.5 MCG INHALER INHALATION SCH (19:52)
[2018-11-18 20:16] LABS: Creatine Kinase MB 0.7 ng/mL (0.0-2.4)
[2018-11-18 20:26] LABS: Troponin I 0.062 ng/mL (0.000-0.034)
[2018-11-18] MEDS: FLECAINIDE 50 MG TAB PO SCH (20:46)
[2018-11-18] MEDS: TAMSULOSIN 0.4 MG CAP.ER.24H PO SCH (20:47)
[2018-11-18] MEDS: ATORVASTATIN 10 MG TAB PO SCH (20:47)
[2018-11-18] MEDS: MONTELUKAST 10 MG TAB PO SCH (20:47)
[2018-11-18 23:12] LABS: Cholesterol 147 mg/dL (<200); HDL Cholesterol 56 mg/dL (40-60); LDL Cholesterol,Calculated 73 mg/dL (0-99); Triglycerides 91 mg/dL (<150)
--- NOTE | 2018-11-18 23:18 | HP ---
HISTORY AND PHYSICAL DATE OF ADMISSION: 11/18/2018. DATE OF SERVICE: 11/18/2018. PRESENTING COMPLAINT: Abdominal pain. HISTORY OF PRESENTING COMPLAINT: This is a very pleasant 68-year-old patient who follows with Dr. Rubalcava. The patient's chronic stable medical conditions include GERD, hypertension, primary osteoarthritis. The patient has known atrial fibrillation. Also known BPH. The patient this Tuesday have ablation done by Dr. Katz. Everything went good. When patient was leaving he started having lower abdominal discomfort, by the time he went home his abdominal discomfort had greatly worsened. He was unable to make urine. He went down to Dr. Rubalcava and then came down to the ER. The patient's pain was rather severe. Tariq catheter was placed. A large amount of urine was obtained. The patient also went into atrial fibrillation, was put on IV Cardizem drip and admitted to the hospital for the same. In fact, patient had 2 visits to the ER. He was decompressed once and then had it again. The patient remains in atrial fibrillation. REVIEW OF SYSTEMS: CONSTITUTIONAL: None. HEENT: None. CARDIOVASCULAR: As above, heart racing. GASTROINTESTINAL: Some heartburn. GENITOURINARY: The patient has been having worsening BPH symptoms. Dose of Flomax in the evening was doubled. DERMATOLOGICAL, HEMATOLOGIC, LYMPHATICS: None. PSYCHIATRY: None. NEUROLOGIC: None. MUSCULOSKELETAL: Arthritic pain in joints. PAST MEDICAL HISTORY: Paroxysmal atrial fibrillation, GERD, hypertension, osteoarthritis, BPH. PAST SURGICAL HISTORY: Appendectomy, cholecystectomy, cryoablation, cardioversion, bilateral cataracts. SOCIAL HISTORY: . Does not smoke or drink alcohol. FAMILY HISTORY: Mother had 2 strokes. HOME MEDICATIONS: 1. Flomax 0.8 mg at bedtime. 2. Isoptin 40 mg p.o. b.i.d. 3. Xarelto 20 mg with lunch. 4. Macrodantin 100 mg p.o. every 12 hours. 5. Singulair 10 mg at bedtime. 6. Claritin 10 mg at bedtime. 7. Advair 1 puff b.i.d. 8. Flonase 50 mg ever 12 hours. 9. Lipitor 10 mg at bedtime. ALLERGIES: None. PHYSICAL EXAMINATION: VITAL SIGNS: Vital signs on presentation, temp 97.8, pulse 140, respiration 18, blood pressure 103/76, pulse ox 98% on room air. GENERAL APPEARANCE: Well built, BMI 33.7, sitting up comfortable. EYES: Pupils equal. Conjunctivae normal. HEENT: External nose and ears normal. Oral cavity normal. NECK: JVD not raised. No mass palpable. Respiratory effort normal. LUNGS: Fair air entry. CARDIOVASCULAR: Heart sounds regular. No edema. ABDOMEN: Soft, nontender. Liver and spleen not palpable. LYMPHATIC: No lymph node palpable. PSYCHIATRY: Alert and oriented x3. Mood and affect normal. NEUROLOGIC: Pupils equal. Cranial nerves grossly intact. Power and sensation grossly intact. GENITOURINARY: The patient has a Tariq catheter in place. INVESTIGATIONS: White count 10.5, hemoglobin 13.7, potassium 4.4, BUN 22, creatinine 1.16. Troponin 0.088, 0.081, 0.062. EKG tracing personally reviewed by me shows atrial fibrillation with rapid ventricular rate with right bundle branch block pattern. Chest x-ray film personally reviewed by me shows some cardiomegaly and some venous prominence. ASSESSMENT: 1. Recurrent atrial fibrillation with rapid ventricular rate. The patient has had cardioversion in the past, also earlier this week, now rate uncontrolled. 2. Troponin leak from uncontrolled atrial fibrillation. 3. Gastroesophageal reflux disease. 4. Essential hypertension. 5. Primary osteoarthritis. 6. Acute urinary retention from enlarged benign prostatic hypertrophy. 7. Bilateral astigmatism. 8. Moderate persistent asthma for which patient at home is on Advair. 9. Obesity, BMI 33.7. PLAN: Home medications are resumed. Patient is put on IV Cardizem drip. The patient is already on Xarelto. The patient also was put on verapamil. Dose of flecainide was increased to 100 mg twice a day by Cardiology. Care was discussed with the patient. We will keep the Tariq catheter in. The patient will need to see Urology as an outpatient. Care was discussed with the patient. Questions were answered. MMODL / IJN: [id number] /
[2018-11-19] MEDS: DILTIAZEM 50 MG in SODIUM CHLORIDE 0.9% 40 ML IV SCH ×3 (04:00→23:05)
[2018-11-19] MEDS: SYMBICORT 80-4.5 MCG INHALER INHALATION SCH ×2 (08:10→19:30)
--- NOTE | 2018-11-19 08:44 | P.GSCN ---
History of Present Illness Consult date: 11/19/18 History of present illness: The patient is a 68-year-old gentleman who is in the hospital with urine retention and rapid rate atrial fibrillation. Patient has a known history of BPH and is been on Flomax for some time. Approximately a month ago he noticed increasing difficulty with voiding. The patient had a cardiac cath recently and went into retention after that. He had a straight cath for large volume of urine. His Flomax was increased to twice a day. He presented yesterday again in urine retention and a rapid rate atrial fibrillation. He catheter was placed for large volume of urine. We have been asked see the patient. The patient has never seen a urologist. His last prostate examination was a couple years ago. He has been on Flomax 0.4 mg daily and just recently increased to 0.8 mg daily. He has had some urgency incontinence. He does have a slow stream. There's been no infection or bleeding. His father did have BPH. He has not recently been constipated. He has not been on new medications that would can contribute to his urine retention. Review of Systems - Constitutional Reports as per HPI - Cardiovascular Reports as per HPI - Genitourinary Reports as per HPI Past Medical History Past Medical History: Atrial Fibrillation, Atrial Flutter, Asthma, Chest Pain / Angina, Eye Disorder, GERD/Reflux, Hypertension, Osteoarthritis (OA), Prostate Disorder Additional Past Medical History / Comment(s): Paroxysmal Afib, aflutter, RVR, bronchitis, BPH, bilateral astigmatism, sinus problems. History of Any Multi-Drug Resistant Organisms: None Reported Past Surgical History: Appendectomy, Cardiac Ablation, Cholecystectomy Additional Past Surgical History / Comment(s): 12/13/17 PVI/cryoablation, cardioversions, colonoscopy, bilateral cataract removals. Past Anesthesia/Blood Transfusion Reactions: No Reported Reaction Past Psychological History: No Psychological Hx Reported Additional Psychological History / Comment(s): Pt resides with his spouse. He is retired. There is also an independent adult child living with them. He is independent. He uses no assistive device. He drives.no past service. Smoking Status: Never smoker Past Alcohol Use History: None Reported Past Drug Use History: None Reported - Past Family History Father History Unknown: Yes Family Medical History: CVA/TIA Additional Family Medical History / Comment(s): Father had a CVA. He lived to be 75 yrs. old. Mother History Unknown: Yes Family Medical History: CVA/TIA Additional Family Medical History / Comment(s): Mother had a CVA x 2. He lived to be 82 yrs old. Medications and Allergies Home Medications Medication Instructions Recorded Confirmed Type Montelukast [Singulair] 10 mg PO HS 08/26/15 11/18/18 History Tamsulosin HCl [Flomax] 0.8 mg PO HS 08/26/15 11/18/18 History Atorvastatin Calcium 10 mg PO HS 08/31/16 11/18/18 History Loratadine [Claritin] 10 mg PO HS 10/21/17 11/18/18 History Verapamil [Isoptin] 40 mg PO BID tab 12/06/17 11/18/18 Rx Fluticasone Nasal [place] [Flonase 1 spray EA NOSTRIL HS 07/13/18 11/18/18 History Nasal [place]] Rivaroxaban [Xarelto] 20 mg PO AC-LUNCH 08/31/18 11/18/18 History Flecainide [Tambocor] 50 mg PO Q12HR #90 tablet 11/14/18 11/18/18 Rx Fluticasone/Salmeterol [Advair 1 puff INHALATION RT-BID 11/14/18 11/18/18 History 100-50 Diskus] Nitrofurantoin Macrocrystal 100 mg PO Q12H 11/18/18 11/18/18 History [Macrodantin] Allergies Allergy/AdvReac Type Severity Reaction Status Date / Time No Known Allergies Allergy Verified 11/18/18 08:12 Surgical - Exam Vital Signs Temp Pulse Resp BP Pulse Ox 97.8 F 78 16 139/89 97 11/18/18 05:24 11/18/18 05:24 11/18/18 05:24 11/18/18 05:24 11/18/18 05:24 - General well developed, well nourished, no distress - Eyes PERRL - ENT no hearing loss - Neck trachea midline - Respiratory normal expansion, normal respiratory effort - Cardiovascular Rhythm: irregularly irregular - Abdomen Abdomen: soft, non tender - Genitourinary Indwelling catheter, prostate 40-50 g enlarged and benign normal penis with no external lesions, testicles present - Rectum Rectum: normal sphincter tone - Integumentary no rash, no growths - Neurologic normal coordination, normal sensation - Musculoskeletal normal posture - Psychiatric oriented to time, oriented to person, oriented to place, speech is normal, memory intact Results - Labs 11/18/18 06:20 11/18/18 06:20 Abnormal Lab Results - Last 24 Hours (Table) 11/18/18 11/18/18 Range/Units 11:57 18:17 Total Creatine Kinase 50 L (55-170) U/L Troponin I 0.081 H* 0.062 H* (0.000-0.034) ng/mL Diabetes panel 11/18/18 Range/Units 06:20 Triglycerides 91 (<150) mg/dL HDL Cholesterol 56 (40-60) mg/dL Assessment and Plan Assessment: Impression: BPH with obstruction, chronic. Urine retention post procedure. Cardiac arrhythmia. Recommendations: I leave indwelling catheter for approximately a week. At that time the catheter can be removed for a voiding trial. This most likely will be done in our office. I given the patient my phone number to be seen in approximately week for voiding trial.
[2018-11-19] MEDS: ASPIRIN 325 MG TAB PO SCH (08:48)
[2018-11-19] MEDS: FLECAINIDE 50 MG TAB PO SCH ×2 (08:48→20:22)
--- NOTE | 2018-11-19 13:25 | P.PN ---
Subjective Progress Note Date: 11/19/18 This is a 68-year-old gentleman with history of atrial fibrillation and atrial tachycardia who recently had ablation. Subsequently is admitted to the hospital with urinary retention. This time patient came with recurrence of atrial fibrillation. Patient is still in atrial fib with heart rate in the 100s. Patient is on flecainide and metoprolol. Patient has been on anti- cognition therapy. I will increase the dose of the fact night 150 mg by mouth twice a day. The patient is still [place] fibrillation. We'll proceed with cardioversion tomorrow. He was seen by urologist and advised that patient keep the Tariq catheter for one week. Following that patient will have follow-up with the urologist. Objective - Vital Signs Vital signs: Vital Signs Temp 98.6 F 11/19/18 04:00 Pulse 90 11/19/18 04:00 Resp 20 11/19/18 04:00 BP 109/72 11/19/18 04:00 Pulse Ox 96 11/19/18 04:00 Intake & Output 11/18/18 11/19/18 11/19/18 18:59 06:59 18:59 Intake Total 1295 36.167 Output Total 900 1300 Balance 395 -1263.833 Weight 106.594 kg 106.9 kg Intake: Intake, IV Titration 75 36.167 Amount Diltiazem 50 mg In Sodium 75 36.167 Chloride 0.9% 40 ml @ 5 MG/HR 5 mls/hr IV .Q10H [facility] Rx#:[id number] Oral 1220 Output: Urine 900 1300 Other: Voiding Method Indwelling Catheter Indwelling Catheter - Exam GENERAL EXAM: Patient is alert and oriented and doesn't appear to be in any acute distress HEENT: Normocephalic. Normal reaction of pupils, equal size, normal range of extraocular motion. No erythema or exudates in the throat. NECK: No masses, no nuchal rigidity. CHEST: No chest wall deformity. LUNGS: Equal air entry with no crackles or wheeze. HEART: S1 and S2 normal . Irregular heart rhythm ABDOMEN: No hepatosplenomegaly, normal bowel sounds, no guarding or rigidity. SKIN: No rashes CENTRAL NERVOUS SYSTEM: No focal deficits. EXTREMITIES: No cyanosis, clubbing or edema. - Labs CBC & Chem 7: 11/18/18 06:20 11/18/18 06:20 Labs: Abnormal Lab Results - Last 24 Hours (Table) 11/18/18 Range/Units 18:17 Total Creatine Kinase 50 L (55-170) U/L Troponin I 0.062 H* (0.000-0.034) ng/mL Assessment and Plan (1) Atrial fibrillation with RVR Current Visit: No Status: Acute Code(s): I48.91 - UNSPECIFIED ATRIAL FIBRILLATION SNOMED Code(s): 769993734589007 (2) Urinary retention Current Visit: No Status: Acute Code(s): R33.9 - RETENTION OF URINE, UNSPECIFIED SNOMED Code(s): 779601858 Plan: Patient history the [place] fibrillation with moderate to rapid ventricular response. I'm going to increase the dose of the flecainide to 150 twice a day and also increase the dose of the beta wes. He patient doesn't convert to sinus rhythm, we'll may consider cardioversion tomorrow with BESSIE
[2018-11-19] MEDS: RIVAROXABAN 20 MG TAB PO SCH (15:27)
[2018-11-19] MEDS: guaiFENesin-Coden 100-10MG/5ML 10 ML CUP PO PRN ×2 (16:19→23:04)
[2018-11-19] MEDS: VERAPAMIL 40 MG TAB PO SCH ×2 (18:40→20:50)
[2018-11-19] MEDS: ATORVASTATIN 10 MG TAB PO SCH (20:22)
[2018-11-19] MEDS: MONTELUKAST 10 MG TAB PO SCH (20:22)
[2018-11-19] MEDS: TAMSULOSIN 0.4 MG CAP.ER.24H PO SCH ×3 (20:23→20:51)
--- NOTE | 2018-11-19 22:36 | PN ---
PROGRESS NOTE DATE OF SERVICE: 11/19/2018 PRESENTING COMPLAINT: Atrial fibrillation. INTERVAL HISTORY: This is a patient who just had ablation of atrial fibrillation. Did have acute urinary retention and went back into atrial fibrillation rapid ventricular rate. The patient had a Tariq catheter placed x2. Remains in atrial fibrillation with rapid ventricular rate. The patient has been on a Cardizem drip and also on Xarelto. Does feel a bit tired. is present. REVIEW OF SYSTEMS: Done for constitutional, cardiovascular, GI, pulmonary; relevant findings as above. CURRENT MEDICATIONS: Reviewed and include IV Cardizem, flecainide 150 mg q.12 and Xarelto. PHYSICAL EXAMINATION: VITAL SIGNS: Temperature 98.2, pulse 107, respirations 16, blood pressure 99/57, pulse ox 95% on room air. GENERAL APPEARANCE: Sitting up in a chair, tired-appearing. EYES: Pupils equal. Conjunctivae normal. NECK: JVD not raised. Mass not palpable. RESPIRATORY: Effort normal. LUNGS: Fair air entry. CARDIOVASCULAR: Heart sounds irregular. No edema. ABDOMEN: Soft, nontender. Liver and spleen not palpable. Tariq catheter in place. PSYCHIATRY: Alert and oriented x3. Mood and affect normal. INVESTIGATIONS: Troponin 0.062. ASSESSMENT: 1. Recurrent atrial fibrillation with rapid ventricular rate, status post cardioversion. 2. Troponin leak from uncontrolled atrial fibrillation. No evidence of acute coronary syndrome. 3. Gastroesophageal reflux disease. 4. Essential hypertension. 5. Primary osteoarthritis. 6. Acute urinary retention, probably from enlarged benign prostatic hypertrophy. 7. Bilateral astigmatism. 8. Moderate persistent asthma for which patient is on Advair. 9. Obesity; BMI 33.7. PLAN: Care was discussed at length with Dr. Chicas from Urology. At this point, the plan is to keep the catheter in and have the patient follow up with Dr. Chicas in about a week's time. Also discussed the care with the patient, his and follow with Cardiology. The patient is also on verapamil, we will increase that to 3 times a day. MMODL / IJN: [id number] /
[2018-11-20] MEDS: VERAPAMIL 40 MG TAB PO SCH ×3 (07:57→20:19)
[2018-11-20] MEDS: FLECAINIDE 50 MG TAB PO SCH ×2 (07:57→20:18)
[2018-11-20] MEDS: SYMBICORT 80-4.5 MCG INHALER INHALATION SCH ×2 (09:25→20:21)
--- NOTE | 2018-11-20 11:40 | P.PN ---
Subjective Progress Note Date: 11/20/18 The patient was seen for urine retention. He has a little blood in the urine as to be expected. He should be seen in my office next week for catheter removal and a voiding trial. He should stay on the Flomax twice daily. Objective - Vital Signs Vital signs: Vital Signs Temp 98.6 F 11/20/18 08:00 Pulse 119 H 11/20/18 08:00 Resp 14 11/20/18 08:00 BP 96/64 11/20/18 08:00 Pulse Ox 96 11/20/18 08:00 Intake & Output 11/19/18 11/20/18 11/20/18 18:59 06:59 18:59 Intake Total 1170 34.167 240 Output Total 1050 1825 Balance 120 -1790.833 240 Weight 108.8 kg Intake: Intake, IV Titration 50 34.167 Amount Diltiazem 50 mg In Sodium 50 34.167 Chloride 0.9% 40 ml @ 5 MG/HR 5 mls/hr IV .Q10H [facility] Rx#:[id number] Oral 1120 240 Output: Urine 1050 1825 Other: Voiding Method Indwelling Catheter Indwelling Catheter Indwelling Catheter # Voids 3 - Labs CBC & Chem 7: 11/18/18 06:20 11/18/18 06:20
[2018-11-20] MEDS: DILTIAZEM 50 MG in SODIUM CHLORIDE 0.9% 40 ML IV SCH ×2 (14:29→18:50)
[2018-11-20] MEDS: ASPIRIN 325 MG TAB PO SCH (16:44)
[2018-11-20] MEDS: RIVAROXABAN 20 MG TAB PO SCH (16:49)
[2018-11-20] MEDS: guaiFENesin-Coden 100-10MG/5ML 10 ML CUP PO PRN ×2 (16:52→22:43)
[2018-11-20] MEDS: ATORVASTATIN 10 MG TAB PO SCH (20:18)
[2018-11-20] MEDS: MONTELUKAST 10 MG TAB PO SCH (20:19)
[2018-11-20] MEDS: TAMSULOSIN 0.4 MG CAP.ER.24H PO SCH (20:19)
--- NOTE | 2018-11-21 01:53 | PN ---
PROGRESS NOTE DATE OF SERVICE: 11/20/2018. PRESENTING COMPLAINT: Atrial fibrillation. INTERVAL HISTORY: This patient who had just had ablation of atrial last week, presented with atrial fibrillation with rapid ventricular rate, acute urinary retention and Tariq catheter is in place. The patient was to go down for DC cardioversion, because of scheduling did not go for the same. The patient had been on Cardizem drip and Xarelto. Otherwise, patient has been up and about. REVIEW OF SYSTEMS: Done for constitutional, cardiovascular, GI, pulmonary; relevant findings as above. MEDICATIONS: Reviewed, that include: 1. IV Cardizem. 2. Flecainide 150 mg every 12 hours. 3. Xarelto. 4. Flomax. 5. Isoptin 40 mg 3 times a day. PHYSICAL EXAMINATION: Temperature 98.2, pulse 120, respirations 12, blood pressure 110/68, pulse 95% on room air. GENERAL APPEARANCE: Sitting up in a chair comfortable. EYES: Pupils equal. Conjunctivae normal. NECK: JVD not raised, pulses not palpable. Respiratory effort. NECK: Clear. CARDIOVASCULAR: Heart sounds irregular, no edema. ABDOMEN: Soft, nontender. Liver and spleen not palpable Tariq catheter in place psychiatry alert and oriented x3. Mood and affect normal. INVESTIGATIONS: No blood work from today. ASSESSMENT: 1. Recurrent atrial fibrillation now with rapid ventricular rate, uncontrolled, status post cardioversion last week. 2. Troponin leak from uncontrolled atrial fibrillation. No evidence of acute coronary syndrome. 3. Gastroesophageal reflux disease. 4. Essential hypertension. 5. Primary osteoarthritis. 6. Acute retention from bladder outflow obstruction, patient has a Tariq catheter in place. 7. Bilateral astigmatism. 8. Moderate persistent asthma, stable. 9. Obesity; BMI 33.7. 10.IV Cardizem drip. PLAN: Continue current medication and treatment plan. Await further input from Cardiology. Heart rate remains to be uncontrolled. MMODL / IJN: [id number] /
[2018-11-21] MEDS: DILTIAZEM 50 MG in SODIUM CHLORIDE 0.9% 40 ML IV SCH (03:35)
[2018-11-21 03:40] VITALS: TEMP 97.4
[2018-11-21] MEDS ORDERED: PROPOFOL 10 MG/ML 20 ML VIAL IV ONE (07:30)
[2018-11-21 07:35] VITALS: RESP 16
--- NOTE | 2018-11-21 08:36 | P.PCN ---
Date of Procedure: 11/21/18 Preoperative Diagnosis: Atrial fibrillation with RVR Postoperative Diagnosis: Sinus rhythm Procedure(s) Performed: Cardioversion Description of Procedure: This is a 68-year-old gentleman with history of atrial fibrillation and also atrial tachycardia for which he had ablation done recently. Patient is readmitted now with Joanie anne with RVR. Patient is advised to have cardioversion. Patient has been on long-term anticoagulation. Procedure: Patient was brought to the lab in a fasting state. He was prepped and draped in the usual fashion. Department of anesthesia. Provide IV sedation. Anterior posterior paddles were applied. A single shock of 200 J, synchronized, converted patient to sinus rhythm. Patient tolerated the procedure well. Final impression: Successful cardioversion. Plan: Patient will be monitored on the telemetry unit. If stable patient be discharged home later today
[2018-11-21] MEDS: SYMBICORT 80-4.5 MCG INHALER INHALATION SCH (08:44)
[2018-11-21] MEDS ORDERED: SODIUM CHLORIDE 0.9% 1,000 ML IV SCH (08:45)
[2018-11-21 08:48] VITALS: BP 102/57; PULSE 66
[2018-11-21] MEDS: ASPIRIN 325 MG TAB PO SCH (09:55)
[2018-11-21] MEDS: FLECAINIDE 50 MG TAB PO SCH (09:56)
[2018-11-21] MEDS: VERAPAMIL 40 MG TAB PO SCH (09:56)
[2018-11-21] MEDS: RIVAROXABAN 20 MG TAB PO SCH (12:19)
[2018-11-21] MEDS ORDERED: LEVOFLOXACIN 500 MG TAB PO SCH (12:30)
--- NOTE | 2018-11-22 09:00 | DS ---
DISCHARGE SUMMARY DATE OF ADMISSION: 11/18/2018 DATE OF DISCHARGE: 11/21/2018 FINAL DIAGNOSES: 1. Acute on chronic recurrent atrial fibrillation with rapid ventricular rate, present on admission. 2. Troponin leak from uncontrolled atrial fibrillation. No evidence of acute coronary artery syndrome. 3. Gastroesophageal reflux disease. 4. Essential hypertension. 5. Primary osteoarthritis. 6. Acute retention from bladder outflow obstruction, patient has a Tariq catheter. 7. Bilateral astigmatism. 8. Moderate persistent asthma, stable. 9. Obesity; body mass index of 33.7. HOSPITAL COURSE: This very pleasant 68-year-old gentleman just exactly a week ago underwent ablation by Dr. Katz. Patient went and left the hospital, was having abdominal discomfort and then had urine retention, came to the ER. Tariq catheter was placed and went he went back again, urine retention had come back again and Tariq catheter had to placed yet again. At the same time, patient is found to be in atrial fibrillation with rapid ventricular rate. Patient was tried on an increased dose of flecainide, did not go down. Today, patient was DC cardioverted to 200 joules and went back into sinus rhythm, has remained on the same. Hence being discharged, also seen by Dr. Chicas, told to keep the Tariq catheter in and his dose of flow Flomax was increased to follow up in the office. PHYSICAL EXAMINATION: Afebrile, pulse 86, respiration 16, blood pressure 102/57, pulse ox 97% on room air. LUNGS: fair entry. The patient has got a Tariq catheter. INVESTIGATIONS: Troponin was 0.081, 0.062. CONSULTATION: 1. Dr. Naima Fernandes from Cardiology. 2. Dr. Chicas from Urology. DISCHARGE MEDICATIONS: 1. Singulair 10 mg q.h.s. 2. Flomax 0.8 mg q.h.s. 3. Lipitor 10 mg q.h.s. 4. Isoptin 40 mg p.o. b.i.d. 5. Flonase 1 spray each nostril q.h.s. 6. Xarelto 20 mg a.c. lunch. 7. Advair 100/50 one puff b.i.d. 8. Flecainide 150 mg q.12. 9. Levaquin 500 mg a day for 5 tablets. 10.Melatonin 3 mg p.o. q.h.s. FOLLOW UP: Follow up with Dr. Katz in 10 days. Follow up with Dr. Rubalcava in 1 week. Follow up with Dr. Chicas in 1 week. MMODL / IJN: [id number] /
== END 2018-11-21 12:55 | disposition home or self-care (01) | DRG 309 ==
LOC: EC 05:24 → 3SCARD 07:45
PROVIDERS: ADMIT Hospitalist; ATTEND Hospitalist
PROC: 5A2204Z Restoration of Cardiac Rhythm, Single (ICD-10-PCS; principal; 2018-11-21 08:00)
DX: I48.0 Paroxysmal atrial fibrillation (principal); N13.8 Other obstructive and reflux uropathy; E66.9 Obesity, unspecified; I10 Essential (primary) hypertension; J45.40 Moderate persistent asthma, uncomplicated; K21.9 Gastro-esophageal reflux disease without esophagitis; M19.90 Unspecified osteoarthritis, unspecified site; N32.0 Bladder-neck obstruction; N40.1 Benign prostatic hyperplasia with lower urinary tract symptoms; R33.8 Other retention of urine; R74.8 Abnormal levels of other serum enzymes; Z68.33 Body mass index [BMI] 33.0-33.9, adult; Z79.01 Long term (current) use of anticoagulants; Z79.899 Other long term (current) drug therapy; Z82.3 Family history of stroke; I48.92 Unspecified atrial flutter; Z98.42 Cataract extraction status, left eye; Z98.41 Cataract extraction status, right eye; Z90.49 Acquired absence of other specified parts of digestive tract
CPT/HCPCS: 36415; 51702; 71045; 80053; 80061; 81001; 82550; 82553; 83735; 84484; 85025; 85610; 85730; 92960; 93005; 94640; 94760; 96365; 96366; 96376; 99291

== ENCOUNTER 2018-12-27 21:26 | Emergency (ER) | payer MEDICARE ==
[2018-12-27 21:34] VITALS: TEMP 98.2
[2018-12-27 22:20] LABS: Basophils % (A) 0 %; Eosinophils # (A) 0.4 k/uL (0-0.7); Eosinophils % (A) 4 %; HCT 39.6 % (39.0-53.0); HGB 12.8 gm/dL (13.0-17.5); Lymphocytes # (A) 1.7 k/uL (1.0-4.8); Lymphocytes % (A) 17 %; MCH 28.8 pg (25.0-35.0); MCHC 32.4 g/dL (31.0-37.0); MCV 88.9 fL (80.0-100.0); Mean Platelet Volume 7.9; Monocytes # (A) 0.6 k/uL (0-1.0); Monocytes % (A) 6 %; Neutrophils # (A) 7.2 k/uL (1.3-7.7); Neutrophils % (A) 72 %; Platelet Count 216 k/uL (150-450); RBC 4.46 m/uL (4.30-5.90); RDW 14.4 % (11.5-15.5)
[2018-12-27 22:30] LABS: ALT 27 U/L (21-72); AST 19 U/L (17-59); Albumin 3.5 g/dL (3.5-5.0); Alkaline Phosphatase 94 U/L (38-126); Anion Gap 6 mmol/L; Blood Urea Nitrogen 14 mg/dL (9-20); Calcium 9.4 mg/dL (8.4-10.2); Carbon Dioxide 26 mmol/L (22-30); Chloride 108 mmol/L (98-107); Glucose 125 mg/dL (74-99); Magnesium 1.9 mg/dL (1.6-2.3); Potassium 4.1 mmol/L (3.5-5.1); Sodium 140 mmol/L (137-145); Total Bilirubin 0.6 mg/dL (0.2-1.3); Total Protein 6.6 g/dL (6.3-8.2)
[2018-12-27 22:34] LABS: D-Dimer 0.47 mg/L FEU (<0.60); INR 0.9 (<1.2); Partial Thromboplastin Time 24.5 sec (22.0-30.0); Prothrombin Time 9.8 sec (9.0-12.0)
[2018-12-27 22:36] LABS: Creatine Kinase 34 U/L (55-170)
--- NOTE | 2018-12-27 22:37 | ED ---
Chest Pain HPI - General Chief Complaint: Chest Pain Stated Complaint: Chest pain Time Seen by Provider: 12/27/18 21:57 Source: patient, family Mode of arrival: ambulatory Limitations: no limitations - History of Present Illness Initial Comments: This patient is a 68-year-old man who presents to be evaluated for episodes of chest pain that is been going on since about 6:30 tonight. The patient states that he was watching television when the first one came on. He indicates the left upper chest near the anterior axillary line. He states that the pains last 3-4 seconds at a time. They're sharp. Moderate intensity. The patient has not discovered anything that we'll bring the pain on or modify it. The pains just come on and then are over. There are no accompanying symptoms. MD Complaint: chest pain Onset/Timin -: hour(s) Onset: during rest Pain Location: left chest Pain Radiation: none Severity: moderate Quality: aching Consistency: intermittent Improves With: nothing Worsens With: nothing Treatments Prior to Arrival: none - Related Data Home Medications Medication Instructions Recorded Confirmed Montelukast [Singulair] 10 mg PO HS 08/26/15 12/27/18 Tamsulosin HCl [Flomax] 0.4 mg PO HS 08/26/15 12/27/18 Atorvastatin Calcium 10 mg PO HS 08/31/16 12/27/18 Fluticasone Nasal [place] [Flonase 1 spray EA NOSTRIL HS 07/13/18 12/27/18 Nasal [place]] Esomeprazole Magnesium [NexIUM] 40 mg PO DAILY 12/27/18 12/27/18 Flecainide Acetate [Tambocor] 100 mg PO Q12HR 12/27/18 12/27/18 Fluticasone/Salmeterol [Advair 1 inhalation PO RT-BID 12/27/18 12/27/18 250-50 Diskus] Loratadine 10 mg PO HS 12/27/18 12/27/18 Previous Rx's Medication Instructions Recorded Verapamil [Isoptin] 40 mg PO BID tab 12/06/17 Allergies Allergy/AdvReac Type Severity Reaction Status Date / Time No Known Allergies Allergy Verified 12/27/18 22:43 Review of Systems ROS Statement: Those systems with pertinent positive or pertinent negative responses have been documented in the HPI. ROS Other: All systems not noted in ROS Statement are negative. Constitutional: Denies: fever, chills Respiratory: Denies: cough, dyspnea Cardiovascular: Reports: as per HPI, chest pain. Denies: palpitations, dyspnea on exertion, orthopnea, edema, syncope Gastrointestinal: Denies: abdominal pain, nausea, vomiting, diarrhea Genitourinary: Reports: other (Patient currently has a Tariq catheter following TURP). Denies: testicular pain, testicular mass Musculoskeletal: Denies: back pain Skin: Denies: rash Neurological: Denies: headache, weakness, numbness, paresthesias EKG Findings - EKG Results: EKG: sinus rhythm (Rate 75 bpm), normal axis, normal ST/T - Blocks, [place], Hypertrophy, ST Abn: AV and intraventricular conduction: right bundle branch block (fixed/ intermittent, complete/incomplete) Past Medical History Past Medical History: Atrial Fibrillation, Atrial Flutter, Asthma, Chest Pain / Angina, Eye Disorder, GERD/Reflux, Hypertension, Osteoarthritis (OA), Prostate Disorder Additional Past Medical History / Comment(s): Paroxysmal Afib, aflutter, RVR, bronchitis, BPH, bilateral astigmatism, sinus problems. prostate, current catheter 12/27/17 History of Any Multi-Drug Resistant Organisms: None Reported Past Surgical History: Appendectomy, Cardiac Ablation, Cholecystectomy Additional Past Surgical History / Comment(s): 12/13/17 PVI/cryoablation, cardioversions, colonoscopy, bilateral cataract removals. Past Anesthesia/Blood Transfusion Reactions: No Reported Reaction Past Psychological History: No Psychological Hx Reported Smoking Status: Never smoker Past Alcohol Use History: Occasional Past Drug Use History: None Reported - Past Family History Father History Unknown: Yes Family Medical History: CVA/TIA Additional Family Medical History / Comment(s): Father had a CVA. He lived to be 75 yrs. old. Mother History Unknown: Yes Family Medical History: CVA/TIA Additional Family Medical History / Comment(s): Mother had a CVA x 2. He lived to be 82 yrs old. General Exam Limitations: no limitations General appearance: alert, in no apparent distress Head exam: Present: atraumatic, normocephalic Eye exam: Present: normal appearance. Absent: scleral icterus, conjunctival injection ENT exam: Present: normal oropharynx Neck exam: Present: normal inspection, full ROM Respiratory exam: Present: normal lung sounds bilaterally. Absent: respiratory distress, wheezes, rales, rhonchi, stridor, chest wall tenderness Cardiovascular Exam: Present: regular rate, normal rhythm, normal heart sounds. Absent: bradycardia, tachycardia, systolic murmur, diastolic murmur, rubs, gallop GI/Abdominal exam: Present: soft. Absent: tenderness, guarding, rebound, organomegaly, mass, pulsatile mass Extremities exam: Present: normal inspection, normal capillary refill. Absent: pedal edema, calf tenderness Back exam: Present: normal inspection. Absent: CVA tenderness (R), CVA tenderness (L) Neurological exam: Present: alert Skin exam: Present: warm, dry, intact, normal color. Absent: rash Course Vital Signs 12/27/18 21:30 Temperature 98.2 F Pulse Rate 79 Respiratory 20 Rate Blood Pressure 149/90 O2 Sat by Pulse 97 Oximetry Chest Pain MDM - MDM This patient is 68-year-old man presenting with brief episodes of atypical chest pain. His initial workup is negative. I discussed results with the patient and the rationale for repeating second set of cardiac enzymes. The patient at this point is declining area he states that his symptoms have subsided. He does understand the reasoning probable would like to go home and will follow-up with cardiology. He does have close cardiology care including the recent ablation. He does agree to return should symptoms recur or if any of the other symptoms that we discussed develop. Disposition Clinical Impression: Chest pain Disposition: HOME SELF-CARE Condition: Good Instructions (If sedation given, give patient instructions): Chest Pain (ED) Is patient prescribed a controlled substance at d/c from ED?: No Referrals: Johann Rubalcava MD [Primary Care Provider] - 1-2 days
--- NOTE | 2018-12-27 22:41 | XR ---
EXAMINATION TYPE: XR chest 2V DATE OF EXAM: 12/27/2018 COMPARISON: NONE HISTORY: Chest pain TECHNIQUE: Frontal and lateral views of the chest are obtained. FINDINGS: There is no heart failure nor confluent pneumonic infiltrate. Costophrenic angles are cindy r. Bony thorax is intact. There are chest leads. IMPRESSION: No active cardiopulmonary disease. No change.
[2018-12-27 22:49] LABS: Creatine Kinase MB 0.4 ng/mL (0.0-2.4); Troponin I <0.012 ng/mL (0.000-0.034)
[2018-12-27 23:18] VITALS: BP 118/87; PULSE 80; RESP 18
== END 2018-12-27 23:17 | disposition home or self-care (01) ==
LOC: EC 21:26
DX: R07.89 Other chest pain (principal); I48.92 Unspecified atrial flutter; I48.0 Paroxysmal atrial fibrillation; K21.9 Gastro-esophageal reflux disease without esophagitis; J45.909 Unspecified asthma, uncomplicated; N40.0 Benign prostatic hyperplasia without lower urinary tract symptoms; Z98.890 Other specified postprocedural states; Z79.51 Long term (current) use of inhaled steroids; Z79.899 Other long term (current) drug therapy; Z53.29 Procedure and treatment not carried out because of patient's decision for other reasons
CPT/HCPCS: 36415; 71046; 80053; 82550; 82553; 83735; 84484; 85025; 85379; 85610; 85730; 93005; 99285

== ENCOUNTER 2019-03-14 10:13 | Observation (INO) | payer MEDICARE ==
[2019-03-14] MEDS ORDERED: NITROGLYCERIN OINT 1 INCH/GM PACKET TOPICAL STA (10:39)
[2019-03-14] MEDS ORDERED: ASPIRIN 81 MG PO STA (10:39)
--- NOTE | 2019-03-14 10:50 | ED ---
General Adult HPI - General Chief complaint: Shortness of Breath Stated complaint: HIGH BP, Chest burning Time Seen by Provider: 03/14/19 10:20 Source: patient, RN notes reviewed Mode of arrival: wheelchair Limitations: no limitations - History of Present Illness Initial comments: This is a 68-year-old male presents emergency department stating that today he comes in because he's had multiple symptoms over the last few days. Patient states on he was taken off his verapamil for his A. fib but he remains on flecainide and Xarelto. Patient states shortly thereafter he started having some fluttering in his chest he took a half of verapamil that he normally took it went away completely. Patient states again Tuesday started having some chest discomfort and a little tingling down the left arm after a short period of time it seemed to subside. Patient states last night he started having shortness of breath when he woke up this morning he continued to have shortness of breath. Patient states he was at a hardware store and he came out of the hardware store and was short of breath and felt like he might pass out. Patient at that time did not feel any fluttering but over the last couple of days he has had fullness in his chest that he thought might be heartburn. Patient denies any recent fever chills or cough. Patient denies taking any more verapamil other than the one he took an . Patient denies any abdominal pain patient denies nausea vomiting diarrhea. Patient denies any calf pain or leg swelling. - Related Data Home Medications Medication Instructions Recorded Confirmed Montelukast [Singulair] 10 mg PO HS 08/26/15 03/14/19 Atorvastatin Calcium 10 mg PO HS 08/31/16 03/14/19 Fluticasone Nasal [place] [Flonase 1 spray EA NOSTRIL HS 07/13/18 03/14/19 Nasal [place]] Esomeprazole Magnesium [NexIUM] 40 mg PO DAILY 12/27/18 03/14/19 Flecainide Acetate [Tambocor] 100 mg PO DAILY 12/27/18 03/14/19 Fluticasone/Salmeterol [Advair 1 inhalation PO RT-BID 12/27/18 03/14/19 250-50 Diskus] Benzonatate [Tessalon Perles] 200 mg PO HS 03/14/19 03/14/19 Flecainide [Tambocor] 50 mg PO HS 03/14/19 03/14/19 Rivaroxaban [Xarelto] 20 mg PO HS 03/14/19 03/14/19 Allergies Allergy/AdvReac Type Severity Reaction Status Date / Time No Known Allergies Allergy Verified 03/14/19 10:42 Review of Systems ROS Statement: Those systems with pertinent positive or pertinent negative responses have been documented in the HPI. ROS Other: All systems not noted in ROS Statement are negative. Past Medical History Past Medical History: Atrial Fibrillation, Atrial Flutter, Asthma, Chest Pain / Angina, Eye Disorder, GERD/Reflux, Hypertension, Osteoarthritis (OA), Prostate Disorder Additional Past Medical History / Comment(s): Paroxysmal Afib, aflutter, RVR, bronchitis, BPH, bilateral astigmatism, sinus problems. prostate, current catheter 12/27/17 History of Any Multi-Drug Resistant Organisms: None Reported Past Surgical History: Appendectomy, Cardiac Ablation, Cholecystectomy Additional Past Surgical History / Comment(s): 12/13/17 PVI/cryoablation, cardioversions, colonoscopy, bilateral cataract removals. Past Anesthesia/Blood Transfusion Reactions: No Reported Reaction Past Psychological History: No Psychological Hx Reported Smoking Status: Never smoker Past Alcohol Use History: Occasional Past Drug Use History: None Reported - Past Family History Father History Unknown: Yes Family Medical History: CVA/TIA Additional Family Medical History / Comment(s): Father had a CVA. He lived to be 75 yrs. old. Mother History Unknown: Yes Family Medical History: CVA/TIA Additional Family Medical History / Comment(s): Mother had a CVA x 2. He lived to be 82 yrs old. General Exam - General Exam Comments Initial Comments: GENERAL: Patient is well-developed and well-nourished. Patient is nontoxic and well- hydrated and is in mild distress. ENT: Neck is soft and supple. No significant lymphadenopathy is noted. Oropharynx is clear. Moist mucous membranes. Neck has full range of motion without eliciting any pain. EYES: The sclera were anicteric and conjunctiva were pink and moist. Extraocular movements were intact and pupils were equal round and reactive to light. Eyelids were unremarkable. PULMONARY: Unlabored respirations. Good breath sounds bilaterally. No audible rales rhonchi or wheezing was noted. CARDIOVASCULAR: There is a regular rate and rhythm without any murmurs gallops or rubs. ABDOMEN: Soft and nontender with normal bowel sounds. SKIN: Skin is clear with no lesions or rashes and otherwise unremarkable. NEUROLOGIC: Patient is alert and oriented x3. Cranial nerves II through XII are grossly intact. Motor and sensory are also intact. Normal speech, volume and content. Symmetrical smile. MUSCULOSKELETAL: Normal extremities with adequate strength and full range of motion. No lower extremity swelling or edema. No calf tenderness. LYMPHATICS: No significant lymphadenopathy is noted PSYCHIATRIC: Normal psychiatric evaluation. Limitations: no limitations Course Vital Signs 03/14/19 10:22 Temperature 97.6 F Pulse Rate 67 Respiratory 18 Rate Blood Pressure 158/93 O2 Sat by Pulse 99 Oximetry Medical Decision Making - Medical Decision Making EKG shows normal sinus rhythm at 63 bpm VT interval is 188 QRSs 142 QT interval 476 QTC is 47 per patient's EKG shows a right bundle branch block. Patient EKG shows no ST segment elevation. Chest x-ray shows no acute abnormality. I spoke with Dr. schroeder he agreed to admit the patient admitted the patient I consult cardiology. - Lab Data Result diagrams: 03/14/19 11:12 03/14/19 11:12 Lab Results 03/14/19 03/14/19 Range/Units 11:12 11:12 WBC 7.4 (3.8-10.6) k/uL RBC 5.08 (4.30-5.90) m/uL Hgb 14.4 (13.0-17.5) gm/dL Hct 43.4 (39.0-53.0) % MCV 85.4 (80.0-100.0) fL MCH 28.4 (25.0-35.0) pg MCHC 33.3 (31.0-37.0) g/dL RDW 14.0 (11.5-15.5) % Plt Count 255 (150-450) k/uL Neutrophils % 68 % Lymphocytes % 21 % Monocytes % 6 % Eosinophils % 3 % Basophils % 0 % Neutrophils # 5.0 (1.3-7.7) k/uL Lymphocytes # 1.6 (1.0-4.8) k/uL Monocytes # 0.4 (0-1.0) k/uL Eosinophils # 0.2 (0-0.7) k/uL Basophils # 0.0 (0-0.2) k/uL Sodium 140 (137-145) mmol/L Potassium 4.9 (3.5-5.1) mmol/L Chloride 109 H (98-107) mmol/L Carbon Dioxide 24 (22-30) mmol/L Anion Gap 7 mmol/L BUN 17 (9-20) mg/dL Creatinine 0.77 (0.66-1.25) mg/dL Est GFR (CKD-EPI)AfAm >90 (>60 ml/min/1.73 sqM) Est GFR (CKD-EPI)NonAf >90 (>60 ml/min/1.73 sqM) Glucose 89 (74-99) mg/dL Calcium 9.8 (8.4-10.2) mg/dL Magnesium 1.9 (1.6-2.3) mg/dL Total Bilirubin 1.0 (0.2-1.3) mg/dL AST 41 (17-59) U/L ALT 29 (21-72) U/L Alkaline Phosphatase 78 (38-126) U/L Total Protein 7.2 (6.3-8.2) g/dL Albumin 4.2 (3.5-5.0) g/dL Disposition Clinical Impression: Near syncope, Dyspnea, Chest pain Disposition: ADMITTED IP TO THIS [facility] Referrals: Johann Rubalcava MD [Primary Care Provider] - 1-2 days Time of Disposition: 11:49
[2019-03-14 11:25] LABS: Basophils % (A) 0 %; Eosinophils # (A) 0.2 k/uL (0-0.7); Eosinophils % (A) 3 %; HCT 43.4 % (39.0-53.0); HGB 14.4 gm/dL (13.0-17.5); Lymphocytes # (A) 1.6 k/uL (1.0-4.8); Lymphocytes % (A) 21 %; MCH 28.4 pg (25.0-35.0); MCHC 33.3 g/dL (31.0-37.0); MCV 85.4 fL (80.0-100.0); Mean Platelet Volume 7.4; Monocytes # (A) 0.4 k/uL (0-1.0); Monocytes % (A) 6 %; Neutrophils % (A) 68 %; Platelet Count 255 k/uL (150-450); RBC 5.08 m/uL (4.30-5.90); WBC 7.4 k/uL (3.8-10.6)
[2019-03-14 11:34] LABS: ALT 29 U/L (21-72); AST 41 U/L (17-59); Albumin 4.2 g/dL (3.5-5.0); Alkaline Phosphatase 78 U/L (38-126); Anion Gap 7 mmol/L; Blood Urea Nitrogen 17 mg/dL (9-20); Calcium 9.8 mg/dL (8.4-10.2); Carbon Dioxide 24 mmol/L (22-30); Chloride 109 mmol/L (98-107); Glucose 89 mg/dL (74-99); Magnesium 1.9 mg/dL (1.6-2.3); Sodium 140 mmol/L (137-145); Total Protein 7.2 g/dL (6.3-8.2)
[2019-03-14 11:39] LABS: Potassium 4.9 mmol/L (3.5-5.1)
--- NOTE | 2019-03-14 11:45 | XR ---
EXAMINATION TYPE: XR chest 2V DATE OF EXAM: 03/14/2019 COMPARISON: 12/27/2018 INDICATION: Difficulty breathing chest pain TECHNIQUE: Frontal and lateral views of the chest are obtained. FINDINGS: The heart size is mildly prominent. The pulmonary vasculature is normal. The lungs are clear. IMPRESSION: 1. Mild cardiomegaly.
[2019-03-14] MEDS ORDERED: NITROGLYCERIN SL TABS 0.4 MG TAB SUBLINGUAL PRN (11:49)
[2019-03-14] MEDS ORDERED: NITROGLYCERIN OINT 1 INCH/GM PACKET TOPICAL SCH (12:00)
[2019-03-14 12:46] LABS: INR 1.1 (<1.2); Partial Thromboplastin Time 22.1 sec (22.0-30.0); Prothrombin Time 11.1 sec (9.0-12.0)
--- NOTE | 2019-03-14 14:16 | P.CRDCN ---
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 He follows in the office with Dr. Fernandes. We have been asked to see him in consultation for chest pain. He states one day last week he felt like his heart was racing and so he checked his pulse and states his rate was in the 130's. He took verapamil 40 mg tablet that he had at home and his heart rate went back to the 80 shortly thereafter. Today while he was out running some errands he started feeling symptoms of shortness of breath, light headed and chest discomfort described as a full burning sensation in the left precoridal region with radiation into the left axillary region. Upon arrival here his heart rates were in the 60s and he has been maintaining sinus mechanism. His shortness of breath, dizziness and chest discomfort has subsided. EKG reveals normal sinus mechanism right bundle branch block with a heart rate of 63. Chest x-ray reveals mild cardiomegaly with no evidence of an acute cardiopulmonary process. Laboratory data reviewed, WBC 7.4, hemoglobin 14.4, platelets 255, sodium 140, potassium 4.9, creatinine 0.77, magnesium 1.9, cardiac enzymes negative 1, NT proBNP 249. Current cardiac medications include atorvastatin 10 mg daily, flecainide 100 mg in the morning and 50 mg at bedtime and Xarelto 20 mg daily. Most recent stress echocardiogram obtained in the office in 2016 was negative for stress-induced cardiac ischemia. Event monitoring from January to February of this year revealed one episode of atrial fibrillation and one episode of wide complex tachycardia, 7 beat run most likely related to an aberrantly conducted beats. An October 2018 he underwent a radiofrequency ablation for atrial flutter/atrial tachycardia and also pulmonary vein isolation, November 2017 he underwent cryoablation was already vein isolation. At the time of my exam: CONSTITUTIONAL: Denies fever. Denies chills. EYES: Denies blurred vision. Denies vision changes. Denies eye pain. EARS, NOSE, MOUTH & THROAT: Denies headache. Denies sore throat. Denies ear pain. CARDIOVASCULAR: Denies chest pain. Denies shortness of breath. Denies orthopnea. Denies PND. Denies palpitations. RESPIRATORY: Denies cough. GASTROINTESTINAL: Denies abdominal pain. Denies diarrhea. Denies constipation. Denies nausea. Denies vomiting. MUSCULOSKELETAL: Denies myalgias. INTEGUMENTARY: Denies pruitis. Denies rash. NEUROLOGIC: Denies numbness. Denies tingling. Denies weakness. PSYCHIATRIC: Denies anxiety. Denies depression. ENDOCRINE: Denies fatigue. Denies weight change. Denies polydipsia. Denies polyurina. GENITOURINARY: Denies burning, hematuria or urgency with micturation. HEMATOLOGIC: Denies history of anemia. Denies bleeding. Blood pressure 159/88 heart rate 59 afebrile maintaining oxygen saturation on room air GENERAL: This is a 68-year-old male in no apparent distress at the time of my examination. HEENT: Head is atraumatic, normocephalic. Pupils are equal, round. Sclerae anicteric. Conjunctivae are clear. Mucous membranes of the mouth are moist. Neck is supple. There is no jugular venous distention. No carotid bruit is heard. LUNGS: Clear to auscultation no wheezes, rales or rhonchi. No chest wall tenderness is noted on palpation or with deep breathing. HEART: Regular rate and rhythm without murmurs, rubs or gallops. S1 and S2 heard. ABDOMEN: Soft, nontender. Bowel sounds are heard. No organomegaly noted. EXTREMITIES: No evidence of peripheral edema and no calf tenderness noted. VASCULAR: Radial and dorsalis pedis pulses palpated, no evidence of clubbing. NEUROLOGIC: Patient is awake, alert and oriented x3. ASSESSMENT Chest discomfort associated with dizziness and shortness of breath. Persistent atrial fibrillation on long-term anticoagulation status post ablation, currently maintaining sinus mechanism Hypertension Dyslipidemia PLAN Continue to obtain serial cardiac enzymes to rule out an acute coronary event. Check d-dimer. Ongoing telemetry monitoring for an acute arrhythmia. Obtain 2D echocardiogram and doppler study to assess cardiac structure and function. If enzymes are normal we will proceed with a stress echocardiogram in the morning, if abnormal we will consider coronary angiography. Thank you kindly for this consultation. Nurse Practitioner note has been reviewed, I agree with a documented findings and plan of care. Patient was seen and examined. 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 History of Any Multi-Drug Resistant Organisms: None Reported Past Surgical History: Appendectomy, Cardiac Ablation, Cholecystectomy, Prostate Surgery Additional Past Surgical History / Comment(s): 12/13/17 PVI/cryoablation of 4 pulmonary veins, cardiac ablation, BESSIE/cardioversions, colonoscopy, bilateral cataract removals, TURP. Past Anesthesia/Blood Transfusion Reactions: No Reported Reaction Smoking Status: Never smoker - Past Family History Father History Unknown: Yes Family Medical History: CVA/TIA Additional Family Medical History / Comment(s): Father had a CVA. He lived to be 75 yrs. old. Mother History Unknown: Yes Family Medical History: CVA/TIA Additional Family Medical History / Comment(s): Mother had a CVA x 2. He lived to be 82 yrs old. Medications and Allergies Home Medications Medication Instructions Recorded Confirmed Type Montelukast [Singulair] 10 mg PO HS 08/26/15 03/14/19 History Atorvastatin Calcium 10 mg PO HS 08/31/16 03/14/19 History Fluticasone Nasal [place] [Flonase 1 spray EA NOSTRIL HS 07/13/18 03/14/19 History Nasal [place]] Esomeprazole Magnesium [NexIUM] 40 mg PO DAILY 12/27/18 03/14/19 History Flecainide Acetate [Tambocor] 100 mg PO DAILY 12/27/18 03/14/19 History Fluticasone/Salmeterol [Advair 1 inhalation PO RT-BID 12/27/18 03/14/19 History 250-50 Diskus] Benzonatate [Tessalon Perles] 200 mg PO HS 03/14/19 03/14/19 History Flecainide [Tambocor] 50 mg PO HS 03/14/19 03/14/19 History Rivaroxaban [Xarelto] 20 mg PO HS 03/14/19 03/14/19 History Allergies Allergy/AdvReac Type Severity Reaction Status Date / Time No Known Allergies Allergy Verified 03/14/19 10:42 Physical Exam Vitals: Vital Signs Temp Pulse Pulse Resp BP BP Pulse Ox 03/14/19 12:51 97.6 F 59 L 18 159/88 99 03/14/19 12:21 98.0 F 67 18 139/86 98 03/14/19 11:00 152/90 03/14/19 10:45 64 19 150/89 97 03/14/19 10:22 97.6 F 67 18 158/93 99 Intake and Output 03/13/19 03/14/19 03/14/19 22:59 06:59 14:59 Intake Total 200 Balance 200 Intake: Oral 200 Other: Voiding Method Toilet # Voids 1 Weight 104.326 kg Results 03/14/19 11:12 03/14/19 11:12 Cardiac Enzymes 03/14/19 03/14/19 Range/Units 11:12 11:12 AST 41 (17-59) U/L Troponin I <0.012 (0.000-0.034) ng/mL Coagulation 03/14/19 Range/Units 11:12 PT 11.1 (9.0-12.0) sec APTT 22.1 (22.0-30.0) sec CBC 03/14/19 Range/Units 11:12 WBC 7.4 (3.8-10.6) k/uL RBC 5.08 (4.30-5.90) m/uL Hgb 14.4 (13.0-17.5) gm/dL Hct 43.4 (39.0-53.0) % Plt Count 255 (150-450) k/uL Comprehensive Metabolic Panel 03/14/19 Range/Units 11:12 Sodium 140 (137-145) mmol/L Potassium 4.9 (3.5-5.1) mmol/L Chloride 109 H (98-107) mmol/L Carbon Dioxide 24 (22-30) mmol/L BUN 17 (9-20) mg/dL Creatinine 0.77 (0.66-1.25) mg/dL Glucose 89 (74-99) mg/dL Calcium 9.8 (8.4-10.2) mg/dL AST 41 (17-59) U/L ALT 29 (21-72) U/L Alkaline Phosphatase 78 (38-126) U/L Total Protein 7.2 (6.3-8.2) g/dL Albumin 4.2 (3.5-5.0) g/dL Current Medications Generic Name Dose Route Start Last Admin Trade Name Freq PRN Reason Stop Dose Admin Aspirin 325 mg 03/15/19 09:00 Aspirin PO DAILY [facility] Atorvastatin Calcium 10 mg 03/14/19 21:00 Lipitor PO HS [facility] Benzonatate 200 mg 03/14/19 21:00 Tessalon Perles PO HS [facility] Flecainide Acetate 50 mg 03/14/19 21:00 Tambocor PO HS [facility] Montelukast Sodium 10 mg 03/14/19 21:00 Singulair PO HS [facility] Nitroglycerin 0.4 mg 03/14/19 11:49 Nitrostat SUBLINGUAL Q5M PRN Chest Pain Non-Formulary Medication 40 mg 03/15/19 09:00 Esomeprazole Magnesium [Nexium] PO DAILY [facility] Non-Formulary Medication 100 mg 03/15/19 09:00 Flecainide Acetate [Tambocor] PO DAILY [facility] Non-Formulary Medication 1 inhalation 03/14/19 20:00 Fluticasone/Salmeterol [Advair 250-50 Diskus] PO RT-BID [facility] Rivaroxaban 20 mg 03/14/19 21:00 Xarelto PO HS [facility] Intake and Output 03/13/19 03/14/19 03/14/19 22:59 06:59 14:59 Intake Total 200 Balance 200 Intake: Oral 200 Other: Voiding Method Toilet # Voids 1 Weight 104.326 kg Patient Weight 03/15/19 06:59 Weight 104.326 kg 03/14/19 11:12 03/14/19 11:12
[2019-03-14] MEDS: SYMBICORT 80-4.5 MCG INHALER INHALATION SCH (18:51)
[2019-03-14] MEDS ORDERED: MONTELUKAST 10 MG TAB PO SCH (21:00)
[2019-03-14] MEDS ORDERED: BENZONATATE 100 MG CAP PO SCH (21:00)
[2019-03-14] MEDS ORDERED: RIVAROXABAN 20 MG TAB PO SCH (21:00)
[2019-03-14] MEDS ORDERED: FLECAINIDE 50 MG TAB PO SCH (21:00)
[2019-03-14] MEDS ORDERED: ATORVASTATIN 10 MG TAB PO SCH (21:00)
--- NOTE | 2019-03-14 22:34 | HP ---
HISTORY AND PHYSICAL DATE OF ADMISSION: 03/14/2019 DATE OF SERVICE: 03/14/2019 PRESENTING COMPLAINT: Nausea, vomiting and diarrhea. HISTORY OF PRESENTING COMPLAINT: This is a pleasant 68-year-old patient of Dr. Ruablcava. Chronic stable medical conditions include GERD, hypertension, osteoarthritis, asthma, obesity. The patient had atrial flutter fibrillation in the past. Did have ablation. Seen by Dr. Katz. The patient is on flecainide and now has been off verapamil. Two days ago, he started out with nausea, vomiting, diarrhea, became rather severe and pretty much has remained in bed. Had some headache, tired, run down. No nasal congestion. May have had a low- grade fever. Tired, run down. The patient also had felt his heart racing. Was earlier seen by Cardiology and the patient may have had some runs of atrial fibrillation they think. The patient's and daughter at the bedside. The patient is also having chills. REVIEW OF SYSTEMS: CONSTITUTIONAL: Weak, tired, run down. HEENT: Occasional headache. RESPIRATORY: None. CARDIOVASCULAR: Heart racing occasionally. GASTROINTESTINAL: As above. Slight abdominal pain. GENITOURINARY: None. MUSCULOSKELETAL: Arthritic pain in joints. DERMATOLOGICAL, HEMATOLOGIC, LYMPHATIC: none. PSYCHIATRY none. NEUROLOGICAL: None. PAST MEDICAL HISTORY: Of atrial fibrillation, GERD, hypertension, osteoarthritis, asthma, obesity, prostate disorder, bilateral astigmatism, BPH with outflow obstruction. PAST SURGICAL HISTORY: 1. Appendectomy. 2. Cardiac ablation. 3. Cholecystectomy. 4. Prostate surgeries. 5. Cryoablation for pulmonary vein. 6. Bilateral cataract removed. 7. TURP. SOCIAL HISTORY: , retired. No smoking. Alcohol rarely. FAMILY HISTORY: Father had a stroke. HOME MEDICATIONS: 1. Tessalon Perles 200 mg q.h.s. 2. Nexium 40 mg p.o. daily. 3. Xarelto 20 mg q.h.s. 4. Flonase 1 spray each nostril q.h.s. 5. Flecainide 50 mg q.h.s. 6. Tambocor 100 mg p.o. daily. 7. Lipitor 10 mg at bedtime. 8. Singulair 10 mg q.h.s. 9. Advair 250/50 one puff b.i.d. ALLERGIES: None. PHYSICAL EXAMINATION: VITAL SIGNS: Temperature 98, pulse 57, respiratory 18, blood pressure 139/86, pulse ox 98% on room air. GENERAL APPEARANCE: Average built, BMI 33, lying in bed, tired-appearing. EYES: Pupils equal. Conjunctivae normal. HEENT: External appearance of nose and ears normal. Oral cavity normal. NECK: JVD not raised. Mass not palpable. RESPIRATORY: Effort normal. Lungs are clear. CARDIOVASCULAR: First and second sounds normal. No edema. ABDOMEN: Soft, nontender. Liver and spleen not palpable. LYMPHATICS: No lymph nodes palpable in the neck and axilla. PSYCHIATRY: Alert and oriented x3. Mood and affect normal. NEUROLOGICAL: Pupils equal. Cranial nerves grossly intact. Power and sensation grossly intact. INVESTIGATIONS: White count 7.4, hemoglobin 14.4, potassium 4.9, BUN and creatinine is normal. Troponin times two negative. EKG tracing personally reviewed by me shows right bundle branch block pattern. Chest x-ray film personally reviewed by me shows some cardiomegaly. Lung bae are clear. ASSESSMENT: 1. This is a patient who presents with 2 days of nausea, vomiting, diarrhea, low-grade fever, tired, run down. No respiratory symptoms. Probably acute severe gastroenteritis likely viral in nature. There has been no documented fever or white count. Paroxysmal atrial fibrillation. Patient has a prior history of ablation with Dr. Katz for which he has been on flecainide. 2. Essential hypertension. 3. Gastroesophageal reflux disease. 4. Primary osteoarthritis. 5. Moderate persistent asthma. 6. Obesity, BMI 33.0. PLAN: The patient is probably clinically dehydrated. Start the patient on IV fluids. Cardiology was consulted. Home medications are resumed. Care was discussed with the patient's family at the bedside. Questions were answered. Copy to Dr. Rubalcava. MMODL / IJN: [id number] /
[2019-03-15] MEDS: LACTATED RINGERS 1,000 ML IV SCH ×2 (00:40→04:42)
[2019-03-15 03:48] LABS: Cholesterol 135 mg/dL (<200); HDL Cholesterol 35 mg/dL (40-60); LDL Cholesterol,Calculated 80 mg/dL (0-99); Triglycerides 101 mg/dL (<150)
[2019-03-15] MEDS: SYMBICORT 80-4.5 MCG INHALER INHALATION SCH (07:18)
--- NOTE | 2019-03-15 07:27 | ECHOF ---
Referral Reason:Chest pain and shortness of breath MEASUREMENTS -------- HEIGHT: 152.4 cm WEIGHT: 104.3 kg BP: RVIDd: 3.7 cm (< 3.3) IVSd: 1.4 cm (0.6 - 1.1) LVIDd: 5.3 cm (3.9 - 5.3) LVPWd: 1.8 cm (0.6 - 1.1) IVSs: 1.6 cm LVIDs: 4.6 cm LVPWs: 2.0 cm LA Diam: 5.2 cm (2.7 - 3.8) LAESV Index (A-L): 42.83 ml/m Ao Diam: 4.1 cm (2.0 - 3.7) AV Cusp: 1.8 cm (1.5 - 2.6) LA Diam: 4.1 cm (2.7 - 3.8) MV EXCURSION: 26.464 mm (> 18.000) MV EF SLOPE: 79 mm/s (70 - 150) EPSS: 0.5 cm MV E Vijay: 0.64 m/s MV DecT: 150 ms MV A Vijay: 0.18 m/s MV E/A Ratio: 3.60 AR PHT: 628 ms RAP: 5.00 mmHg RVSP: 15.95 mmHg FINDINGS -------- Sinus rhythm. This was a techncally difficult study with suboptimal views, , Lumason utilized for enhancement of im ages. The left ventricular size is normal. There is mild concentric left ventricular hypertrophy. Overa ll left ventricular systolic function is normal with, an EF between 55 - 60 %. The right ventricle is normal in size. The left atrium is moderately dilated. LA is severely dilated >40 ml/m2 The right atrial size is normal. 5.0mg OF Lumason UTLIZED: 2 OR MORE WALL SEGMENTS NOT VISUALIZED. There is mild aortic valve sclerosis. There is mild aortic regurgitation. Mild mitral annular calcification present. Mild mitral regurgitation is present. Mild tricuspid regurgitation present. There is no evidence of pulmonary hypertension. The right v entricular systolic pressure, as measured by Doppler, is 15.95mmHg. There is no pulmonic regurgitation present. The aortic root size is normal. Echo free space represents a pericardial fat pad. CONCLUSIONS -------- 1. This was a techncally difficult study with suboptimal views, , Lumason utilized for enhancement of images. 2. The left ventricular size is normal. 3. There is mild concentric left ventricular hypertrophy. 4. Overall left ventricular systolic function is normal with, an EF between 55 - 60 %. 5. The right ventricle is normal in size. 6. The left atrium is moderately dilated. 7. LA is severely dilated >40 ml/m2 8. The right atrial size is normal. 9. 5.0mg OF Lumason UTLIZED: 2 OR MORE WALL SEGMENTS NOT VISUALIZED. 10. There is mild aortic valve sclerosis. 11. There is mild aortic regurgitation. 12. Mild mitral annular calcification present. 13. Mild mitral regurgitation is present. 14. Mild tricuspid regurgitation present. 15. There is no evidence of pulmonary hypertension. 16. The right ventricular systolic pressure, as measured by Doppler, is 15.95mmHg. 17. There is no pulmonic regurgitation present. 18. The aortic root size is normal. 19. Echo free space represents a pericardial fat pad. INSPECTOR BOILER: Kirti Ziegler RDCS
[2019-03-15] MEDS ORDERED: PANTOPRAZOLE 40 MG TABLET PO SCH (07:30)
[2019-03-15 07:35] VITALS: RESP 18
[2019-03-15] MEDS ORDERED: FLECAINIDE 50 MG TAB PO SCH (09:00)
[2019-03-15] MEDS ORDERED: ASPIRIN 81 MG PO SCH (09:00)
[2019-03-15] MEDS ORDERED: ASPIRIN 325 MG TAB PO SCH (09:00)
[2019-03-15 11:43] VITALS: BP 158/101; PULSE 72; TEMP 98
--- NOTE | 2019-03-15 12:44 | ECHOS ---
STRESS ECHOCARDIOGRAM DATE OF SERVICE: 03/15/2019 INDICATIONS: Chest pain. MEDICATIONS: BASELINE HEART RATE: 63 BASELINE BLOOD PRESSURE: 153/84 MAXIMUM HEART RATE: 135 MAXIMUM BLOOD PRESSURE: 196/90 85% MPHR: 130 100% MPHR: 153 METS: 7.1 MAXIMUM STAGE REACHED: II TOTAL EXERCISE TIME: 5 minutes 42 seconds CLINICAL INFORMATION: Baseline EKG revealed normal sinus rhythm with a right bundle branch block pattern and repolarization abnormality. Patient walked for 5 minutes 42 seconds achieved a maximal heart rate of 135 beats per minute which is more than 85% of predicted maximal. He developed fatigue and shortness of breath but did not have angina. EKG did not reveal any ST-segment changes to indicate ischemia. He maintained sinus rhythm and there was no significant arrhythmia. By EKG criteria, even though he had a right bundle this is considered as a negative stress test with limited exercise capacity. Baseline echo images revealed normal wall motion, wall thickening of all segments. At peak exercise, there was good augmentation of left ventricular wall motion and wall thickening of all segments suggesting that there is no evidence of any stress-induced ischemia. Echo contrast was used to enhance the quality of images both at rest and also on peak images. MMODL / IJN: [id number] /
--- NOTE | 2019-03-15 14:19 | P.PN ---
Subjective This is a pleasant 68-year-old male past medical history significant for atrial flutter/fibrillation s/p ablation maintained on flecanide and mcc anti-coagulation, asthma, hypertension and dyslipidemia. He follows in the office with Dr. Fernandes. He is seen and examined in the stress lab getting ready for a stress echocardiogram. He denies any further symptoms of chest discomfort and has had no palpitations or dizziness. Telemetry tracings reviewed and reveal small episodes of atrial tachycardia lasting less than 5-10 beats. Blood pressure 147/91 heart rate 64 afebrile maintaining oxygen saturation on room air. Laboratory data reviewed, cardiac enzymes negative 3 d-dimer 0.24. Echocardiogram reveals preserved left ventricular systolic function with ejection fraction 55-60%, severely dilated left atrium, mild aortic regur gitation, mild mitral regurgitation and mild tricuspid regurgitation. GENERAL: This is a 68-year-old male in no apparent distress at the time of my examination. HEENT: Head is atraumatic, normocephalic. Pupils are equal, round. Sclerae anicteric. Conjunctivae are clear. Mucous membranes of the mouth are moist. Neck is supple. There is no jugular venous distention. No carotid bruit is heard. LUNGS: Clear to auscultation no wheezes, rales or rhonchi. No chest wall tenderness is noted on palpation or with deep breathing. HEART: Regular rate and rhythm without murmurs, rubs or gallops. S1 and S2 heard. EXTREMITIES: No evidence of peripheral edema and no calf tenderness noted. ASSESSMENT Chest discomfort associated with dizziness and shortness of breath. Persistent atrial fibrillation on long-term anticoagulation status post ablation, currently maintaining sinus mechanism Hypertension Dyslipidemia PLAN Proceed with stress test as previously discussed. If stress test is normal he is stable from a cardiac perspective to be discharged home. Follow-up in the office with Dr. Fernandes upon discharge. Nurse Practitioner note has been reviewed, I agree with a documented findings and plan of care. Patient was seen and examined. Objective - Vital Signs Vital signs: Vital Signs Temp 98.0 F 03/15/19 11:42 Pulse 72 03/15/19 11:42 Resp 18 03/15/19 11:42 BP 158/101 03/15/19 11:42 Pulse Ox 95 03/15/19 11:42 Intake & Output 03/14/19 03/15/19 03/15/19 18:59 06:59 18:59 Intake Total 200 Balance 200 Weight 104.326 kg Intake: Oral 200 Other: Voiding Method Toilet Toilet Toilet # Voids 1 1 - Labs CBC & Chem 7: 03/14/19 11:12 03/14/19 11:12 Labs: Abnormal Lab Results - Last 24 Hours (Table) 03/14/19 Range/Units 11:12 HDL Cholesterol 35 L (40-60) mg/dL
--- NOTE | 2019-03-16 00:02 | DS ---
DISCHARGE SUMMARY DATE OF ADMISSION: 03/14/2019. DATE OF DISCHARGE: 03/15/2019. FINAL DIAGNOSES: 1. Acute severe gastroenteritis, likely viral in nature. 2. Essential hypertension. 3. Gastroesophageal reflux disease. 4. Primary osteoarthritis. 5. Moderate persistent asthma. 6. Obesity; BMI 33.0. 7. Chest discomfort could be from reflux. HOSPITAL COURSE: The patient presented with nausea, vomiting, diarrhea, heart racing, felt to have severe gastroenteritis that did respond to initial n.p.o. and IV fluids. The patient recently had some antiarrhythmics adjusted. Heart was racing. The patient did undergo a stress echocardiogram that was unremarkable. The patient doing much better today, tolerating a diet. A 2D echocardiogram showed the EF of 55 to 60 percent. CONSULTATIONS: Dr. Naima Fernandes from Cardiology. PHYSICAL EXAMINATION: Temperature 98, pulse 72, respiratory rate 18, blood pressure 1/40 7 x 91 pulse 97% on room air. LUNGS: Fair air entry. CARDIOVASCULAR: 1st and 2nd heart sounds. ABDOMEN: Soft, nontender. INVESTIGATIONS: White count 7.4, hemoglobin 14.4. Troponin x3 negative. LDL 80. A 2D echo showed preserved LV function. Stress echocardiogram negative. DISCHARGE MEDICATIONS: 1. Singulair 10 mg at bedtime. 2. Lipitor 10 mg at bedtime. 3. Nexium 40 mg a day. 4. Flecainide 100 mg a day. 5. Advair 250/50 one puff b.i.d. 6. Tessalon Perles 200 mg at bedtime. 7. Flecainide 50 mg at bedtime. 8. Xarelto 20 mg at bedtime. FOLLOWUP: 1. Follow up with Dr. Naima Fernandes in 2 weeks. 2. Follow up with Dr. Rubalcava in 3 days. MMODL / IJN: [id number] /
== END 2019-03-15 15:07 | disposition home or self-care (01) ==
LOC: EC 10:13 → 1SOBS 12:01
PROVIDERS: ADMIT Hospitalist; ATTEND Hospitalist
DX: K52.9 Noninfective gastroenteritis and colitis, unspecified (principal); R55 Syncope and collapse; E66.9 Obesity, unspecified; Z68.33 Body mass index [BMI] 33.0-33.9, adult; R07.89 Other chest pain; K21.9 Gastro-esophageal reflux disease without esophagitis; E78.5 Hyperlipidemia, unspecified; M19.90 Unspecified osteoarthritis, unspecified site; I45.10 Unspecified right bundle-branch block; I48.0 Paroxysmal atrial fibrillation; N40.0 Benign prostatic hyperplasia without lower urinary tract symptoms; M19.91 Primary osteoarthritis, unspecified site; J45.40 Moderate persistent asthma, uncomplicated; I11.9 Hypertensive heart disease without heart failure; I47.1 Supraventricular tachycardia; H52.203 Unspecified astigmatism, bilateral; Z90.49 Acquired absence of other specified parts of digestive tract; Z98.42 Cataract extraction status, left eye; Z98.41 Cataract extraction status, right eye; Z79.01 Long term (current) use of anticoagulants; Z79.52 Long term (current) use of systemic steroids; Z79.899 Other long term (current) drug therapy; Z87.01 Personal history of pneumonia (recurrent); Z98.890 Other specified postprocedural states; Z82.3 Family history of stroke
CPT/HCPCS: 99285; 36415; 94640 ×2; 93005; 85379; 83880; 80061; 80053; 83735; 84484; 85025; 85610; 85730; 71046; G0378 ×2; C8929; C8930; Q9950 ×2; 93306; 93351

== ENCOUNTER 2019-09-01 19:49 | Inpatient (IN) | payer MEDICARE ==
[2019-09-01 20:20] LABS: Basophils % (A) 1 %; Eosinophils # (A) 0.2 k/uL (0-0.7); Eosinophils % (A) 2 %; HGB 13.8 gm/dL (13.0-17.5); Lymphocytes # (A) 1.9 k/uL (1.0-4.8); Lymphocytes % (A) 26 %; MCH 30.1 pg (25.0-35.0); MCHC 33.6 g/dL (31.0-37.0); MCV 89.4 fL (80.0-100.0); Mean Platelet Volume 6.9; Monocytes # (A) 0.5 k/uL (0-1.0); Monocytes % (A) 7 %; Neutrophils # (A) 4.7 k/uL (1.3-7.7); Neutrophils % (A) 64 %; Platelet Count 222 k/uL (150-450); RBC 4.58 m/uL (4.30-5.90); RDW 13.8 % (11.5-15.5); WBC 7.4 k/uL (3.8-10.6)
[2019-09-01 20:33] LABS: INR 1.2 (<1.2); Partial Thromboplastin Time 32.2 sec (22.0-30.0); Prothrombin Time 12.5 sec (9.0-12.0)
[2019-09-01 20:34] LABS: ALT 28 U/L (21-72); AST 28 U/L (17-59); African American GFR (CKD) >90 (>60 ml/min/1.73 sqM); Albumin 3.9 g/dL (3.5-5.0); Alkaline Phosphatase 112 U/L (38-126); Anion Gap 8 mmol/L; Blood Urea Nitrogen 15 mg/dL (9-20); Calcium 9.7 mg/dL (8.4-10.2); Carbon Dioxide 26 mmol/L (22-30); Chloride 107 mmol/L (98-107); Glucose 108 mg/dL (74-99); Potassium 4.1 mmol/L (3.5-5.1); Sodium 141 mmol/L (137-145); Total Bilirubin 0.7 mg/dL (0.2-1.3); Total Protein 6.8 g/dL (6.3-8.2)
--- NOTE | 2019-09-01 20:40 | XR ---
EXAMINATION TYPE: XR chest 2V DATE OF EXAM: 09/01/2019 COMPARISON: 03/14/2019 HISTORY: Chest pain TECHNIQUE: Frontal and lateral views of the chest are obtained. FINDINGS: Heart is enlarged. There is no heart failure. There are no hilar masses. There are chest l yohana. Costophrenic angles are clear. Bony thorax is intact. IMPRESSION: No active cardiopulmonary disease. Mild cardiomegaly. No change.
--- NOTE | 2019-09-01 20:43 | ED ---
Chest Pain HPI - General Chief Complaint: Chest Pain Stated Complaint: chest pain, l arm tingling Time Seen by Provider: 09/01/19 20:24 Source: patient Mode of arrival: wheelchair Limitations: no limitations - History of Present Illness Initial Comments: 69-year-old male patient presents to the emergency department today for evaluation of left upper abdominal pain with discomfort up into his chest. Patient states the symptoms been going on for the last 2-3 days. States they are intermittent. Denies any shortness of breath, dizziness, or weakness with this. Denies any sweats. Patient does have history of SVT and has had 2 cardiac ablations done. States that he was in to see cardiology, they recommended him trying Maalox plus however this did not seem to help either. Patient states symptoms became intense today so he presented here for further evaluation at the request of Dr. Fernandes. Patient denies any nausea, vomiting, change in appetite. Denies any constipation or diarrhea. He denies fever or chills with this. Patient states he was having some discomfort between her shoulder blades when the pain comes on. Patient denies ever having cardiac catheterization. Patient denies any recent rash, fever, chills, back pain, numbness, tingling, dizziness, weakness, hematuria, dysuria, urinary urgency, urinary frequency, headache, visual changes, or any other complaints. - Related Data Home Medications Medication Instructions Recorded Confirmed Montelukast [Singulair] 10 mg PO HS 08/26/15 09/01/19 Atorvastatin Calcium 10 mg PO HS 08/31/16 09/01/19 Fluticasone Nasal [place] [Flonase 1 spray EA NOSTRIL HS 07/13/18 09/01/19 Nasal [place]] Esomeprazole Magnesium [NexIUM] 40 mg PO DAILY 12/27/18 09/01/19 Fluticasone/Salmeterol [Advair 1 puff INHALATION RT-BID 12/27/18 09/01/19 250-50 Diskus] Flecainide [Tambocor] 50 mg PO HS 03/14/19 09/01/19 Rivaroxaban [Xarelto] 20 mg PO HS 03/14/19 09/01/19 Flecainide [Tambocor] 100 mg PO DAILY 09/01/19 09/01/19 Allergies Allergy/AdvReac Type Severity Reaction Status Date / Time No Known Allergies Allergy Verified 09/01/19 20:14 Review of Systems ROS Statement: Those systems with pertinent positive or pertinent negative responses have been documented in the HPI. ROS Other: All systems not noted in ROS Statement are negative. EKG Findings - EKG Comments: EKG Findings:: EKG obtained at 1959 shows normal sinus rhythm with a right bundle branch block. Ventricular rate is 60, IL interval 188, QRS duration 144, QTC 468, QTC 468. No evidence of ST elevation or depression. 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 History of Any Multi-Drug Resistant Organisms: None Reported Past Surgical History: Appendectomy, Cardiac Ablation, Cholecystectomy, Prostate Surgery Additional Past Surgical History / Comment(s): 12/13/17 PVI/cryoablation of 4 pulmonary veins, cardiac ablation, BESSIE/cardioversions, colonoscopy, bilateral cataract removals, TURP. Past Anesthesia/Blood Transfusion Reactions: No Reported Reaction Past Psychological History: No Psychological Hx Reported Smoking Status: Never smoker Past Alcohol Use History: None Reported Past Drug Use History: None Reported - Past Family History Father History Unknown: Yes Family Medical History: CVA/TIA Additional Family Medical History / Comment(s): Father had a CVA. He lived to be 75 yrs. old. Mother History Unknown: Yes Family Medical History: CVA/TIA Additional Family Medical History / Comment(s): Mother had a CVA x 2. He lived to be 82 yrs old. General Exam Limitations: no limitations General appearance: alert, in no apparent distress, other (This is a well- developed, well-nourished adult male patient in no acute distress. Vital signs upon presentation are temperature 98.2F, pulse 68, respirations 18, blood pressure 173/103, pulse ox 97% on room air.) Eye exam: Present: normal appearance, PERRL, EOMI. Absent: scleral icterus, conjunctival injection, periorbital swelling ENT exam: Present: normal exam, normal oropharynx, mucous membranes moist Respiratory exam: Present: normal lung sounds bilaterally. Absent: respiratory distress, wheezes, rales, rhonchi, stridor Cardiovascular Exam: Present: regular rate, normal rhythm, normal heart sounds. Absent: systolic murmur, diastolic murmur, rubs, gallop, clicks GI/Abdominal exam: Present: soft, normal bowel sounds. Absent: distended, tenderness, guarding, rebound, rigid Neurological exam: Present: alert, oriented X3, CN II-XII intact Psychiatric exam: Present: normal affect, normal mood Skin exam: Present: warm, dry, intact, normal color. Absent: rash Course Vital Signs 09/01/19 09/01/19 09/01/19 20:04 21:00 21:30 Temperature 98.2 F Pulse Rate 68 53 L 59 L Pulse Rate [ Pulse Oximetery ] Respiratory 18 19 21 Rate Blood Pressure 173/103 151/96 142/88 Blood Pressure [Left Arm] O2 Sat by Pulse 97 98 96 Oximetry 09/01/19 09/01/19 22:00 22:13 Temperature 98 F Pulse Rate 58 L Pulse Rate [ 58 L Pulse Oximetery ] Respiratory 10 L 18 Rate Blood Pressure 146/98 Blood Pressure 190/94 [Left Arm] O2 Sat by Pulse 97 96 Oximetry Chest Pain MDM - [facility] RADIOLOGY:Two-view x-ray of the chest is obtained. Report was reviewed in its entirety. Impression by Dr. Rodriguez shows no active cardiopulmonary disease. Mild cardiomegaly. No change. MDM: 69-year-old male patient presented to the emergency department today for evaluation of upper abdominal pain and chest pain. Patient is also reporting mid upper back pain. Physical examination is unremarkable. No abdominal tenderness. Labs reviewed and are unremarkable. Thoracic, abdominal, and pelvic aorta angiography was obtained. Did reveal 4.4 cm ascending aorta aneurysm. No evidence for rupture or dissection. EKG showed normal sinus rhythm. Initial troponin is negative. Other labs are unremarkable. Patient will be admitted for further evaluation by cardiology and vascular. Return parameters were discussed in detail. He verbalizes understanding and agrees with this plan. Disposition Clinical Impression: Chest pain, Ascending aortic aneurysm Disposition: ADMITTED IP TO THIS [facility] Condition: Serious Decision to Admit Reason: Admit from EC Decision Date: 09/01/19 Decision Time: 22:05
--- NOTE | 2019-09-01 21:38 | CT ---
EXAMINATION TYPE: CT angio thor/abd pel aorta DATE OF EXAM: 09/01/2019 COMPARISON: HISTORY: Chest, back and upper abdominal pain. CT DLP: 2743.8 mGycm. Automated Exposure Control for Dose Reduction was Utilized. CONTRAST: CT scan of the thorax, abdomen and pelvis is performed without and with IV Contrast, patient injected with 100ml mL of Isovue 370. FINDINGS: Multiple axial sections were obtained from the thoracic inlet to the floor the pelvis without and wit h IV contrast. There are 3-D post processed images. FINDINGS: There is 4.4 cm aneurysm of the ascending aorta. There is no evidence of dissection. Mediastinum is n ormal. There are no hilar masses. There is normal contrast opacification of the pulmonary arteries. I see no filling defect. The lungs are clear of infiltrate. There is minimal subsegmental atelectasis at the posterior lung bases. Liver spleen pancreas appear normal. There are clips from cholecystectomy. Stomach appears normal. Bi le ducts are not dilated. There is normal contrast opacification of the kidneys. There is no hydronep hrosis. Bladder distends smoothly. Ureters are not dilated. There is no inguinal hernia. There is bilateral normal contrast opacification of the femoral and iliac arteries. Abdominal aorta h as normal size. There is no aneurysm or dissection. There is patency of the celiac artery and superio r mesenteric artery. There is no ascites. There is no mesenteric edema. Thoracic and lumbar spine are intact. IMPRESSION: Mild aneurysm of the ascending aorta. No evidence of aortic dissection. No evidence of pulmonary embo lism. No evidence of hemodynamic arterial stenosis.
[2019-09-01] MEDS ORDERED: NITROGLYCERIN SL TABS 0.4 MG TAB SUBLINGUAL PRN (21:55)
[2019-09-01] MEDS ORDERED: RIVAROXABAN 20 MG TAB PO SCH (22:00)
[2019-09-01 22:34] VITALS: BMI 33.5
[2019-09-01] MEDS ORDERED: amLODIPine 5 MG TAB PO STA (23:09)
[2019-09-01] MEDS ORDERED: ZOLPIDEM 5 MG TAB PO PRN (23:11)
[2019-09-02 02:44] LABS: Cholesterol 117 mg/dL (<200); HDL Cholesterol 39 mg/dL (40-60); LDL Cholesterol,Calculated 65 mg/dL (0-99); Triglycerides 67 mg/dL (<150)
[2019-09-02] MEDS: ACETAMINOPHEN TAB 325 MG TAB PO PRN ×2 (05:00→20:11)
[2019-09-02] MEDS: ASPIRIN 325 MG TAB PO SCH (08:29)
[2019-09-02] MEDS: FLECAINIDE 50 MG TAB PO SCH (08:29)
[2019-09-02] MEDS: PANTOPRAZOLE 40 MG TABLET PO SCH ×2 (08:29→20:11)
--- NOTE | 2019-09-02 19:57 | CONS ---
CONSULTATION Mr. Dung Sahni is a 69-year-old gentleman with a history of bronchial asthma, persistent atrial fibrillation, atrial flutter, typical status post both pulmonary vein isolation for atrial fib and also flutter ablation in the past. He had a previous negative stress test. However, in the last 3-4 weeks, he has been experiencing chest pressure, epigastric discomfort, burning sensation, sometimes comes on randomly then sometimes with activity. As recently as February of this year he had a stress echo, walked for over 6 minutes at a heart rate of more than 135 beats per minute without ischemia. About a week ago he called and saw my nurse practitioner with complaints of chest burning, was given omeprazole, had some relief, but again he had recurrent symptoms and yesterday he called me and therefore I asked him to come into the emergency room. After arrival in the emergency room his symptoms seemed to be somewhat inconsistent. He said he had abdominal pain in the epigastric area coming up to the chest, a burning feeling, then it went to both upper extremities, had no shortness of breath. He felt anxious. However, these symptoms recurred repeatedly and therefore he came to the hospital. He then complained of discomfort between the shoulder blades as well. Blood pressure was not particularly high but given his presentation, he had a CT angio performed yesterday which revealed no evidence of any pulmonary embolism or any aortic dissection. However, there is a 4.4 cm ascending aortic dilatation which is not new. He is doing well at the time of my evaluation, resting comfortably without any symptoms of chest pain, shortness of breath or palpitation. His 2 sets of troponins are normal. PAST MEDICAL HISTORY: 1. Hypertension. 2. Persistent atrial fibrillation. 3. Paroxysmal atrial flutter. 4. Bronchial asthma. 5. Evidence normal stress echo in February of this year. MEDICATIONS: At home include Xarelto 20 mg daily, Singulair 10 mg daily, flecainide 100 mg in the morning, 50 mg in the evening. He takes Nexium and atorvastatin 10 mg daily. ALLERGIES: None. REVIEW OF SYSTEMS: Unremarkable other than the above-mentioned facts. PHYSICAL EXAMINATION: Blood pressure is 130/70, pulse rate is about 60, sinus. HEENT unremarkable. Fundus was not examined by me. Neck is supple. No JVD. I do not hear a carotid bruit. There is no thyromegaly. Heart exam reveals S1, S2. There is no significant murmur. Lungs revealed decent air entry. Abdomen is soft, nontender. Lower extremities reveal normal pulses. No edema. Central nervous system is normal. EKG revealed sinus rhythm, right bundle, no acute changes. LABORATORY DATA: Laboratory data revealed unremarkable troponins. Stress echo from February 2018 revealed that patient walked for nearly 6 minutes, heart rate more than 135 beats per minute. No ischemia. IMPRESSION: 1. Chest pain syndrome, persistent, recurrent, not suggestive of angina, but seems to be associated with anxiety. 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 Even though stress test is negative, I am concerned that he may have angina. 2. History of persistent atrial flutter status post radiofrequency ablation by Dr. Katz. 3. Atypical atrial flutter status post flutter ablation by Dr. Katz. 4. Bronchial asthma. 5. Borderline hypertension. RECOMMENDATIONS: I am recommending that we will obtained serial troponins. So far the 2 of them are normal. If he has no further symptoms, I will proceed with cardiac catheterization tomorrow. I will hold Xarelto today. I discussed my thoughts in detail with the patient. I also explained to him the rationale, risks, benefits, and options related to coronary angiography and if I perform intervention as well. He understands all details and wishes to proceed with the procedure. DAQUAN / BHAVIN: [id number] /
[2019-09-02] MEDS: ATORVASTATIN 10 MG TAB PO SCH (20:11)
[2019-09-02] MEDS: MONTELUKAST 10 MG TAB PO SCH (20:11)
--- NOTE | 2019-09-02 20:41 | P.HPIM ---
History of Present Illness H&P Date: 09/02/19 Chief Complaint: Lower chest burning History of presenting complaint: This is a [address] Rubalcava. Chronic stable medical conditions include hypertension, GERD, primary osteoarthritis, moderate persistent asthma, atrial fibrillation on anticoagulation. Patient now presented to 3 days of lower chest discomfort. Described more as a burning sensation. It isn't present off and on but predominantly been present. Sometimes time has helped him. Decided to come in for the same. Has had no previous coronary artery disease history. Admitted to rule out a cardiac cause. Patient's patient did have a stress echocardiogram in February of this year. That was negative. Cardiology was consulted. Patient also denies having had EGD. Review of systems: GEN.: Tired EYES: None HEENT: None NECK: None RESPIRATORY: None CARDIOVASCULAR: As above GASTROINTESTINAL: As above] GENITOURINARY: None MUSCULOSKELETAL: Pain in the joints LYMPHATICS: None HEMATOLOGICAL: None PSYCHIATRY: None NEUROLOGICAL: None Past medical history to include: Hypertension, GERD, primary osteoarthritis, moderate persistent asthma, atrial fibrillation ablation, on anticoagulation, prostate disorder, BPH treated with TURP. Social history: , retired, no smoking. Alcohol rarely. Family history: Father had a stroke Physical examination: VITAL SIGNS: 98.2, 68, 18, 173/103, repeat 151/96, 97% room air GENERAL: BMI 33.5, sitting up, awake. EYES: Pupils equal. Conjunctiva normal. HEENT: External appearance of nose and ears normal, oral cavity grossly normal. NECK: JVD not raised; masses not palpable. HEART: First and second heart sounds are normal; no edema. LUNGS: Respiratory rate normal; clear to auscultation. ABDOMEN: Soft, nontender, liver spleen not palpable, no masses palpable. PSYCH: Alert and oriented x3; mood and affect normal. NEUROLOGICAL: Cranial nerves grossly intact; no facial asymmetry, power and sensation grossly intact. LYMPHATICS: No lymph nodes palpable in the axilla and neck INVESTIGATIONS, reviewed in the clinical context: White count 7.4 hemoglobin 13.8 potassium 4.1 creatinine 0.91 Troponin I 3 negative LDL 65 EKG tracing-ST reviewed by me shows right bundle branch block CT chest-4.4 cm aneurysm of the ascending aorta Chest x-ray film personally reviewed by me-possibly some chronic changes Assessment: -Burning sensation in lower posterolateral chest wall with some relief from Tums present 4-3 days with some exacerbation. Cardiac cause to be ruled out. More likely patient may have underlying gastritis/esophagitis. -4.4 cm ascending aorta aneurysm -Essential hypertension -GERD -Primary osteoarthritis -Moderate persistent asthma -History of atrial fibrillation with ablation chronically on anticoagulation -Obesity BMI 33.5 Assessment: Cardiology was consulted. Home medications resumed. Patient being scheduled for a cardiac catheterization tomorrow. Xarelto is being held. Patient oriented taking Nexium. At the cardiac catheterization is negative. He'll need outpatient EGD. Care was discussed with the patient. Questions were answered. 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 History of Any Multi-Drug Resistant Organisms: None Reported Past Surgical History: Appendectomy, Cardiac Ablation, Cholecystectomy, Prostate Surgery Additional Past Surgical History / Comment(s): 12/13/17 PVI/cryoablation of 4 pulmonary veins, cardiac ablation, BESSIE/cardioversions, colonoscopy, bilateral cataract removals, TURP. Past Anesthesia/Blood Transfusion Reactions: No Reported Reaction Past Psychological History: No Psychological Hx Reported Smoking Status: Never smoker Past Alcohol Use History: None Reported Past Drug Use History: None Reported - Past Family History Father History Unknown: Yes Family Medical History: CVA/TIA Additional Family Medical History / Comment(s): Father had a CVA. He lived to be 75 yrs. old. Mother History Unknown: Yes Family Medical History: CVA/TIA Additional Family Medical History / Comment(s): Mother had a CVA x 2. He lived to be 82 yrs old. Medications and Allergies Home Medications Medication Instructions Recorded Confirmed Type Montelukast [Singulair] 10 mg PO HS 08/26/15 09/01/19 History Atorvastatin Calcium 10 mg PO HS 08/31/16 09/01/19 History Fluticasone Nasal [place] [Flonase 1 spray EA NOSTRIL HS 07/13/18 09/01/19 History Nasal [place]] Esomeprazole Magnesium [NexIUM] 40 mg PO DAILY 12/27/18 09/01/19 History Fluticasone/Salmeterol [Advair 1 puff INHALATION RT-BID 12/27/18 09/01/19 History 250-50 Diskus] Flecainide [Tambocor] 50 mg PO HS 03/14/19 09/01/19 History Rivaroxaban [Xarelto] 20 mg PO HS 03/14/19 09/01/19 History Flecainide [Tambocor] 100 mg PO DAILY 09/01/19 09/01/19 History Allergies Allergy/AdvReac Type Severity Reaction Status Date / Time No Known Allergies Allergy Verified 09/01/19 20:14 Physical Exam Vitals: Vital Signs Temp Pulse Pulse Resp BP BP Pulse Ox 09/02/19 08:00 97.7 F 55 L 18 154/85 95 09/02/19 02:59 98.2 F 65 18 112/72 96 09/02/19 00:00 62 18 165/79 95 09/01/19 22:13 98 F 58 L 18 190/94 96 09/01/19 22:00 58 L 10 L 146/98 97 09/01/19 21:30 59 L 21 142/88 96 09/01/19 21:00 53 L 19 151/96 98 09/01/19 20:04 98.2 F 68 18 173/103 97 Intake and Output 09/01/19 09/02/19 09/02/19 22:59 06:59 14:59 Intake Total 240 Balance 240 Intake: Oral 240 Other: # Voids 1 Weight 106.594 kg 106 kg Results CBC & Chem 7: 09/01/19 19:34 09/01/19 19:34 Labs: Abnormal Lab Results - Last 24 Hours (Table) 09/01/19 09/01/19 09/02/19 Range/Units 19:34 19:34 02:06 PT 12.5 H (9.0-12.0) sec INR 1.2 H (<1.2) APTT 32.2 H (22.0-30.0) sec Glucose 108 H (74-99) mg/dL HDL Cholesterol 39 L (40-60) mg/dL Thrombosis Risk Factor Assmnt - Choose All That Apply Any of the Below Risk Factors Present?: Yes Each Factor Represents 1 point: Obesity (BMI >25) Other Risk Factors: Yes Each Risk Factor Represents 2 Points: Age 61-74 years Thrombosis Risk Factor Assessment Total Risk Factor Score: 3 Thrombosis Risk Factor Assessment Level: Moderate Risk
[2019-09-02] MEDS ORDERED: FLECAINIDE 50 MG TAB PO SCH (21:00)
[2019-09-03] MEDS: PANTOPRAZOLE 40 MG TABLET PO SCH (06:34)
[2019-09-03] MEDS: ASPIRIN 325 MG TAB PO SCH (08:55)
[2019-09-03] MEDS: FLECAINIDE 50 MG TAB PO SCH ×2 (08:56→20:37)
[2019-09-03] MEDS ORDERED: ASPIRIN 325 MG TAB PO STA (10:54)
[2019-09-03] MEDS ORDERED: NITROGLYCERIN SL TABS 0.4 MG TAB SUBLINGUAL PRN (10:54)
[2019-09-03] MEDS ORDERED: SODIUM CHLORIDE 0.9% 1,000 ML in EMPTY BAG 1 BAG IV ONE (10:54)
[2019-09-03] MEDS ORDERED: ATORVASTATIN 80 MG TAB PO STA (10:54)
[2019-09-03] MEDS ORDERED: ALPRAZolam 0.25 MG TAB PO PRN (10:54)
[2019-09-03] MEDS ORDERED: ALPRAZolam 0.5 MG TAB PO PRN (10:54)
[2019-09-03 12:16] LABS: Glucose,Whole Blood 99 mg/dL (75-99)
[2019-09-03] MEDS ORDERED: IV FLUID CONTINUATION 225 ML IV ONE (13:10)
[2019-09-03] MEDS ORDERED: VERAPAMIL 2.5 MG/ML 2 ML AMP ONE (13:19)
[2019-09-03] MEDS ORDERED: LIDOCAINE 1% INJ 10MG/ML (20 ML MDV) ONE (13:19)
[2019-09-03] MEDS ORDERED: HYDROmorphone 1 MG/ML 1 ML SYRINGE ONE (13:40)
[2019-09-03] MEDS ORDERED: MIDAZOLAM PF (FBP) 2 MG/2 ML VIAL IV ONE (13:41)
[2019-09-03] MEDS ORDERED: HYDROmorphone 1 MG/ML 1 ML SYRINGE IVP ONE (13:45)
[2019-09-03] MEDS ORDERED: LIDOCAINE 1% INJ 10MG/ML (20 ML MDV) SQ ONE (13:47)
[2019-09-03] MEDS ORDERED: HEPARIN SODIUM 1,000 UN/ML (10ML VL) ONE (13:47)
[2019-09-03] MEDS: VERAPAMIL SYRINGE (5 MG/10 ML) IV ONE ×2 (13:50→14:18)
[2019-09-03] MEDS ORDERED: IOPAMIDOL-370 125ML BTL INJ ONE (14:18)
[2019-09-03] MEDS ORDERED: SODIUM CHLORIDE 0.9% 1,000 ML IV ONE (14:19)
[2019-09-03] MEDS ORDERED: SODIUM CHLORIDE 0.9% 1,000 ML IV SCH ×2 (14:30→22:30)
--- NOTE | 2019-09-03 20:26 | CC ---
CARDIAC CATHETERIZATION REPORT DATE OF SERVICE: 09/03/2019 PROCEDURE: Left heart catheterization and coronary angiography. PERFORMED BY: Dr. Naima Fernandes Moderate conscious sedation time was 37 minutes. Patient was administered Versed and Dilaudid. His oxygen saturation, hemodynamics and EKG were monitored closely. CLINICAL INFORMATION: Mr. Dung Sahni is a 69-year-old gentleman with a known history of persistent atrial fibrillation and flutter, status post ablation for both these conditions. He also has hyperlipidemia and hypertension, borderline. He has been doing fairly well. In February he had a negative stress echo, but he comes into the hospital with episode of chest discomfort. He was also seen in the office with a recurrent episode of chest pressure with activity. 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 In view of his ongoing pain, even though he had a negative stress test, given the circumstances, I recommended coronary angiography. Risks, benefits, options and rationale were explained. PROCEDURE NOTE: Under local anesthesia and strict aseptic precautions, a 6-[place] introducer was placed in the right radial artery. The patient has a slightly dilated aortic root that measures about 4.4 cm. Initially I used a JR4, then switched over to a JR 6-[place] catheter. With this I did selective coronary angiography of the right coronary artery. I was able to cross the LV, but the pressure acquisition was somewhat incomplete. I then used a JL3.5 catheter to perform selective coronary angiography of the left system. Again I tried to pass the pigtail a second time, but I did not persist because of vasospasm. The sheath was taken out and TR band applied as per protocol with oxygen saturation of more than 90% in the fingers of the right hand. The patient tolerated the procedure well without complications. CARDIAC CATHETERIZATION FINDINGS: The left ventricle was crossed, but the LV pressures were not accurately quantified. Systolic pressure was about 140 mmHg. CORONARY ANGIOGRAPHY FINDINGS: RIGHT CORONARY ARTERY: Technically a dominant vessel. No significant disease. Distally bifurcates into PDA and PLV. PDA is smaller. PLV is larger. A sizable amount of myocardium. No significant disease. LEFT MAIN CORONARY ARTERY: This is a short, patent, disease-free vessel that trifurcates into LAD, circumflex and ramus intermedius. Left main itself is free of significant disease. LEFT ANTERIOR DESCENDING CORONARY ARTERY: Good-caliber vessel extends along the anterior wall and gives off a few septal branches and 2 diagonal branches. Runs towards the apex. Has no significant disease. Supplies a sizable amount of myocardium. LAD therefore is a disease-free vessel. LAD in the distal aspect is small in caliber. It does not quite reach the apex. LEFT POSTERIOR CIRCUMFLEX CORONARY ARTERY: This is a good-caliber, good-distribution vessel that runs laterally, has minor irregularities. No significant disease. RAMUS INTERMEDIUS: This is a fair-caliber, fair-distribution vessel. Has no significant disease. Distally bifurcates into 2 small branches. FINAL IMPRESSION: This patient has a right-dominant system, no significant coronary artery disease. Left ventricular pressures were not well quantified. RECOMMENDATIONS: Findings were discussed with the patient and his . No intervention is necessary from a CAD standpoint. Continued medical therapy with risk factor modification was advised. Patient will be hydrated and discharged later today or more likely tomorrow. MMODL / IJN: [id number] /
[2019-09-03] MEDS: MONTELUKAST 10 MG TAB PO SCH (20:37)
[2019-09-03] MEDS: ATORVASTATIN 10 MG TAB PO SCH (20:37)
[2019-09-04] MEDS ORDERED: ASPIRIN 81 MG PO SCH (09:00)
[2019-09-04] MEDS: PANTOPRAZOLE 40 MG TABLET PO SCH (10:04)
[2019-09-04] MEDS: FLECAINIDE 50 MG TAB PO SCH (10:04)
[2019-09-04 10:13] VITALS: BP 151/84; PULSE 56; RESP 14; TEMP 97.6
--- NOTE | 2019-09-04 11:20 | P.GSCN ---
History of Present Illness Consult date: 09/04/19 Reason for Consult: Ascending TAA History of present illness: 69 year old gentleman who presented to the hospital secondary to discomfort of the chest which he stated as increasingly more severe starting on the left side and radiating across to the right. He also was complaining of left sided abdominal discomfort. He underwent CT of the chest which demonstrated an ascending TAA measuring 4.4cm. He denies any back pain, nausea, vomiting, or shortness of breath. He was admitted to the hospital and underwent a heart cath which was negative according to the patient. Currently he states his pain has resolved. Review of Systems - Constitutional Reports as per HPI Past Medical History Past Medical History: Atrial Fibrillation, Atrial Flutter, Asthma, Chest Pain / Angina, Eye Disorder, GERD/Reflux, Hypertension, Osteoarthritis (OA), Pneumonia, Prostate Disorder Additional Past Medical History / Comment(s): Paroxysmal Afib, aflutter, RVR, bronchitis, BPH, bilateral astigmatism, sinus problems, BPH with outflow obs truction but none since TURP, arthritis in fingers. History of Any Multi-Drug Resistant Organisms: None Reported Past Surgical History: Appendectomy, Cardiac Ablation, Cholecystectomy, Prostate Surgery Additional Past Surgical History / Comment(s): 12/13/17 PVI/cryoablation of 4 pulmonary veins, cardiac ablation, BESSIE/cardioversions, colonoscopy, bilateral cataract removals, TURP. Past Anesthesia/Blood Transfusion Reactions: No Reported Reaction Past Psychological History: No Psychological Hx Reported Smoking Status: Never smoker Past Alcohol Use History: None Reported Past Drug Use History: None Reported - Past Family History Father History Unknown: Yes Family Medical History: CVA/TIA Additional Family Medical History / Comment(s): Father had a CVA. He lived to be 75 yrs. old. Mother History Unknown: Yes Family Medical History: CVA/TIA Additional Family Medical History / Comment(s): Mother had a CVA x 2. He lived to be 82 yrs old. Medications and Allergies Home Medications Medication Instructions Recorded Confirmed Type Montelukast [Singulair] 10 mg PO HS 08/26/15 09/01/19 History Atorvastatin Calcium 10 mg PO HS 08/31/16 09/01/19 History Fluticasone Nasal [place] [Flonase 1 spray EA NOSTRIL HS 07/13/18 09/01/19 History Nasal [place]] Esomeprazole Magnesium [NexIUM] 40 mg PO DAILY 12/27/18 09/01/19 History Fluticasone/Salmeterol [Advair 1 puff INHALATION RT-BID 12/27/18 09/01/19 History 250-50 Diskus] Flecainide [Tambocor] 50 mg PO HS 03/14/19 09/01/19 History Rivaroxaban [Xarelto] 20 mg PO HS 03/14/19 09/01/19 History Flecainide [Tambocor] 100 mg PO DAILY 09/01/19 09/01/19 History Allergies Allergy/AdvReac Type Severity Reaction Status Date / Time No Known Allergies Allergy Verified 09/01/19 20:14 Surgical - Exam Vital Signs Temp Pulse Resp BP Pulse Ox 98.2 F 68 18 173/103 97 09/01/19 20:04 09/01/19 20:04 09/01/19 20:04 09/01/19 20:04 09/01/19 20:04 palpable dp, pt and femoral pulses bilaterally. - General well developed, well nourished, no distress - Eyes PERRL, normal ocular movement - ENT normal pinna, normal nares - Neck no masses - Respiratory normal expansion - Abdomen Abdomen: soft, non tender - Neurologic normal coordination, normal sensation - Psychiatric oriented to time, oriented to person, oriented to place Results - Labs 09/01/19 19:34 09/01/19 19:34 - Imaging CT scan - chest: report reviewed, image reviewed Assessment and Plan Assessment: 1. Ascending Thoracic aortic aneurysm 4.4 cm 2. Chest pain 3. History of persistent atrial flutter with ablation 4. HTN Plan: No surgical intervention at this time. Chest pain not secondary to aneurysm. Will need follow up in the office for abdominal ultrasound and yearly CT scans for monitoring of the TAA. Recommend blood pressure control. Will follow up in the office in 1-2 months. Will re-eval at your request. Thank you for allowing me to participate in this patients care. Please call if any questions.
--- NOTE | 2019-09-04 12:48 | PN ---
PROGRESS NOTE Mr. Sahni had a cardiac cath, right radial approach. Site is clean and dry. There was no significant obstructive CAD. He is status post ablation of atrial fibrillation and atrial flutter. He is doing well. I am recommending that he can be discharged today. Same medications except the flecainide will be 50 mg b.i.d. I will see him in the office in one week. Discharge instructions regarding activity, diet and medications were given. Vitals are stable. No JVD. S1, S2 heard normally. Lungs are clear. Abdomen and lower extremity exam otherwise are unchanged. MMODL / IJN: [id number] /
[2019-09-04] MEDS ORDERED: RIVAROXABAN 20 MG TAB PO SCH (17:30)
--- NOTE | 2019-09-05 22:58 | P.PN ---
Progress Note - Text Progress Note Date: 09/03/19 Chief Complaint: Lower chest burning Interval history: This is a [address] Rubalcava. Chronic stable medical conditions include hypertension, GERD, primary osteoarthritis, moderate persistent asthma, atrial fibrillation on anticoagulation. Patient now presented to 3 days of lower chest discomfort. Described more as a burning sensation. It isn't present off and on but predominantly been present. Sometimes time has helped him. Decided to come in for the same. Has had no previous coronary artery disease history. Admitted to rule out a cardiac cause. Patient's patient did have a stress echocardiogram in February of this year. That was negative. Ca rdiology was consulted. Patient also denies having had EGD. Today-no new symptoms. Patient is going down for cardiac catheterization. Review of systems: Was done for constitutional, cardiovascular, GI, pulmonary. relevant finding as above Today's medications reviewed in the electronic records from today's date Physical examination: VITAL SIGNS: 97.9, 50, 16, 146.90, 96% room air GENERAL: Laying in bed awake EYES: Pupils equal. Conjunctiva normal. HEENT: External appearance of nose and ears normal, oral cavity grossly normal. NECK: JVD not raised; masses not palpable. HEART: First and second heart sounds are normal; no edema. LUNGS: Respiratory rate normal; clear to auscultation. ABDOMEN: Soft, nontender, liver spleen not palpable, no masses palpable. PSYCH: Alert and oriented x3; mood and affect normal. INVESTIGATIONS, reviewed in the clinical context: White count 7.4 hemoglobin 13.8 potassium 4.1 creatinine 0.91 Troponin I 3 negative LDL 65 EKG tracing-ST reviewed by me shows right bundle branch block CT chest-4.4 cm aneurysm of the ascending aorta Chest x-ray film personally reviewed by me-possibly some chronic changes Assessment: -Burning sensation in lower posterolateral chest wall with some relief from Tums present 4-3 days with some exacerbation. Cardiac cause to be ruled out. More likely patient may have underlying gastritis/esophagitis. -4.4 cm ascending aorta aneurysm -Essential hypertension -GERD -Primary osteoarthritis -Moderate persistent asthma -History of atrial fibrillation with ablation chronically on anticoagulation -Obesity BMI 33.5 Plan: Continue current medication. Patient admitted to august cardiac cath.
--- NOTE | 2019-09-05 23:03 | P.DS ---
Providers Date of admission: 09/03/19 15:52 Expected date of discharge: 09/05/19 Attending physician: Alfredo Godinez Consults: 09/01/19 21:55 Consult Physician Routine Consulting Provider: Jagruti Tariq Consult Reason/Comments: incidental finding of 4cm ascending thoracici aneurysm Do you want consulting provider notified?: Yes, Notify in am Consult Physician Urgent Consulting Provider: [facility] Consult Reason/Comments: chest pain Do you want consulting provider notified?: Yes, Notify in am Primary care physician: Johann Rubalcava [place] Hospital Course: Chief Complaint: Lower chest burning Hospital course: This is a [address] Rubalcava. Chronic stable medical conditions include hypertension, GERD, primary osteoarthritis, moderate persistent asthma, atrial fibrillation on anticoagulation. Patient now presented to 3 days of lower chest discomfort. Described more as a burning sensation. It isn't present off and on but predominantly been present. Sometimes time has helped him. Decided to come in for the same. Has had no previous coronary artery disease history. Admitted to rule out a cardiac cause. Patient's patient did have a stress echocardiogram in February of this year. That was negative. Cardiology was consulted. Patient also denies having had EGD. Had a cardiac catheterization.-No significant disease. Discussed with the patient. He will need an outpatient EGD. Also needs annual follow-up for his ascending aorta aneurysm 4.4 cm. Consultation: Dr. NERY Fernandes from cardiology Physical examination: VITAL SIGNS: 97.9, 50, 16, 146/90, 96% room air GENERAL: Laying in bed awake EYES: Pupils equal. Conjunctiva normal. HEENT: External appearance of nose and ears normal, oral cavity grossly normal. NECK: JVD not raised; masses not palpable. HEART: First and second heart sounds are normal; no edema. LUNGS: Respiratory rate normal; clear to auscultation. ABDOMEN: Soft, nontender, liver spleen not palpable, no masses palpable. PSYCH: Alert and oriented x3; mood and affect normal. INVESTIGATIONS, reviewed in the clinical context: White count 7.4 hemoglobin 13.8 potassium 4.1 creatinine 0.91 Troponin I 3 negative LDL 65 EKG tracing-ST reviewed by me shows right bundle branch block CT chest-4.4 cm aneurysm of the ascending aorta Chest x-ray film personally reviewed by me-possibly some chronic changes Cardiac catheterization-not significant disease Discharge diagnosis: -Anterior chest wall pain-possibly esophagitis/gastritis -4.4 cm ascending aorta aneurysm, for yearly follow-up -Essential hypertension -GERD -Primary osteoarthritis -Moderate persistent asthma -History of atrial fibrillation with ablation chronically on anticoagulation -Obesity BMI 33.5 Disposition: Home Patient Condition at Discharge: Stable Plan - Discharge Summary New Discharge Prescriptions: Continue Montelukast [Singulair] 10 mg PO HS Atorvastatin Calcium 10 mg PO HS Fluticasone Nasal [place] [Flonase Nasal [place]] 1 spray EA NOSTRIL HS Fluticasone/Salmeterol [Advair 250-50 Diskus] 1 puff INHALATION RT-BID Rivaroxaban [Xarelto] 20 mg PO HS Flecainide [Tambocor] 50 mg PO HS Flecainide [Tambocor] 100 mg PO DAILY Changed Esomeprazole Magnesium [NexIUM] 40 mg PO BID #60 cap Discharge Medication List Montelukast [Singulair] 10 mg PO HS 08/26/15 [History] Atorvastatin Calcium 10 mg PO HS 08/31/16 [History] Fluticasone Nasal [place] [Flonase Nasal [place]] 1 spray EA NOSTRIL HS 07/13/18 [History] Fluticasone/Salmeterol [Advair 250-50 Diskus] 1 puff INHALATION RT-BID 12/27/18 [History] Flecainide [Tambocor] 50 mg PO HS 03/14/19 [History] Rivaroxaban [Xarelto] 20 mg PO HS 03/14/19 [History] Flecainide [Tambocor] 100 mg PO DAILY 09/01/19 [History] Esomeprazole Magnesium [NexIUM] 40 mg PO BID #60 cap 09/04/19 [Rx] Follow up Appointment(s)/Referral(s): Alisia Fernandes MD [STAFF PHYSICIAN] - 1 Week ([employer]. Office will call with a follow up appointment. ) Yuri Constantino DO [STAFF PHYSICIAN] - 11/13/19 2:15 pm (Thoracic aneurysm monitoring. ) Johann Rubalcava MD [Primary Care Provider] - 09/10/19 11:30 am Glenn Vidal MD [STAFF PHYSICIAN] - 1 Week (Gastrointestinal physician for EGD in future. Office closed for lunch, please call and make appointment stating you have a referral from Dr. Godinez who discharged you from the hospital.) Patient Instructions/Handouts: *Surgery [facility] - After Heart Catheterization - [employer] Instructions, Diet for Stomach Ulcers and Gastritis (ED), Gastroesophageal Reflux Disease (DC), Epigastric Pain (ED), Upper Endoscopy (GEN) Discharge Disposition: HOME SELF-CARE
== END 2019-09-04 13:25 | disposition home or self-care (01) | DRG 392 ==
LOC: EC 19:49 → 3SCARD 21:57 → OBSVTOIN 09-03 15:52
PROVIDERS: ADMIT Hospitalist; ATTEND Hospitalist
PROC: B2111ZZ Fluoroscopy of Multiple Coronary Arteries using Low Osmolar Contrast (ICD-10-PCS; 2019-09-03)
PROC: 4A023N7 Measurement of Cardiac Sampling and Pressure, Left Heart, Percutaneous Approach (ICD-10-PCS; principal; 2019-09-03 13:10)
DX: K29.70 Gastritis, unspecified, without bleeding (principal); I48.4 Atypical atrial flutter; I48.19 Other persistent atrial fibrillation; I71.2 Thoracic aortic aneurysm, without rupture; K21.0 Gastro-esophageal reflux disease with esophagitis; E66.9 Obesity, unspecified; R07.89 Other chest pain; I10 Essential (primary) hypertension; J45.40 Moderate persistent asthma, uncomplicated; M19.049 Primary osteoarthritis, unspecified hand; N40.0 Benign prostatic hyperplasia without lower urinary tract symptoms; H52.203 Unspecified astigmatism, bilateral; Z68.33 Body mass index [BMI] 33.0-33.9, adult; Z79.01 Long term (current) use of anticoagulants; Z79.899 Other long term (current) drug therapy; Z90.49 Acquired absence of other specified parts of digestive tract; Z90.79 Acquired absence of other genital organ(s); Z98.42 Cataract extraction status, left eye; Z98.41 Cataract extraction status, right eye; Z96.1 Presence of intraocular lens; Z87.01 Personal history of pneumonia (recurrent); Z82.3 Family history of stroke
CPT/HCPCS: 36415; 71046; 71275; 74174; 80053; 80061; 83690; 83735; 84484; 85025; 85610; 85730; 93005; 93458; 99285

== ENCOUNTER 2019-12-06 21:06 | Observation (INO) | payer MEDICARE ==
[2019-12-06] MEDS ORDERED: SODIUM CHLORIDE 0.9% 1,000 ML IV STA (21:24)
[2019-12-06] MEDS ORDERED: DILTIAZEM DRIP BOLUS FROM BAG 1 MG SOLN IV ONE (21:29)
--- NOTE | 2019-12-06 21:53 | XR ---
EXAMINATION: XR chest 2V DATE AND TIME: 12/06/2019 9:36 PM CLINICAL INDICATION: PHH; Chest Pain TECHNIQUE: Departmental protocol COMPARISON: 09/01/2019 FINDINGS: The lungs are clear. The pleural spaces are negative. The cardiac silhouette is mild moderately enlarged. The remainder of the mediastinal silhouette is un remarkable. The skeletal structures and soft tissues are negative for acute findings. IMPRESSION: NO ACUTE PROCESS.
[2019-12-06 21:59] LABS: Basophils # (A) 0.1 k/uL (0-0.2); Basophils % (A) 2 %; Eosinophils # (A) 0.2 k/uL (0-0.7); Eosinophils % (A) 3 %; HCT 44.2 % (39.0-53.0); HGB 15.1 gm/dL (13.0-17.5); Lymphocytes # (A) 1.4 k/uL (1.0-4.8); Lymphocytes % (A) 20 %; MCH 29.8 pg (25.0-35.0); MCHC 34.2 g/dL (31.0-37.0); MCV 87.3 fL (80.0-100.0); Mean Platelet Volume 8.1; Monocytes # (A) 0.6 k/uL (0-1.0); Monocytes % (A) 9 %; Neutrophils # (A) 4.5 k/uL (1.3-7.7); Neutrophils % (A) 65 %; Platelet Count 221 k/uL (150-450); RBC 5.06 m/uL (4.30-5.90); RDW 12.7 % (11.5-15.5); WBC 6.9 k/uL (3.8-10.6)
[2019-12-06] MEDS ORDERED: DILTIAZEM 125 MG in SODIUM CHLORIDE 0.9% 100 ML IV SCH ×2 (22:00→22:29)
--- NOTE | 2019-12-06 22:03 | ED ---
Arrhythmia/Palpitations HPI - General Chief Complaint: Arrhythmia/Palpitations Stated Complaint: A fib, high heart rate Time Seen by Provider: 12/06/19 21:24 Source: patient Mode of arrival: ambulatory Limitations: no limitations - History of Present Illness Initial Comments: Dung is a 59-year-old gentleman with a history of difficult to control atrial fibrillation he has undergone ablations in the past, he's on [place] in [place] and metoprolol. He's been compliant with his medications. He reports that beginning around 4:00 p.m. today he began feeling palpitations however beginning around 8:30 they became consistent and he been checking his heart rate noted that it remained over 180 which prompted him to come the hospital for evaluation. Patient reports a mild burning in his chest but no crushing retrosternal chest pain. He feels mild shortness of breath and light headedness when his heart rate is in the 180s however these improve when he slows down. - Related Data Home Medications Medication Instructions Recorded Confirmed Montelukast [Singulair] 10 mg PO HS 08/26/15 12/06/19 Atorvastatin Calcium 10 mg PO HS 08/31/16 12/06/19 Fluticasone Nasal [place] [Flonase 1 spray EA NOSTRIL HS 07/13/18 12/06/19 Nasal [place]] Fluticasone/Salmeterol [Advair 1 puff INHALATION RT-HS 12/27/18 12/06/19 250-50 Diskus] Flecainide [Tambocor] 50 mg PO BID 03/14/19 12/06/19 Rivaroxaban [Xarelto] 20 mg PO AC-LUNCH 03/14/19 12/06/19 Esomeprazole Magnesium [NexIUM] 40 mg PO AC-LUNCH 12/06/19 12/06/19 Losartan [Cozaar] 50 mg PO DAILY 12/06/19 12/06/19 Metoprolol Tartrate [Lopressor] 12.5 mg PO DAILY 12/06/19 12/06/19 Allergies Allergy/AdvReac Type Severity Reaction Status Date / Time No Known Allergies Allergy Verified 12/06/19 21:09 Review of Systems ROS Statement: Those systems with pertinent positive or pertinent negative responses have been documented in the HPI. ROS Other: All systems not noted in ROS Statement are negative. 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 History of Any Multi-Drug Resistant Organisms: None Reported Past Surgical History: Ablation, Appendectomy, Cardiac Ablation, Cholec ystectomy, Prostate Surgery Additional Past Surgical History / Comment(s): 12/13/17 PVI/cryoablation of 4 pulmonary veins, cardiac ablation, BESSIE/cardioversions, colonoscopy, bilateral cataract removals, TURP. Past Anesthesia/Blood Transfusion Reactions: No Reported Reaction Past Psychological History: No Psychological Hx Reported Smoking Status: Never smoker Past Alcohol Use History: None Reported Past Drug Use History: None Reported - Past Family History Father History Unknown: Yes Family Medical History: CVA/TIA Additional Family Medical History / Comment(s): Father had a CVA. He lived to be 75 yrs. old. Mother History Unknown: Yes Family Medical History: CVA/TIA Additional Family Medical History / Comment(s): Mother had a CVA x 2. He lived to be 82 yrs old. General Exam - General Exam Comments Initial Comments: Physical Exam GENERAL: Patient is well-developed and well-nourished. Patient is nontoxic and well-hydrated and is in no distress. HENT: Normocephalic, Atraumatic. EYES: PERRL, EOMI PULMONARY: Unlabored respirations. No audible rales rhonchi or wheezing was noted. CARDIOVASCULAR: Irregularly irregular tachycardia Warm and well perfused extremities ABDOMEN: Soft and nontender with normal bowel sounds. SKIN: Skin is clear with no lesions or rashes and otherwise unremarkable. : Deferred NEUROLOGIC: Patient is alert and oriented x3. Moving all extremities spontaneously MUSCULOSKELETAL: Normal extremities with adequate strength and full range of motion. No lower extremity swelling or edema. No calf tenderness. PSYCHIATRIC: Normal psychiatric evaluation. Limitations: no limitations Course Vital Signs 12/06/19 12/06/19 12/06/19 21:08 21:17 22:55 Temperature 98.1 F Pulse Rate 185 H 156 H 104 H Respiratory 22 18 18 Rate Blood Pressure 140/101 119/83 O2 Sat by Pulse 98 97 96 Oximetry 12/06/19 23:39 Temperature Pulse Rate 98 Respiratory 18 Rate Blood Pressure 129/86 O2 Sat by Pulse 96 Oximetry Medical Decision Making - Medical Decision Making Patient was seen and evaluated immediately upon arrival the emergency department, patient with a history of difficult to control atrial fibrillation presented with A. fib with RVR, rate in the 180s upon arrival. EKG was obtained upon arrival due to tachycardia, initial EKG obtained at 2112, rate is 179 rhythm is narrow complex tachycardia with some irregularity consistent with A. fib with RVR, with a right bundle branch block. OH 120, QRS 126, QTC 442. When compared to previous EKGs are no significant change in morphology. A repeat EKG was obtained at 2115, rate is 182 answered narrow complex regular tachycardia with a right bundle branch block. Still consistent with A. fib with RVR. No acute infarction. Upon my evaluation patient's heart rate had decreased to the 120s he is resting slightly more comfortably. Labs including electrolytes cardiac markers and coags were obtained and resulted with no acute abnormalities. Patient was started on a Cardizem drip and heart rate remained in the 90s to low 100s. Patient reported feeling much better. Patient will be admitted on a Cardizem drip for evaluation by cardiology. Patient's home medications were ordered Patient admitted to Dr. Godinez per his primary care Dr. Rubalcava's admission preference. - Lab Data Result diagrams: 12/06/19 21:25 12/06/19 21:25 Lab Results 12/06/19 12/06/19 12/06/19 Range/Units 21:25 21:25 21:25 WBC 6.9 (3.8-10.6) k/uL RBC 5.06 (4.30-5.90) m/uL Hgb 15.1 (13.0-17.5) gm/dL Hct 44.2 (39.0-53.0) % MCV 87.3 (80.0-100.0) fL MCH 29.8 (25.0-35.0) pg MCHC 34.2 (31.0-37.0) g/dL RDW 12.7 (11.5-15.5) % Plt Count 221 (150-450) k/uL Neutrophils % 65 % Lymphocytes % 20 % Monocytes % 9 % Eosinophils % 3 % Basophils % 2 % Neutrophils # 4.5 (1.3-7.7) k/uL Lymphocytes # 1.4 (1.0-4.8) k/uL Monocytes # 0.6 (0-1.0) k/uL Eosinophils # 0.2 (0-0.7) k/uL Basophils # 0.1 (0-0.2) k/uL PT 12.8 H (9.0-12.0) sec INR 1.2 H (<1.2) APTT 36.7 H (22.0-30.0) sec Sodium 140 (137-145) mmol/L Potassium 3.9 (3.5-5.1) mmol/L Chloride 109 H (98-107) mmol/L Carbon Dioxide 23 (22-30) mmol/L Anion Gap 8 mmol/L BUN 17 (9-20) mg/dL Creatinine 1.01 (0.66-1.25) mg/dL Est GFR (CKD-EPI)AfAm 88 (>60 ml/min/1.73 sqM) Est GFR (CKD-EPI)NonAf 76 (>60 ml/min/1.73 sqM) Glucose 128 H (74-99) mg/dL Calcium 9.3 (8.4-10.2) mg/dL Magnesium 1.8 (1.6-2.3) mg/dL Total Bilirubin 0.7 (0.2-1.3) mg/dL AST 37 (17-59) U/L ALT 31 (4-49) U/L Alkaline Phosphatase 134 H (38-126) U/L Troponin I (0.000-0.034) ng/mL Total Protein 6.6 (6.3-8.2) g/dL Albumin 3.8 (3.5-5.0) g/dL 12/06/19 Range/Units 21:25 WBC (3.8-10.6) k/uL RBC (4.30-5.90) m/uL Hgb (13.0-17.5) gm/dL Hct (39.0-53.0) % MCV (80.0-100.0) fL MCH (25.0-35.0) pg MCHC (31.0-37.0) g/dL RDW (11.5-15.5) % Plt Count (150-450) k/uL Neutrophils % % Lymphocytes % % Monocytes % % Eosinophils % % Basophils % % Neutrophils # (1.3-7.7) k/uL Lymphocytes # (1.0-4.8) k/uL Monocytes # (0-1.0) k/uL Eosinophils # (0-0.7) k/uL Basophils # (0-0.2) k/uL PT (9.0-12.0) sec INR (<1.2) APTT (22.0-30.0) sec Sodium (137-145) mmol/L Potassium (3.5-5.1) mmol/L Chloride (98-107) mmol/L Carbon Dioxide (22-30) mmol/L Anion Gap mmol/L BUN (9-20) mg/dL Creatinine (0.66-1.25) mg/dL Est GFR (CKD-EPI)AfAm (>60 ml/min/1.73 sqM) Est GFR (CKD-EPI)NonAf (>60 ml/min/1.73 sqM) Glucose (74-99) mg/dL Calcium (8.4-10.2) mg/dL Magnesium (1.6-2.3) mg/dL Total Bilirubin (0.2-1.3) mg/dL AST (17-59) U/L ALT (4-49) U/L Alkaline Phosphatase (38-126) U/L Troponin I <0.012 (0.000-0.034) ng/mL Total Protein (6.3-8.2) g/dL Albumin (3.5-5.0) g/dL Disposition Clinical Impression: Atrial fibrillation with RVR, Dyspnea Disposition: ADMITTED IP TO THIS HOSP Condition: Serious
[2019-12-06 22:10] LABS: Albumin 3.8 g/dL (3.5-5.0); Calcium 9.3 mg/dL (8.4-10.2); Magnesium 1.8 mg/dL (1.6-2.3); Potassium 3.9 mmol/L (3.5-5.1); Total Bilirubin 0.7 mg/dL (0.2-1.3); Total Protein 6.6 g/dL (6.3-8.2)
[2019-12-06 22:14] LABS: INR 1.2 (<1.2); Partial Thromboplastin Time 36.7 sec (22.0-30.0); Prothrombin Time 12.8 sec (9.0-12.0)
[2019-12-07 06:16] LABS: Cholesterol 135 mg/dL (<200); HDL Cholesterol 36 mg/dL (40-60); LDL Cholesterol,Calculated 79 mg/dL (0-99); Triglycerides 101 mg/dL (<150)
[2019-12-07] MEDS ORDERED: ASPIRIN 325 MG TAB PO SCH (09:00)
[2019-12-07] MEDS ORDERED: FLECAINIDE 50 MG TAB PO SCH (09:00)
[2019-12-07] MEDS: METOPROLOL TARTRATE 12.5 MG TAB PO SCH (09:45)
[2019-12-07] MEDS: LOSARTAN 50 MG TAB PO SCH (09:45)
[2019-12-07] MEDS: FLECAINIDE 50 MG TAB PO SCH ×2 (10:45→20:23)
--- NOTE | 2019-12-07 11:42 | CONS ---
CONSULTATION Mr. Dung Sahni is a 69-year-old gentleman with a known history of persistent atrial fibrillation who has undergone previous flutter ablation as well as a pulmonary vein isolation and a cryoablation. He was seen by Dr. Katz within the last 2 weeks. He comes into the hospital this time with complaints of palpitations. Apparently, when he was seen by Dr. Katz, according to the patient, he was in a normal sinus rhythm. However, he has been experiencing episodes of palpitations on and off. He is fairly active person. He has had a previous cardiac cath that did not reveal any significant obstructive disease. He is on flecainide in addition to losartan and also metoprolol tartrate and Xarelto 20 mg daily. He came in with complaints of feeling palpitation that increases in frequency, felt that his heart was racing and his heart rate was about 150 or more and he came into the hospital. On arrival, his EKG revealed atrial flutter at a rate of 150 beats per minute. Right bundle branch block pattern was noted as there was another EKG at 180 beats per minute. However, he has now gone into what seems to be like an atrial tachycardia at 110 beats per minute. He is resting comfortably without symptoms. PAST MEDICAL HISTORY: 1. Remarkable for recurrent atrial flutter, status post flutter ablation. 2. Recurrent persistent atrial fibrillation, status post prior ablation. 3. Hypertension. 4. No obstructive coronary artery disease based on a cardiac cath. 5. Benign prostatic hypertrophy. ALLERGIES: None. MEDICATIONS: Include Lopressor 12.5 mg daily, losartan 50 mg daily, flecainide 50 mg b.i.d., Xarelto 20 mg daily, Singulair 10 mg daily. He also takes a fluticasone nasal spray and atorvastatin 10 mg daily. PHYSICAL EXAMINATION: Blood pressure is 128/70, pulse rate is about 100, appears to be regular. HEENT: Unremarkable. Fundus was not examined by me. NECK: Supple. There is no JVD. No carotid bruit. HEART: Exam reveals S1, S2. Tachycardia. No significant murmurs. LUNGS: Clear. ABDOMEN: Soft, nontender. LOWER EXTREMITIES: Reveal normal pulses. No edema. CENTRAL NERVOUS SYSTEM: Normal. EKG on arrival revealed atrial flutter with a 2:1 block at a rate of 180 beats per minute. Repeat EKG this morning revealed atrial tachycardia with a right bundle branch block pattern. IMPRESSION: 1. Recurrent atrial flutter fibrillation with symptoms, now appears to be in atrial tachycardia. 2. Hypertension. 3. No evidence of coronary artery disease by catheter within the last 6-7 months. 4. Benign prostatic hypertrophy. RECOMMENDATIONS: I am recommending EP evaluation, increase the flecainide to 100 mg b.i.d. and hopefully he will convert to sinus rhythm. However, he may require a repeat EP study and ablation. Discussed my thoughts in detail with the patient and also spoke to Dr. Katz. MMODL / IJN: [id number] /
[2019-12-07] MEDS: PANTOPRAZOLE 40 MG TABLET PO SCH (12:22)
[2019-12-07] MEDS: SYMBICORT 160-4.5 MCG INHALER INHALATION SCH (19:21)
[2019-12-07] MEDS ORDERED: FLUTICASONE INHALATION SCH (20:00)
[2019-12-07] MEDS ORDERED: SALMETEROL INHALATION SCH (20:00)
[2019-12-07] MEDS: ATORVASTATIN 10 MG TAB PO SCH (20:23)
[2019-12-07] MEDS: RIVAROXABAN 20 MG TAB PO SCH (20:23)
[2019-12-07] MEDS: MONTELUKAST 10 MG TAB PO SCH (20:23)
[2019-12-07] MEDS: FLUTICASONE 50MCG/SPRAY NASAL 16GM EA NOSTRIL SCH (20:23)
--- NOTE | 2019-12-07 21:06 | P.HPIM ---
History of Present Illness H&P Date: 12/07/19 Chief Complaint: Heart racing History of presenting complaint: This is a [address] Rubalcava. Chronic stable medical conditions include hypertension, GERD, primary osteoarthritis, moderate persistent asthma, atrial fibrillation on anticoagulation,ascending aorta aneurysm 4.4 cm. in August 2019 patient had a cardiac catheterization that was negative. Patient now presents with increasing heart rate. Was up to the 180s. Patient was experiencing palpitation. No dizziness no lightheadedness. No chest pain. This was found to be in atrial fibrillation. This put on a Cardizem drip. Back in 2017 patient said Cryoblation, ablation and cardioversions. Both cardiology and terrazzo polisher helper Dr. Katz was consulted. Review of systems: GEN.: Tired EYES: None HEENT: None NECK: None RESPIRATORY: None CARDIOVASCULAR: As above GASTROINTESTINAL: Occasional heartburn GENITOURINARY: None MUSCULOSKELETAL: Pain in the joints LYMPHATICS: None HEMATOLOGICAL: None PSYCHIATRY: None NEUROLOGICAL: None Past medical history to include: Hypertension, GERD, primary osteoarthritis, moderate persistent asthma, atrial fibrillation ablation, on anticoagulation, prostate disorder, BPH treated with TURP. Negative cardiac catheterization in 2018 Social history: , retired, no smoking. Alcohol rarely. Family history: Father had a stroke Physical examination: VITAL SIGNS: 98.1, 185, 22, 140/101, 98% room air GENERAL: Sitting 1 chair, comfortable EYES: Pupils equal. Conjunctiva normal. HEENT: External appearance of nose and ears normal, oral cavity grossly normal. NECK: JVD not raised; masses not palpable. HEART: First and second heart sounds are normal; no edema. LUNGS: Respiratory rate normal; clear to auscultation. ABDOMEN: Soft, nontender, liver spleen not palpable, no masses palpable. PSYCH: Alert and oriented x3; mood and affect normal. Lymphatics: No lymph nodes palpable in the neck and axilla NEUROLOGICAL: Cranial nerves grossly intact. Power and sensation grossly intact INVESTIGATIONS, reviewed in the clinical context: White count 6.9 hemoglobin 15.1 potassium 3.9 crit 1016 Troponin I less than 0.012, 0.039, 0.030 LDL 79 EKG tracing personally reviewed by me-right bundle-branch block pattern with a rapid rate more than 180 Discharge diagnosis: -Recurrent atrial flutter fibrillation with a prior ablation -4.4 cm ascending aorta aneurysm, for yearly follow-up -Essential hypertension -GERD -Primary osteoarthritis -Moderate persistent asthma -History of atrial fibrillation with ablation chronically on anticoagulation -Obesity BMI 33.5 -Negative cardiac catheterization in August 2019 Plan: Home medications resumed. Patient initially put on a Cardizem drip. Both cardiology and electrophysiology were consulted. Care was discussed with the patient. Questions were answered. 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 History of Any Multi-Drug Resistant Organisms: None Reported Past Surgical History: Ablation, Appendectomy, Cardiac Ablation, Cholecystectomy, Prostate Surgery Additional Past Surgical History / Comment(s): 12/13/17 PVI/cryoablation of 4 pulmonary veins, cardiac ablation, BESSIE/cardioversions, colonoscopy, bilateral cataract removals, TURP. Past Anesthesia/Blood Transfusion Reactions: No Reported Reaction Past Psychological History: No Psychological Hx Reported Smoking Status: Never smoker Past Alcohol Use History: None Reported Past Drug Use History: None Reported - Past Family History Father History Unknown: Yes Family Medical History: CVA/TIA Additional Family Medical History / Comment(s): Father had a CVA. He lived to be 75 yrs. old. Mother History Unknown: Yes Family Medical History: CVA/TIA Additional Family Medical History / Comment(s): Mother had a CVA x 2. He lived to be 82 yrs old. Medications and Allergies Home Medications Medication Instructions Recorded Confirmed Type Montelukast [Singulair] 10 mg PO HS 08/26/15 12/06/19 History Atorvastatin Calcium 10 mg PO HS 08/31/16 12/06/19 History Fluticasone Nasal [place] [Flonase 1 spray EA NOSTRIL HS 07/13/18 12/06/19 History Nasal [place]] Fluticasone/Salmeterol [Advair 1 puff INHALATION RT-HS 12/27/18 12/06/19 History 250-50 Diskus] Flecainide [Tambocor] 50 mg PO BID 03/14/19 12/06/19 History Rivaroxaban [Xarelto] 20 mg PO AC-LUNCH 03/14/19 12/06/19 History Esomeprazole Magnesium [NexIUM] 40 mg PO AC-LUNCH 12/06/19 12/06/19 History Losartan [Cozaar] 50 mg PO DAILY 12/06/19 12/06/19 History Metoprolol Tartrate [Lopressor] 12.5 mg PO DAILY 12/06/19 12/06/19 History Allergies Allergy/AdvReac Type Severity Reaction Status Date / Time No Known Allergies Allergy Verified 12/06/19 21:09 Physical Exam Vitals: Vital Signs Temp Pulse Pulse Resp BP BP Pulse Ox 12/07/19 04:00 98.2 F 101 H 18 126/81 95 12/07/19 01:45 97.8 F 103 H 18 135/92 96 12/06/19 23:39 98 18 129/86 96 12/06/19 22:55 104 H 18 119/83 96 12/06/19 21:17 156 H 18 97 12/06/19 21:08 98.1 F 185 H 22 140/101 98 Intake and Output 12/06/19 12/07/19 12/07/19 22:59 06:59 14:59 Intake Total 180 Balance 180 Intake: Oral 180 Other: # Voids 1 Weight 102.058 kg 103.7 kg Results CBC & Chem 7: 12/06/19 21:25 12/06/19 21:25 Labs: Abnormal Lab Results - Last 24 Hours (Table) 12/06/19 12/06/19 12/07/19 Range/Units 21:25 21:25 04:59 PT 12.8 H (9.0-12.0) sec INR 1.2 H (<1.2) APTT 36.7 H (22.0-30.0) sec Chloride 109 H (98-107) mmol/L Glucose 128 H (74-99) mg/dL Alkaline Phosphatase 134 H (38-126) U/L Troponin I 0.039 H* (0.000-0.034) ng/mL HDL Cholesterol (40-60) mg/dL 12/07/19 Range/Units 04:59 PT (9.0-12.0) sec INR (<1.2) APTT (22.0-30.0) sec Chloride (98-107) mmol/L Glucose (74-99) mg/dL Alkaline Phosphatase (38-126) U/L Troponin I (0.000-0.034) ng/mL HDL Cholesterol 36 L (40-60) mg/dL Thrombosis Risk Factor Assmnt - Choose All That Apply Each Factor Represents 1 point: Obesity (BMI >25) Each Risk Factor Represents 2 Points: Age 61-74 years Thrombosis Risk Factor Assessment Total Risk Factor Score: 3 Thrombosis Risk Factor Assessment Level: Moderate Risk
[2019-12-08 07:17] LABS: Glucose,Whole Blood 94 mg/dL (75-99)
[2019-12-08] MEDS ORDERED: METOPROLOL TARTRATE 5 MG/5 ML VIAL IVP PRN (07:25)
[2019-12-08] MEDS ORDERED: METOPROLOL TARTRATE 5 MG/5 ML VIAL IVP ONE (07:30)
[2019-12-08] MEDS ORDERED: DILTIAZEM 125 MG in SODIUM CHLORIDE 0.9% 100 ML IV SCH (07:30)
[2019-12-08] MEDS: FLECAINIDE 50 MG TAB PO SCH ×2 (09:21→21:32)
[2019-12-08] MEDS: METOPROLOL TARTRATE 12.5 MG TAB PO SCH (09:21)
[2019-12-08] MEDS: LOSARTAN 50 MG TAB PO SCH (09:21)
[2019-12-08] MEDS: PANTOPRAZOLE 40 MG TABLET PO SCH (09:22)
[2019-12-08] MEDS ORDERED: PROPOFOL 10 MG/ML 20 ML VIAL IV ONE (11:51)
[2019-12-08] MEDS ORDERED: LIDOCAINE 1% INJ 10MG/ML (20 ML MDV) ONE (11:51)
[2019-12-08] MEDS ORDERED: SODIUM CHLORIDE 0.9% 1,000 ML IV ONE (12:28)
--- NOTE | 2019-12-08 13:00 | PN ---
PROGRESS NOTE Mr. Sahni went into atrial tachycardia, rate of over 200, became hypotensive, requiring a Cardizem drip and IV push beta wes of 2.5 mg. I came back to see him at least two times. He was in atrial tachycardia at a rate of 90 per minute. I am recommending electrical cardioversion. Rationale, risks, benefits and options were explained to the patient and his . We will perform the procedure later on today. Vital signs stable. No JVD. S1, S2 heard normally. Irregular rhythm noted. Short systolic murmur noted. Lungs are clear. Abdomen and lower extremity exam unchanged. MMODL / IJN: [id number] /
--- NOTE | 2019-12-08 13:35 | P.CRDCN ---
History of Present Illness History of present illness: This is Dr. RAMAN dictating a consult note on this patient This is an electrophysiology evaluation, patient referred by Dr. Fernandes Impression: Atrial tachycardia with RVR/post A. fib ablation, symptomatic Dyslipidemia Hypertension Increased PMI Status post cryoablation of the pulmonary veins in early 2018 Status post urinary ablation in the left atrial roof and anterior septum with organization of atrial fibrillation into atrial flutter, typical Successful typical atrial flutter ablation with termination of arrhythmias. This procedure was performed in end of 2018 Plan: Continue anticoagulation with XARELTO PatientS rhythm has degenerated to atrial fibrillation now Continue higher dose of flecainide 100 mg twice daily Continue beta blockers If he has any episodes of RVR, temporarily IV Cardizem may be used TSH level Electrical cardioversion tomorrow with Dr. Fernandes. I discussed this with Dr. Fernandes and with the patient and the nurse History of present illness: Patient presents to the hospital with palpitations of sudden onset. He was sitting when he suddenly developed palpitations. When he stood up he became a little dizzy. It of a discomfort in the chest. Very borderline troponin elevation noted Twelve-lead EKG showed atrial tachycardia with RVR, very regular This evening he is in atrial fibrillation with a controlled ventricular response He was also short of breath at that time Review of systems No fever chills or rigors No cough phlegm or expectoration No nausea vomiting or diarrhea No hematuria dysuria No muscular skeletal complaints No neurologic complaints No skin lesions On examination Blood pressure 111/71 mmHg, afebrile, heart rate 100 beats a minute Breath sounds decreased bilaterally with no rhonchi no crackles Heart sounds are somewhat tachycardic and irregular No JVD Patient is sitting comfortably in a chair no dizziness nor lightheadedness No lower extremity edema No JVD Review of data Labs are reviewed. Normal white count. Hemoglobin is normal Sodium 140, potassium 3.9, BUN 17 and creatinine 1.01 Magnesium 1.8 TSH pending Peak troponin 0.039 Past Medical History Past Medical History: Atrial Fibrillation, Atrial Flutter, Asthma, Chest Pain / Angina, Eye Disorder, GERD/Reflux, Hypertension, Osteoarthritis (OA), Pneumonia, Prostate Disorder Additional Past Medical History / Comment(s): Paroxysmal Afib, aflutter, RVR, bronchitis, BPH, bilateral astigmatism, sinus problems, BPH with outflow obstruction but none since TURP, arthritis in fingers. History of Any Multi-Drug Resistant Organisms: None Reported Past Surgical History: Ablation, Appendectomy, Cardiac Ablation, Cholecystectomy, Prostate Surgery Additional Past Surgical History / Comment(s): 12/13/17 PVI/cryoablation of 4 pulmonary veins, cardiac ablation, BESSIE/cardioversions, colonoscopy, bilateral ca taract removals, TURP. Past Anesthesia/Blood Transfusion Reactions: No Reported Reaction Past Psychological History: No Psychological Hx Reported Smoking Status: Never smoker Past Alcohol Use History: None Reported Past Drug Use History: None Reported - Past Family History Father History Unknown: Yes Family Medical History: CVA/TIA Additional Family Medical History / Comment(s): Father had a CVA. He lived to be 75 yrs. old. Mother History Unknown: Yes Family Medical History: CVA/TIA Additional Family Medical History / Comment(s): Mother had a CVA x 2. He lived to be 82 yrs old. Medications and Allergies Home Medications Medication Instructions Recorded Confirmed Type Montelukast [Singulair] 10 mg PO HS 08/26/15 12/06/19 History Atorvastatin Calcium 10 mg PO HS 08/31/16 12/06/19 History Fluticasone Nasal [place] [Flonase 1 spray EA NOSTRIL HS 07/13/18 12/06/19 History Nasal [place]] Fluticasone/Salmeterol [Advair 1 puff INHALATION RT-HS 12/27/18 12/06/19 History 250-50 Diskus] Flecainide [Tambocor] 50 mg PO BID 03/14/19 12/06/19 History Rivaroxaban [Xarelto] 20 mg PO AC-LUNCH 03/14/19 12/06/19 History Esomeprazole Magnesium [NexIUM] 40 mg PO AC-LUNCH 12/06/19 12/06/19 History Losartan [Cozaar] 50 mg PO DAILY 12/06/19 12/06/19 History Metoprolol Tartrate [Lopressor] 12.5 mg PO DAILY 12/06/19 12/06/19 History Allergies Allergy/AdvReac Type Severity Reaction Status Date / Time No Known Allergies Allergy Verified 12/06/19 21:09 Physical Exam Vitals: Vital Signs Temp Pulse Pulse Resp BP Pulse Ox 12/08/19 12:15 48 L 16 103/67 95 12/08/19 12:00 46 L 14 103/66 98 12/08/19 11:41 85 18 141/92 93 L 12/08/19 08:00 97.7 F 109 H 18 129/92 98 12/08/19 04:00 98 F 95 18 122/78 95 12/08/19 00:00 98 F 97 18 136/89 97 12/07/19 20:00 98.2 F 101 H 20 111/71 96 12/07/19 16:00 100 112/69 98 Intake and Output 12/07/19 12/08/19 12/08/19 22:59 06:59 14:59 Intake Total 180 540 400 Balance 180 540 400 Intake: IV 400 Oral 180 540 Other: Voiding Method Toilet # Voids 3 1 2 Weight 103.5 kg Results 12/06/19 21:25 12/06/19 21:25 Current Medications Generic Name Dose Route Start Last Admin Trade Name Freq PRN Reason Stop Dose Admin Atorvastatin Calcium 10 mg 12/07/19 21:00 12/07/19 20:23 Lipitor PO 10 mg HS CHITRA Administration Budesonide/Formoterol Fumarate 2 puff 12/07/19 21:00 12/07/19 19:21 Symbicort 160-4.5 Mcg Inhaler INHALATION 2 puff HS CHITRA Administration Flecainide Acetate 100 mg 12/07/19 10:00 12/08/19 09:21 Tambocor PO 100 mg BID CHITRA Administration Fluticasone Propionate 1 spray 12/07/19 21:00 12/07/19 20:23 Flonase Nasal [place] EA NOSTRIL 1 spray HS CHITRA Administration Losartan Potassium 50 mg 12/07/19 09:00 12/08/19 09:21 Cozaar PO 50 mg DAILY CHITRA Administration Metoprolol Tartrate 12.5 mg 12/07/19 09:00 12/08/19 09:21 Lopressor PO 12.5 mg DAILY CHITRA Administration Montelukast Sodium 10 mg 12/07/19 21:00 12/07/19 20:23 Singulair PO 10 mg HS CHITRA Administration Pantoprazole Sodium 40 mg 12/07/19 12:30 12/08/19 09:22 Protonix PO 40 mg AC-LUNCH CHITRA Administration Rivaroxaban 20 mg 12/07/19 21:00 12/07/19 20:23 Xarelto PO 20 mg HS CHITRA Administration Intake and Output 12/07/19 12/08/19 12/08/19 22:59 06:59 14:59 Intake Total 180 540 400 Balance 180 540 400 Intake: IV 400 Oral 180 540 Other: Voiding Method Toilet # Voids 3 1 2 Weight 103.5 kg 12/06/19 21:25 12/06/19 21:25
--- NOTE | 2019-12-08 16:20 | PCN ---
PROCEDURE NOTE PROCEDURE: Electrical cardioversion. DATE OF SERVICE: 12/08/2019. INDICATION: Persistent atrial tachycardia and atrial flutter. PERFORMED BY: Dr. Naima Fernandes. CLINICAL INFORMATION: Mr. Dung Sahni was admitted because of palpitations and was found to have atrial tachycardia of over 200 beats per minute. He was given Cardizem and Lopressor and rate came down, but he still remained in atrial tachycardia at about 100 beats per minute. He was advised electrical cardioversion after due discussion regarding the rationale, risks, benefits and options. The patient and his understood all details and wished to proceed with the procedure. PROCEDURE NOTE: Under the influence of [id number] intravenous anesthetic agent with the attendance of the anesthesiologist, a single 200-joule synchronized shock was delivered to the chest with anterior and posterior patches. Patient converted to sinus rhythm and remained hemodynamically stable and neurologically intact. This was a successful cardioversion. Results were discussed with the patient and his . MMGIOL / DAMIENN: [id number] /
[2019-12-08] MEDS: SYMBICORT 160-4.5 MCG INHALER INHALATION SCH (19:54)
[2019-12-08] MEDS: ATORVASTATIN 10 MG TAB PO SCH (21:32)
[2019-12-08] MEDS: FLUTICASONE 50MCG/SPRAY NASAL 16GM EA NOSTRIL SCH (21:32)
[2019-12-08] MEDS: RIVAROXABAN 20 MG TAB PO SCH (21:32)
[2019-12-08] MEDS: MONTELUKAST 10 MG TAB PO SCH (21:32)
--- NOTE | 2019-12-08 22:24 | P.PN ---
Progress Note - Text Progress Note Date: 12/08/19 Chief Complaint: Heart racing interval history: This is a [address] Rubalcava. Chronic stable medical conditions include hypertension, GERD, primary osteoarthritis, moderate persistent asthma, atrial fibrillation on anticoagulation,ascending aorta aneurysm 4.4 cm. in August 2019 patient had a cardiac catheterization that was negative. Patient now presents with increasing heart rate. Was up to the 180s. Patient was experiencing palpitation. No dizziness no lightheadedness. No chest pain. This was found to be in atrial tachycardia. This put on a Cardizem drip. Back in 2017 patient said Cryoblation, ablation and cardioversionsfor atrial fibrilla tion.. Both cardiology and fire watcher Dr. Katz was consulted. admitted with a diagnoses of atrial tachycardia. Prior history of atrial fibrillation Today-earlier seen by Dr. Chriss Katz from electrophysiology. Patient went down for DC cardioversion successful. Sitting up in bed. Family the bedside. No further symptoms. Review of systems: Was done for constitutional, cardiovascular, GI, pulmonary. relevant finding as above Active Medications Atorvastatin Calcium (Lipitor) 10 mg PO [facility] Last Admin: 12/08/19 21:32 Dose: 10 mg Documented by: Budesonide/Formoterol Fumarate (Symbicort 160-4.5 Mcg Inhaler) 2 puff INHALATION [facility] Last Admin: 12/08/19 19:54 Dose: 2 puff Documented by: Flecainide Acetate (Tambocor) 100 mg PO BID [facility] Last Admin: 12/08/19 21:32 Dose: 100 mg Documented by: Fluticasone Propionate (Flonase Nasal [place]) 1 spray EA NOSTRIL [facility] Last Admin: 12/08/19 21:32 Dose: 1 spray Documented by: Losartan Potassium (Cozaar) 50 mg PO DAILY [facility] Last Admin: 12/08/19 09:21 Dose: 50 mg Documented by: Metoprolol Tartrate (Lopressor) 12.5 mg PO DAILY [facility] Last Admin: 12/08/19 09:21 Dose: 12.5 mg Documented by: Montelukast Sodium (Singulair) 10 mg PO [facility] Last Admin: 12/08/19 21:32 Dose: 10 mg Documented by: Pantoprazole Sodium (Protonix) 40 mg PO AC-LUNCH [facility] Last Admin: 12/08/19 09:22 Dose: 40 mg Documented by: Rivaroxaban (Xarelto) 20 mg PO HS [facility] Last Admin: 12/08/19 21:32 Dose: 20 mg Documented by: Physical examination: VITAL SIGNS: 97.8, 50, 18, 109/71, 96% liters GENERAL: propped up in bed, comfortable EYES: Pupils equal. Conjunctiva normal. HEENT: External appearance of nose and ears normal, oral cavity grossly normal. NECK: JVD not raised; masses not palpable. HEART: First and second heart sounds are normal; no edema. LUNGS: Respiratory rate normal; clear to auscultation. ABDOMEN: Soft, nontender, liver spleen not palpable, no masses palpable. PSYCH: Alert and oriented x3; mood and affect normal. INVESTIGATIONS, reviewed in the clinical context: White count 6.9 hemoglobin 15.1 potassium 3.9 crit 1016 Troponin I less than 0.012, 0.039, 0.030 LDL 79 EKG tracing personally reviewed by me-right bundle-branch block pattern with a rapid rate more than 180 Discharge diagnosis: -atrial tachycardia with a rapid ventricular rate, status post cardioversion today -Prior atrial fibrillation with ablation and cardioversion -4.4 cm ascending aorta aneurysm, for yearly follow-up -Essential hypertension -GERD -Primary osteoarthritis -Moderate persistent asthma -History of atrial fibrillation with ablation chronically on anticoagulation -Obesity BMI 33.5 -Negative cardiac catheterization in August 2019 Plan: care was discussed with the patient. Per cardiology washed the patient on chronic process. Encouraged to ambulate. Other medications to continue.
[2019-12-09 03:48] VITALS: RESP 18
[2019-12-09] MEDS: LOSARTAN 50 MG TAB PO SCH (08:25)
[2019-12-09] MEDS ORDERED: FLECAINIDE 50 MG TAB PO SCH (10:00)
[2019-12-09] MEDS: METOPROLOL TARTRATE 12.5 MG TAB PO SCH (10:04)
[2019-12-09] MEDS: PANTOPRAZOLE 40 MG TABLET PO SCH (11:45)
[2019-12-09 11:51] VITALS: BP 134/87; PULSE 57; TEMP 97.4
[2019-12-09] MEDS: RIVAROXABAN 20 MG TAB PO SCH (13:47)
--- NOTE | 2019-12-09 15:01 | P.PN ---
Subjective Progress Note Date: 12/09/19 Principal diagnosis: Afib RVR / s/p cardioversion PROGRESS NOTE: Patient seen comfortable and sitting up in chair enjoying his lunch. Patient has no current complaints of chest pain, chest pressure, shortness of breath or palpitations. Patient continue sinus rhythm. Taking flecainide 75 mg twice daily and metoprolol 12.5 mg once daily. Continues with Xarelto 20 mg daily. Okay for discharge from cardiology standpoint. PHYSICAL EXAMINATION: HEENT: Head is atraumatic, normocephalic. Pupils are equal, round. Sclerae anicteric. Conjunctivae are clear. Mucous membranes of the mouth are moist. Neck is supple. There is no jugular venous distention. No carotid bruit is heard. No thyromegaly. LUNGS: Clear to auscultation no wheezes, rales or rhonchi. No chest wall tenderness is noted on palpation or with deep breathing. HEART: Regular rate and rhythm without murmurs, rubs or gallops. S1 and S2 heard. ABDOMEN: Abdominal exam revealed normal bowel sounds. The abdomen was soft, non- tender, and without masses, organomegaly, or appreciable enlargement of the abdominal aorta. EXTREMITIES: Examination of the extremities revealed easily palpable radial, femoral and pedal pulses. There was no cyanosis, clubbing or edema. No calf tenderness noted. VASCULAR: Radial and dorsalis pedis pulses palpated, no evidence of clubbing. NEUROLOGIC: Patient is awake, alert and oriented x3. There were no obvious focal neurologic abnormalities. LAB DATA: No new labs this day. FINAL IMPRESSION: 1. Atrial Tachycardia S/P cardioversion 2. Hypertension 3. Atrial fibrillation 4. AAA 5. Non-obstructive CAD PLAN: Okay from cardiology standpoint for discharge. Patient to continue with metoprolol tartrate 12.5 mg daily and flecainide 75 mg twice daily. Patient to follow-up with Dr. Tobar in in office in 2 weeks. Patient to call with questions or concerns. Clear for discharge. Objective - Vital Signs Vital signs: Vital Signs Temp 97.4 F L 12/09/19 11:50 Pulse 57 L 12/09/19 11:50 Resp 18 12/09/19 11:50 BP 134/87 12/09/19 11:50 Pulse Ox 98 12/09/19 11:50 Intake & Output 12/08/19 12/09/19 12/09/19 18:59 06:59 18:59 Intake Total 640 540 480 Balance 640 540 480 Weight 103.5 kg Intake: IV 400 Oral 240 540 480 Other: Voiding Method Toilet Toilet # Voids 3 1 2 - Labs CBC & Chem 7: 12/06/19 21:25 12/06/19 21:25
--- NOTE | 2019-12-09 23:46 | P.DS ---
Providers Date of admission: 12/06/19 23:15 Expected date of discharge: 12/09/19 Attending physician: Alfredo Godinez Consults: 12/06/19 23:15 Consult Physician Urgent Consulting Provider: [facility] Consult Reason/Comments: rvr Do you want consulting provider notified?: Yes, Notify in am 12/07/19 10:22 Consult Physician Routine Consulting Provider: Chriss Katz Consult Reason/Comments: recurrent AF Do you want consulting provider notified?: Yes Primary care physician: Johann Rubalcava [facility] Course: Chief Complaint: Heart racing interval history: This is a [address] Rubalcava. Chronic stable medical conditions include hypertension, GERD, primary osteoarthritis, moderate persistent asthma, atrial fibrillation on anticoagulation,ascending aorta aneurysm 4.4 cm. in August 2019 patient had a cardiac catheterization that was negative. Patient now presents with increasing heart rate. Was up to the 180s. Patient w as experiencing palpitation. No dizziness no lightheadedness. No chest pain. This was found to be in atrial tachycardia. This put on a Cardizem drip. Back in 2017 patient said Cryoblation, ablation and cardioversionsfor atrial fibrillation.. Both cardiology and financial analysis manager Dr. Katz was consulted. admitted with a diagnoses of atrial tachycardia. Prior history of atrial fibrillation. Patient had successful DC cardioversion. Today-. Remains stable. Asymptomatic. Consultation: Dr. Aleks Katz from electrophysiology Dr. NERY Fernandes from cardiology Physical examination: VITAL SIGNS: 97.8, 58, 18, 126/71, 96% room air GENERAL: propped up in bed, comfortable EYES: Pupils equal. Conjunctiva normal. HEENT: External appearance of nose and ears normal, oral cavity grossly normal. NECK: JVD not raised; masses not palpable. HEART: First and second heart sounds are normal; no edema. LUNGS: Respiratory rate normal; clear to auscultation. ABDOMEN: Soft, nontender, liver spleen not palpable, no masses palpable. PSYCH: Alert and oriented x3; mood and affect normal. INVESTIGATIONS, reviewed in the clinical context: White count 6.9 hemoglobin 15.1 potassium 3.9 crit 1016 Troponin I less than 0.012, 0.039, 0.030 LDL 79 EKG tracing personally reviewed by me-right bundle-branch block pattern with a rapid rate more than 180 Discharge diagnosis: -atrial tachycardia with a rapid ventricular rate, status post cardioversion -Prior atrial fibrillation with ablation and cardioversion -Reportedly 2 to atrial tachycardia. No acute Kyle syndrome -4.4 cm ascending aorta aneurysm, for yearly follow-up -Essential hypertension -GERD -Primary osteoarthritis -Moderate persistent asthma -History of atrial fibrillation with ablation chronically on anticoagulation -Obesity BMI 33.5 -Negative cardiac catheterization in August 2019 Disposition: Home Patient Condition at Discharge: Stable Plan - Discharge Summary Discharge Rx Participant: No New Discharge Prescriptions: New Budesonide-Formot 160-4.5 Mcg [Symbicort 160-4.5 Mcg Inhaler] 2 puff INHALATION HS #1 puff Flecainide [Tambocor] 75 mg PO BID #60 tab Continue Montelukast [Singulair] 10 mg PO HS Atorvastatin Calcium 10 mg PO HS Fluticasone Nasal [place] [Flonase Nasal [place]] 1 spray EA NOSTRIL HS Fluticasone/Salmeterol [Advair 250-50 Diskus] 1 puff INHALATION RT-HS Metoprolol Tartrate [Lopressor] 12.5 mg PO DAILY Losartan [Cozaar] 50 mg PO DAILY Esomeprazole Magnesium [NexIUM] 40 mg PO AC-LUNCH Changed Rivaroxaban [Xarelto] 20 mg PO HS #0 Discontinued Flecainide [Tambocor] 50 mg PO BID Discharge Medication List Montelukast [Singulair] 10 mg PO HS 08/26/15 [History] Atorvastatin Calcium 10 mg PO HS 08/31/16 [History] Fluticasone Nasal [place] [Flonase Nasal [place]] 1 spray EA NOSTRIL HS 07/13/18 [History] Fluticasone/Salmeterol [Advair 250-50 Diskus] 1 puff INHALATION RT-HS 12/27/18 [History] Esomeprazole Magnesium [NexIUM] 40 mg PO AC-LUNCH 12/06/19 [History] Losartan [Cozaar] 50 mg PO DAILY 12/06/19 [History] Metoprolol Tartrate [Lopressor] 12.5 mg PO DAILY 12/06/19 [History] Budesonide-Formot 160-4.5 Mcg [Symbicort 160-4.5 Mcg Inhaler] 2 puff INHALATION HS #1 puff 12/09/19 [Rx] Flecainide [Tambocor] 75 mg PO BID #60 tab 12/09/19 [Rx] Rivaroxaban [Xarelto] 20 mg PO HS #0 12/09/19 [Rx] Follow up Appointment(s)/Referral(s): Chriss Katz MD [STAFF PHYSICIAN] - 1 Week Alisia Fernandes MD [STAFF PHYSICIAN] - 1 Week Johann Rubalcava MD [Primary Care Provider] - 1-2 days Patient Instructions/Handouts: A-fib (Atrial Fibrillation) (DC) Discharge Disposition: HOME SELF-CARE
== END 2019-12-09 14:07 | disposition home or self-care (01) ==
LOC: EC 21:06 → 3SCARD 23:15 → INTOOBSV 23:15 → UNDODISIN 12-09 14:07
PROVIDERS: ADMIT Hospitalist; ATTEND Hospitalist
DX: I47.1 Supraventricular tachycardia (principal); I48.19 Other persistent atrial fibrillation; E66.9 Obesity, unspecified; E78.5 Hyperlipidemia, unspecified; I10 Essential (primary) hypertension; I45.10 Unspecified right bundle-branch block; I48.92 Unspecified atrial flutter; I71.2 Thoracic aortic aneurysm, without rupture; J45.40 Moderate persistent asthma, uncomplicated; K21.9 Gastro-esophageal reflux disease without esophagitis; M19.91 Primary osteoarthritis, unspecified site; N40.0 Benign prostatic hyperplasia without lower urinary tract symptoms; Z68.33 Body mass index [BMI] 33.0-33.9, adult; Z79.01 Long term (current) use of anticoagulants; Z79.899 Other long term (current) drug therapy; I95.9 Hypotension, unspecified; Z82.3 Family history of stroke
CPT/HCPCS: 96366 ×4; 96375; 93005 ×3; 96376; 96361; 96365; 99285; 36415; 94640 ×2; 92960; 80061; 80053; 84443; 83735; 84484 ×2; 85025; 85610; 85730; 71046; G0378 ×4; J2001; J2704

== ENCOUNTER 2019-12-24 02:31 | Observation (INO) | payer MEDICARE ==
[2019-12-24] MEDS ORDERED: DILTIAZEM DRIP BOLUS FROM BAG 1 MG SOLN IV ONE (02:52)
[2019-12-24] MEDS ORDERED: DILTIAZEM 125 MG in SODIUM CHLORIDE 0.9% 100 ML IV SCH (03:00)
--- NOTE | 2019-12-24 03:05 | ED ---
Arrhythmia/Palpitations HPI - General Chief Complaint: Arrhythmia/Palpitations Stated Complaint: Chest Pain Time Seen by Provider: 12/24/19 02:50 Source: patient, family Mode of arrival: ambulatory Limitations: no limitations - History of Present Illness Initial Comments: Dung is a 69-year-old gentleman with a history of very difficult to control atrial fibrillation with a history of multiple ablations, a cardioversion 2 weeks ago. Patient has been compliant with all of his home medications. Patient reports he was in his usual state of health throughout the day his heart rate was in the 50s when he checked it before bed. He woke suddenly with palpitations and noticed that his heart rate was in the 170s to 180s. Patient reports he only felt mildly lightheaded so he asked his to bring him to the hospital for evaluation. - Related Data Home Medications Medication Instructions Recorded Confirmed Montelukast [Singulair] 10 mg PO HS 08/26/15 12/06/19 Atorvastatin Calcium 10 mg PO HS 08/31/16 12/06/19 Fluticasone Nasal [place] [Flonase 1 spray EA NOSTRIL HS 07/13/18 12/06/19 Nasal [place]] Fluticasone/Salmeterol [Advair 1 puff INHALATION RT-HS 12/27/18 12/06/19 250-50 Diskus] Esomeprazole Magnesium [NexIUM] 40 mg PO AC-LUNCH 12/06/19 12/06/19 Losartan [Cozaar] 50 mg PO DAILY 12/06/19 12/06/19 Metoprolol Tartrate [Lopressor] 12.5 mg PO DAILY 12/06/19 12/06/19 Previous Rx's Medication Instructions Recorded Budesonide-Formot 160-4.5 Mcg 2 puff INHALATION HS #1 puff 12/09/19 [Symbicort 160-4.5 Mcg Inhaler] Flecainide [Tambocor] 75 mg PO BID #60 tab 12/09/19 Rivaroxaban [Xarelto] 20 mg PO HS #0 12/09/19 Allergies Allergy/AdvReac Type Severity Reaction Status Date / Time No Known Allergies Allergy Verified 12/24/19 02:37 Review of Systems ROS Statement: Those systems with pertinent positive or pertinent negative responses have been documented in the HPI. ROS Other: All systems not noted in ROS Statement are negative. 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 History of Any Multi-Drug Resistant Organisms: None Reported Past Surgical History: Ablation, Appendectomy, Cardiac Ablation, Cholecystectomy, Prostate Surgery Additional Past Surgical History / Comment(s): 12/13/17 PVI/cryoablation of 4 pulmonary veins, cardiac ablation, BESSIE/cardioversions, colonoscopy, bilateral cataract removals, TURP. Past Anesthesia/Blood Transfusion Reactions: No Reported Reaction Past Psychological History: No Psychological Hx Reported Smoking Status: Never smoker Past Alcohol Use History: None Reported Past Drug Use History: None Reported - Past Family History Father History Unknown: Yes Family Medical History: CVA/TIA Additional Family Medical History / Comment(s): Father had a CVA. He lived to be 75 yrs. old. Mother History Unknown: Yes Family Medical History: CVA/TIA Additional Family Medical History / Comment(s): Mother had a CVA x 2. He lived to be 82 yrs old. General Exam - General Exam Comments Initial Comments: Physical Exam GENERAL: Patient is well-developed and well-nourished. Patient is nontoxic and well- hydrated and is in no distress. HENT: Normocephalic, Atraumatic. EYES: PERRL, EOMI PULMONARY: Unlabored respirations. No audible rales rhonchi or wheezing was noted. CARDIOVASCULAR: Tachycardic, regular Warm and well perfused extremities ABDOMEN: Soft and nontender with normal bowel sounds. SKIN: Skin is clear with no lesions or rashes and otherwise unremarkable. : Deferred NEUROLOGIC: Patient is alert and oriented x3. Moving all extremities spontaneously MUSCULOSKELETAL: Normal extremities with adequate strength and full range of motion. No lower extremity swelling or edema. No calf tenderness. PSYCHIATRIC: Normal psychiatric evaluation. Limitations: no limitations Course Vital Signs 12/24/19 12/24/19 12/24/19 02:33 03:29 04:16 Temperature 97.4 F L Pulse Rate 173 H 112 H 56 L Respiratory 20 18 18 Rate Blood Pressure 138/100 128/95 119/78 O2 Sat by Pulse 99 94 L 98 Oximetry EKG Findings - EKG Comments: EKG Findings:: Initial EKG was obtained at 2:44 AM, rate is 170 rhythm is a wide complex regular tachycardia with bifascicular block. QRS is 138, QTC is 474. There is ST depression laterally likely secondary to demand ischemia. No obvious infarction. Similar to previous episodes of severe tachycardia. EKG was obtained at 3:03 AM, rate decreased to 114 rhythm is now more narrow complex irregularly irregular consistent with A. fib with RVR. QRS 148, QTC 526, ST depressions laterally seemed to decrease. No evidence of acute infarction. Repeat EKG was obtained at 417, rate is 60 rhythm is sinus with a first-degree AV block, VA prolonged at 212, QRS 154, QTC is [address] elevations or depressions there is no evidence of acute ischemia or infarction. Medical Decision Making - Medical Decision Making The patient was seen and evaluated history is obtained from patient and review of medical record Review of previous admission reveals the patient had episodes of A. fib with RVR and required electrical cardioversion however he did also respond well to beta wes and exam. Initial EKG consistent with patient's history of A. fib with RVR, Cardizem bolus and infusion was ordered and patient responded well Labs with no significant abnormalities Patient did cardiovert after approximately 90 minutes on Cardizem patient now in sinus rhythm we'll plan to admit the patient to observation for evaluation by cardiology and electrophysiology. Patient agreeable to this plan. - Lab Data Result diagrams: 12/24/19 02:34 12/24/19 02:34 Lab Results 12/24/19 12/24/19 12/24/19 Range/Units 02:34 02:34 02:34 WBC 10.2 (3.8-10.6) k/uL RBC 5.19 (4.30-5.90) m/uL Hgb 15.2 (13.0-17.5) gm/dL Hct 45.2 (39.0-53.0) % MCV 87.1 (80.0-100.0) fL MCH 29.2 (25.0-35.0) pg MCHC 33.6 (31.0-37.0) g/dL RDW 12.6 (11.5-15.5) % Plt Count 252 (150-450) k/uL Neutrophils % 63 % Lymphocytes % 26 % Monocytes % 6 % Eosinophils % 3 % Basophils % 0 % Neutrophils # 6.5 (1.3-7.7) k/uL Lymphocytes # 2.6 (1.0-4.8) k/uL Monocytes # 0.7 (0-1.0) k/uL Eosinophils # 0.3 (0-0.7) k/uL Basophils # 0.0 (0-0.2) k/uL PT (9.0-12.0) sec INR (<1.2) APTT (22.0-30.0) sec Sodium 141 (137-145) mmol/L Potassium 4.0 (3.5-5.1) mmol/L Chloride 109 H (98-107) mmol/L Carbon Dioxide 24 (22-30) mmol/L Anion Gap 8 mmol/L BUN 19 (9-20) mg/dL Creatinine 0.98 (0.66-1.25) mg/dL Est GFR (CKD-EPI)AfAm >90 (>60 ml/min/1.73 sqM) Est GFR (CKD-EPI)NonAf 80 (>60 ml/min/1.73 sqM) Glucose 107 H (74-99) mg/dL Calcium 9.9 (8.4-10.2) mg/dL Magnesium 1.8 (1.6-2.3) mg/dL Total Bilirubin 0.8 (0.2-1.3) mg/dL AST 27 (17-59) U/L ALT 23 (4-49) U/L Alkaline Phosphatase 129 H (38-126) U/L Troponin I (0.000-0.034) ng/mL NT-Pro-B Natriuret Pep 371 pg/mL Total Protein 7.0 (6.3-8.2) g/dL Albumin 4.0 (3.5-5.0) g/dL TSH 3.770 (0.465-4.680) mIU/L 12/24/19 12/24/19 Range/Units 02:34 02:34 WBC (3.8-10.6) k/uL RBC (4.30-5.90) m/uL Hgb (13.0-17.5) gm/dL Hct (39.0-53.0) % MCV (80.0-100.0) fL MCH (25.0-35.0) pg MCHC (31.0-37.0) g/dL RDW (11.5-15.5) % Plt Count (150-450) k/uL Neutrophils % % Lymphocytes % % Monocytes % % Eosinophils % % Basophils % % Neutrophils # (1.3-7.7) k/uL Lymphocytes # (1.0-4.8) k/uL Monocytes # (0-1.0) k/uL Eosinophils # (0-0.7) k/uL Basophils # (0-0.2) k/uL PT 12.3 H (9.0-12.0) sec INR 1.2 H (<1.2) APTT 32.8 H (22.0-30.0) sec Sodium (137-145) mmol/L Potassium (3.5-5.1) mmol/L Chloride (98-107) mmol/L Carbon Dioxide (22-30) mmol/L Anion Gap mmol/L BUN (9-20) mg/dL Creatinine (0.66-1.25) mg/dL Est GFR (CKD-EPI)AfAm (>60 ml/min/1.73 sqM) Est GFR (CKD-EPI)NonAf (>60 ml/min/1.73 sqM) Glucose (74-99) mg/dL Calcium (8.4-10.2) mg/dL Magnesium (1.6-2.3) mg/dL Total Bilirubin (0.2-1.3) mg/dL AST (17-59) U/L ALT (4-49) U/L Alkaline Phosphatase (38-126) U/L Troponin I <0.012 (0.000-0.034) ng/mL NT-Pro-B Natriuret Pep pg/mL Total Protein (6.3-8.2) g/dL Albumin (3.5-5.0) g/dL TSH (0.465-4.680) mIU/L Critical Care Time Critical Care Time: Yes Total Critical Care Time: 30 Critical Care Time: Critical Care Time Critical care time was exclusive of separately billable procedures and treating other patients and teaching time. Critical care was necessary to treat or prevent imminent or life-threatening deterioration. Given the critical condition in which the patient arrived, the patient was immediately assessed by myself and the nurse, and cardiac monitoring initiated due to the potential for rapid decompensation of the patient's clinical condition. During the course of the patients stay, I spent a considerable amount of time at the bedside performing serial re-evaluations of the patient's hemodynamic and clinical status because of the recognized potential threat to life or limb in this condition. I then had a chance to review not only all of the available current laboratory and radiographic studies obtained today, but I also reviewed old records available to me at the time. Additionally, any an cillary information available including supervisor roving department records were reviewed. Sequential vital signs were obtained. Disposition Clinical Impression: Atrial fibrillation with RVR Disposition: ADMITTED IP TO THIS HOSP Condition: Stable Referrals: Johann Rubalcava MD [Primary Care Provider] - 1-2 days
[2019-12-24 03:14] LABS: Basophils % (A) 0 %; Eosinophils # (A) 0.3 k/uL (0-0.7); Eosinophils % (A) 3 %; HCT 45.2 % (39.0-53.0); HGB 15.2 gm/dL (13.0-17.5); Lymphocytes # (A) 2.6 k/uL (1.0-4.8); Lymphocytes % (A) 26 %; MCH 29.2 pg (25.0-35.0); MCHC 33.6 g/dL (31.0-37.0); MCV 87.1 fL (80.0-100.0); Mean Platelet Volume 7.9; Monocytes # (A) 0.7 k/uL (0-1.0); Monocytes % (A) 6 %; Neutrophils # (A) 6.5 k/uL (1.3-7.7); Neutrophils % (A) 63 %; Platelet Count 252 k/uL (150-450); RBC 5.19 m/uL (4.30-5.90); RDW 12.6 % (11.5-15.5); WBC 10.2 k/uL (3.8-10.6)
[2019-12-24 03:17] LABS: INR 1.2 (<1.2); Partial Thromboplastin Time 32.8 sec (22.0-30.0); Prothrombin Time 12.3 sec (9.0-12.0)
[2019-12-24 03:22] LABS: ALT 23 U/L (4-49); AST 27 U/L (17-59); African American GFR (CKD) >90 (>60 ml/min/1.73 sqM); Alkaline Phosphatase 129 U/L (38-126); Anion Gap 8 mmol/L; Blood Urea Nitrogen 19 mg/dL (9-20); Calcium 9.9 mg/dL (8.4-10.2); Carbon Dioxide 24 mmol/L (22-30); Chloride 109 mmol/L (98-107); Glucose 107 mg/dL (74-99); Magnesium 1.8 mg/dL (1.6-2.3); Non-African American GFR(CKD) 80 (>60 ml/min/1.73 sqM); Sodium 141 mmol/L (137-145); Total Bilirubin 0.8 mg/dL (0.2-1.3)
--- NOTE | 2019-12-24 03:49 | XR ---
EXAMINATION TYPE: XR chest 2V DATE OF EXAM: 12/24/2019 COMPARISON: 12/06/2019 HISTORY: Chest pain TECHNIQUE: FINDINGS: There is no heart failure nor confluent pneumonic infiltrate. Costophrenic angles are fairl y clear. There are calcified granulomata at the right pulmonary hilum. There is no evidence of pleura l effusion. There are clips from cholecystectomy. IMPRESSION: Old granulomatous disease. No acute lung disease. No change.
[2019-12-24] MEDS ORDERED: NALOXONE 0.4 MG/ML 1 ML VIAL IV PRN (04:22)
[2019-12-24] MEDS: METOPROLOL TARTRATE 12.5 MG TAB PO SCH ×2 (07:49→09:28)
[2019-12-24] MEDS: LOSARTAN 50 MG TAB PO SCH (07:49)
--- NOTE | 2019-12-24 08:51 | P.CRDCN ---
History of Present Illness Consult date: 12/24/19 Requesting physician: Leobardo Chávez Chief complaint: Palpitations History of present illness: This is a pleasant 69-year-old gentleman with known history of atrial flutter, status post ablation, atrial tachycardia/A. fib, status post ablation, hypertension, hyperlipidemia, who was recently admitted to the hospital earlier this month with atrial tachycardia with rapid ventricular response. Patient on that visit did not respond to IV medications and underwent a cardioversion with Dr. NERY Fernandes. On that visit his flecainide was also increased to 75 mg daily and he was discharged home. Subsequent to that the patient did follow-up with Dr. Mendoza in the office on the of this month. The plan following that visit was to proceed with EP study and possible atrial tachycardia ablation. Patient presents to the hospital on this occasion with symptoms of palpitations and rapid heart beating. His initial EKG on presentation here showed an atrial tachycardia with a right bundle branch block pattern. His subsequent EKG shows atrial fibrillation with moderately rapid ventricular response. Chest x-ray shows old granulomatous disease with no acute lung disease. His blood pressure this morning is 128/78 with a heart rate in the 40s to 50s, 97% on room air. He is in normal sinus rhythm this morning. White blood cell count 10.2, hemoglobin 15.2, platelet count 252. Sodium 141, potassium 4.0, BUN 19, creatinine 0.9, magnesium 1.8. Troponins negative 2. TSH 3.7. 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 History of Any Multi-Drug Resistant Organisms: None Reported Past Surgical History: Ablation, Appendectomy, Cardiac Ablation, Cholecystectomy, Prostate Surgery Additional Past Surgical History / Comment(s): 12/13/17 PVI/cryoablation of 4 pulmonary veins, cardiac ablation, BESSIE/cardioversions, colonoscopy, bilateral cataract removals, TURP. Past Anesthesia/Blood Transfusion Reactions: No Reported Reaction Past Psychological History: No Psychological Hx Reported Additional Psychological History / Comment(s): Pt resides with his spouse. He is retired. He is independent. He uses no assistive device. He drives. No past service. Smoking Status: Never smoker Past Alcohol Use History: None Reported Past Drug Use History: None Reported - Past Family History Father History Unknown: Yes Family Medical History: CVA/TIA Additional Family Medical History / Comment(s): Father had a CVA. He lived to be 75 yrs. old. Mother History Unknown: Yes Family Medical History: CVA/TIA Additional Family Medical History / Comment(s): Mother had a CVA x 2. He lived to be 82 yrs old. Medications and Allergies Home Medications Medication Instructions Recorded Confirmed Type Montelukast [Singulair] 10 mg PO HS 08/26/15 12/24/19 History Atorvastatin Calcium 10 mg PO HS 08/31/16 12/24/19 History Fluticasone Nasal [place] [Flonase 1 spray EA NOSTRIL HS 07/13/18 12/24/19 History Nasal [place]] Fluticasone/Salmeterol [Advair 1 puff INHALATION RT-HS 12/27/18 12/24/19 History 250-50 Diskus] Esomeprazole Magnesium [NexIUM] 40 mg PO AC-LUNCH 12/06/19 12/24/19 History Losartan [Cozaar] 50 mg PO DAILY 12/06/19 12/24/19 History Metoprolol Tartrate [Lopressor] 12.5 mg PO DAILY 12/06/19 12/24/19 History Flecainide [Tambocor] 75 mg PO BID #60 tab 12/09/19 12/24/19 Rx Rivaroxaban [Xarelto] 20 mg PO HS #0 12/09/19 12/06/19 Rx Allergies Allergy/AdvReac Type Severity Reaction Status Date / Time No Known Allergies Allergy Verified 12/24/19 02:37 Physical Exam Vitals: Vital Signs Temp Pulse Pulse Resp BP BP Pulse Ox 12/24/19 06:54 97.9 F 50 L 16 128/79 97 12/24/19 06:00 58 L 18 106/78 98 12/24/19 04:16 56 L 18 119/78 98 12/24/19 03:29 112 H 18 128/95 94 L 12/24/19 02:33 97.4 F L 173 H 20 138/100 99 Intake and Output 01/26/20 01/27/20 01/27/20 22:59 06:59 14:59 Intake Total 12.833 Balance 12.833 Intake: Intake, IV Titration 12.833 Amount Diltiazem 125 mg In 12.833 Sodium Chloride 0.9% 100 ml @ Per Protocol IV .Q0M [facility] Rx#:[id number] Other: Weight 103.1 kg PHYSICAL EXAMINATION: GENERAL: 69-year-old gentleman in no acute distress at the time of my examination HEENT: Head is atraumatic, normocephalic. Pupils equal, round. Sclera anicteric. Conjunctiva are clear. Mucous membranes of the mouth are moist. Neck is supple. There is no elevated jugular venous pressure. No carotid bruit is heard. HEART EXAMINATION: Heart S1, S2 normal. No murmur or gallop heard. CHEST EXAMINATION: Lungs are clear to auscultation and precussion. No chest wall tenderness is noted on palpation or with deep breathing. ABDOMEN: Soft, nontender. Bowel sounds are heard. No organomegaly noted. EXTREMITIES: 2+ peripheral pulses with no evidence of peripheral edema and no calf tenderness noted. NEUROLOGIC patient is awake, alert and oriented 3 . Results 12/24/19 02:34 12/24/19 02:34 Cardiac Enzymes 12/24/19 12/24/19 12/24/19 Range/Units 02:34 02:34 06:34 AST 27 (17-59) U/L Troponin I <0.012 <0.012 (0.000-0.034) ng/mL Coagulation 12/24/19 Range/Units 02:34 PT 12.3 H (9.0-12.0) sec APTT 32.8 H (22.0-30.0) sec CBC 12/24/19 Range/Units 02:34 WBC 10.2 (3.8-10.6) k/uL RBC 5.19 (4.30-5.90) m/uL Hgb 15.2 (13.0-17.5) gm/dL Hct 45.2 (39.0-53.0) % Plt Count 252 (150-450) k/uL Comprehensive Metabolic Panel 12/24/19 Range/Units 02:34 Sodium 141 (137-145) mmol/L Potassium 4.0 (3.5-5.1) mmol/L Chloride 109 H (98-107) mmol/L Carbon Dioxide 24 (22-30) mmol/L BUN 19 (9-20) mg/dL Creatinine 0.98 (0.66-1.25) mg/dL Glucose 107 H (74-99) mg/dL Calcium 9.9 (8.4-10.2) mg/dL AST 27 (17-59) U/L ALT 23 (4-49) U/L Alkaline Phosphatase 129 H (38-126) U/L Total Protein 7.0 (6.3-8.2) g/dL Albumin 4.0 (3.5-5.0) g/dL Current Medications Generic Name Dose Route Start Last Admin Trade Name Freq PRN Reason Stop Dose Admin Atorvastatin Calcium 10 mg 12/24/19 21:00 Lipitor PO HS [facility] Budesonide/Formoterol Fumarate 2 puff 12/24/19 20:00 Symbicort 80-4.5 Mcg Inhaler INHALATION RT-BID [facility] Flecainide Acetate 75 mg 12/24/19 09:00 12/24/19 07:49 Tambocor PO 75 mg BID CHITRA Administration Fluticasone Propionate 1 spray 12/24/19 21:00 Flonase Nasal [place] EA NOSTRIL HS [facility] Losartan Potassium 50 mg 12/24/19 09:00 12/24/19 07:49 Cozaar PO 50 mg DAILY CHITRA Administration Metoprolol Tartrate 12.5 mg 12/24/19 09:00 12/24/19 07:49 Lopressor PO 12.5 mg DAILY CHITRA Administration Montelukast Sodium 10 mg 12/24/19 21:00 Singulair PO HS [facility] Naloxone HCl 0.2 mg 12/24/19 04:22 Narcan IV Q2M PRN Opioid Reversal Pantoprazole Sodium 40 mg 12/24/19 12:30 Protonix PO AC-LUNCH [facility] Rivaroxaban 20 mg 12/24/19 21:00 Xarelto PO HS [facility] Intake and Output 12/23/19 12/24/19 12/24/19 22:59 06:59 14:59 Intake Total 12.833 Balance 12.833 Intake: Intake, IV Titration 12.833 Amount Diltiazem 125 mg In 12.833 Sodium Chloride 0.9% 100 ml @ Per Protocol IV .Q0M [facility] Rx#:[id number] Other: Weight 103.1 kg 12/24/19 02:34 12/24/19 02:34 EKG Interpretations (text) Initial EKG shows an atrial tachycardia with rapid ventricular response. Assessment and Plan Plan: Assessment and plan #1 atrial tachycardia with rapid ventricular response #2 history of typical atrial flutter status post ablation, atrial tachycardia/paroxysmal A. fib status post ablation, recent cardioversion #3 hypertension #4 hyperlipidemia Plan We will continue the patient on metoprolol 12-1/2 mg daily along with the flecainide 75 mg one tablet by mouth twice a day. Patient is currently kept nothing by mouth for possible EP study with possible atrial tachycardia ablation which may be performed today. Further recommendations to follow. DNP note has been reviewed, I agree with a documented findings and plan of care. Patient was seen and examined.
[2019-12-24] MEDS ORDERED: FLECAINIDE 50 MG TAB PO SCH (09:00)
[2019-12-24] MEDS ORDERED: FUROSEMIDE 10 MG/ML 2 ML VIAL ONE (10:24)
[2019-12-24] MEDS ORDERED: SUCCINYLCHOLINE CHLORIDE 100 MG/5 ML SYR IV ONE (10:24)
[2019-12-24] MEDS ORDERED: HEPARIN SODIUM,PORCINE 10,000 UNIT/ML 1 ML VIAL ONE (10:24)
[2019-12-24] MEDS ORDERED: PROPOFOL 10 MG/ML 20 ML VIAL IV ONE (10:24)
[2019-12-24] MEDS ORDERED: fentaNYL (PF) 50 MCG/ML 2 ML AMP ONE (10:24)
[2019-12-24] MEDS ORDERED: PROTAMINE SULFATE 10 MG/ML 5 ML VIAL IV ONE (10:24)
[2019-12-24] MEDS ORDERED: ISOPROTERENOL 250 MCG/1.25 ML SYR IV ONE (10:24)
[2019-12-24] MEDS ORDERED: IV FLUID CONTINUATION 1,000 ML IV ONE (10:24)
[2019-12-24] MEDS ORDERED: NEOSTIGMINE 1 MG/ML 10 ML VIAL ONE (10:24)
[2019-12-24] MEDS ORDERED: MIDAZOLAM 2 MG/2 ML VIAL ONE (10:24)
[2019-12-24] MEDS ORDERED: ePHEDrine SULFATE/0.9% NACL/PF 50 MG/5 ML SYRINGE IV ONE (10:24)
[2019-12-24] MEDS ORDERED: WATER FOR INJECTION, STERILE 10 ML VIAL IV ONE (10:24)
[2019-12-24] MEDS ORDERED: GLYCOPYRROLATE 0.2 MG/ML 2 ML VIAL ONE (10:24)
[2019-12-24] MEDS ORDERED: ROCURONIUM BROMIDE 10 MG/ML 10 ML VIAL IV ONE (10:24)
[2019-12-24] MEDS ORDERED: LIDOCAINE 1% INJ 10MG/ML (20 ML MDV) ONE ×2 (10:50→11:12)
[2019-12-24] MEDS ORDERED: LIDOCAINE 1% INJ 10MG/ML (20 ML MDV) SQ ONE ×2 (10:57→11:13)
[2019-12-24] MEDS ORDERED: HEPARIN SODIUM (1,000 UNIT/ML) 1,000 UNIT in SODIUM CHLORIDE 0.9% 1,000 ML IRRIGATION ONE (11:34)
[2019-12-24] MEDS ORDERED: HEPARIN SOD,PORK IN 0.45% NACL 25,000 UNIT in 0.45% NACL 1 250ML.BAG IV ONE (11:36)
[2019-12-24] MEDS ORDERED: LACTATED RINGERS 1,000 ML IV ONE (12:45)
[2019-12-24] MEDS: PANTOPRAZOLE 40 MG TABLET PO SCH (13:44)
[2019-12-24] MEDS ORDERED: HYDROcodone/APAP 5-325MG 1 EACH TAB PO PRN (15:12)
[2019-12-24] MEDS ORDERED: ACETAMINOPHEN TAB 325 MG TAB PO PRN (15:12)
[2019-12-24] MEDS ORDERED: ACETAMINOPHEN IV (For NPO) 1,000 MG in EMPTY BAG 1 BAG IVPB ONE (15:12)
--- NOTE | 2019-12-24 18:39 | P.PCN ---
Preoperative Diagnosis: Patient underwent diagnostic EP study and mapping of the left atrium 3-D electro-anatomic mapping of the pulmonary veins and left atrial roof and later the entire left atrium Intracardiac echocardiography for 3-D mapping, visualization of the interatrial septum and visualization of pericardium. No pericardial effusion Multiple left atrial arrhythmias were induced and sequentially ablated The following arrhythmias were induced and the following ablations were performed #1 focal atrial tachycardia in the groove between the left atrial appendage and left inferior pulmonary vein around 7:00, anteriorly closed os of the pulmonary vein Successful ablation was performed #2 mitral reentry, successful RF ablation performed and elevated terminated #3 brought focal atrial tachycardia anterior wall below the roof anterior to the left atrial appendage, successful ablation in termination #4 septal focal atrial tachycardia with bump termination. Successful ablation of the site and the tachycardia was rendered noninducible #5 And the previous roofline and RF ablation was performed complete roofline Pulmonary veins were quiescent from the prior ablation Plan Stop flecainide Continue Xarelto
[2019-12-24] MEDS ORDERED: FLUTICASONE 50MCG/SPRAY NASAL 16GM EA NOSTRIL SCH (21:00)
[2019-12-24] MEDS ORDERED: RIVAROXABAN 20 MG TAB PO SCH (21:00)
[2019-12-24] MEDS ORDERED: MONTELUKAST 10 MG TAB PO SCH (21:00)
[2019-12-24] MEDS ORDERED: ATORVASTATIN 10 MG TAB PO SCH (21:00)
[2019-12-24] MEDS: SYMBICORT 80-4.5 MCG INHALER INHALATION SCH (21:30)
--- NOTE | 2019-12-25 01:20 | HP ---
HISTORY AND PHYSICAL DATE OF SERVICE: 12/24/2019 CHIEF COMPLAINT: Palpitations. HISTORY OF PRESENT ILLNESS: This 69-year-old gentleman with a past medical history of multiple medical problems including atrial flutter fibrillation, history of asthma, history of GERD, hypertension, DJD, history of paroxysmal atrial fibrillation, history of ablation, being followed by Dr. Johann Rubalcava in the outpatient setting has presented to [facility] with complaints of palpitations. The patient initially had cardioversion and also flecainide, atrial tachycardia ablation is being planned in the outpatient setting, and currently the patient is admitted with palpitations, rapid ventricular rate. The EKG showed wide complex QRS tachycardia. The patient underwent EP studies by Dr. Katz. Multiple left atrial arrhythmias induced and ablated. Patient being closely monitored. There is no history of fever, rigors or chills. No history of headache, loss of consciousness, seizures at this time. No chest pain. No palpitations. PAST MEDICAL HISTORY: History of cardiac arrhythmia, history of atrial flutter fibrillation, history of asthma, history of GERD, hypertension, DJD, history of appendectomy. MEDICATIONS: Prior to admission, home medications are: 2. Singulair 10 mg q.h.s. 3. Lopressor 12.5 mg daily. 4. Cozaar 50 mg p.o. daily. 5. Advair 250/50 one puff p.o. q.h.s. 6. Flonase 1 spray q.h.s. 7. Tambocor 75 mg p.o. b.i.d. 8. Nexium 40 mg a.c. lunch. 9. Lipitor 10 mg q.h.s. ALLERGIES: None. FAMILY HISTORY: History of CVA/TIA in the family. SOCIAL HISTORY: History of smoking. No history of alcohol intake. REVIEW OF SYSTEMS: ENT: No diminished hearing. Diminished vision. CARDIOVASCULAR system as mentioned earlier. RESPIRATION: As mentioned earlier. GI no nausea or vomiting. no dysuria. CENTRAL NERVOUS SYSTEM: No numbness or weakness. ALLERGY/IMMUNOLOGY: No asthma, hayfever. MUSCULOSKELETAL as mentioned earlier. HEMATOLOGY/ONCOLOGY: No history of anemia. ENDOCRINE: No history of diabetes or hypothyroidism. CONSTITUTIONAL: As mentioned earlier. DERMATOLOGY: Negative. RHEUMATOLOGY negative. PSYCHIATRY as mentioned earlier. PHYSICAL EXAMINATION: The patient is alert and oriented x3. Pulse is 66. Blood pressure 130/80, respirations 16, temperature normal, pulse ox 96% on room air. HEENT: Conjunctivae normal. NECK: No JVD. CARDIOVASCULAR: S1, S2 muffled. RESPIRATORY SYSTEM: Breath sounds diminished at the bases. A few scattered rhonchi. No crackles. ABDOMEN: Soft, nontender. No mass palpable. LEGS: No edema. No swelling. NERVOUS SYSTEM: Higher functions as mentioned earlier. Moves all 4 limbs. No focal motor or sensory deficits. Lymphatics: No lymph nodes palpable in the neck, axillae or groin. SKIN: No ulcers, rashes or bleeding. JOINTS: No active deforming arthropathy. LABS: WBC within normal limits. INR 1.2. Sodium 140. Potassium 4. ASSESSMENT: 1. Recurrent atrial tachycardia status post EP studies and ablation with a rapid ventricular response. 2. History of atrial tachycardia and previous ablation with paroxysmal atrial fibrillation and cardioversion. 3. History of asthma. 4. History of gastroesophageal reflux disease. 5. Hypertension. 6. History of degenerative joint disease. 7. History of pneumonia. 8. History of bronchitis. 9. Bilateral astigmatism. 10.History of TURP. 11.FULL CODE. RECOMMENDATIONS AND DISCUSSION: This 69-year-old gentleman who presented with multiple medical issues, we will monitor the patient closely, continue the current medications, management and symptomatic treatment. Otherwise, the patient is currently on beta blockers and Cozaar. We will continue to monitor, closely follow with Cardiology and . Further recommendations to follow. A copy of this dictation being forwarded to Dr. Rubalcava who is the primary physician. MMGIOL / IJN: [id number] / MASTER
[2019-12-25] MEDS: SYMBICORT 80-4.5 MCG INHALER INHALATION SCH (07:38)
[2019-12-25] MEDS: LOSARTAN 50 MG TAB PO SCH (08:28)
[2019-12-25] MEDS: METOPROLOL TARTRATE 12.5 MG TAB PO SCH (08:29)
[2019-12-25] MEDS ORDERED: FUROSEMIDE 40 MG TAB PO SCH (09:00)
[2019-12-25] MEDS: PANTOPRAZOLE 40 MG TABLET PO SCH (11:29)
[2019-12-25 11:32] VITALS: BP 125/79; PULSE 58; RESP 16; TEMP 98.6
--- NOTE | 2019-12-25 12:04 | P.PN ---
Subjective Progress Note Date: 12/25/19 This is a pleasant 69-year-old gentleman with known history of atrial flutter, status post ablation, atrial tachycardia/A. fib, status post ablation, hypertension, hyperlipidemia, who was recently admitted to the hospital earlier this month with atrial tachycardia with rapid ventricular response. Patient on that visit did not respond to IV medications and underwent a cardioversion with Dr. NERY Fernandes. On that visit his flecainide was also increased to 75 mg daily and he was discharged home. Subsequent to that the patient did follow-up with Dr. Mendoza in the office on the of this month. The plan following that visit was to proceed with EP study and possible atrial tachycardia ablation. Patient presents to the hospital on this occasion with symptoms of palpitations and rapid heart beating. His initial EKG on presentation here showed an atrial tachycardia with a right bundle branch block pattern. His subsequent EKG shows atrial fibrillation with moderately rapid ventricular response. Chest x-ray shows old granulomatous disease with no acute lung disease. His blood pressure this morning is 128/78 with a heart rate in the 40s to 50s, 97% on room air. He is in normal sinus rhythm this morning. White blood cell count 10.2, hemoglobin 15.2, platelet count 252. Sodium 141, potassium 4.0, BUN 19, creatinine 0.9, magnesium 1.8. Troponins negative 2. TSH 3.7. 12/25/2019 Patient was taken to the EP lab yesterday, underwent EP study with successful ablation of atrial tachycardias. He remains in a normal sinus rhythm this morning. Blood pressure 124/78 with a heart rate in the 50s, 98% on room air. No laboratory data today. Patient denies any palpitations, no chest discomfort, no dizziness or lightheadedness and his breathing overall is stable. Objective - Vital Signs Vital signs: Vital Signs Temp 98.6 F 12/25/19 11:31 Pulse 58 L 12/25/19 11:31 Resp 16 12/25/19 11:31 BP 125/79 12/25/19 11:31 Pulse Ox 98 12/25/19 11:31 Intake & Output 12/24/19 12/25/19 12/25/19 18:59 06:59 18:59 Intake Total 2964 1040 Output Total 1600 730 Balance 1364 -730 1040 Weight 104 kg Intake: IV 2644 20 Invasive Line 2 20 Oral 320 1020 Output: Urine 1600 730 Other: Voiding Method Indwelling Catheter Toilet Toilet Urinal Urinal # Voids 1 - Exam PHYSICAL EXAMINATION: GENERAL: 69-year-old gentleman in no acute distress at the time of my examination HEENT: Head is atraumatic, normocephalic. Pupils equal, round. Sclera anicteric. Conjunctiva are clear. Mucous membranes of the mouth are moist. Neck is supple. There is no elevated jugular venous pressure. No carotid bruit is heard. HEART EXAMINATION: Heart S1, S2 normal. No murmur or gallop heard. CHEST EXAMINATION: Lungs are clear to auscultation and precussion. No chest wall tenderness is noted on palpation or with deep breathing. ABDOMEN: Soft, nontender. Bowel sounds are heard. No organomegaly noted. EXTREMITIES: 2+ peripheral pulses with no evidence of peripheral edema and no calf tenderness noted. NEUROLOGIC patient is awake, alert and oriented 3 - Labs CBC & Chem 7: 12/24/19 02:34 12/24/19 02:34 Assessment and Plan Plan: Assessment and plan #1 atrial tachycardia with rapid ventricular response #2 history of typical atrial flutter status post ablation, atrial tachycardia/paroxysmal A. fib status post ablation, recent cardioversion #3 hypertension #4 hyperlipidemia Plan Patient underwent ablation procedure yesterday of multiple atrial tachycardia sites. He may be able to be discharged home today from cardiology's perspective. We will make him a follow-up appointment in the office post discharge. DNP note has been reviewed, I agree with a documented findings and plan of care. Patient was seen and examined.
--- NOTE | 2019-12-25 12:10 | DS ---
DISCHARGE SUMMARY FINAL DIAGNOSES: 1. Recurrent atrial tachycardia, status post EP studies and ablation with rapid ventricular response. 2. History of atrial tachycardia and previous ablation with paroxysmal atrial fibrillation and cardioversion. 3. History of asthma. 4. History of gastroesophageal reflux disease. 5. Mild congestive heart failure, improved. 6. Congestive heart failure with acute diastolic dysfunction, ejection fraction 50%- 55%, improved. 7. Hypertension. 8. History of degenerative joint disease. 9. History of pneumonia. 10.History of bronchitis. 11.Bilateral astigmatism. 12.History of TURP. 13.FULL CODE. DISCHARGE DISPOSITION: The patient will be discharged in a stable condition with guarded prognosis. Cardiology cleared the patient. HISTORY OF PRESENT ILLNESS: This is a 69-year-old gentleman with a past medical history of multiple medical problems, being followed by Dr. Johann Rubalcava in the outpatient setting, was admitted with atrial tachycardia. The patient underwent EP studies and ablation by Cardiology. Please refer to Cardiology notes for details. The patient improved significantly. Patient also given a small dose of Lasix because of mild CHF. The patient improved significantly. On exam, vitals are stable. CARDIOVASCULAR: S1, S2. ABDOMEN: Soft. NERVOUS SYSTEM: No focal deficit. The flecainide to be held for now per Cardiology. Will decide on followup. Please refer to Cardiology notes for further information. DISCHARGE ADVICE: 1. Diet is cardiac. 2. Activity limited followup. 3. Follow up with Dr. Rubalcava in 1-2 days. 4. Follow up with Cardiology as recommended. DISCHARGE MEDICATIONS: 1. Advair 1 puff b.i.d. 2. Lipitor 10 mg q.h.s. 3. Cozaar 50 mg p.o. daily. 4. Flonase 1 spray daily. 5. Lopressor 12.5 mg daily. 6. Desmopressin Zocor 40 mg p.o. daily. 7. Singulair 10 mg q.h.s. 8. K-Dur 10 mg p.o. daily for 10 days. 9. Lasix 20 mg daily for 10 days. 10.Flecainide 75 p.o. b.i.d., hold for now to be decided in the outpatient setting. 11.Xarelto 20 mg q.h.s. MMODL / IJN: [id number] /
--- NOTE | 2019-12-26 05:20 | CE ---
CARDIAC ELECTROPHYSIOLOGY REPORT This is a 69-year-old male patient who has recurrent atrial tachycardia with RVR. He has undergone successful isolation of the pulmonary veins with complete isolation. He has also undergone linear ablation in the left atrium and the left atrial roof in the septum. He is brought in for an EP study and radiofrequency ablation. He was admitted to the hospital with symptomatic A tach with RVR and then spontaneously converted to sinus rhythm. He has had multiple such episodes. Patient is brought to the EP lab in a fasting state. Written informed consent was obtained prior to the procedure. The initial part of the procedure was performed under conscious sedation the EP study, but later for ablation general anesthesia was used. Sinus cycle length 1215 milliseconds, GA interval 202 milliseconds, QRS 175 milliseconds, QT 495 milliseconds. AH interval 78 milliseconds, HV interval 43 milliseconds. RA [id number]/2/9 mmHg LA pressure 31/2/16 mmHg. Burst stimulation was performed via the coronary sinus and an irregular atrial fibrillation was induced which would intermittently organize. [id number] transseptal catheterization was performed. Intracardiac echocardiography was performed. The interatrial septum was identified. The pericardium was identified. The LV function was documented and was normal. There was no pericardial effusion. A PentaRay catheter was used in the left atrium for scar mapping/voltage mapping. The roof line was interrogated. There was a small gap in the roof line, in the middle of the line. RF ablation was performed using 40 peña for 15 to 20 seconds, each lesion with impedance drop of around 10 to 15 ohms. A complete anatomic line was made. Later this line was interrogated with scar mapping and this line was completely quiescent with the voltage less than 0.2 mV. Following this, the mitral area was mapped. Intermittently one could see organization to an eccentric atrial tachycardia and then degeneration to an irregular atrial fibrillation. The anterior edge of the left superior pulmonary vein was identified and the mitral anulus was identified and the shortest distance was identified. RF was begun at the edge of the left pulmonary vein and close to the edge of the left pulmonary vein, in the ridge between the left atrial appendage and the pulmonary vein termination of atrial fibrillation occurred following which with PACs, the organized atrial tachycardia was induced consistent with mitral reentry. As linear ablation within the mitral isthmus was performed, termination of tachycardia occurred. Following that, a complete RF line of block was made and this was interrogated with scar mapping as well as with pacing maneuvers. The atrial fibrillation would be paroxysmal and would terminate repeatedly just outside the left inferior pulmonary vein along its anterior inferior margin in the ridge between the appendage and the pulmonary veins. However, once the ablation of this focal atrial tachycardia was completed, this could not be induced. In addition with EP study mitral reentry could not be induced. Therefore, after completion of the atrial tachycardia ablation as well as linear ablation for mitral reentry, an EP study was once again performed. Now again an organized atrial tachycardia was induced. An activation map was performed in the left atrium and the tachycardia was localized to the anterior wall just below the left superior pulmonary vein and anterior to the left atrial appendage. Fractionated diastolic signals were noted in the area and with mechanical pressure termination occurred. RF ablation was applied here and in and around this area in areas where there was an area of fractionated intracardiac signals. Following this, this tachycardia could not be induced. However, a different tachycardia with a totally different activation pattern was induced. Repeat 3D electroanatomic mapping was performed of the left atrium and this atrial tachycardia was localized to between the transseptal puncture anteriorly and the ablated right-sided pulmonary veins posteriorly. RF ablation at this site resulted in termination of the tachycardia. Very fractionated electrical signals noted and these areas were ablated and the tachycardia could not be re-induced once again. Intracardiac echo revealed no evidence for pericardial effusion. LV function was normal and all catheters were then removed and patient was transferred to telemetry. RESULT: Diagnostic EP study revealed: 1. Multiple atrial tachycardias including left atrial ridge tachycardia (in between the left atrial appendage and the left inferior veins). 2. Mitral reentry was induced and underwent successful ablation. 3. Atrial tachycardia from the anterolateral and portion of the anterior wall outside the left atrial appendage was induced and successfully ablated. 4. An atrial tachycardia posterior to the transseptal puncture was induced and successfully ablated. 5. A gap in the roof line that was previously made was successfully ablated. All pulmonary veins that were previously isolated appeared completely quiescent. PLAN: Stop flecainide completely. The patient has sick sinus syndrome, minimize use of beta blockers. Continue anticoagulation. MMODL / IJN: [id number] /
== END 2019-12-25 14:15 | disposition home or self-care (01) ==
LOC: EC 02:31 → 3SCARD 04:22
PROVIDERS: ADMIT Hospitalist; ATTEND Hospitalist
DX: I47.1 Supraventricular tachycardia (principal); I48.0 Paroxysmal atrial fibrillation; I49.5 Sick sinus syndrome; I48.92 Unspecified atrial flutter; I45.10 Unspecified right bundle-branch block; I11.0 Hypertensive heart disease with heart failure; I50.31 Acute diastolic (congestive) heart failure; J45.909 Unspecified asthma, uncomplicated; I20.9 Angina pectoris, unspecified; E78.5 Hyperlipidemia, unspecified; K21.9 Gastro-esophageal reflux disease without esophagitis; M19.049 Primary osteoarthritis, unspecified hand; Z87.01 Personal history of pneumonia (recurrent); N40.0 Benign prostatic hyperplasia without lower urinary tract symptoms; Z90.49 Acquired absence of other specified parts of digestive tract; Z82.3 Family history of stroke; Z87.891 Personal history of nicotine dependence; Z79.01 Long term (current) use of anticoagulants; Z79.51 Long term (current) use of inhaled steroids; Z79.899 Other long term (current) drug therapy
CPT/HCPCS: 93005 ×2; 96376; 96365; 99291; 36415; 94640 ×2; 93662; 93613; 93653; 93655; 85347; 83880; 80053; 83735; 84443; 84484; 85025; 85610; 85730; 71046; G0378 ×2; C1894; C1769 ×3; C1730; C1731; C1759; C1893; C1732; J2250; J2720; J1644 ×3; J1940; J2710; J2001; J3010; J0330; J2704

== ENCOUNTER 2019-12-28 01:19 | Inpatient (IN) | payer MEDICARE ==
[2019-12-28] MEDS ORDERED: NALOXONE 0.4 MG/ML 1 ML VIAL IV PRN (01:56)
[2019-12-28 02:07] LABS: Basophils # (A) 0.1 k/uL (0-0.2); Basophils % (A) 1 %; Eosinophils # (A) 0.2 k/uL (0-0.7); Eosinophils % (A) 2 %; HCT 40.7 % (39.0-53.0); HGB 13.7 gm/dL (13.0-17.5); Lymphocytes # (A) 2.2 k/uL (1.0-4.8); Lymphocytes % (A) 22 %; MCH 29.3 pg (25.0-35.0); MCHC 33.6 g/dL (31.0-37.0); MCV 87.3 fL (80.0-100.0); Mean Platelet Volume 7.6; Monocytes # (A) 0.8 k/uL (0-1.0); Monocytes % (A) 8 %; Neutrophils # (A) 6.6 k/uL (1.3-7.7); Neutrophils % (A) 66 %; Platelet Count 240 k/uL (150-450); RBC 4.67 m/uL (4.30-5.90); RDW 12.6 % (11.5-15.5)
--- NOTE | 2019-12-28 02:13 | XR ---
EXAMINATION TYPE: XR chest 2V DATE OF EXAM: 12/28/2019 COMPARISON: 12/24/2019 HISTORY: Chest pain TECHNIQUE: FINDINGS: Heart and mediastinum are normal. Lungs are clear. Diaphragm is normal. Bony thorax is inta ct. IMPRESSION: No active cardiopulmonary disease. There is improved aeration of the lung bases compared to old exam. There is clearing of minimal atelectasis left lower lobe compared to old exam.
[2019-12-28 02:16] LABS: Albumin 3.8 g/dL (3.5-5.0); Calcium 9.4 mg/dL (8.4-10.2); Magnesium 1.8 mg/dL (1.6-2.3); Potassium 3.7 mmol/L (3.5-5.1); Total Bilirubin 0.7 mg/dL (0.2-1.3); Total Protein 7.1 g/dL (6.3-8.2)
[2019-12-28] MEDS ORDERED: DILTIAZEM 5 MG/ML 5 ML VIAL IVP STA (02:23)
[2019-12-28 02:24] LABS: INR 1.2 (<1.2); Partial Thromboplastin Time 30.5 sec (22.0-30.0); Prothrombin Time 12.1 sec (9.0-12.0)
--- NOTE | 2019-12-28 02:39 | ED ---
Arrhythmia/Palpitations HPI - General Chief Complaint: Arrhythmia/Palpitations Stated Complaint: Chest Pain Time Seen by Provider: 12/28/19 01:22 Source: EMS Mode of arrival: EMS Limitations: no limitations - History of Present Illness Initial Comments: Mayo is a 69-year-old gentleman very well known to the emergency department recently for recurrent visits for A. fib with RVR. Patient has followed with cardiology and electrophysiology he has had multiple ablations for A. fib, most recently one on Tuesday. He's been compliant with his home medications. Patient reports that this evening he began having palpitations and noted that his heart rate was in the 160s he had some mild chest pressure with this and decided to come to the ER for reevaluation. - Related Data Home Medications Medication Instructions Recorded Confirmed Montelukast [Singulair] 10 mg PO HS 08/26/15 12/24/19 Atorvastatin Calcium 10 mg PO HS 08/31/16 12/24/19 Fluticasone Nasal [place] [Flonase 1 spray EA NOSTRIL HS 07/13/18 12/24/19 Nasal [place]] Fluticasone/Salmeterol [Advair 1 puff INHALATION RT-HS 12/27/18 12/24/19 250-50 Diskus] Esomeprazole Magnesium [NexIUM] 40 mg PO AC-LUNCH 12/06/19 12/24/19 Losartan [Cozaar] 50 mg PO DAILY 12/06/19 12/24/19 Metoprolol Tartrate [Lopressor] 12.5 mg PO DAILY 12/06/19 12/24/19 Previous Rx's Medication Instructions Recorded Rivaroxaban [Xarelto] 20 mg PO HS #0 12/09/19 Furosemide [Lasix] 20 mg PO DAILY #10 tab 12/25/19 Potassium Chloride ER [K-Dur 10] 10 meq PO DAILY #10 tab 12/25/19 Allergies Allergy/AdvReac Type Severity Reaction Status Date / Time No Known Allergies Allergy Verified 12/28/19 01:26 Review of Systems ROS Statement: Those systems with pertinent positive or pertinent negative responses have been documented in the HPI. ROS Other: All systems not noted in ROS Statement are negative. 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 History of Any Multi-Drug Resistant Organisms: None Reported Past Surgical History: Ablation, Appendectomy, Cardiac Ablation, Cholecystectomy, Prostate Surgery Additional Past Surgical History / Comment(s): 12/13/17 PVI/cryoablation of 4 pulmonary veins, cardiac ablation, BESSIE/cardioversions, colonoscopy, bilateral cataract removals, TURP. Past Anesthesia/Blood Transfusion Reactions: No Reported Reaction Past Psychological History: No Psychological Hx Reported Smoking Status: Never smoker Past Alcohol Use History: None Reported Past Drug Use History: None Reported - Past Family History Father History Unknown: Yes Family Medical History: CVA/TIA Additional Family Medical History / Comment(s): Father had a CVA. He lived to be 75 yrs. old. Mother History Unknown: Yes Family Medical History: CVA/TIA Additional Family Medical History / Comment(s): Mother had a CVA x 2. He lived to be 82 yrs old. General Exam - General Exam Comments Initial Comments: Physical Exam GENERAL: Patient is well-developed and well-nourished. Patient is nontoxic and well- hydrated and is in no distress. HENT: Normocephalic, Atraumatic. EYES: PERRL, EOMI PULMONARY: Unlabored respirations. No audible rales rhonchi or wheezing was noted. CARDIOVASCULAR: There is a regular rate and rhythm without any murmurs gallops or rubs. ABDOMEN: Soft and nontender with normal bowel sounds. SKIN: Skin is clear with no lesions or rashes and otherwise unremarkable. : Deferred NEUROLOGIC: Patient is alert and oriented x3. Moving all extremities spontaneously MUSCULOSKELETAL: Normal extremities with adequate strength and full range of motion. No lower extremity swelling or edema. No calf tenderness. PSYCHIATRIC: Normal psychiatric evaluation. Limitations: no limitations Course Vital Signs 12/28/19 01:24 Temperature 98.6 F Pulse Rate 120 H Respiratory 20 Rate Blood Pressure 125/96 O2 Sat by Pulse 100 Oximetry EKG Findings - EKG Comments: EKG Findings:: EKG was obtained due to tachycardia noted on monitor in the complaint of palpitations, EKG was obtained at 1:24 AM, rate is 145 rhythm is A. fib with RVR with right bundle branch block, there is T-wave depressions laterally consistent with likely demand ischemia. No acute infarction no significant change from previous episodes of A. fib with RVR. Medical Decision Making - Medical Decision Making The patient was seen and evaluated history is obtained from the patient excited this is a very pleasant 69-year-old with unfortunately nearly impossible to control atrial fibrillation he underwent an ablation earlier this week palpitations began suddenly today, patient would very much like to avoid admission to the hospital for possible therefore a single push dose of Cardizem was ordered as historically the patient usually converts in the emergency department. Labs were obtained and resulted with an elevated troponin likely secondary to patient's recent ablation and not related to ischemia. Very did not improve with push dose Cardizem and a drip was ordered patient will be admitted for further evaluation by his merit system director. Patient remained chest pain free throughout his stay in the emergency department. - Lab Data Result diagrams: 12/28/19 01:30 12/28/19 01:30 Lab Results 12/28/19 12/28/19 12/28/19 Range/Units 01:30 01:30 01:30 WBC 10.0 (3.8-10.6) k/uL RBC 4.67 (4.30-5.90) m/uL Hgb 13.7 (13.0-17.5) gm/dL Hct 40.7 (39.0-53.0) % MCV 87.3 (80.0-100.0) fL MCH 29.3 (25.0-35.0) pg MCHC 33.6 (31.0-37.0) g/dL RDW 12.6 (11.5-15.5) % Plt Count 240 (150-450) k/uL Neutrophils % 66 % Lymphocytes % 22 % Monocytes % 8 % Eosinophils % 2 % Basophils % 1 % Neutrophils # 6.6 (1.3-7.7) k/uL Lymphocytes # 2.2 (1.0-4.8) k/uL Monocytes # 0.8 (0-1.0) k/uL Eosinophils # 0.2 (0-0.7) k/uL Basophils # 0.1 (0-0.2) k/uL PT 12.1 H (9.0-12.0) sec INR 1.2 H (<1.2) APTT 30.5 H (22.0-30.0) sec Sodium 140 (137-145) mmol/L Potassium 3.7 (3.5-5.1) mmol/L Chloride 105 (98-107) mmol/L Carbon Dioxide 27 (22-30) mmol/L Anion Gap 8 mmol/L BUN 24 H (9-20) mg/dL Creatinine 1.05 (0.66-1.25) mg/dL Est GFR (CKD-EPI)AfAm 84 (>60 ml/min/1.73 sqM) Est GFR (CKD-EPI)NonAf 73 (>60 ml/min/1.73 sqM) Glucose 120 H (74-99) mg/dL Calcium 9.4 (8.4-10.2) mg/dL Magnesium 1.8 (1.6-2.3) mg/dL Total Bilirubin 0.7 (0.2-1.3) mg/dL AST 40 (17-59) U/L ALT 25 (4-49) U/L Alkaline Phosphatase 133 H (38-126) U/L Troponin I (0.000-0.034) ng/mL Total Protein 7.1 (6.3-8.2) g/dL Albumin 3.8 (3.5-5.0) g/dL 12/28/19 Range/Units 01:30 WBC (3.8-10.6) k/uL RBC (4.30-5.90) m/uL Hgb (13.0-17.5) gm/dL Hct (39.0-53.0) % MCV (80.0-100.0) fL MCH (25.0-35.0) pg MCHC (31.0-37.0) g/dL RDW (11.5-15.5) % Plt Count (150-450) k/uL Neutrophils % % Lymphocytes % % Monocytes % % Eosinophils % % Basophils % % Neutrophils # (1.3-7.7) k/uL Lymphocytes # (1.0-4.8) k/uL Monocytes # (0-1.0) k/uL Eosinophils # (0-0.7) k/uL Basophils # (0-0.2) k/uL PT (9.0-12.0) sec INR (<1.2) APTT (22.0-30.0) sec Sodium (137-145) mmol/L Potassium (3.5-5.1) mmol/L Chloride (98-107) mmol/L Carbon Dioxide (22-30) mmol/L Anion Gap mmol/L BUN (9-20) mg/dL Creatinine (0.66-1.25) mg/dL Est GFR (CKD-EPI)AfAm (>60 ml/min/1.73 sqM) Est GFR (CKD-EPI)NonAf (>60 ml/min/1.73 sqM) Glucose (74-99) mg/dL Calcium (8.4-10.2) mg/dL Magnesium (1.6-2.3) mg/dL Total Bilirubin (0.2-1.3) mg/dL AST (17-59) U/L ALT (4-49) U/L Alkaline Phosphatase (38-126) U/L Troponin I 0.130 H* (0.000-0.034) ng/mL Total Protein (6.3-8.2) g/dL Albumin (3.5-5.0) g/dL Disposition Clinical Impression: Atrial fibrillation, Rapid atrial fibrillation Disposition: ADMITTED IP TO [facility] Condition: Stable
[2019-12-28] MEDS: DILTIAZEM 125 MG in SODIUM CHLORIDE 0.9% 100 ML IV SCH (04:32)
[2019-12-28] MEDS ORDERED: DRONEDARONE 400 MG TAB PO SCH (07:30)
[2019-12-28] MEDS: DRONEDARONE 400 MG TAB PO SCH ×3 (07:38→17:58)
--- NOTE | 2019-12-28 12:26 | P.CRDCN ---
History of Present Illness History of present illness: This is Dr. Katz dictating a consult on this patient The patient was interviewed and examined by me IMPRESSION / ASSESSMENT: Paroxysmal atrial fibrillation that is refractory to flecainide as well as refractory to pulmonary vein isolation linear ablation of the left atrium as well as ablation of multiple foci of atrial fibrillation/atrial tachycardia. All ablations was successful He still has inducible atrial fibrillation He had yet another recurrence this morning LV function is normal, and coronary artery disease Hypertension Sick sinus syndrome PLAN: Continue Rivaroxaban Multaq 400 mg twice daily When he converts Cardizem should be discontinued No beta blockers. channel blockers no digoxin Watch for bradycardia on Multaq Continue telemetry monitoring for 24 hours HPI: Patient will call in the middle the night with palpitations. He had intermittent chest discomfort but this morning when I saw him he did not have any chest discomfort and he is resting comfortably in bed lying flat no orthopnea no PND He has no shortness of breath no dizziness lightheadedness just palpitations that woke him up He recently underwent an A. fib ablation with ablation of multiple ext rapulmonary foci of atrial fibrillation successfully. However he was still inducible into an irregular atrial tachycardia No dizziness or syncope ROS: No fever chills or rigors, no cough, phlegm or expectoration, no nausea, vomiting or diarrhea, no hematuria, dysuria, no musculoskeletal complaints, no strokes or seizures, no skin lesions. EXAMINATION: Vital examination his pulse rate was in the 120s to 130s blood pressure 124/74 mmHg respirations normal Breath sounds are clear no rhonchi no crackles Normal heart sounds no rub no gallop Abdomen soft nontender plan extend is warm no edema REVIEW OF LABS, ECG & MEDICAL DATA White count 10,000, hemoglobin 13.7, platelets 240,000 Sodium 140 potassium 3.7 BUN 24 Troponin 0.13 Past Medical History Past Medical History: Atrial Fibrillation, Atrial Flutter, Chest Pain / Angina, Eye Disorder, GERD/Reflux, Hypertension, Osteoarthritis (OA), Pneumonia, Prostate Disorder Additional Past Medical History / Comment(s): Paroxysmal Afib, aflutter, atach, RVR, bronchitis, BPH, bilateral astigmatism, sinus problems, BPH with outflow obstruction but none since TURP, arthritis in fingers. History of Any Multi-Drug Resistant Organisms: None Reported Past Surgical History: Ablation, Appendectomy, Cardiac Ablation, Cholecystectomy, Prostate Surgery Additional Past Surgical History / Comment(s): 1/16/18 PVI/cryoablation of 4 pulmonary veins, cardiac ablations with last time being 12/24/19, BESSIE/cardioversions, colonoscopy, bilateral cataract removals, TURP. Past Anesthesia/Blood Transfusion Reactions: No Reported Reaction Smoking Status: Never smoker - Past Family History Father History Unknown: Yes Family Medical History: CVA/TIA Additional Family Medical History / Comment(s): Father had a CVA. He lived to be 75 yrs. old. Mother History Unknown: Yes Family Medical History: CVA/TIA Additional Family Medical History / Comment(s): Mother had a CVA x 2. He lived to be 82 yrs old. Medications and Allergies Home Medications Medication Instructions Recorded Confirmed Type RX: Montelukast [Singulair] 10 mg PO HS 08/26/15 12/28/19 History RX: Atorvastatin Calcium 10 mg PO HS 08/31/16 12/28/19 History RX: Fluticasone Nasal [place] 1 spray EA NOSTRIL HS 07/13/18 12/28/19 History [Flonase Nasal [place]] RX: Fluticasone/Salmeterol [Advair 1 puff INHALATION RT-HS 12/27/18 12/28/19 Hi story 250-50 Diskus] RX: Esomeprazole Magnesium [NexIUM] 40 mg PO AC-LUNCH 12/06/19 12/28/19 History RX: Losartan [Cozaar] 50 mg PO DAILY 12/06/19 12/28/19 History RX: Metoprolol Tartrate [Lopressor] 12.5 mg PO DAILY 12/06/19 12/28/19 History RX: Rivaroxaban [Xarelto] 20 mg PO HS #0 12/09/19 12/28/19 Rx Furosemide [Lasix] 20 mg PO DAILY #10 tab 12/25/19 12/28/19 Rx Potassium Chloride ER [K-Dur 10] 10 meq PO DAILY #10 tab 12/25/19 12/28/19 Rx Allergies Allergy/AdvReac Type Severity Reaction Status Date / Time No Known Allergies Allergy Verified 12/28/19 07:29 Physical Exam Vitals: Vital Signs Temp Pulse Pulse Resp BP BP Pulse Ox 12/28/19 11:54 62 16 108/71 98 12/28/19 11:20 84 16 99/70 96 12/28/19 10:30 104 H 16 104/64 97 12/28/19 10:00 114 H 16 108/55 95 12/28/19 09:30 122 H 16 125/71 96 12/28/19 09:00 125 H 16 137/93 95 12/28/19 08:30 93 18 104/69 94 L 12/28/19 08:00 98 18 106/78 94 L 12/28/19 07:43 131 H 12/28/19 07:41 131 H 18 106/78 12/28/19 07:30 131 H 18 98/77 94 L 12/28/19 07:23 130 H 18 96/69 99 12/28/19 07:00 133 H 18 98/77 96 12/28/19 06:00 123 H 18 98/77 97 12/28/19 05:00 130 H 18 90/75 96 12/28/19 04:00 123 H 18 102/81 96 12/28/19 03:00 98.2 F 123 H 18 99/79 96 12/28/19 02:26 126 H 12/28/19 01:24 98.6 F 120 H 20 125/96 100 Intake and Output 12/27/19 12/28/19 12/28/19 22:59 06:59 14:59 Intake Total 10.167 275.667 Balance 10.167 275.667 Intake: IV 15 Diltiazem 125 mg In 15 Sodium Chloride 0.9% 100 ml @ Per Protocol 5 mls/ hr IV .Q24H [facility] Rx#: [id number] Intake, IV Titration 10.167 20.667 Amount Diltiazem 125 mg In 10.167 20.667 Sodium Chloride 0.9% 100 ml @ Per Protocol 5 mls/ hr IV .Q24H [facility] Rx#: [id number] Oral 240 Other: # Voids 1 Weight 102.058 kg 102.058 kg Results 12/28/19 01:30 12/28/19 01:30 Cardiac Enzymes 12/28/19 12/28/19 Range/Units 01:30 01:30 AST 40 (17-59) U/L Troponin I 0.130 H* (0.000-0.034) ng/mL Coagulation 12/28/19 Range/Units 01:30 PT 12.1 H (9.0-12.0) sec APTT 30.5 H (22.0-30.0) sec CBC 12/28/19 Range/Units 01:30 WBC 10.0 (3.8-10.6) k/uL RBC 4.67 (4.30-5.90) m/uL Hgb 13.7 (13.0-17.5) gm/dL Hct 40.7 (39.0-53.0) % Plt Count 240 (150-450) k/uL Comprehensive Metabolic Panel 12/28/19 Range/Units 01:30 Sodium 140 (137-145) mmol/L Potassium 3.7 (3.5-5.1) mmol/L Chloride 105 (98-107) mmol/L Carbon Dioxide 27 (22-30) mmol/L BUN 24 H (9-20) mg/dL Creatinine 1.05 (0.66-1.25) mg/dL Glucose 120 H (74-99) mg/dL Calcium 9.4 (8.4-10.2) mg/dL AST 40 (17-59) U/L ALT 25 (4-49) U/L Alkaline Phosphatase 133 H (38-126) U/L Total Protein 7.1 (6.3-8.2) g/dL Albumin 3.8 (3.5-5.0) g/dL Current Medications Generic Name Dose Route Start Last Admin Trade Name Freq PRN Reason Stop Dose Admin Atorvastatin Calcium 10 mg 12/28/19 21:00 Lipitor PO HS [facility] Dronedarone 400 mg 12/28/19 07:00 12/28/19 07:41 Multaq PO Not Given AC-BID [facility] Diltiazem HCl 125 mg/ Sodium 125 mls @ 5 mls/hr 12/28/19 04:00 12/28/19 08:38 Chloride IV 5 mg/hr .Q24H [facility] 5 mls/hr Titration Protocol Per Protocol Losartan Potassium 50 mg 12/28/19 09:00 Cozaar PO DAILY [facility] Naloxone HCl 0.2 mg 12/28/19 01:56 Narcan IV Q2M PRN Opioid Reversal Pantoprazole Sodium 40 mg 12/29/19 07:30 Protonix PO AC-BRKFST [facility] Rivaroxaban 20 mg 12/28/19 12:30 Xarelto PO W/LUNCH [facility] Intake and Output 12/27/19 12/28/19 12/28/19 22:59 06:59 14:59 Intake Total 10.167 275.667 Balance 10 275.667 Intake: IV 15 Diltiazem 125 mg In 15 Sodium Chloride 0.9% 100 ml @ Per Protocol 5 mls/ hr IV .Q24H [facility] Rx#: [id number] Intake, IV Titration 10 20.667 Amount Diltiazem 125 mg In 10.167 20.667 Sodium Chloride 0.9% 100 ml @ Per Protocol 5 mls/ hr IV .Q24H [facility] Rx#: [id number] Oral 240 Other: # Voids 1 Weight 102.058 kg 102.058 kg Patient Weight 12/29/19 06:59 Weight 102.058 kg 12/28/19 01:30 12/28/19 01:30
[2019-12-28] MEDS: LOSARTAN 50 MG TAB PO SCH (15:24)
[2019-12-28] MEDS: RIVAROXABAN 20 MG TAB PO SCH (15:26)
[2019-12-28] MEDS: ATORVASTATIN 10 MG TAB PO SCH (20:10)
--- NOTE | 2019-12-28 21:31 | P.HPIM ---
History of Present Illness H&P Date: 12/28/19 Chief Complaint: Palpitation Chief Complaint: Heart racing History of presenting complaint: This is a [address] Rubalcava. Chronic stable medical conditions include hypertension, GERD, primary osteoarthritis, moderate persistent asthma, atrial fibrillation on anticoagulation,ascending aorta aneurysm 4.4 cm. in August 2019 patient had a cardiac catheterization that was negative. On December 25 patient was seen by data programmer Dr. Chriss Katz had ablation was carried out for atrial tachycardia. Patient again presents with chest pain palpitations. Found to go back into atrial fibrillation flutter. Patient admitted from the ER. Dr. Katz was consulted. Patient is put on multaq. Patient's also quite troubled by his reflux symptoms. Has had EGD in the past. No dizziness no lightheadedness, minimal shortness of breath. Review of systems: GEN.: Tired EYES: None HEENT: None NECK: None RESPIRATORY: None CARDIOVASCULAR: As above GASTROINTESTINAL: l heartburn GENITOURINARY: None MUSCULOSKELETAL: Pain in the joints LYMPHATICS: None HEMATOLOGICAL: None PSYCHIATRY: None NEUROLOGICAL: None Past medical history to include: Hypertension, GERD, primary osteoarthritis, moderate persistent asthma, atrial fibrillation/atrial tachycardia ablation, on anticoagulation,, BPH treated with TURP. Negative cardiac catheterization in 2019 Social history: , retired, no smoking. Alcohol rarely. Family history: Father had a stroke Physical examination: VITAL SIGNS: 98.2, 123, 18, 102/81, 96% room air GENERAL: Laying in bed, not in distress EYES: Pupils equal. Conjunctiva normal. HEENT: External appearance of nose and ears normal, oral cavity grossly normal. NECK: JVD not raised; masses not palpable. HEART: Heart sounds irregular; no edema. LUNGS: Respiratory rate normal; clear to auscultation. ABDOMEN: Soft, nontender, liver spleen not palpable, no masses palpable. PSYCH: Alert and oriented x3; mood and affect normal. Lymphatics: No lymph nodes palpable in the neck and axilla NEUROLOGICAL: Cranial nerves grossly intact. Power and sensation grossly intact INVESTIGATIONS, reviewed in the clinical context: White count and hemoglobin 13.7 potassium 3.7 creatinine 1.05 and 1.2 Troponin I 0.1 EKG tracing personally reviewed by mn-right bundle-branch block pattern with A. fib with rate in 140s Chest x-ray film personally reviewed by me-borderline cardiomegaly Assessment: -Recurrent atrial flutter fibrillation uncontrolled with a prior ablation 3. -4.4 cm ascending aorta aneurysm, for yearly follow-up -Essential hypertension -GERD -Primary osteoarthritis -Moderate persistent asthma -Obesity BMI 32.3 -Negative cardiac catheterization in August 2019 Plan: Patient seen by Dr. Chriss Katz from oncology. Has been started on more tired. Other medications are continued. Patient was educated about maneuvers to help reflux symptoms. Past Medical History Past Medical History: Atrial Fibrillation, Atrial Flutter, Chest Pain / Angina, Eye Disorder, GERD/Reflux, Hypertension, Osteoarthritis (OA), Pneumonia, Prostate Disorder Additional Past Medical History / Comment(s): Paroxysmal Afib, aflutter, atach, RVR, bronchitis, BPH, bilateral astigmatism, sinus problems, BPH with outflow obstruction but none since TURP, arthritis in fingers. History of Any Multi-Drug Resistant Organisms: None Reported Past Surgical History: Ablation, Appendectomy, Cardiac Ablation, Cholecystectomy, Prostate Surgery Additional Past Surgical History / Comment(s): 12/13/17 PVI/cryoablation of 4 pulmonary veins, cardiac ablations with last time being 12/24/19, BESSIE/cardioversions, colonoscopy, bilateral cataract removals, TURP. Past Anesthesia/Blood Transfusion Reactions: No Reported Reaction Smoking Status: Never smoker - Past Family History Father History Unknown: Yes Family Medical History: CVA/TIA Additional Family Medical History / Comment(s): Father had a CVA. He lived to be 75 yrs. old. Mother History Unknown: Yes Family Medical History: CVA/TIA Additional Family Medical History / Comment(s): Mother had a CVA x 2. He lived to be 82 yrs old. Medications and Allergies Home Medications Medication Instructions Recorded Confirmed Type Montelukast [Singulair] 10 mg PO HS 08/26/15 12/28/19 History Atorvastatin Calcium 10 mg PO HS 08/31/16 12/28/19 History Fluticasone Nasal [place] [Flonase 1 spray EA NOSTRIL HS 07/13/18 12/28/19 History Nasal [place]] Fluticasone/Salmeterol [Advair 1 puff INHALATION RT-HS 12/27/18 12/28/19 History 250-50 Diskus] Esomeprazole Magnesium [NexIUM] 40 mg PO AC-LUNCH 12/06/19 12/28/19 History Losartan [Cozaar] 50 mg PO DAILY 12/06/19 12/28/19 History Metoprolol Tartrate [Lopressor] 12.5 mg PO DAILY 12/06/19 12/28/19 History Rivaroxaban [Xarelto] 20 mg PO HS #0 12/09/19 12/28/19 Rx Furosemide [Lasix] 20 mg PO DAILY #10 tab 12/25/19 12/28/19 Rx Potassium Chloride ER [K-Dur 10] 10 meq PO DAILY #10 tab 12/25/19 12/28/19 Rx Allergies Allergy/AdvReac Type Severity Reaction Status Date / Time No Known Allergies Allergy Verified 12/28/19 07:29 Physical Exam Vitals: Vital Signs Temp Pulse Pulse Resp BP Pulse Ox 12/28/19 08:30 93 18 104/69 94 L 12/28/19 08:00 98 18 106/78 94 L 12/28/19 07:43 131 H 12/28/19 07:41 131 H 18 106/78 12/28/19 07:30 131 H 18 98/77 94 L 12/28/19 07:23 130 H 18 96/69 99 12/28/19 07:00 133 H 18 98/77 96 12/28/19 06:00 123 H 18 98/77 97 12/28/19 05:00 130 H 18 90/75 96 12/28/19 04:00 123 H 18 102/81 96 12/28/19 03:00 98.2 F 123 H 18 99/79 96 12/28/19 02:26 126 H 12/28/19 01:24 98.6 F 120 H 20 125/96 100 Intake and Output 12/27/19 12/28/19 12/28/19 22:59 06:59 14:59 Intake Total .667 Balance Intake: Intake, IV Titration . Amount Diltiazem 125 mg In . Sodium Chloride 0.9% 100 ml @ Per Protocol 5 mls/ hr IV .Q24H [facility] Rx#: [id number] Other: Weight 102.058 kg 102.058 kg Results CBC & Chem 7: 12/28/19 01:30 12/28/19 01:30 Labs: Abnormal Lab Results - Last 24 Hours (Table) 12/28/19 12/28/19 12/28/19 Range/Units 01:30 01:30 01:30 PT 12.1 H (9.0-12.0) sec INR 1.2 H (<1.2) APTT 30.5 H (22.0-30.0) sec BUN 24 H (9-20) mg/dL Glucose 120 H (74-99) mg/dL Alkaline Phosphatase 133 H (38-126) U/L Troponin I 0.130 H* (0.000-0.034) ng/mL Thrombosis Risk Factor Assmnt - Choose All That Apply Any of the Below Risk Factors Present?: Yes Each Factor Represents 1 point: Obesity (BMI >25) Other Risk Factors: Yes Each Risk Factor Represents 2 Points: Age 61-74 years Other congenital or acquired thrombophilia - If yes, enter type in comment: No Thrombosis Risk Factor Assessment Total Risk Factor Score: 3 Thrombosis Risk Factor Assessment Level: Moderate Risk
[2019-12-28] MEDS: MONTELUKAST 10 MG TAB PO SCH (21:45)
[2019-12-29] MEDS: SYMBICORT 80-4.5 MCG INHALER INHALATION SCH ×3 (00:13→19:06)
[2019-12-29] MEDS: DILTIAZEM 125 MG in SODIUM CHLORIDE 0.9% 100 ML IV SCH (01:13)
[2019-12-29] MEDS: PANTOPRAZOLE 40 MG TABLET PO SCH (06:55)
[2019-12-29] MEDS: DRONEDARONE 400 MG TAB PO SCH ×2 (06:55→17:31)
[2019-12-29] MEDS: LOSARTAN 50 MG TAB PO SCH (08:02)
[2019-12-29] MEDS: RIVAROXABAN 20 MG TAB PO SCH (12:07)
--- NOTE | 2019-12-29 16:02 | P.PN ---
Subjective Progress Note Date: 12/29/19 This is a 69-year-old gentleman with history of atrial fibrillation and flutter who recently underwent ablation. Patient is admitted with recurrent palpitation and recurrence of atrial fibrillation. Patient was initiated Multaq. Patient seemed to be converted back to sinus rhythm. Denies any chest pain or shortness of breath. Otherwise clinically stable Objective - Vital Signs Vital signs: Vital Signs Temp 98.3 F 12/29/19 08:00 Pulse 58 L 12/29/19 12:30 Resp 17 12/29/19 12:30 BP 115/69 12/29/19 12:30 Pulse Ox 98 12/29/19 12:30 Intake & Output 12/28/19 12/29/19 12/29/19 18:59 06:59 18:59 Intake Total 755.667 600 Balance 755.667 600 Weight 102.058 kg 103.6 kg Intake: IV 15 Diltiazem 125 mg In 15 Sodium Chloride 0.9% 100 ml @ Per Protocol 5 mls/ hr IV .Q24H [facility] Rx#: [id number] Intake, IV Titration 20.667 Amount Diltiazem 125 mg In 20.667 Sodium Chloride 0.9% 100 ml @ Per Protocol 5 mls/ hr IV .Q24H [facility] Rx#: [id number] Oral 720 600 Other: # Voids 1 1 2 - Exam GENERAL EXAM: Patient is alert and oriented and doesn't appear to be in any acute distress HEENT: Normocephalic. Normal reaction of pupils, equal size, normal range of extraocular motion. No erythema or exudates in the throat. NECK: No masses, no nuchal rigidity. CHEST: No chest wall deformity. LUNGS: Equal air entry with no crackles or wheeze. HEART: S1 and S2 normal with no audible mumurs or gallops. Regular rhythm, femorals equal on both sides.. ABDOMEN: No hepatosplenomegaly, normal bowel sounds, no guarding or rigidity. SKIN: No rashes CENTRAL NERVOUS SYSTEM: No focal deficits. EXTREMITIES: No cyanosis, clubbing or edema. - Labs CBC & Chem 7: 12/28/19 01:30 12/28/19 01:30 Assessment and Plan (1) Atrial fibrillation Current Visit: Yes Status: Acute Code(s): I48.91 - UNSPECIFIED ATRIAL FIBRILLATION SNOMED Code(s): 67736331 (2) Ascending aortic aneurysm Current Visit: No Status: Acute Code(s): I71.2 - THORACIC AORTIC ANEURYSM, WITHOUT RUPTURE SNOMED Code(s): 479311618 (3) Chest pain Current Visit: No Status: Acute Code(s): R07.9 - CHEST PAIN, UNSPECIFIED SNOMED Code(s): 95260822 Plan: Patient stable to be clinically stable. Back in sinus rhythm. We will repeat his EKG. If he is in sinus rhythm with the normal QT interval, patient could be discharged home
--- NOTE | 2019-12-29 18:09 | P.PN ---
Progress Note - Text Progress Note Date: 12/29/19 [facility] Complaint: Heart racing History of presenting complaint: This is a [address] Rubalcava. Chronic stable medical conditions include hypertension, GERD, primary osteoarthritis, moderate persistent asthma, atrial fibrillation on anticoagulation,ascending aorta aneurysm 4.4 cm. in August 2019 patient had a cardiac catheterization that was negative. On December 25 patient was seen by school psychological examiner Dr. Chriss Katz had ablation was carried out for atrial tachycardia. Patient again presents with chest pain palpitations. Found to go back into atrial fibrillation flutter. Patient admitted from the ER. Dr. Katz was consulted. Patient is put on multaq. Patient's also quite troubled by his reflux symptoms. Has had EGD in the past. No dizziness no lightheadedness, minimal shortness of breath. Today-patient went into sinus rhythm. Symptoms much improved. Up and about in the hallway. Breathing stable. No palpitation. Review of systems: Was done for constitutional, cardiovascular, GI, pulmonary. relevant finding as above Active Medications Atorvastatin Calcium (Lipitor) 10 mg PO [facility] Last Admin: 12/28/19 20:10 Dose: 10 mg Documented by: Budesonide/Formoterol Fumarate (Symbicort 80-4.5 Mcg Inhaler) 2 puff INHALATION RT-BID [facility] Last Admin: 12/29/19 07:38 Dose: 2 puff Documented by: Dronedarone (Multaq) 400 mg PO AC-BID [facility] Last Admin: 12/29/19 17:31 Dose: 400 mg Documented by: Diltiazem HCl 125 mg/ Sodium (Chloride) 125 mls @ 5 mls/hr IV .Q24H [facility]; Protocol Last Admin: 12/29/19 01:13 Dose: Not Given Documented by: Losartan Potassium (Cozaar) 50 mg PO DAILY [facility] Last Admin: 12/29/19 08:02 Dose: 50 mg Documented by: Montelukast Sodium (Singulair) 10 mg PO [facility] Last Admin: 12/28/19 21:45 Dose: 10 mg Documented by: Naloxone HCl (Narcan) 0.2 mg IV Q2M PRN PRN Reason: Opioid Reversal Pantoprazole Sodium (Protonix) 40 mg PO AC-BRKFST [facility] Last Admin: 12/29/19 06:55 Dose: 40 mg Documented by: Rivaroxaban (Xarelto) 20 mg PO W/LUNCH [facility] Last Admin: 12/29/19 12:07 Dose: 20 mg Documented by: Physical examination: VITAL SIGNS: 98, 57, 18, 106/60, 93% on room air GENERAL: Sitting up, comfortable EYES: Pupils equal. Conjunctiva normal. HEENT: External appearance of nose and ears normal, oral cavity grossly normal. NECK: JVD not raised; masses not palpable. HEART: First seconds are normal; no edema. LUNGS: Respiratory rate normal; clear to auscultation. ABDOMEN: Soft, nontender, liver spleen not palpable, no masses palpable. PSYCH: Alert and oriented x3; mood and affect normal. INVESTIGATIONS, reviewed in the clinical context: EKG today-sinus rhythm with prolonged QT Previous testing White count and hemoglobin 13.7 potassium 3.7 creatinine 1.05 and 1.2 Troponin I 0.1 EKG tracing personally reviewed by me-right bundle-branch block pattern with A. fib with rate in 140s Chest x-ray film personally reviewed by me-borderline cardiomegaly Assessment: -Recurrent atrial flutter fibrillation uncontrolled with a prior ablation 3. Now converted to sinus rhythm. Prolonged QT interval -4.4 cm ascending aorta aneurysm, for yearly follow-up -Essential hypertension -GERD -Primary osteoarthritis -Moderate persistent asthma -Obesity BMI 32.3 -Negative cardiac catheterization in August 2019 Plan: Patient clinically doing much better. Discussed with Dr. Alves. EKG reveals a prolonged QT interval. Patient will continue to be monitored. Follow with cardiology
[2019-12-29] MEDS: ATORVASTATIN 10 MG TAB PO SCH (20:26)
[2019-12-29] MEDS: MONTELUKAST 10 MG TAB PO SCH (20:26)
[2019-12-30] MEDS: PANTOPRAZOLE 40 MG TABLET PO SCH (07:01)
[2019-12-30] MEDS: DRONEDARONE 400 MG TAB PO SCH (07:01)
[2019-12-30] MEDS: SYMBICORT 80-4.5 MCG INHALER INHALATION SCH (07:37)
[2019-12-30] MEDS: DILTIAZEM 125 MG in SODIUM CHLORIDE 0.9% 100 ML IV SCH (07:42)
[2019-12-30] MEDS: LOSARTAN 50 MG TAB PO SCH (07:45)
[2019-12-30 07:56] VITALS: TEMP 98.3
[2019-12-30] MEDS: RIVAROXABAN 20 MG TAB PO SCH (12:35)
[2019-12-30 16:05] VITALS: BP 121/75; PULSE 57; RESP 17
--- NOTE | 2019-12-30 16:41 | P.PN ---
Subjective Progress Note Date: 12/30/19 This is a 69-year-old gentleman with history of atrial fibrillation and flutter who recently underwent ablation. Patient is admitted with recurrent palpitation and recurrence of atrial fibrillation. Patient was initiated Multaq. Patient seemed to be converted back to sinus rhythm. Denies any chest pain or shortness of breath. Otherwise clinically stable. He 12/30/2019: This patient is maintaining sinus rhythm. His corrected QT interval is 465 ms. Patient denies any chest pain or shortness of breath. Tolerating activity. Patient could be discharged home. Follow-up with Dr. Katz as an outpatient Objective - Vital Signs Vital signs: Vital Signs Temp 98.3 F 12/30/19 07:53 Pulse 57 L 12/30/19 16:00 Resp 17 12/30/19 16:00 BP 121/75 12/30/19 16:00 Pulse Ox 98 12/30/19 16:00 Intake & Output 12/29/19 12/30/19 12/30/19 18:59 06:59 18:59 Intake Total 600 600 Balance 600 600 Weight 103.4 kg Intake: Oral 600 600 Other: Voiding Method Toilet # Voids 2 2 2 - Exam GENERAL EXAM: Patient is alert and oriented and doesn't appear to be in any acute distress HEENT: Normocephalic. Normal reaction of pupils, equal size, normal range of extraocular motion. No erythema or exudates in the throat. NECK: No masses, no nuchal rigidity. CHEST: No chest wall deformity. LUNGS: Equal air entry with no crackles or wheeze. HEART: S1 and S2 normal with no audible mumurs or gallops. Regular rhythm, femorals equal on both sides.. ABDOMEN: No hepatosplenomegaly, normal bowel sounds, no guarding or rigidity. SKIN: No rashes CENTRAL NERVOUS SYSTEM: No focal deficits. EXTREMITIES: No cyanosis, clubbing or edema. - Labs CBC & Chem 7: 12/28/19 01:30 12/28/19 01:30 Assessment and Plan (1) Atrial fibrillation Status: Acute Code(s): I48.91 - UNSPECIFIED ATRIAL FIBRILLATION SNOMED Code(s): 48917617 (2) Ascending aortic aneurysm Status: Acute Code(s): I71.2 - THORACIC AORTIC ANEURYSM, WITHOUT RUPTURE SNOMED Code(s): 617228728 (3) Chest pain Status: Acute Code(s): R07.9 - CHEST PAIN, UNSPECIFIED SNOMED Code(s): 50184005 Plan: Patient is clinically stable. Maintaining sinus rhythm. EKG showed a corrected QT interval of 465 ms. Patient is being discharged home. Follow-up by Dr. Katz
--- NOTE | 2019-12-30 23:13 | P.DS ---
Providers Date of admission: 12/30/19 14:02 Expected date of discharge: 12/30/19 Attending physician: Alfredo Godinez Consults: 12/28/19 01:56 Consult Physician Stat Consulting Provider: Chriss Katz Reason/Comments: recurrent rvr Do you want consulting provider notified?: Yes, Notify in am Primary care physician: Johann Rubalcava [facility] Course: hief Complaint: Heart racing History of presenting complaint: This is a [address] Rubalcava. Chronic stable medical conditions include hypertension, GERD, primary osteoarthritis, moderate persistent asthma, atrial fibrillation on anticoagulation,ascending aorta aneurysm 4.4 cm. in August 2019 patient had a cardiac catheterization that was negative. On December 25 patient was seen by shirring machine operator automatic Dr. Chriss Katz had ablation was carried out for atrial tachycardia. Patient again presents with chest pain palpitations. Found to go back into atrial fibrillation flutter. Patient admitted from the ER. Dr. Katz was consulted. Patient is put on multaq. Patient's also quite troubled by his reflux symptoms. Has had EGD in the past. No dizziness no lightheadedness, minimal shortness of breath. Today-conditions to well. Asymptomatic. Seen by cardiology today. cleared for discharge.he will follow with Dr. Aleks Katz Consultation: Dr. Alves from cardiology Dr. Aleks Katz from electrophysiology Physical examination: VITAL SIGNS: 98.3-57-17-130/59-94% room air GENERAL: Sitting up, comfortable EYES: Pupils equal. Conjunctiva normal. HEENT: External appearance of nose and ears normal, oral cavity grossly normal. NECK: JVD not raised; masses not palpable. HEART: First seconds are normal; no edema. LUNGS: Respiratory rate normal; clear to auscultation. ABDOMEN: Soft, nontender, liver spleen not palpable, no masses palpable. PSYCH: Alert and oriented x3; mood and affect normal. INVESTIGATIONS, reviewed in the clinical context: Previous testing White count and hemoglobin 13.7 potassium 3.7 creatinine 1.05 and 1.2 Troponin I 0.1 EKG tracing personally reviewed by me-right bundle-branch block pattern with A. fib with rate in 140s Chest x-ray film personally reviewed by me-borderline cardiomegaly Assessment: -Recurrent atrial flutter fibrillation uncontrolled with a prior ablation 3. Now converted to sinus rhythm. -Prolonged QT interval -4.4 cm ascending aorta aneurysm, for yearly follow-up -Essential hypertension -GERD -Primary osteoarthritis -Moderate persistent asthma -Obesity BMI 32.3 -Negative cardiac catheterization in August 2019 disposition: Home Patient Condition at Discharge: Stable Plan - Discharge Summary Discharge Rx Participant: No New Discharge Prescriptions: New Dronedarone [Multaq] 400 mg PO AC-BID #60 tab Continue Montelukast [Singulair] 10 mg PO HS Atorvastatin Calcium 10 mg PO HS Fluticasone Nasal [place] [Flonase Nasal [place]] 1 spray EA NOSTRIL HS Fluticasone/Salmeterol [Advair 250-50 Diskus] 1 puff INHALATION RT-HS Losartan [Cozaar] 50 mg PO DAILY Esomeprazole Magnesium [NexIUM] 40 mg PO AC-LUNCH Rivaroxaban [Xarelto] 20 mg PO HS #0 Discontinued Metoprolol Tartrate [Lopressor] 12.5 mg PO DAILY Potassium Chloride ER [K-Dur 10] 10 meq PO DAILY #10 tab Furosemide [Lasix] 20 mg PO DAILY #10 tab Discharge Medication List Montelukast [Singulair] 10 mg PO HS 08/26/15 [History] Atorvastatin Calcium 10 mg PO HS 08/31/16 [History] Fluticasone Nasal [place] [Flonase Nasal [place]] 1 spray EA NOSTRIL HS 07/13/18 [History] Fluticasone/Salmeterol [Advair 250-50 Diskus] 1 puff INHALATION RT-HS 12/27/18 [History] Esomeprazole Magnesium [NexIUM] 40 mg PO AC-LUNCH 12/06/19 [History] Losartan [Cozaar] 50 mg PO DAILY 12/06/19 [History] Rivaroxaban [Xarelto] 20 mg PO HS #0 12/09/19 [Rx] Dronedarone [Multaq] 400 mg PO AC-BID #60 tab 12/30/19 [Rx] Follow up Appointment(s)/Referral(s): Chriss Katz MD [STAFF PHYSICIAN] - 1 Week Johann Rubalcava MD [Primary Care Provider] - 1-2 days Patient Instructions/Handouts: A-fib (Atrial Fibrillation) (DC), Chest Pain (DC) Discharge Disposition: HOME SELF-CARE
== END 2019-12-30 16:30 | disposition home or self-care (01) | DRG 310 ==
LOC: EC 01:19 → 3SCARD 01:57 → INTOOBSV 01:57 → 3SCARD 09:12 → OBSVTOIN 12-30 14:02
PROVIDERS: ADMIT Hospitalist; ATTEND Hospitalist
DX: I48.0 Paroxysmal atrial fibrillation (principal); I48.92 Unspecified atrial flutter; I47.1 Supraventricular tachycardia; I25.10 Atherosclerotic heart disease of native coronary artery without angina pectoris; E66.9 Obesity, unspecified; I10 Essential (primary) hypertension; I49.5 Sick sinus syndrome; I71.2 Thoracic aortic aneurysm, without rupture; J45.40 Moderate persistent asthma, uncomplicated; K21.9 Gastro-esophageal reflux disease without esophagitis; M19.91 Primary osteoarthritis, unspecified site; N40.0 Benign prostatic hyperplasia without lower urinary tract symptoms; Z90.79 Acquired absence of other genital organ(s); Z90.49 Acquired absence of other specified parts of digestive tract; Z98.42 Cataract extraction status, left eye; Z98.41 Cataract extraction status, right eye; H52.203 Unspecified astigmatism, bilateral; Z87.01 Personal history of pneumonia (recurrent); Z68.32 Body mass index [BMI] 32.0-32.9, adult; Z79.01 Long term (current) use of anticoagulants; Z79.899 Other long term (current) drug therapy; Z82.3 Family history of stroke
CPT/HCPCS: 36415; 71046; 80053; 83735; 84484; 85025; 85610; 85730; 93005; 94640; 96365; 96366; 96376; 99285

== ENCOUNTER 2020-01-18 14:06 | Emergency (ER) | payer MEDICARE ==
[2020-01-18 14:10] VITALS: TEMP 97.5
--- NOTE | 2020-01-18 14:37 | ED ---
General Adult HPI - General Chief complaint: Chest Pain Stated complaint: Chest Pain Time Seen by Provider: 01/18/20 14:12 Source: patient, RN notes reviewed, old records reviewed Mode of arrival: wheelchair Limitations: no limitations - History of Present Illness Initial comments: 61-year-old male presents for evaluation of left-sided chest pain. Patient has history of atrial fibrillation with recent ablation approximately one month ago. He developed left-sided chest pain yesterday evening. This is worse with deep inspiration. He has no central radiating chest pain. No history of CAD. He is currently on Xarelto. Denies palpitations. Denies fever. He's had a mild dry cough. No abdominal pain. No lower extremity pain or swelling. - Related Data Home Medications Medication Instructions Recorded Confirmed Montelukast [Singulair] 10 mg PO HS 08/26/15 12/28/19 Atorvastatin Calcium 10 mg PO HS 08/31/16 12/28/19 Fluticasone Nasal [place] [Flonase 1 spray EA NOSTRIL HS 07/13/18 12/28/19 Nasal [place]] Fluticasone/Salmeterol [Advair 1 puff INHALATION RT-HS 12/27/18 12/28/19 250-50 Diskus] Esomeprazole Magnesium [NexIUM] 40 mg PO AC-LUNCH 12/06/19 12/28/19 Losartan [Cozaar] 50 mg PO DAILY 12/06/19 12/28/19 Previous Rx's Medication Instructions Recorded Rivaroxaban [Xarelto] 20 mg PO HS #0 12/09/19 Dronedarone [Multaq] 400 mg PO AC-BID #60 tab 12/30/19 Allergies Allergy/AdvReac Type Severity Reaction Status Date / Time No Known Allergies Allergy Verified 01/18/20 14:10 Review of Systems ROS Statement: Those systems with pertinent positive or pertinent negative responses have been documented in the HPI. ROS Other: All systems not noted in ROS Statement are negative. Past Medical History Past Medical History: Atrial Fibrillation, Atrial Flutter, Chest Pain / Angina, Eye Disorder, GERD/Reflux, Hyperlipidemia, Hypertension, Osteoarthritis (OA), Pneumonia, Prostate Disorder Additional Past Medical History / Comment(s): Paroxysmal Afib, aflutter, atach, RVR, bronchitis, BPH, bilateral astigmatism, sinus problems, BPH with outflow obstruction but none since TURP, arthritis in fingers. History of Any Multi-Drug Resistant Organisms: None Reported Past Surgical History: Ablation, Appendectomy, Cardiac Ablation, Charlene cystectomy, Prostate Surgery Additional Past Surgical History / Comment(s): 12/13/17 PVI/cryoablation of 4 pulmonary veins, cardiac ablations with last time being 12/24/19, BESSIE/ cardioversions, colonoscopy, bilateral cataract removals, TURP. Past Anesthesia/Blood Transfusion Reactions: No Reported Reaction Past Psychological History: No Psychological Hx Reported Smoking Status: Never smoker Past Alcohol Use History: None Reported Past Drug Use History: None Reported - Past Family History Father History Unknown: Yes Family Medical History: CVA/TIA Additional Family Medical History / Comment(s): Father had a CVA. He lived to be 75 yrs. old. Mother History Unknown: Yes Family Medical History: CVA/TIA Additional Family Medical History / Comment(s): Mother had a CVA x 2. He lived to be 82 yrs old. General Exam Limitations: no limitations General appearance: alert, in no apparent distress Head exam: Present: atraumatic, normocephalic Eye exam: Present: normal appearance, PERRL ENT exam: Present: normal exam Neck exam: Present: normal inspection. Absent: tenderness, meningismus Respiratory exam: Present: normal lung sounds bilaterally. Absent: respiratory distress, wheezes Cardiovascular Exam: Present: regular rate, normal rhythm GI/Abdominal exam: Present: soft. Absent: distended, tenderness, guarding Extremities exam: Present: normal inspection, normal capillary refill. Absent: pedal edema Neurological exam: Present: alert, oriented X3, CN II-XII intact. Absent: motor sensory deficit Psychiatric exam: Present: normal affect, normal mood Skin exam: Present: warm, dry, intact. Absent: cyanosis, diaphoretic Course Vital Signs 01/18/20 01/18/20 14:07 15:27 Temperature 97.5 F L Pulse Rate 55 L 82 Respiratory 20 18 Rate Blood Pressure 140/76 140/77 O2 Sat by Pulse 97 98 Oximetry EKG Findings - EKG Comments: EKG Findings:: EKG: Sinus rhythm rate of 59, NV interval 168, QRS duration 138, QTC 479, no ST segment elevation, right bundle-branch block with T-wave in version and ST segment depression in V2 and V3 Medical Decision Making - Medical Decision Making 69-year-old male history of atrial fibrillation presenting for evaluation of left-sided chest pain. Pain is been present for the past couple to 24 hours. Chest x-ray showing stable cardiomegaly, EKG showing sinus rhythm. He has a normal CBC, normal CMP, negative initial troponin. I discussed case with Dr. Pearson covering for cardiology, does recommend observation for serial cardiac enzymes. I plan to admit this patient, however he declines, he prefers to go home with outpatient follow-up. He is informed of the risks and both my preference and machine set up technician preference to stay in the hospital. He plans to go home and will return with worsening or changing symptoms. - Lab Data Result diagrams: 01/18/20 14:34 01/18/20 14:34 Lab Results 01/18/20 01/18/20 01/18/20 Range/Units 14:34 14:34 14:34 WBC 7.3 (3.8-10.6) k/uL RBC 4.45 (4.30-5.90) m/uL Hgb 13.3 (13.0-17.5) gm/dL Hct 38.8 L (39.0-53.0) % MCV 87.3 (80.0-100.0) fL MCH 29.9 (25.0-35.0) pg MCHC 34.2 (31.0-37.0) g/dL RDW 13.1 (11.5-15.5) % Plt Count 246 (150-450) k/uL Neutrophils % 65 % Lymphocytes % 23 % Monocytes % 6 % Eosinophils % 3 % Basophils % 0 % Neutrophils # 4.7 (1.3-7.7) k/uL Lymphocytes # 1.7 (1.0-4.8) k/uL Monocytes # 0.5 (0-1.0) k/uL Eosinophils # 0.3 (0-0.7) k/uL Basophils # 0.0 (0-0.2) k/uL PT 11.0 (9.0-12.0) sec INR 1.1 (<1.2) APTT 27.8 (22.0-30.0) sec Sodium 139 (137-145) mmol/L Potassium 4.3 (3.5-5.1) mmol/L Chloride 108 H (98-107) mmol/L Carbon Dioxide 23 (22-30) mmol/L Anion Gap 8 mmol/L BUN 18 (9-20) mg/dL Creatinine 0.89 (0.66-1.25) mg/dL Est GFR (CKD-EPI)AfAm >90 (>60 ml/min/1.73 sqM) Est GFR (CKD-EPI)NonAf 88 (>60 ml/min/1.73 sqM) Glucose 94 (74-99) mg/dL Calcium 9.0 (8.4-10.2) mg/dL Magnesium 1.8 (1.6-2.3) mg/dL Total Bilirubin 0.8 (0.2-1.3) mg/dL AST 31 (17-59) U/L ALT 24 (4-49) U/L Alkaline Phosphatase 98 (38-126) U/L Troponin I (0.000-0.034) ng/mL Total Protein 6.5 (6.3-8.2) g/dL Albumin 3.6 (3.5-5.0) g/dL Lipase 110 (23-300) U/L 01/18/20 Range/Units 14:34 WBC (3.8-10.6) k/uL RBC (4.30-5.90) m/uL Hgb (13.0-17.5) gm/dL Hct (39.0-53.0) % MCV (80.0-100.0) fL MCH (25.0-35.0) pg MCHC (31.0-37.0) g/dL RDW (11.5-15.5) % Plt Count (150-450) k/uL Neutrophils % % Lymphocytes % % Monocytes % % Eosinophils % % Basophils % % Neutrophils # (1.3-7.7) k/uL Lymphocytes # (1.0-4.8) k/uL Monocytes # (0-1.0) k/uL Eosinophils # (0-0.7) k/uL Basophils # (0-0.2) k/uL PT (9.0-12.0) sec INR (<1.2) APTT (22.0-30.0) sec Sodium (137-145) mmol/L Potassium (3.5-5.1) mmol/L Chloride (98-107) mmol/L Carbon Dioxide (22-30) mmol/L Anion Gap mmol/L BUN (9-20) mg/dL Creatinine (0.66-1.25) mg/dL Est GFR (CKD-EPI)AfAm (>60 ml/min/1.73 sqM) Est GFR (CKD-EPI)NonAf (>60 ml/min/1.73 sqM) Glucose (74-99) mg/dL Calcium (8.4-10.2) mg/dL Magnesium (1.6-2.3) mg/dL Total Bilirubin (0.2-1.3) mg/dL AST (17-59) U/L ALT (4-49) U/L Alkaline Phosphatase (38-126) U/L Troponin I <0.012 (0.000-0.034) ng/mL Total Protein (6.3-8.2) g/dL Albumin (3.5-5.0) g/dL Lipase (23-300) U/L Disposition Clinical Impression: Chest pain Disposition: HOME SELF-CARE Condition: Fair Instructions (If sedation given, give patient instructions): Chest Pain (ED) Is patient prescribed a controlled substance at d/c from ED?: No Referrals: Johann Rubalcava MD [Primary Care Provider] - 1-2 days Alisia Fernandes MD [STAFF PHYSICIAN] - 1-2 days Time of Disposition: 16:22
[2020-01-18 14:51] LABS: Basophils % (A) 0 %; Eosinophils # (A) 0.3 k/uL (0-0.7); Eosinophils % (A) 3 %; HCT 38.8 % (39.0-53.0); HGB 13.3 gm/dL (13.0-17.5); Lymphocytes # (A) 1.7 k/uL (1.0-4.8); Lymphocytes % (A) 23 %; MCH 29.9 pg (25.0-35.0); MCHC 34.2 g/dL (31.0-37.0); MCV 87.3 fL (80.0-100.0); Mean Platelet Volume 7.8; Monocytes # (A) 0.5 k/uL (0-1.0); Monocytes % (A) 6 %; Neutrophils # (A) 4.7 k/uL (1.3-7.7); Neutrophils % (A) 65 %; Platelet Count 246 k/uL (150-450); RBC 4.45 m/uL (4.30-5.90); RDW 13.1 % (11.5-15.5); WBC 7.3 k/uL (3.8-10.6)
[2020-01-18 15:04] LABS: ALT 24 U/L (4-49); AST 31 U/L (17-59); African American GFR (CKD) >90 (>60 ml/min/1.73 sqM); Albumin 3.6 g/dL (3.5-5.0); Alkaline Phosphatase 98 U/L (38-126); Anion Gap 8 mmol/L; Blood Urea Nitrogen 18 mg/dL (9-20); Carbon Dioxide 23 mmol/L (22-30); Chloride 108 mmol/L (98-107); Glucose 94 mg/dL (74-99); Magnesium 1.8 mg/dL (1.6-2.3); Non-African American GFR(CKD) 88 (>60 ml/min/1.73 sqM); Potassium 4.3 mmol/L (3.5-5.1); Sodium 139 mmol/L (137-145); Total Bilirubin 0.8 mg/dL (0.2-1.3); Total Protein 6.5 g/dL (6.3-8.2)
[2020-01-18 15:13] LABS: INR 1.1 (<1.2); Partial Thromboplastin Time 27.8 sec (22.0-30.0)
--- NOTE | 2020-01-18 15:46 | XR ---
EXAMINATION TYPE: XR chest 2V DATE OF EXAM: 01/18/2020 COMPARISON: R chest x-ray 12/28/2019 HISTORY: Chest pain TECHNIQUE: Frontal and lateral views of the chest are obtained. FINDINGS: There is no focal air space opacity, pleural effusion, or pneumothorax seen. The cardiac silhouette size is stable and enlarged. There are overlying cardiac leads. There is eventration of t he right hemidiaphragm. The osseous structures are intact. Surgical clips present in the right upper quadrant. IMPRESSION: Stable cardiomegaly.
[2020-01-18 16:31] VITALS: BP 135/78; PULSE 85; RESP 20
== END 2020-01-18 16:31 | disposition home or self-care (01) ==
LOC: EC 14:06
DX: R07.89 Other chest pain (principal); I48.0 Paroxysmal atrial fibrillation; I48.92 Unspecified atrial flutter; I11.9 Hypertensive heart disease without heart failure; E78.5 Hyperlipidemia, unspecified; K21.9 Gastro-esophageal reflux disease without esophagitis; Z79.51 Long term (current) use of inhaled steroids; Z79.899 Other long term (current) drug therapy
CPT/HCPCS: 36415; 71046; 80053; 83690; 83735; 84484; 85025; 85610; 85730; 93005; 99285

== ENCOUNTER → 2020-09-29 | Outpatient (CLI) | payer MEDICARE ==
--- NOTE | 2020-09-30 08:04 | CT ---
CT CHEST FOR PULMONARY EMBOLISM. EXAMINATION TYPE: CT angio chest DATE OF EXAM: 09/29/2020 INDICATION: aneurysm w/o rupture CT DLP: 1025 mGycm, Automated exposure control for dose reduction was used. CONTRAST: Patient injected with 80 mL of Isovue 370. COMPARISON: 09/01/2019 TECHNIQUE: CT of the chest is performed on a spiral scan at 2 mm thick sections. Study is performed with intravenous contrast timed for evaluation for aortic aneurysm This will limit additional portion s of the evaluation. 3-D MIP images reconstructed by the technologist are reviewed on the computer i n the coronal and sagittal planes. Three-D reconstructed images performed by the technologist are rev iewed on the computer. There may be a four-vessel arch. FINDINGS: No persistent filling defects are evident to suggest an acute pulmonary embolism. Timing was for eval uation of the aorta causing limitation on this portion of the evaluation No mediastinal or hilar adenopathy enlarged by CT criteria is evident. The ascending aorta diameter at the level of the main pulmonary artery is 4.3 cm. The main pulmonary artery diameter at the bifur cation is 3.3 cm. Aorta: The aorta at the aortic root is 3.9 cm. The aorta at the main pulmonary artery is 4.3 cm. The transverse dimension at the aortic arch is 3.0 cm. The aorta at the diaphragm is 2.6 cm. No dissectio n is evident. Lung windows are clear. Limited CT section through the upper abdomen are unremarkable. IMPRESSIONS: 1. Ascending thoracic aortic aneurysm measuring 4.3 cm. This is [facility]
== END | disposition home or self-care (01) ==
LOC: RADCTMAIN 16:48
PROVIDERS: ATTEND Internal Medicine Interventional Cardiology
DX: I71.2 Thoracic aortic aneurysm, without rupture (principal)
CPT/HCPCS: 82565; 84520; 71275; 36415; Q9967

== ENCOUNTER 2020-11-25 15:08 | Emergency (ER) | payer MEDICARE ==
[2020-11-25 15:11] VITALS: TEMP 98.2
--- NOTE | 2020-11-25 15:37 | ED ---
Chest Pain HPI - General Chief Complaint: Chest Pain Stated Complaint: Chest Pain Time Seen by Provider: 11/25/20 15:10 Source: patient Mode of arrival: ambulatory Limitations: no limitations - History of Present Illness Initial Comments: Patient is a 70-year-old male with past medical history of A. fib, thoracic aortic aneurysm presents emergency room with reported chest pain and hemoptysis. Patient states that he was sleeping and around 7 AM he was awakened with chest pain and palpitations. States that it was short-lived. Later on in the morning the patient ended up having an episode of hemoptysis. Denies history of similar in the past. Patient takes Xarelto for his afib. He sees Dr. Katz and Dr. Fernandes. Patient denies history of PE. No shortness of breath. He currently has a burning sensation in his chest however denies pain. No history of peptic ulcer disease. Denies any abdominal pain. 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 No fevers or chills. Recently finished antibiotics on Tuesday for pna. No other alleviating, precipitating or modifying factors - Related Data Home Medications Medication Instructions Recorded Confirmed Montelukast [Singulair] 10 mg PO HS 08/26/15 11/25/20 Atorvastatin Calcium 10 mg PO HS 08/31/16 11/25/20 Fluticasone Nasal [place] [Flonase 1 spray EA NOSTRIL HS 07/13/18 11/25/20 Nasal [place]] Fluticasone/Salmeterol [Advair 1 puff INHALATION RT-HS 12/27/18 11/25/20 250-50 Diskus] Esomeprazole Magnesium [NexIUM] 40 mg PO DAILY 12/06/19 11/25/20 Losartan [Cozaar] 50 mg PO HS 12/06/19 11/25/20 Albuterol Inhaler [Ventolin Hfa 2 puff INHALATION RT-Q4H PRN 11/25/20 11/25/20 Inhaler] Cetirizine HCl 10 mg PO HS 11/25/20 11/25/20 Cholecalciferol [Vitamin D3 (25 1,000 unit PO HS 11/25/20 11/25/20 Mcg = 1000 Iu)] Previous Rx's Medication Instructions Recorded Rivaroxaban [Xarelto] 20 mg PO HS #0 12/09/19 Dronedarone [Multaq] 400 mg PO AC-BID #60 tab 12/30/19 Allergies Allergy/AdvReac Type Severity Reaction Status Date / Time No Known Allergies Allergy Verified 11/25/20 16:16 Review of Systems ROS Statement: Those systems with pertinent positive or pertinent negative responses have been documented in the HPI. ROS Other: All systems not noted in ROS Statement are negative. EKG Findings - EKG Comments: EKG Findings:: EKG demonstrates a sinus rhythm with PACs. Rate of 66. MD interval 174. QRS 134. QTC of 471. Right bundle branch present. no acute ST segment elevations or depressions Past Medical History Past Medical History: Atrial Fibrillation, Atrial Flutter, Chest Pain / Angina, Eye Disorder, GERD/Reflux, Hyperlipidemia, Hypertension, Osteoarthritis (OA), Pneumonia, Prostate Disorder Additional Past Medical History / Comment(s): Paroxysmal Afib, aflutter, atach, RVR, bronchitis, BPH, bilateral astigmatism, sinus problems, BPH with outflow obstruction but none since TURP, arthritis in fingers. History of Any Multi-Drug Resistant Organisms: None Reported Past Surgical History: Ablation, Appendectomy, Cardiac Ablation, Cholecystectomy, Prostate Surgery Additional Past Surgical History / Comment(s): 12/13/17 PVI/cryoablation of 4 pulmonary veins, cardiac ablations with last time being 12/24/19, BESSIE/cardioversions, colonoscopy, bilateral cataract removals, TURP. Past Anesthesia/Blood Transfusion Reactions: No Reported Reaction Past Psychological History: No Psychological Hx Reported Smoking Status: Never smoker Past Alcohol Use History: None Reported Past Drug Use History: None Reported - Past Family History Father History Unknown: Yes Family Medical History: CVA/TIA Additional Family Medical History / Comment(s): Father had a CVA. He lived to be 75 yrs. old. Mother History Unknown: Yes Family Medical History: CVA/TIA Additional Family Medical History / Comment(s): Mother had a CVA x 2. He lived to be 82 yrs old. General Exam Limitations: no limitations General appearance: alert, in no apparent distress Head exam: Present: atraumatic, normocephalic, normal inspection Eye exam: Present: normal appearance, PERRL, EOMI. Absent: scleral icterus, conjunctival injection, periorbital swelling ENT exam: Present: normal exam, mucous membranes moist Neck exam: Present: normal inspection. Absent: tenderness, meningismus, lymphadenopathy Respiratory exam: Present: normal lung sounds bilaterally. Absent: respiratory distress, wheezes, rales, rhonchi, stridor Cardiovascular Exam: Present: regular rate, normal rhythm, normal heart sounds. Absent: systolic murmur, diastolic murmur, rubs, gallop, clicks GI/Abdominal exam: Present: soft, normal bowel sounds. Absent: distended, tenderness, guarding, rebound, rigid Extremities exam: Present: normal inspection, full ROM, normal capillary refill. Absent: tenderness, pedal edema, joint swelling, calf tenderness Back exam: Present: normal inspection Neurological exam: Present: alert, oriented X3, CN II-XII intact Psychiatric exam: Present: normal affect, normal mood Skin exam: Present: warm, dry, intact, normal color. Absent: rash Course Vital Signs 11/25/20 11/25/20 11/25/20 15:09 15:35 16:40 Temperature 98.2 F Pulse Rate 64 60 57 L Respiratory 16 18 18 Rate Blood Pressure 153/82 135/88 128/80 O2 Sat by Pulse 97 98 96 Oximetry 11/25/20 11/25/20 18:00 18:40 Temperature 98.2 F Pulse Rate 56 L 56 L Respiratory 18 18 Rate Blood Pressure 136/88 148/71 O2 Sat by Pulse 98 97 Oximetry Chest Pain MDM - MDM Upon arrival patient is placed into room 11. A thorough history and physical exam was performed. Told EKG was performed which is consistent with the patient's previous morphology. I would restudies were obtained the patient went over for CT of his chest because of this history of his thoracic aneurysm. Lab studies reveal a negative troponin. CT demonstrates no signs of home embolism. His ascending aorta is 4.2 cm. Results are discussed with the patient. I did recommend hospitalization in order trend the patient's troponins and see if he has recurrence of his hemoptysis. Patient refused. He is of sound mind and capable of making his own decisions. She must follow-up with his primary care physician. Instructed to follow-up in 2-4 days. The patient has any new or worsening symptoms she should return to the emergency room. Patient was discharged home in stable condition Disposition Clinical Impression: Chest pain, Ascending aortic aneurysm Disposition: HOME SELF-CARE Condition: Stable Instructions (If sedation given, give patient instructions): Chest Pain (ED) Additional Instructions: I recommended hospital admission. Please follow up with your primary care doctor in 2-4 days. Return to the emergency room for any new or worsening symptoms. Is patient prescribed a controlled substance at d/c from ED?: No Referrals: Johann Rubalcava MD [Primary Care Provider] - 1-2 days Alisia Fernandes MD [STAFF PHYSICIAN] - 1-2 days Time of Disposition: 18:26
[2020-11-25 15:40] VITALS: RESP 18
[2020-11-25 15:56] LABS: Basophils % (A) 0 %; Eosinophils # (A) 0.3 k/uL (0-0.7); Eosinophils % (A) 4 %; HCT 43.2 % (39.0-53.0); HGB 14.5 gm/dL (13.0-17.5); Lymphocytes # (A) 1.8 k/uL (1.0-4.8); Lymphocytes % (A) 22 %; MCH 29.5 pg (25.0-35.0); MCHC 33.4 g/dL (31.0-37.0); MCV 88.1 fL (80.0-100.0); Mean Platelet Volume 7.3; Monocytes # (A) 0.7 k/uL (0-1.0); Monocytes % (A) 9 %; Neutrophils % (A) 63 %; Platelet Count 269 k/uL (150-450); RBC 4.91 m/uL (4.30-5.90); RDW 13.9 % (11.5-15.5); WBC 7.9 k/uL (3.8-10.6)
[2020-11-25 16:04] LABS: Potassium 4.2 mmol/L (3.5-5.1)
[2020-11-25 16:05] LABS: Albumin 3.8 g/dL (3.5-5.0); Calcium 9.6 mg/dL (8.4-10.2); INR 1.3 (<1.2); Magnesium 1.8 mg/dL (1.6-2.3); Partial Thromboplastin Time 31.8 sec (22.0-30.0); Prothrombin Time 12.7 sec (9.0-12.0); Total Bilirubin 0.8 mg/dL (0.2-1.3); Total Protein 6.9 g/dL (6.3-8.2)
[2020-11-25 18:05] VITALS: PULSE 56
--- NOTE | 2020-11-25 18:06 | CT ---
CT CHEST FOR PULMONARY EMBOLISM. EXAMINATION TYPE: CT angio chest DATE OF EXAM: 11/25/2020 INDICATION: Chest pain and hemopytosis today CT DLP: 904.5 mGycm, Automated exposure control for dose reduction was used. CONTRAST: Patient injected with 100 mL of Isovue 370. COMPARISON: 09/29/2020 TECHNIQUE: CT of the chest is performed on a spiral scan at 2 mm thick sections. Study is performed with intravenous contrast timed for evaluation for pulmonary embolism. This will limit additional po rtions of the evaluation. 3-D MIP images reconstructed by the technologist are reviewed on the compu ter in the coronal and sagittal planes. FINDINGS: No persistent filling defects are evident to suggest an acute pulmonary embolism. No mediastinal or hilar adenopathy enlarged by CT criteria is evident. The ascending aorta diameter at the level of the main pulmonary artery is 4.2 cm. The main pulmonary artery diameter at the bifur cation is 2.9 cm. Lung windows are clear. Limited CT section through the upper abdomen are unremarkable. IMPRESSIONS: 1. No acute pulmonary embolism.
[2020-11-25 18:42] VITALS: BP 148/71
== END 2020-11-25 18:42 | disposition home or self-care (01) ==
LOC: EC 15:08
DX: I71.2 Thoracic aortic aneurysm, without rupture (principal); I48.0 Paroxysmal atrial fibrillation; I10 Essential (primary) hypertension; E78.5 Hyperlipidemia, unspecified; K21.9 Gastro-esophageal reflux disease without esophagitis; Z79.51 Long term (current) use of inhaled steroids; Z79.01 Long term (current) use of anticoagulants; Z79.899 Other long term (current) drug therapy; Z90.79 Acquired absence of other genital organ(s)
CPT/HCPCS: 36415; 93005; 80053; 83735; 84484; 85025; 85610; 85730; 71275; 99285; Q9967

== ENCOUNTER 2020-12-03 20:27 | Observation (INO) | payer MEDICARE ==
[2020-12-03] MEDS ORDERED: NITROGLYCERIN SL TABS 0.4 MG TAB SUBLINGUAL STA ×3 (20:39)
[2020-12-03] MEDS ORDERED: ASPIRIN 81 MG PO STA (20:39)
--- NOTE | 2020-12-03 20:46 | ED ---
General Adult HPI - General Chief complaint: Chest Pain Stated complaint: Chest pain Time Seen by Provider: 12/03/20 20:34 Source: patient, RN notes reviewed Mode of arrival: ambulatory Limitations: no limitations - History of Present Illness Initial comments: Patient is a pleasant 70-year-old male presenting to the emergency department complaints of chest discomfort. Onset of symptoms was 2 days ago. Symptoms have been somewhat waxing and waning. Discomfort felt more like indigestion and was more lateral. Discomfort now is more sharp and more left anterior chest. No associated dyspnea, nausea, or diaphoresis. Patient states symptoms are geremias ewhat worse with exhalation. - Related Data Home Medications Medication Instructions Recorded Confirmed Montelukast [Singulair] 10 mg PO HS 08/26/15 12/03/20 Atorvastatin Calcium 10 mg PO HS 08/31/16 12/03/20 Fluticasone Nasal [place] [Flonase 1 spray EA NOSTRIL HS 07/13/18 12/03/20 Nasal [place]] Fluticasone/Salmeterol [Advair 1 puff INHALATION RT-HS 12/27/18 12/03/20 250-50 Diskus] Esomeprazole Magnesium [NexIUM] 40 mg PO DAILY 12/06/19 12/03/20 Losartan [Cozaar] 50 mg PO HS 12/06/19 12/03/20 Albuterol Inhaler [Ventolin Hfa 2 puff INHALATION RT-Q4H PRN 11/25/20 12/03/20 Inhaler] Cetirizine HCl 10 mg PO HS 11/25/20 12/03/20 Cholecalciferol [Vitamin D3 (25 1,000 unit PO HS 11/25/20 12/03/20 Mcg = 1000 Iu)] Previous Rx's Medication Instructions Recorded Rivaroxaban [Xarelto] 20 mg PO HS #0 12/09/19 Dronedarone [Multaq] 400 mg PO AC-BID #60 tab 12/30/19 Allergies Allergy/AdvReac Type Severity Reaction Status Date / Time No Known Allergies Allergy Verified 12/03/20 21:36 Review of Systems ROS Statement: Those systems with pertinent positive or pertinent negative responses have been documented in the HPI. ROS Other: All systems not noted in ROS Statement are negative. Constitutional: Denies: fever Eyes: Denies: eye pain ENT: Denies: ear pain Respiratory: Denies: cough, dyspnea Cardiovascular: Reports: as per HPI, chest pain. Denies: palpitations Endocrine: Denies: fatigue Gastrointestinal: Denies: abdominal pain Genitourinary: Denies: dysuria Musculoskeletal: Denies: back pain Skin: Denies: rash Neurological: Denies: weakness Past Medical History Past Medical History: Atrial Fibrillation, Atrial Flutter, Chest Pain / Angina, Eye Disorder, GERD/Reflux, Hyperlipidemia, Hypertension, Osteoarthritis (OA), Pneumonia, Prostate Disorder Additional Past Medical History / Comment(s): Paroxysmal Afib, aflutter, atach, RVR, bronchitis, BPH, bilateral astigmatism, sinus problems, BPH with outflow obstruction but none since TURP, arthritis in fingers. History of Any Multi-Drug Resistant Organisms: None Reported Past Surgical History: Ablation, Appendectomy, Cardiac Ablation, Cholec ystectomy, Prostate Surgery Additional Past Surgical History / Comment(s): 12/13/17 PVI/cryoablation of 4 pulmonary veins, cardiac ablations with last time being 12/24/19, BESSIE/c ardioversions, colonoscopy, bilateral cataract removals, TURP. Past Anesthesia/Blood Transfusion Reactions: No Reported Reaction Past Psychological History: No Psychological Hx Reported Smoking Status: Never smoker Past Alcohol Use History: None Reported Past Drug Use History: None Reported - Past Family History Father History Unknown: Yes Family Medical History: CVA/TIA Additional Family Medical History / Comment(s): Father had a CVA. He lived to be 75 yrs. old. Mother History Unknown: Yes Family Medical History: CVA/TIA Additional Family Medical History / Comment(s): Mother had a CVA x 2. He lived to be 82 yrs old. General Exam Limitations: no limitations General appearance: alert, in no apparent distress Head exam: Present: normocephalic Eye exam: Present: normal appearance Neck exam: Present: normal inspection Respiratory exam: Present: normal lung sounds bilaterally. Absent: chest wall tenderness Cardiovascular Exam: Present: regular rate, normal rhythm Expanded Peripheral pulses: 2+: Radial (R), Radial (L), Posterior Tibialis (R), Posterior Tibialis (L) GI/Abdominal exam: Present: soft. Absent: tenderness Extremities exam: Present: normal inspection. Absent: pedal edema, calf tenderness Neurological exam: Present: alert Psychiatric exam: Present: normal affect, normal mood Skin exam: Present: normal color Course Vital Signs 12/03/20 12/03/20 12/03/20 20:29 21:01 21:09 Temperature 98.3 F Pulse Rate 60 64 70 Respiratory 20 18 18 Rate Blood Pressure 163/78 132/81 O2 Sat by Pulse 97 98 98 Oximetry 12/03/20 22:17 Temperature Pulse Rate 56 L Respiratory 18 Rate Blood Pressure 120/72 O2 Sat by Pulse 98 Oximetry EKG Findings - EKG Comments: EKG Findings:: Normal sinus rhythm at 62. ME 168. QRS 132. QT 478. QTC 485. Normal axis. Right bundle branch block. No acute ST change. Medical Decision Making - Medical Decision Making Patient reevaluated and symptoms have improved. Discomfort is not as intense and feels more like an ache at this time. Patient and family updated on results and plan. Dr. Godinez has been paged for admission, covering for Dr. Rubalcava. - Lab Data Result diagrams: 12/03/20 20:49 12/03/20 20:49 Lab Results 12/03/20 12/03/20 12/03/20 Range/Units 20:49 20:49 20:49 WBC 9.2 (3.8-10.6) k/uL RBC 4.41 (4.30-5.90) m/uL Hgb 13.3 (13.0-17.5) gm/dL Hct 38.4 L (39.0-53.0) % MCV 87.0 (80.0-100.0) fL MCH 30.2 (25.0-35.0) pg MCHC 34.7 (31.0-37.0) g/dL RDW 13.3 (11.5-15.5) % Plt Count 208 (150-450) k/uL MPV 7.4 Neutrophils % 58 % Lymphocytes % 24 % Monocytes % 8 % Eosinophils % 8 % Basophils % 1 % Neutrophils # 5.3 (1.3-7.7) k/uL Lymphocytes # 2.2 (1.0-4.8) k/uL Monocytes # 0.7 (0-1.0) k/uL Eosinophils # 0.7 (0-0.7) k/uL Basophils # 0.1 (0-0.2) k/uL PT 12.0 (9.0-12.0) sec INR 1.2 H (<1.2) APTT 27.7 (22.0-30.0) sec Sodium 138 (137-145) mmol/L Potassium 4.0 (3.5-5.1) mmol/L Chloride 108 H (98-107) mmol/L Carbon Dioxide 25 (22-30) mmol/L Anion Gap 5 mmol/L BUN 15 (9-20) mg/dL Creatinine 0.99 (0.66-1.25) mg/dL Est GFR (CKD-EPI)AfAm 89 (>60 ml/min/1.73 sqM) Est GFR (CKD-EPI)NonAf 77 (>60 ml/min/1.73 sqM) Glucose 98 (74-99) mg/dL Calcium 9.2 (8.4-10.2) mg/dL Magnesium 1.7 (1.6-2.3) mg/dL Total Bilirubin 0.6 (0.2-1.3) mg/dL AST 31 (17-59) U/L ALT 26 (4-49) U/L Alkaline Phosphatase 94 (38-126) U/L Troponin I (0.000-0.034) ng/mL Total Protein 6.4 (6.3-8.2) g/dL Albumin 3.5 (3.5-5.0) g/dL 12/03/20 Range/Units 20:49 WBC (3.8-10.6) k/uL RBC (4.30-5.90) m/uL Hgb (13.0-17.5) gm/dL Hct (39.0-53.0) % MCV (80.0-100.0) fL MCH (25.0-35.0) pg MCHC (31.0-37.0) g/dL RDW (11.5-15.5) % Plt Count (150-450) k/uL MPV Neutrophils % % Lymphocytes % % Monocytes % % Eosinophils % % Basophils % % Neutrophils # (1.3-7.7) k/uL Lymphocytes # (1.0-4.8) k/uL Monocytes # (0-1.0) k/uL Eosinophils # (0-0.7) k/uL Basophils # (0-0.2) k/uL PT (9.0-12.0) sec INR (<1.2) APTT (22.0-30.0) sec Sodium (137-145) mmol/L Potassium (3.5-5.1) mmol/L Chloride (98-107) mmol/L Carbon Dioxide (22-30) mmol/L Anion Gap mmol/L BUN (9-20) mg/dL Creatinine (0.66-1.25) mg/dL Est GFR (CKD-EPI)AfAm (>60 ml/min/1.73 sqM) Est GFR (CKD-EPI)NonAf (>60 ml/min/1.73 sqM) Glucose (74-99) mg/dL Calcium (8.4-10.2) mg/dL Magnesium (1.6-2.3) mg/dL Total Bilirubin (0.2-1.3) mg/dL AST (17-59) U/L ALT (4-49) U/L Alkaline Phosphatase (38-126) U/L Troponin I <0.012 (0.000-0.034) ng/mL Total Protein (6.3-8.2) g/dL Albumin (3.5-5.0) g/dL - Radiology Data Radiology results: report reviewed (Computed tomography scan of the chest shows mild aneurysmal ascending aorta. No pulmonary embolism. No significant change from previous), image reviewed (Chest x-ray shows no acute process) Disposition Clinical Impression: Chest pain Disposition: ADMITTED IP TO THIS HOSP Is patient prescribed a controlled substance at d/c from ED?: No Referrals: Johann Rubalcava MD [Primary Care Provider] - 1-2 days Decision Time: 22:48
[2020-12-03 21:03] LABS: Basophils # (A) 0.1 k/uL (0-0.2); Basophils % (A) 1 %; Eosinophils # (A) 0.7 k/uL (0-0.7); Eosinophils % (A) 8 %; HCT 38.4 % (39.0-53.0); HGB 13.3 gm/dL (13.0-17.5); Lymphocytes # (A) 2.2 k/uL (1.0-4.8); Lymphocytes % (A) 24 %; MCH 30.2 pg (25.0-35.0); MCHC 34.7 g/dL (31.0-37.0); Mean Platelet Volume 7.4; Monocytes # (A) 0.7 k/uL (0-1.0); Monocytes % (A) 8 %; Neutrophils # (A) 5.3 k/uL (1.3-7.7); Neutrophils % (A) 58 %; Platelet Count 208 k/uL (150-450); RBC 4.41 m/uL (4.30-5.90); RDW 13.3 % (11.5-15.5); WBC 9.2 k/uL (3.8-10.6)
--- NOTE | 2020-12-03 21:09 | XR ---
EXAMINATION TYPE: XR chest 2V DATE OF EXAM: 12/03/2020 COMPARISON: 01/18/2020 HISTORY: Chest pain TECHNIQUE: FINDINGS: Heart and mediastinum are normal. Lungs are clear. Diaphragm is normal. There are chest edward ds. Bony thorax is intact. IMPRESSION: No active cardiopulmonary disease. Normal heart. No adverse change. Heart appears smaller than old exam.
[2020-12-03 21:13] LABS: Albumin 3.5 g/dL (3.5-5.0); Calcium 9.2 mg/dL (8.4-10.2); Magnesium 1.7 mg/dL (1.6-2.3); Total Bilirubin 0.6 mg/dL (0.2-1.3); Total Protein 6.4 g/dL (6.3-8.2)
[2020-12-03 21:18] LABS: INR 1.2 (<1.2); Partial Thromboplastin Time 27.7 sec (22.0-30.0)
--- NOTE | 2020-12-03 22:31 | CT ---
EXAMINATION TYPE: CT angio chest DATE OF EXAM: 12/03/2020 COMPARISON: 11/25/2020 HISTORY: Left sided chest pain. Evaluate aorta. CT DLP: 746.3 mGycm Automated exposure control for dose reduction was used. CONTRAST: Performed without and with IV Contrast, patient injected with 100 mL of Isovue 370. Images obtained from the thoracic inlet to the diaphragm with IV contrast and 3-D post processed imag es. There is mild subsegmental atelectasis at the posterior lung bases. There is no pleural effusion. Hea rt appears slightly enlarged. There is no pericardial effusion. There is no evidence of a pulmonary m ass. There is no mediastinal adenopathy. There are no hilar masses. There is normal contrast opacification of the pulmonary arteries. There are no filling defects. There is 4 cm aneurysm of the ascending aorta. The bony thorax is intact. IMPRESSION: Mild cardiomegaly. Coronary artery calcification. Mild aneurysm ascending aorta. No evidence of pulmonary embolism. No significant change compared to recent exam.
[2020-12-03] MEDS ORDERED: NITROGLYCERIN SL TABS 0.4 MG TAB SUBLINGUAL PRN (22:46)
[2020-12-03] MEDS: NITROGLYCERIN OINT 1 INCH/GM PACKET TOPICAL SCH (23:28)
[2020-12-04 02:55] VITALS: PULSE 50
[2020-12-04 04:26] LABS: Cholesterol 110 mg/dL (<200); HDL Cholesterol 33 mg/dL (40-60); LDL Cholesterol,Calculated 49 mg/dL (0-99); Triglycerides 140 mg/dL (<150)
[2020-12-04] MEDS: NITROGLYCERIN OINT 1 INCH/GM PACKET TOPICAL SCH (06:18)
[2020-12-04] MEDS ORDERED: DRONEDARONE 400 MG TAB PO SCH (07:30)
[2020-12-04 08:35] VITALS: BP 119/74; RESP 16; TEMP 97.9
[2020-12-04] MEDS ORDERED: PANTOPRAZOLE 40 MG TABLET PO SCH (09:00)
[2020-12-04] MEDS ORDERED: ASPIRIN 325 MG TAB PO SCH (09:00)
--- NOTE | 2020-12-04 10:53 | P.CRDCN ---
History of Present Illness Consult date: 12/04/20 History of present illness: CHIEF COMPLAINT: Chest pain HISTORY OF PRESENT ILLNESS: This is a 70-year-old male with a past medical history significant for atrial fibrillation, hypertension, and hyperlipidemia. Patient follows in the office with Dr. Fernandes. We have been asked to see the patient in consultation for chest pain. Patient examined this morning at bedside. Patient states he started to get a stabbing sharp pain on the left side of his chest on Tuesday. He states that the pain got better and then yesterday the pain came back and it was slightly worse in intensity. He denies any radiation of the pain. He denies any shortness of breath. He denies any nausea or vomiting. At the time of examination this morning, the patient is not having any chest pain. Patient underwent cardiac catheterization in August 2020 which did not reveal any significant coronary artery disease. DIAGNOSTICS: EKG reveals sinus rhythm with no signs of acute ischemia. Right bundle branch block Chest xray no active cardiac pulmonary disease. Laboratory data: WBC 9.2. Hemoglobin 13.3. Platelet count 208. Sodium 138. Potassium 4.0. BUN 15. Creatinine 0.99. Magnesium 1.7. Troponin negative 3. Current home cardiac medications include Xarelto 20 mg daily, losartan 50 mg daily, multaq 400mg BID, atorvastatin 10 mg daily REVIEW OF SYSTEMS: At the time of my exam: CONSTITUTIONAL: Denies fever or chills. HEENT: Denies blurred vision, vision changes, or eye pain. Denies hemoptysis CARDIOVASCULAR: Denies chest pain, orthopnea, PND or palpitations RESPIRATORY: No shortness of breath. GASTROINTESTINAL: Denies abdominal pain. Denies nausea or vomiting. HEMATOLOGIC: Denies bleeding disorders. GENITOURINARY: Denies any blood in urine. SKIN: Denies pruitis. Denies rash. PHYSICAL EXAM: VITAL SIGNS: Reviewed. GENERAL: Well-developed in no acute distress. HEENT: Head is normocephalic. Pupils are equal, round. Sclerae anicteric. Mucous membranes of the mouth are moist. Neck supple. No JVD or thyromegaly LUNGS: Respirations even and unlabored. Lungs essentially clear to auscultation bilaterally. HEART: Regular rate and rhythm. S1 and S2 heard. ABDOMEN: Soft. Nondistended. Nontender. EXTREMITIES: Normal range of motion. No clubbing or cyanosis. Peripheral pulses intact. No lower extremity edema NEUROLOGIC: Awake and alert. Oriented x 3. ASSESSMENT: Chest pain, troponins negative 3 Paroxysmal atrial fibrillation, on long-term anticoagulation with Xarelto Hypertension Hyperlipidemia PLAN: Resume home cardiac medications Obtain 2-D echo to assess cardiac structure and function Patient to undergo stress echo today to assess for reversible ischemia If no significant abnormalities noted on echocardiogram and stress test is negative, the patient may be discharged home today from a cardiac perspective and follow up with Dr. Fernandes Nurse practitioner note has been reviewed by physician. Signing provider agrees with the documented findings, assessment, and plan of care. Past Medical History Past Medical History: Atrial Fibrillation, Atrial Flutter, Chest Pain / Angina, Eye Disorder, GERD/Reflux, Hyperlipidemia, Hypertension, Osteoarthritis (OA), Pneumonia, Prostate Disorder Additional Past Medical History / Comment(s): Paroxysmal Afib, aflutter, atach, RVR, bronchitis, BPH, bilateral astigmatism, sinus problems, BPH with outflow obstruction but none since TURP, arthritis in fingers. History of Any Multi-Drug Resistant Organisms: None Reported Past Surgical History: Ablation, Appendectomy, Cardiac Ablation, Cholecystectomy, Prostate Surgery Additional Past Surgical History / Comment(s): 12/13/17 PVI/cryoablation of 4 pulmonary veins, cardiac ablations with last time being 12/24/19, BESSIE/cardioversions, colonoscopy, bilateral cataract removals, TURP. Past Anesthesia/Blood Transfusion Reactions: No Reported Reaction Past Psychological History: No Psychological Hx Reported Additional Psychological History / Comment(s): Pt resides with his spouse. He is retired. He is independent. He uses no assistive device. He drives. No past service. Smoking Status: Never smoker Past Alcohol Use History: None Reported Past Drug Use History: None Reported - Past Family History Father History Unknown: Yes Family Medical History: CVA/TIA Additional Family Medical History / Comment(s): Father had a CVA. He lived to be 75 yrs. old. Mother History Unknown: Yes Family Medical History: CVA/TIA Additional Family Medical History / Comment(s): Mother had a CVA x 2. He lived to be 82 yrs old. Medications and Allergies Home Medications Medication Instructions Recorded Confirmed Type Montelukast [Singulair] 10 mg PO HS 08/26/15 12/03/20 History Atorvastatin Calcium 10 mg PO HS 08/31/16 12/03/20 History Fluticasone Nasal [place] [Flonase 1 spray EA NOSTRIL HS 07/13/18 12/03/20 History Nasal [place]] Fluticasone/Salmeterol [Advair 1 puff INHALATION RT-HS 12/27/18 12/03/20 History 250-50 Diskus] Esomeprazole Magnesium [NexIUM] 40 mg PO DAILY 12/06/19 12/03/20 History Losartan [Cozaar] 50 mg PO HS 12/06/19 12/03/20 History Rivaroxaban [Xarelto] 20 mg PO HS #0 12/09/19 12/03/20 Rx Dronedarone [Multaq] 400 mg PO AC-BID #60 tab 12/30/19 12/03/20 Rx Albuterol Inhaler [Ventolin Hfa 2 puff INHALATION RT-Q4H PRN 11/25/20 12/03/20 History Inhaler] Cetirizine HCl 10 mg PO HS 11/25/20 12/03/20 History Cholecalciferol [Vitamin D3 (25 1,000 unit PO HS 11/25/20 12/03/20 History Mcg = 1000 Iu)] Allergies Allergy/AdvReac Type Severity Reaction Status Date / Time No Known Allergies Allergy Verified 12/03/20 21:36 Physical Exam Vitals: Vital Signs Temp Pulse Pulse Resp BP BP Pulse Ox 12/04/20 09:00 50 L 16 12/04/20 08:34 97.9 F 50 L 16 119/74 96 12/04/20 02:40 97.7 F 50 L 17 101/62 97 12/03/20 23:29 97.9 F 55 L 17 119/65 98 12/03/20 23:05 98.2 F 56 L 20 127/82 100 12/03/20 22:17 56 L 18 120/72 98 12/03/20 21:09 70 18 132/81 98 12/03/20 21:01 64 18 98 12/03/20 20:29 98.3 F 60 20 163/78 97 Intake and Output 12/03/20 12/04/20 12/04/20 22:59 06:59 14:59 Other: Voiding Method Toilet Toilet # Voids 1 1 Weight 102.058 kg 102.058 kg Results 12/03/20 20:49 12/03/20 20:49 Cardiac Enzymes 12/03/20 12/03/20 12/03/20 Range/Units 20:49 20:49 23:16 AST 31 (17-59) U/L Troponin I <0.012 <0.012 (0.000-0.034) ng/mL 12/04/20 Range/Units 02:24 AST (17-59) U/L Troponin I <0.012 (0.000-0.034) ng/mL Coagulation 12/03/20 Range/Units 20:49 PT 12.0 (9.0-12.0) sec APTT 27.7 (22.0-30.0) sec Lipids 12/04/20 Range/Units 02:24 Triglycerides 140 (<150) mg/dL Cholesterol 110 (<200) mg/dL HDL Cholesterol 33 L (40-60) mg/dL CBC 12/03/20 Range/Units 20:49 WBC 9.2 (3.8-10.6) k/uL RBC 4.41 (4.30-5.90) m/uL Hgb 13.3 (13.0-17.5) gm/dL Hct 38.4 L (39.0-53.0) % Plt Count 208 (150-450) k/uL Comprehensive Metabolic Panel 12/03/20 Range/Units 20:49 Sodium 138 (137-145) mmol/L Potassium 4.0 (3.5-5.1) mmol/L Chloride 108 H (98-107) mmol/L Carbon Dioxide 25 (22-30) mmol/L BUN 15 (9-20) mg/dL Creatinine 0.99 (0.66-1.25) mg/dL Glucose 98 (74-99) mg/dL Calcium 9.2 (8.4-10.2) mg/dL AST 31 (17-59) U/L ALT 26 (4-49) U/L Alkaline Phosphatase 94 (38-126) U/L Total Protein 6.4 (6.3-8.2) g/dL Albumin 3.5 (3.5-5.0) g/dL Current Medications Generic Name Dose Route Start Last Admin Trade Name Freq PRN Reason Stop Dose Admin Aspirin 325 mg 12/04/20 09:00 12/04/20 08:36 Aspirin 325 Mg Tab PO 325 mg DAILY CHITRA Administration Atorvastatin Calcium 10 mg 12/04/20 21:00 Atorvastatin 10 Mg Tab PO HS CHITRA Cholecalciferol 1,000 unit 12/04/20 21:00 Cholecalciferol 1,000 Unit Tab PO HS CHITRA Dronedarone 400 mg 12/04/20 07:30 12/04/20 06:18 Dronedarone 400 Mg Tab PO 400 mg AC-BID CHITRA Administration Loratadine 10 mg 12/04/20 21:00 Loratadine 10 Mg Tab PO HS CHITRA Losartan Potassium 50 mg 12/04/20 21:00 Losartan 50 Mg Tab PO HS CHITRA Montelukast Sodium 10 mg 12/04/20 21:00 Montelukast 10 Mg Tab PO HS CHITRA Nitroglycerin 0.4 mg 12/03/20 22:46 Nitroglycerin Sl Tabs 0.4 Mg Tab SUBLINGUAL Q5M PRN Chest Pain Pantoprazole Sodium 40 mg 12/04/20 09:00 12/04/20 08:36 Pantoprazole 40 Mg Tablet PO 40 mg DAILY CHITRA Administration Rivaroxaban 20 mg 12/04/20 21:00 Rivaroxaban 20 Mg Tab PO HS CHITRA Intake and Output 12/03/20 12/04/20 12/04/20 22:59 06:59 14:59 Other: Voiding Method Toilet Toilet # Voids 1 1 Weight 102.058 kg 102.058 kg 12/03/20 20:49 12/03/20 20:49
--- NOTE | 2020-12-04 11:56 | ECHOF ---
Referral Reason:LV function MEASUREMENTS -------- HEIGHT: 177.8 cm WEIGHT: 102.1 kg BP: 101/62 RVIDd: 3.6 cm (< 3.3) IVSd: 1.3 cm (0.6 - 1.1) LVIDd: 4.7 cm (3.9 - 5.3) LVPWd: 1.3 cm (0.6 - 1.1) IVSs: 1.9 cm LVIDs: 2.9 cm LVPWs: 2.0 cm LA Diam: 4.2 cm (2.7 - 3.8) LAESV Index (A-L): 45.09 ml/m Ao Diam: 4.4 cm (2.0 - 3.7) AV Cusp: 2.4 cm (1.5 - 2.6) MV EXCURSION: 23.027 mm (> 18.000) MV EF SLOPE: 128 mm/s (70 - 150) EPSS: 0.3 cm MV E Vijay: 0.69 m/s MV DecT: 202 ms MV A Vijay: 0.32 m/s MV E/A Ratio: 2.17 AR PHT: 1017 ms RAP: 5.00 mmHg RVSP: 34.55 mmHg FINDINGS -------- Resting bradycardia (HR<60bpm). This was a technically adequate study. The left ventricular size is normal. There is mild concentric left ventricular hypertrophy. Overa ll left ventricular systolic function is normal with, an EF between 55 - 60 %. The right ventricle is mildly enlarged. LA is severely dilated >40 ml/m2 The right atrium is normal in size. Lipomatous Hypertrophy of the atrial septum is present The aortic valve is trileaflet and appears structurally normal. There is mild aortic regurgitation. Mild mitral regurgitation is present. Mild tricuspid regurgitation present. There is mild pulmonary hypertension. The right ventricular systolic pressure, as measured by Doppler, is 34.55mmHg. Trace/mild (physiologic) pulmonic regurgitation. 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 Normal inferior vena cava with normal inspiratory collapse consistent with estimated right atrial pre ssure of 5 mmHg. There is no pericardial effusion. CONCLUSIONS -------- 1. The left ventricular size is normal. 2. There is mild concentric left ventricular hypertrophy. 3. Overall left ventricular systolic function is normal with, an EF between 55 - 60 %. 4. The right ventricle is mildly enlarged. 5. LA is severely dilated >40 ml/m2 6. Lipomatous Hypertrophy of the atrial septum is present 7. There is mild aortic regurgitation. 8. Mild mitral regurgitation is present. 9. Mild tricuspid regurgitation present. 10. There is mild pulmonary hypertension. 11. The right ventricular systolic pressure, as measured by Doppler, is 34.55mmHg. 12. Trace/mild (physiologic) pulmonic regurgitation. 13. 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 14. There is no pericardial effusion. FEEDMOBILE DRIVER: ELNNY Dean
--- NOTE | 2020-12-04 13:53 | ECHOS ---
STRESS ECHOCARDIOGRAM LUMASON: - Vial INDICATIONS: Chest pain. MEDICATIONS: BASELINE HEART RATE: 61 BASELINE BLOOD PRESSURE: 142/86 MAXIMUM HEART RATE: 137 MAXIMUM BLOOD PRESSURE: 207/87 85% MPHR: 128 100% MPHR: 151 METS: 9 MAXIMUM STAGE REACHED: III TOTAL EXERCISE TIME: 6 minutes 47 seconds. CLINICAL INFORMATION: Baseline EKG shows sinus rhythm, normal axis, normal intervals. Patient exercised on Ibrahima protocol for a total of 6 minutes and 47 seconds achieving 9 METs, 90% of predicted maximal heart rate without chest pain or diagnostic ST-segment depression. Baseline echo shows normal left ventricular size, wall motion, and systolic function. Postexercise, there is normal hyperdynamic response of all segments of myocardium noted. CONCLUSION: 1. Negative stress test by EKG criteria. 2. Average exercise tolerance. 3. Negative stress echo. MMODL / IJN: [id number] /
--- NOTE | 2020-12-04 18:08 | P.HPIM ---
History of Present Illness H&P Date: 12/04/20 Chief Complaint: Chest pain History of presenting complaint: This is a [address] Rubalcava. Chronic stable medical conditions include hypertension, GERD, primary osteoarthritis, moderate persistent asthma, atrial fibrillation on anticoagulation,ascending aorta aneurysm 4.4 cm. in August 2019 patient had a cardiac catheterization that was negative. On December 25 patient was seen by regional otr company driver Dr. Chriss Katz had ablation was carried out for atrial tachycardia. Patient now presents with stabbing left precordial chest pain. steady. No shortness breath. No perspiration. No dizziness nor lightheadedness. No obvious relieving or aggravating factors. No cough or fever. Review of systems: GEN.: None EYES: None HEENT: None NECK: None RESPIRATORY: None CARDIOVASCULAR: As above GASTROINTESTINAL: heartburn GENITOURINARY: None MUSCULOSKELETAL: Pain in the joints LYMPHATICS: None HEMATOLOGICAL: None PSYCHIATRY: None NEUROLOGICAL: None Past medical history to include: Hypertension, GERD, primary osteoarthritis, moderate persistent asthma, atrial fibrillation/atrial tachycardia ablation, on anticoagulation,, BPH treated with TURP. Negative cardiac catheterization in 2018 Social history: , retired, no smoking. Alcohol rarely. Family history: Father had a stroke Physical examination: VITAL SIGNS: 97.9, 50, 16, 119/74, 96% room air GENERAL: Laying in bed, comfortable EYES: Pupils equal. Conjunctiva normal. HEENT: External appearance of nose and ears normal, oral cavity grossly normal. NECK: JVD not raised; masses not palpable. HEART: Heart sounds irregular; no edema. LUNGS: Respiratory rate normal; clear to auscultation. ABDOMEN: Soft, nontender, liver spleen not palpable, no masses palpable. PSYCH: Alert and oriented x3; mood and affect normal. Lymphatics: No lymph nodes palpable in the neck and axilla NEUROLOGICAL: Cranial nerves grossly intact. Power and sensation grossly intact INVESTIGATIONS, reviewed in the clinical context: White count 9.2 hemoglobin 13.3 potassium 4 creatinine 0.99 Troponin I 3 negative LDL 49 Chest x-ray film-borderline cardiac megaly. Lung bae clear Chest CTA-no PE EKG tracing normal sinus rhythm with right bundle branch block Assessment: -Left anterior chest wall pain. -Recurrent atrial flutter fibrillation uncontrolled with a prior ablation 3. Currently sinus rhythm. -4.4 cm ascending aorta aneurysm, for yearly follow-up -Essential hypertension -GERD -Primary osteoarthritis -Moderate persistent asthma -Obesity BMI 32.3 Plan: Home medications resumed. Serial cardiac enzymes were done. Cardiology consulted. Stress test ordered. Past Medical History Past Medical History: Atrial Fibrillation, Atrial Flutter, Chest Pain / Angina, Eye Disorder, GERD/Reflux, Hyperlipidemia, Hypertension, Osteoarthritis (OA), Pneumonia, Prostate Disorder Additional Past Medical History / Comment(s): Paroxysmal Afib, aflutter, atach, RVR, bronchitis, BPH, bilateral astigmatism, sinus problems, BPH with outflow obstruction but none since TURP, arthritis in fingers. History of Any Multi-Drug Resistant Organisms: None Reported Past Surgical History: Ablation, Appendectomy, Cardiac Ablation, Cholecystectomy, Prostate Surgery Additional Past Surgical History / Comment(s): 12/13/17 PVI/cryoablation of 4 pulmonary veins, cardiac ablations with last time being 12/24/19, BESSIE/cardioversions, colonoscopy, bilateral cataract removals, TURP. Past Anesthesia/Blood Transfusion Reactions: No Reported Reaction Past Psychological History: No Psychological Hx Reported Additional Psychological History / Comment(s): Pt resides with his spouse. He is retired. He is independent. He uses no assistive device. He drives. No past service. Smoking Status: Never smoker Past Alcohol Use History: None Reported Past Drug Use History: None Reported - Past Family History Father History Unknown: Yes Family Medical History: CVA/TIA Additional Family Medical History / Comment(s): Father had a CVA. He lived to be 75 yrs. old. Mother History Unknown: Yes Family Medical History: CVA/TIA Additional Family Medical History / Comment(s): Mother had a CVA x 2. He lived to be 82 yrs old. Medications and Allergies Home Medications Medication Instructions Recorded Confirmed Type Montelukast [Singulair] 10 mg PO HS 08/26/15 12/03/20 History Atorvastatin Calcium 10 mg PO HS 08/31/16 12/03/20 History Fluticasone Nasal [place] [Flonase 1 spray EA NOSTRIL HS 07/13/18 12/03/20 History Nasal [place]] Fluticasone/Salmeterol [Advair 1 puff INHALATION RT-HS 12/27/18 12/03/20 History 250-50 Diskus] Losartan [Cozaar] 50 mg PO HS 12/06/19 12/03/20 History Rivaroxaban [Xarelto] 20 mg PO HS #0 12/09/19 12/03/20 Rx Dronedarone [Multaq] 400 mg PO AC-BID #60 tab 12/30/19 12/03/20 Rx Albuterol Inhaler [Ventolin Hfa 2 puff INHALATION RT-Q4H PRN 11/25/20 12/03/20 History Inhaler] Cetirizine HCl 10 mg PO HS 11/25/20 12/03/20 History Cholecalciferol [Vitamin D3 (25 1,000 unit PO HS 11/25/20 12/03/20 History Mcg = 1000 Iu)] Esomeprazole Magnesium [NexIUM] 40 mg PO BID #60 cap 12/04/20 Rx Allergies Allergy/AdvReac Type Severity Reaction Status Date / Time No Known Allergies Allergy Verified 12/03/20 21:36 Physical Exam Vitals: Vital Signs Temp Pulse Pulse Resp BP BP Pulse Ox 12/04/20 09:00 50 L 16 12/04/20 08:34 97.9 F 50 L 16 119/74 96 12/04/20 02:40 97.7 F 50 L 17 101/62 97 12/03/20 23:29 97.9 F 55 L 17 119/65 98 12/03/20 23:05 98.2 F 56 L 20 127/82 100 12/03/20 22:17 56 L 18 120/72 98 12/03/20 21:09 70 18 132/81 98 12/03/20 21:01 64 18 98 12/03/20 20:29 98.3 F 60 20 163/78 97 Intake and Output 12/03/20 12/04/20 12/04/20 22:59 06:59 14:59 Other: Voiding Method Toilet Toilet # Voids 1 1 Weight 102.058 kg 102.058 kg Results CBC & Chem 7: 12/03/20 20:49 12/03/20 20:49 Labs: Abnormal Lab Results - Last 24 Hours (Table) 12/03/20 12/03/20 12/03/20 Range/Units 20:49 20:49 20:49 Hct 38.4 L (39.0-53.0) % INR 1.2 H (<1.2) Chloride 108 H (98-107) mmol/L HDL Cholesterol (40-60) mg/dL 12/04/20 Range/Units 02:24 Hct (39.0-53.0) % INR (<1.2) Chloride (98-107) mmol/L HDL Cholesterol 33 L (40-60) mg/dL Thrombosis Risk Factor Assmnt - Choose All That Apply Any of the Below Risk Factors Present?: Yes Each Factor Represents 1 point: Obesity (BMI >25) Other Risk Factors: Yes Each Risk Factor Represents 2 Points: Age 61-74 years Other congenital or acquired thrombophilia - If yes, enter type in comment: No Thrombosis Risk Factor Assessment Total Risk Factor Score: 3 Thrombosis Risk Factor Assessment Level: Moderate Risk
[2020-12-04] MEDS ORDERED: LORATADINE 10 MG TAB PO SCH (21:00)
[2020-12-04] MEDS ORDERED: CHOLECALCIFEROL 1,000 UNIT TAB PO SCH (21:00)
[2020-12-04] MEDS ORDERED: RIVAROXABAN 20 MG TAB PO SCH (21:00)
[2020-12-04] MEDS ORDERED: ATORVASTATIN 10 MG TAB PO SCH (21:00)
[2020-12-04] MEDS ORDERED: LOSARTAN 50 MG TAB PO SCH (21:00)
[2020-12-04] MEDS ORDERED: MONTELUKAST 10 MG TAB PO SCH (21:00)
--- NOTE | 2020-12-04 22:25 | P.DS ---
Providers Date of admission: 12/03/20 22:47 Expected date of discharge: 12/04/20 Attending physician: Alfredo Godinez Consults: 12/03/20 22:46 Consult Physician Urgent Consulting Provider: Dennise Maya Consult Reason/Comments: cp Do you want consulting provider notified?: Yes Primary care physician: Johann Rubalcava [facility] Course: Chief Complaint: Chest pain History of presenting complaint: This is a [address] Rubalcava. Chronic stable medical conditions include hypertension, GERD, primary osteoarthritis, moderate persistent asthma, atrial fibrillation on anticoagulation,ascending aorta aneurysm 4.4 cm. in August 2019 patient had a cardiac catheterization that was negative. On December 25 patient was seen by bag cutter Dr. Chriss Katz had ablation was carried out for atrial tachycardia. Patient now presents with stabbing left precordial chest pain. steady. No shortness breath. No perspiration. No dizziness nor lightheadedness. No obvious relieving or aggravating factors. No cough or fever. Stress echocardiogram was negative. Troponins were negative. Discussed with the patient. Consultation: Dr. Mike Miller from cardiology Past medical history to include: Hypertension, GERD, primary osteoarthritis, moderate persistent asthma, atrial fibrillation/atrial tachycardia ablation, on anticoagulation,, BPH treated with TURP. Negative cardiac catheterization in 2018 Social history: , retired, no smoking. Alcohol rarely. Family history: Father had a stroke Physical examination: VITAL SIGNS: 97.9, 50, 16, 119/74, 96% room air GENERAL: Laying in bed, comfortable EYES: Pupils equal. Conjunctiva normal. HEENT: External appearance of nose and ears normal, oral cavity grossly normal. NECK: JVD not raised; masses not palpable. HEART: Heart sounds irregular; no edema. LUNGS: Respiratory rate normal; clear to auscultation. ABDOMEN: Soft, nontender, liver spleen not palpable, no masses palpable. PSYCH: Alert and oriented x3; mood and affect normal. INVESTIGATIONS, reviewed in the clinical context: White count 9.2 hemoglobin 13.3 potassium 4 creatinine 0.99 Troponin I 3 negative LDL 49 Chest x-ray film-borderline cardiac megaly. Lung bae clear Chest CTA-no PE EKG tracing normal sinus rhythm with right bundle branch block Stress echocardiogram-negative Assessment: -Left anterior chest wall pain. Possibly muscular skeletal -Recurrent atrial flutter fibrillation uncontrolled with a prior ablation 3. Currently sinus rhythm. -4.4 cm ascending aorta aneurysm, for yearly follow-up -Essential hypertension -GERD -Primary osteoarthritis -Moderate persistent asthma -Obesity BMI 32.3 Disposition: Home Patient Condition at Discharge: Stable Plan - Discharge Summary Discharge Rx Participant: No New Discharge Prescriptions: Continue Montelukast [Singulair] 10 mg PO HS Atorvastatin Calcium 10 mg PO HS Fluticasone Nasal [place] [Flonase Nasal [place]] 1 spray EA NOSTRIL HS Fluticasone/Salmeterol [Advair 250-50 Diskus] 1 puff INHALATION RT-HS Losartan [Cozaar] 50 mg PO HS Rivaroxaban [Xarelto] 20 mg PO HS #0 Dronedarone [Multaq] 400 mg PO AC-BID #60 tab Albuterol Inhaler [Ventolin Hfa Inhaler] 2 puff INHALATION RT-Q4H PRN PRN Reason: Shortness Of Breath Cetirizine HCl 10 mg PO HS Cholecalciferol [Vitamin D3 (25 Mcg = 1000 Iu)] 1,000 unit PO HS Changed Esomeprazole Magnesium [NexIUM] 40 mg PO BID #60 cap Discharge Medication List Montelukast [Singulair] 10 mg PO HS 08/26/15 [History] Atorvastatin Calcium 10 mg PO HS 08/31/16 [History] Fluticasone Nasal [place] [Flonase Nasal [place]] 1 spray EA NOSTRIL HS 07/13/18 [History] Fluticasone/Salmeterol [Advair 250-50 Diskus] 1 puff INHALATION RT-HS 12/27/18 [History] Losartan [Cozaar] 50 mg PO HS 12/06/19 [History] Rivaroxaban [Xarelto] 20 mg PO HS #0 12/09/19 [Rx] Dronedarone [Multaq] 400 mg PO AC-BID #60 tab 12/30/19 [Rx] Albuterol Inhaler [Ventolin Hfa Inhaler] 2 puff INHALATION RT-Q4H PRN 11/25/20 [History] Cetirizine HCl 10 mg PO HS 11/25/20 [History] Cholecalciferol [Vitamin D3 (25 Mcg = 1000 Iu)] 1,000 unit PO HS 11/25/20 [History] Esomeprazole Magnesium [NexIUM] 40 mg PO BID #60 cap 12/04/20 [Rx] Follow up Appointment(s)/Referral(s): Johann Rubalcava MD [Primary Care Provider] - 1-2 days Patient Instructions/Handouts: Chest Pain (DC) Discharge Disposition: HOME SELF-CARE
== END 2020-12-04 15:30 | disposition home or self-care (01) ==
LOC: EC 20:27 → 1SOBS 22:47
PROVIDERS: ADMIT Hospitalist; ATTEND Hospitalist
DX: R07.2 Precordial pain (principal); I10 Essential (primary) hypertension; K21.9 Gastro-esophageal reflux disease without esophagitis; I48.0 Paroxysmal atrial fibrillation; I48.92 Unspecified atrial flutter; I71.2 Thoracic aortic aneurysm, without rupture; J45.40 Moderate persistent asthma, uncomplicated; M19.91 Primary osteoarthritis, unspecified site; I47.1 Supraventricular tachycardia; E78.5 Hyperlipidemia, unspecified; I45.10 Unspecified right bundle-branch block; E66.9 Obesity, unspecified; Z68.32 Body mass index [BMI] 32.0-32.9, adult; Z87.01 Personal history of pneumonia (recurrent); Z87.09 Personal history of other diseases of the respiratory system; H52.203 Unspecified astigmatism, bilateral; Z90.49 Acquired absence of other specified parts of digestive tract; Z98.42 Cataract extraction status, left eye; Z98.41 Cataract extraction status, right eye; Z79.01 Long term (current) use of anticoagulants; Z79.899 Other long term (current) drug therapy; Z82.3 Family history of stroke
CPT/HCPCS: 93005 ×2; 99285; 36415; 93306; 85379; 80061; 80053; 83735; 84484 ×2; 85025; 85610; 85730; 71046; 71275; G0378 ×2; C8930; Q9950; Q9967; 93351

== ENCOUNTER 2021-01-15 21:27 | Observation (INO) | payer MEDICARE ==
[2021-01-15 22:02] LABS: Basophils % (A) 1 %; Eosinophils # (A) 0.2 k/uL (0-0.7); Eosinophils % (A) 3 %; HCT 37.5 % (39.0-53.0); HGB 12.7 gm/dL (13.0-17.5); Lymphocytes # (A) 2.5 k/uL (1.0-4.8); Lymphocytes % (A) 28 %; MCH 29.8 pg (25.0-35.0); MCV 87.6 fL (80.0-100.0); Mean Platelet Volume 7.5; Monocytes # (A) 0.8 k/uL (0-1.0); Monocytes % (A) 9 %; Neutrophils # (A) 5.2 k/uL (1.3-7.7); Neutrophils % (A) 58 %; Platelet Count 243 k/uL (150-450); RBC 4.28 m/uL (4.30-5.90); RDW 13.6 % (11.5-15.5); WBC 8.9 k/uL (3.8-10.6)
[2021-01-15 22:10] LABS: ALT 26 U/L (4-49); AST 33 U/L (17-59); African American GFR (CKD) >90 (>60 ml/min/1.73 sqM); Albumin 3.3 g/dL (3.5-5.0); Alkaline Phosphatase 80 U/L (38-126); Anion Gap 5 mmol/L; Blood Urea Nitrogen 22 mg/dL (9-20); Calcium 8.9 mg/dL (8.4-10.2); Carbon Dioxide 25 mmol/L (22-30); Chloride 107 mmol/L (98-107); Creatine Kinase 108 U/L (55-170); Glucose 100 mg/dL (74-99); Lipase 370 U/L (23-300); Magnesium 1.8 mg/dL (1.6-2.3); Non-African American GFR(CKD) 84 (>60 ml/min/1.73 sqM); Potassium 3.8 mmol/L (3.5-5.1); Sodium 137 mmol/L (137-145); Total Bilirubin 1.1 mg/dL (0.2-1.3); Total Protein 6.2 g/dL (6.3-8.2)
[2021-01-15 22:11] LABS: INR 1.6 (<1.2); Partial Thromboplastin Time 32.7 sec (22.0-30.0)
--- NOTE | 2021-01-15 22:27 | XR ---
EXAMINATION TYPE: XR chest 2V DATE OF EXAM: 01/15/2021 COMPARISON: 12/03/2020 HISTORY: Chest pain cough TECHNIQUE: 2 views FINDINGS: There is no heart failure nor confluent pneumonic infiltrate. Heart is enlarged. There are no hilar masses. There are calcified granulomata at the right pulmonary hilum. There is no pleural ef fusion. Bony thorax is intact. IMPRESSION: There is cardiomegaly that appears new compared to old exam. Old granulomatous disease. N o acute lung disease.
[2021-01-15] MEDS ORDERED: NITROGLYCERIN SL TABS 0.4 MG TAB SUBLINGUAL PRN (23:05)
--- NOTE | 2021-01-15 23:05 | ED ---
Chest Pain HPI - General Chief Complaint: Chest Pain Stated Complaint: Chest Pain Time Seen by Provider: 01/15/21 21:33 Source: patient, RN notes reviewed Mode of arrival: ambulatory Limitations: no limitations - History of Present Illness Initial Comments: Is a 70-year-old male with a history of atrial fibrillation who presented today with complaints of left-sided chest pain is been intermittent throughout the day. He states is mostly sharp in nature he also admitted that he been having indigestion throughout the day today which did seem to get better with using antacids. He did recently have a fairly extensive workup for cardiac disease. Apparently this did not show anything of concern. Patient also has a history A. fib with ablations. He denies any cough fevers chills nausea vomiting sweats or other symptoms at this time. MD Complaint: chest pain - Related Data Home Medications Medication Instructions Recorded Confirmed Montelukast [Singulair] 10 mg PO HS 08/26/15 12/03/20 Atorvastatin Calcium 10 mg PO HS 08/31/16 12/03/20 Fluticasone Nasal [place] [Flonase 1 spray EA NOSTRIL HS 07/13/18 12/03/20 Nasal [place]] Fluticasone/Salmeterol [Advair 1 puff INHALATION RT-HS 12/27/18 12/03/20 250-50 Diskus] Losartan [Cozaar] 50 mg PO HS 12/06/19 12/03/20 Albuterol Inhaler [Ventolin Hfa 2 puff INHALATION RT-Q4H PRN 11/25/20 12/03/20 Inhaler] Cetirizine HCl 10 mg PO HS 11/25/20 12/03/20 Cholecalciferol [Vitamin D3 (25 1,000 unit PO HS 11/25/20 12/03/20 Mcg = 1000 Iu)] Previous Rx's Medication Instructions Recorded Rivaroxaban [Xarelto] 20 mg PO HS #0 12/09/19 Dronedarone [Multaq] 400 mg PO AC-BID #60 tab 12/30/19 Esomeprazole Magnesium [NexIUM] 40 mg PO BID #60 cap 12/04/20 Allergies Allergy/AdvReac Type Severity Reaction Status Date / Time Yeast Allergy Nausea & Verified 01/15/21 21:31 Vomiting Review of Systems ROS Statement: Those systems with pertinent positive or pertinent negative responses have been documented in the HPI. ROS Other: All systems not noted in ROS Statement are negative. EKG Findings - EKG Results: EKG: interpreted by JEWELL (Normal sinus rhythm a 60. Interval 170 QRS duration 136 QT since QTC 466/466 evidence a right bundle-branch block this was compared to an EKG dated 12/03/20 showing similar configuration.) Past Medical History Past Medical History: Atrial Fibrillation, Atrial Flutter, Chest Pain / Angina, Eye Disorder, GERD/Reflux, Hyperlipidemia, Hypertension, Osteoarthritis (OA), Pneumonia, Prostate Disorder Additional Past Medical History / Comment(s): Paroxysmal Afib, aflutter, atach, RVR, bronchitis, BPH, bilateral astigmatism, sinus problems, BPH with outflow obstruction but none since TURP, arthritis in fingers. History of Any Multi-Drug Resistant Organisms: None Reported Past Surgical History: Ablation, Appendectomy, Cardiac Ablation, Cholecystectomy, Prostate Surgery Additional Past Surgical History / Comment(s): 12/13/17 PVI/cryoablation of 4 pulmonary veins, cardiac ablations with last time being 12/24/19, BESSIE/cardioversions, colonoscopy, bilateral cataract removals, TURP. Past Anesthesia/Blood Transfusion Reactions: No Reported Reaction Past Psychological History: No Psychological Hx Reported Smoking Status: Never smoker Past Alcohol Use History: None Reported Past Drug Use History: None Reported - Past Family History Father History Unknown: Yes Family Medical History: CVA/TIA Additional Family Medical History / Comment(s): Father had a CVA. He lived to be 75 yrs. old. Mother History Unknown: Yes Family Medical History: CVA/TIA Additional Family Medical History / Comment(s): Mother had a CVA x 2. He lived to be 82 yrs old. General Exam - General Exam Comments Initial Comments: This is a well-developed well-nourished awake alert oriented 3 male Limitations: no limitations General appearance: alert, in no apparent distress Head exam: Present: atraumatic, normocephalic, normal inspection Eye exam: Present: normal appearance, PERRL, EOMI. Absent: scleral icterus, conjunctival injection, periorbital swelling ENT exam: Present: normal exam, mucous membranes moist Neck exam: Present: normal inspection, full ROM, other. Absent: tenderness, meningismus, lymphadenopathy Respiratory exam: Present: normal lung sounds bilaterally. Absent: respiratory distress, wheezes, rales, rhonchi, stridor Cardiovascular Exam: Present: regular rate, normal rhythm, normal heart sounds. Absent: systolic murmur, diastolic murmur, rubs, gallop, clicks GI/Abdominal exam: Present: soft, normal bowel sounds. Absent: distended, tenderness, guarding, rebound, rigid Extremities exam: Present: normal inspection, full ROM, normal capillary refill. Absent: tenderness, pedal edema, joint swelling, calf tenderness Back exam: Present: normal inspection Neurological exam: Present: alert, oriented X3, CN II-XII intact Psychiatric exam: Present: normal affect, normal mood Skin exam: Present: warm, dry, intact, normal color. Absent: rash Course Vital Signs 01/15/21 21:28 Temperature 97.9 F Pulse Rate 59 L Respiratory 17 Rate Blood Pressure 169/96 O2 Sat by Pulse 98 Oximetry Chest Pain MDM - MDM I did discuss the findings with the patient and the patient does have no symptoms at this time he will be admitted or evaluation by cardiology due to the nature of his presenting complaints. I did discuss case with Dr. Barakat Disposition Clinical Impression: Atypical chest pain Disposition: ADMITTED IP TO THIS [facility] Condition: Fair Referrals: Johann Rubalcava MD [Primary Care Provider] - 1-2 days
[2021-01-15] MEDS ORDERED: ALBUTEROL NEBULIZED 2.5 MG/3 ML INHALATION PRN (23:07)
[2021-01-16 00:56] VITALS: RESP 18
[2021-01-16 04:24] LABS: Cholesterol 100 mg/dL (<200); HDL Cholesterol 40 mg/dL (40-60); LDL Cholesterol,Calculated 45 mg/dL (0-99); Triglycerides 74 mg/dL (<150)
[2021-01-16] MEDS ORDERED: DRONEDARONE 400 MG TAB PO SCH (07:30)
[2021-01-16 07:43] VITALS: BP 143/82; PULSE 63; TEMP 97.6
[2021-01-16] MEDS ORDERED: PANTOPRAZOLE 40 MG TABLET PO SCH (09:00)
--- NOTE | 2021-01-16 10:18 | P.HPIM ---
History of Present Illness Patient is admitted for chest pain to rule out a concurrent syndromes. Patient the pain is predominantly in the epigastric area and the left upper quadrant along with the retrosternal area sharp pain presently burning sensation started after eating and the related indigestion improved with antacids no associated shortness of breath. Patient had a stress test couple weeks ago which was negative. Patient is already on proton pulmonary but it twice a day which was changed recently to twice a day. Patient does have history of severe gastroesophageal reflux disease. Patient wanted to go home. Patient was evaluated by cardiology, rule out a concurrent syndromes cleared by cardiology. Patient doesn't have his gallbladder patient had a cholecystectomy in the past. Patient had symptoms of nausea which resolved at this time Review of Systems REVIEW OF SYSTEMS: CONSTITUTIONAL: No fever, no malaise, no fatigue. HEENT: No recent visual problems or hearing problems. Denied any sore throat. CARDIOVASCULAR: No orthopnea, PND, no palpitations, no syncope. PULMONARY: No shortness of breath, no cough, no hemoptysis. GASTROINTESTINAL: As mentioned in HPI NEUROLOGICAL: No headaches, no weakness, no numbness. HEMATOLOGICAL: Denies any bleeding or petechiae. GENITOURINARY: Denies any burning micturition, frequency, or urgency. MUSCULOSKELETAL/RHEUMATOLOGICAL: Denies any joint pain, swelling, or any muscle pain. ENDOCRINE: Denies any polyuria or polydipsia. The rest of the 14-point review of systems is negative. Past Medical History Past Medical History: Atrial Fibrillation, Atrial Flutter, Chest Pain / Angina, Eye Disorder, GERD/Reflux, Hyperlipidemia, Hypertension, Osteoarthritis (OA), Pneumonia, Prostate Disorder Additional Past Medical History / Comment(s): Paroxysmal Afib, aflutter, atach, RVR, bronchitis, BPH, bilateral astigmatism, sinus problems, BPH with outflow obstruction but none since TURP, arthritis in fingers. History of Any Multi-Drug Resistant Organisms: None Reported Past Surgical History: Ablation, Appendectomy, Cardiac Ablation, [place] cystectomy, Prostate Surgery Additional Past Surgical History / Comment(s): 12/13/17 PVI/cryoablation of 4 pulmonary veins, cardiac ablations with last time being 12/24/19, BESSIE/ cardioversions, colonoscopy, bilateral cataract removals, TURP. Past Anesthesia/Blood Transfusion Reactions: No Reported Reaction Past Psychological History: No Psychological Hx Reported Additional Psychological History / Comment(s): Pt resides with his spouse. He is retired. He is independent. He uses no assistive device. He drives. No past service. Smoking Status: Never smoker Past Alcohol Use History: None Reported Past Drug Use History: None Reported - Past Family History Father History Unknown: Yes Family Medical History: CVA/TIA Additional Family Medical History / Comment(s): Father had a CVA. He lived to be 75 yrs. old. Mother History Unknown: Yes Family Medical History: CVA/TIA Additional Family Medical History / Comment(s): Mother had a CVA x 2. He lived to be 82 yrs old. Medications and Allergies Home Medications Medication Instructions Recorded Confirmed Type Montelukast [Singulair] 10 mg PO HS 08/26/15 01/15/21 History Atorvastatin Calcium 10 mg PO HS 08/31/16 01/15/21 History Fluticasone Nasal [place] [Flonase 1 spray EA NOSTRIL HS 07/13/18 01/15/21 History Nasal [place]] Fluticasone/Salmeterol [Advair 1 puff INHALATION RT-HS 12/27/18 01/15/21 History 250-50 Diskus] Losartan [Cozaar] 50 mg PO HS 12/06/19 01/15/21 History Rivaroxaban [Xarelto] 20 mg PO HS #0 12/09/19 01/15/21 Rx Dronedarone [Multaq] 400 mg PO AC-BID #60 tab 12/30/19 01/15/21 Rx Albuterol Inhaler [Ventolin Hfa 2 puff INHALATION RT-Q4H PRN 11/25/20 01/15/21 History Inhaler] Cetirizine HCl 10 mg PO HS 11/25/20 01/15/21 History Cholecalciferol [Vitamin D3 (25 1,000 unit PO HS 11/25/20 01/15/21 History Mcg = 1000 Iu)] Esomeprazole Magnesium [NexIUM] 40 mg PO BID #60 cap 12/04/20 01/15/21 Rx Mag Hydrox/Al Hydrox/Simeth 10 ml PO AC-TID #250 ml 01/16/21 Rx [Maalox] Allergies Allergy/AdvReac Type Severity Reaction Status Date / Time Yeast Allergy Nausea & Verified 01/15/21 23:40 Vomiting Physical Exam Vitals: Vital Signs Temp Pulse Pulse Resp BP BP Pulse Ox 01/16/21 08:00 63 18 01/16/21 07:00 97.6 F 63 18 143/82 98 01/16/21 00:55 97.8 F 56 L 18 150/82 97 01/16/21 00:18 50 L 16 01/15/21 23:54 65 16 155/62 98 01/15/21 23:31 97.8 F 50 L 16 151/84 96 01/15/21 21:28 97.9 F 59 L 17 169/96 98 Intake and Output 01/15/21 01/16/21 01/16/21 22:59 06:59 14:59 Other: Voiding Method Toilet Toilet # Voids 3 Weight 102.058 kg 102.058 kg PHYSICAL EXAMINATION: GENERAL: The patient is alert and oriented x3, not in any acute distress. Obese HEENT: Pupils are round and equally reacting to light. EOMI. No scleral icterus. No conjunctival pallor. Normocephalic, atraumatic. No pharyngeal erythema. No thyromegaly. CARDIOVASCULAR: S1 and S2 present. No murmurs, rubs, or gallops. PULMONARY: Chest is clear to auscultation, no wheezing or crackles. ABDOMEN: Soft, nontender, nondistended, normoactive bowel sounds. No palpable organomegaly. MUSCULOSKELETAL: No joint swelling or deformity. EXTREMITIES: No cyanosis, clubbing, or pedal edema. NEUROLOGICAL: Gross neurological examination did not reveal any focal deficits. SKIN: No rashes. Results CBC & Chem 7: 01/15/21 21:36 01/15/21 21:36 Labs: Abnormal Lab Results - Last 24 Hours (Table) 01/15/21 01/15/21 01/15/21 Range/Units 21:36 21:36 21:36 RBC 4.28 L (4.30-5.90) m/uL Hgb 12.7 L (13.0-17.5) gm/dL Hct 37.5 L (39.0-53.0) % PT 16.0 H (9.0-12.0) sec INR 1.6 H (<1.2) APTT 32.7 H (22.0-30.0) sec BUN 22 H (9-20) mg/dL Glucose 100 H (74-99) mg/dL Total Protein 6.2 L (6.3-8.2) g/dL Albumin 3.3 L (3.5-5.0) g/dL Lipase 370 H (23-300) U/L Thrombosis Risk Factor Assmnt - Choose All That Apply Any of the Below Risk Factors Present?: Yes Each Factor Represents 1 point: Age 41-60 years Other Risk Factors: Yes Each Risk Factor Represents 2 Points: Age 61-74 years Other congenital or acquired thrombophilia - If yes, enter type in comment: No Thrombosis Risk Factor Assessment Total Risk Factor Score: 3 Thrombosis Risk Factor Assessment Level: Moderate Risk Assessment and Plan Plan: -Ruled out acute coronary syndromes, cleared by cardiology. -Epigastric abdominal pain: Secondary to severe peptic ulcer disease patient will continue his proton pump inhibitor twice a day patient will be additionally given Maalox patient will be referred to gastroenterology for possible upper GI endoscopy patient had a scope 6 months ago which showed mild gastritis at this time. -Paroxysmal A. fib: Presently rate controlled patient denied correlation at to be continued -Gastroesophageal reflux disease -Hypertension -Hyperlipidemia -Benign prostatic hypertrophy Patient will be discharged today
--- NOTE | 2021-01-16 10:18 | P.DS ---
Providers Date of admission: 01/15/21 23:05 Attending physician: Rodrick Barakat MD Consults: 01/15/21 23:05 Consult Physician Urgent Consulting Provider: Mahad Pearson Consult Reason/Comments: Atypical chest pain Do you want consulting provider notified?: Yes, Notify in am Primary care physician: Johann [facility] Course: Please refer to my history of present illness for further details Patient Condition at Discharge: Fair Plan - Discharge Summary Discharge Rx Participant: Yes New Discharge Prescriptions: New Mag Hydrox/Al Hydrox/Simeth [Maalox] 10 ml PO AC-TID #250 ml No Action Montelukast [Singulair] 10 mg PO HS Atorvastatin Calcium 10 mg PO HS Fluticasone Nasal [place] [Flonase Nasal [place]] 1 spray EA NOSTRIL HS Fluticasone/Salmeterol [Advair 250-50 Diskus] 1 puff INHALATION RT-HS Losartan [Cozaar] 50 mg PO HS Rivaroxaban [Xarelto] 20 mg PO HS #0 Dronedarone [Multaq] 400 mg PO AC-BID #60 tab Albuterol Inhaler [Ventolin Hfa Inhaler] 2 puff INHALATION RT-Q4H PRN PRN Reason: Shortness Of Breath Cetirizine HCl 10 mg PO HS Cholecalciferol [Vitamin D3 (25 Mcg = 1000 Iu)] 1,000 unit PO HS Esomeprazole Magnesium [NexIUM] 40 mg PO BID #60 cap Discharge Medication List Montelukast [Singulair] 10 mg PO HS 08/26/15 [History] Atorvastatin Calcium 10 mg PO HS 08/31/16 [History] Fluticasone Nasal [place] [Flonase Nasal [place]] 1 spray EA NOSTRIL HS 07/13/18 [History] Fluticasone/Salmeterol [Advair 250-50 Diskus] 1 puff INHALATION RT-HS 12/27/18 [History] Losartan [Cozaar] 50 mg PO HS 12/06/19 [History] Rivaroxaban [Xarelto] 20 mg PO HS #0 12/09/19 [Rx] Dronedarone [Multaq] 400 mg PO AC-BID #60 tab 12/30/19 [Rx] Albuterol Inhaler [Ventolin Hfa Inhaler] 2 puff INHALATION RT-Q4H PRN 11/25/20 [History] Cetirizine HCl 10 mg PO HS 11/25/20 [History] Cholecalciferol [Vitamin D3 (25 Mcg = 1000 Iu)] 1,000 unit PO HS 11/25/20 [History] Esomeprazole Magnesium [NexIUM] 40 mg PO BID #60 cap 12/04/20 [Rx] Mag Hydrox/Al Hydrox/Simeth [Maalox] 10 ml PO AC-TID #250 ml 01/16/21 [Rx] Follow up Appointment(s)/Referral(s): Reny Miller MD [STAFF PHYSICIAN] - 1 Week Johann Rubalcava MD [Primary Care Provider] - 3 Days Patient Instructions/Handouts: Chest Pain (DC) Discharge Disposition: HOME SELF-CARE
--- NOTE | 2021-01-16 11:11 | P.CRDCN ---
History of Present Illness History of present illness: HISTORY OF PRESENTING ILLNESS This is a pleasant 70-year-old male past medical history significant for paroxysmal atrial fibrillation on long-term anticoagulation status post ablation, hypertension, dyslipidemia, nonobstructive coronary artery disease and coronary artery disease. He follows in the office with Dr. Fernandes. We have been asked to see in consultation for chest pain. He states yesterday he felt the discomfort in the left lower chest and upper abdomen that lasted all day with no specific aggravating or alleviating factors. The pain is described as mostly sharp in nature. He was taking antacids which didn't seem to mildly subside the discomfort. He went to sleep last night still having the pain and woke up this morning feeling an achy sensation in the left flank region. On exam he is tender in the left upper abdomen. He denies any chest pain, shortness of breath, dizziness or palpitations. He has had no associated nausea or vomiting however he did state last week he had persistent diarrhea. DIAGNOSTICS EKG reveals sinus mechanism with right bundle branch block. Telemetry tracings indicate sinus mechanism. Chest xray negative for an acute cardiopulmonary process. Laboratory reviewed, WBC 8.9, hemoglobin 12.7, platelets 243, INR 1.6, sodium 137, potassium 3.8, creatinine 0.93, magnesium 1.8, cardiac enzymes negative 3, proBNP 338, LDL 45 and HDL 40. Current cardiac medications include atorvastatin 10 mg daily, Multaq 400 mg twice a day, losartan 50 mg daily and Xarelto 20 mg daily. REVIEW OF SYSTEMS At the time of my exam: CONSTITUTIONAL: Denies fever or chills. CARDIOVASCULAR: Denies chest pain, shortness of breath, orthopnea, PND or palpitations. RESPIRATORY: Denies cough. GASTROINTESTINAL: Denies abdominal pain, diarrhea, constipation, nausea or vomiting. MUSCULOSKELETAL: Denies myalgias. NEUROLOGIC: Denies numbness, tingling, headacbe or weakness. ENDOCRINE: Denies fatigue, weight change, polydipsia or polyurina. GENITOURINARY: Denies burning, hematuria or urgency with micturation. HEMATOLOGIC: Denies history of anemia or bleeding. PHYSICAL EXAMINATION Blood pressure 143/82 heart rate 63 afebrile and maintaining oxygen saturation on room air. CONSTITUTIONAL: No apparent distress. HEENT: Head is normocephalic. Pupils are equal, round. Sclerae anicteric. Mucous membranes of the mouth are moist. No JVD. No carotid bruit. CHEST EXAMINATION: Lungs are clear to auscultation. No chest wall tenderness is noted on palpation or with deep breathing. HEART EXAMINATION: Regular rate and rhythm. S1, S2 heard. No murmurs, gallops or rub. ABDOMEN: Soft, left upper quadrant discomfort on palpation. Positive bowel sounds. EXTREMITIES: 2+ peripheral pulses, no lower extremity edema and no calf tenderness. NEUROLOGIC EXAMINATION: Patient is awake, alert and oriented x3. ASSESSMENT Abdominal pain Elevated lipase Paroxysmal atrial fibrillation on long-term anticoagulation currently maintaining sinus mechanism Hypertension Dyslipidemia PLAN An acute coronary event has been ruled out. Pain is in the abdomen, not the chest. Elevated lipase may be early pancreatitis. His pain is consistent with that region. No inpatient cardiac testing, follow up in the office with Dr. Fernandes upon discharge. Thank you kindly for this consultation. Nurse Practitioner note has been reviewed, I agree with a documented findings a nd plan of care. Patient was seen and examined. Past Medical History Past Medical History: Atrial Fibrillation, Atrial Flutter, Chest Pain / Angina, Eye Disorder, GERD/Reflux, Hyperlipidemia, Hypertension, Osteoarthritis (OA), Pneumonia, Prostate Disorder Additional Past Medical History / Comment(s): Paroxysmal Afib, aflutter, atach, RVR, bronchitis, BPH, bilateral astigmatism, sinus problems, BPH with outflow obstruction but none since TURP, arthritis in fingers. History of Any Multi-Drug Resistant Organisms: None Reported Past Surgical History: Ablation, Appendectomy, Cardiac Ablation, Cholecystectomy, Prostate Surgery Additional Past Surgical History / Comment(s): 12/13/17 PVI/cryoablation of 4 pulmonary veins, cardiac ablations with last time being 12/24/19, BESSIE/cardioversions, colonoscopy, bilateral cataract removals, TURP. Past Anesthesia/Blood Transfusion Reactions: No Reported Reaction Past Psychological History: No Psychological Hx Reported Additional Psychological History / Comment(s): Pt resides with his spouse. He is retired. He is independent. He uses no assistive device. He drives. No past service. Smoking Status: Never smoker Past Alcohol Use History: None Reported Past Drug Use History: None Reported - Past Family History Father History Unknown: Yes Family Medical History: CVA/TIA Additional Family Medical History / Comment(s): Father had a CVA. He lived to be 75 yrs. old. Mother History Unknown: Yes Family Medical History: CVA/TIA Additional Family Medical History / Comment(s): Mother had a CVA x 2. He lived to be 82 yrs old. Medications and Allergies Home Medications Medication Instructions Recorded Confirmed Type Montelukast [Singulair] 10 mg PO HS 08/26/15 01/15/21 History Atorvastatin Calcium 10 mg PO HS 08/31/16 01/15/21 History Fluticasone Nasal [place] [Flonase 1 spray EA NOSTRIL HS 07/13/18 01/15/21 History Nasal [place]] Fluticasone/Salmeterol [Advair 1 puff INHALATION RT-HS 12/27/18 01/15/21 History 250-50 Diskus] Losartan [Cozaar] 50 mg PO HS 12/06/19 01/15/21 History Rivaroxaban [Xarelto] 20 mg PO HS #0 12/09/19 01/15/21 Rx Dronedarone [Multaq] 400 mg PO AC-BID #60 tab 12/30/19 01/15/21 Rx Albuterol Inhaler [Ventolin Hfa 2 puff INHALATION RT-Q4H PRN 11/25/20 01/15/21 History Inhaler] Cetirizine HCl 10 mg PO HS 11/25/20 01/15/21 History Cholecalciferol [Vitamin D3 (25 1,000 unit PO HS 11/25/20 01/15/21 History Mcg = 1000 Iu)] Esomeprazole Magnesium [NexIUM] 40 mg PO BID #60 cap 12/04/20 01/15/21 Rx Mag Hydrox/Al Hydrox/Simeth 10 ml PO AC-TID #250 ml 01/16/21 Rx [Maalox] Allergies Allergy/AdvReac Type Severity Reaction Status Date / Time Yeast Allergy Nausea & Verified 01/15/21 23:40 Vomiting Physical Exam Vitals: Vital Signs Temp Pulse Pulse Resp BP BP Pulse Ox 01/16/21 08:00 63 18 01/16/21 07:00 97.6 F 63 18 143/82 98 01/16/21 00:55 97.8 F 56 L 18 150/82 97 01/16/21 00:18 50 L 16 01/15/21 23:54 65 16 155/62 98 01/15/21 23:31 97.8 F 50 L 16 151/84 96 01/15/21 21:28 97.9 F 59 L 17 169/96 98 Intake and Output 01/15/21 01/16/21 01/16/21 22:59 06:59 14:59 Other: Voiding Method Toilet Toilet # Voids 3 Weight 102.058 kg 102.058 kg Results 01/15/21 21:36 01/15/21 21:36 Cardiac Enzymes 01/15/21 01/15/21 01/16/21 Range/Units 21:36 21:36 01:41 AST 33 (17-59) U/L Troponin I <0.012 <0.012 (0.000-0.034) ng/mL 01/16/21 Range/Units 04:00 AST (17-59) U/L Troponin I <0.012 (0.000-0.034) ng/mL Coagulation 01/15/21 Range/Units 21:36 PT 16.0 H (9.0-12.0) sec APTT 32.7 H (22.0-30.0) sec Lipids 01/16/21 Range/Units 04:00 Triglycerides 74 (<150) mg/dL Cholesterol 100 (<200) mg/dL HDL Cholesterol 40 (40-60) mg/dL CBC 01/15/21 Range/Units 21:36 WBC 8.9 (3.8-10.6) k/uL RBC 4.28 L (4.30-5.90) m/uL Hgb 12.7 L (13.0-17.5) gm/dL Hct 37.5 L (39.0-53.0) % Plt Count 243 (150-450) k/uL Comprehensive Metabolic Panel 01/15/21 Range/Units 21:36 Sodium 137 (137-145) mmol/L Potassium 3.8 (3.5-5.1) mmol/L Chloride 107 (98-107) mmol/L Carbon Dioxide 25 (22-30) mmol/L BUN 22 H (9-20) mg/dL Creatinine 0.93 (0.66-1.25) mg/dL Glucose 100 H (74-99) mg/dL Calcium 8.9 (8.4-10.2) mg/dL AST 33 (17-59) U/L ALT 26 (4-49) U/L Alkaline Phosphatase 80 (38-126) U/L Total Protein 6.2 L (6.3-8.2) g/dL Albumin 3.3 L (3.5-5.0) g/dL Current Medications Generic Name Dose Route Start Last Admin Trade Name Freq PRN Reason Stop Dose Admin Albuterol Sulfate 2.5 mg 01/15/21 23:07 Albuterol Nebulized 2.5 Mg/3 Ml INHALATION RT-Q4H PRN Shortness Of Breath Atorvastatin Calcium 10 mg 01/16/21 21:00 Atorvastatin 10 Mg Tab PO HS CHITRA Budesonide/Formoterol Fumarate 2 puff 01/16/21 20:00 Symbicort 80-4.5 Mcg Inhaler INHALATION RT-BID CHITRA Cholecalciferol 25 mcg 01/16/21 21:00 Cholecalciferol 25 Mcg (1000 Iu) Tablet PO HS CHITRA Dronedarone 400 mg 01/16/21 07:30 01/16/21 07:55 Dronedarone 400 Mg Tab PO 400 mg AC-BID CHITRA Administration Fluticasone Propionate 1 spray 01/16/21 21:00 Fluticasone 50mcg/[place] Nasal 16gm EA NOSTRIL HS CHITRA Loratadine 10 mg 01/16/21 21:00 Loratadine 10 Mg Tab PO HS CHITRA Losartan Potassium 50 mg 01/16/21 21:00 Losartan 50 Mg Tab PO HS CHITRA Montelukast Sodium 10 mg 01/16/21 21:00 Montelukast 10 Mg Tab PO HS CHITRA Nitroglycerin 0.4 mg 01/15/21 23:05 Nitroglycerin Sl Tabs 0.4 Mg Tab SUBLINGUAL Q5M PRN Chest Pain Pantoprazole Sodium 40 mg 01/16/21 09:00 01/16/21 08:03 Pantoprazole 40 Mg Tablet PO 40 mg BID CHITRA Administration Rivaroxaban 20 mg 01/16/21 21:00 Rivaroxaban 20 Mg Tab PO HS CHITRA Intake and Output 01/15/21 01/16/21 01/16/21 22:59 06:59 14:59 Other: Voiding Method Toilet Toilet # Voids 3 Weight 102.058 kg 102.058 kg 01/15/21 21:36 01/15/21 21:36
[2021-01-16] MEDS ORDERED: SYMBICORT 80-4.5 MCG INHALER INHALATION SCH (20:00)
[2021-01-16] MEDS ORDERED: CHOLECALCIFEROL 25 MCG (1000 IU) TABLET PO SCH (21:00)
[2021-01-16] MEDS ORDERED: MONTELUKAST 10 MG TAB PO SCH (21:00)
[2021-01-16] MEDS ORDERED: ATORVASTATIN 10 MG TAB PO SCH (21:00)
[2021-01-16] MEDS ORDERED: LORATADINE 10 MG TAB PO SCH (21:00)
[2021-01-16] MEDS ORDERED: RIVAROXABAN 20 MG TAB PO SCH (21:00)
[2021-01-16] MEDS ORDERED: LOSARTAN 50 MG TAB PO SCH (21:00)
[2021-01-16] MEDS ORDERED: FLUTICASONE 50MCG/SPRAY NASAL 16GM EA NOSTRIL SCH (21:00)
== END 2021-01-16 10:29 | disposition home or self-care (01) ==
LOC: EC 21:27 → 6NMEDSUR 23:05
PROVIDERS: ADMIT Internal Medicine; ATTEND Internal Medicine
DX: K27.9 Peptic ulcer, site unspecified, unspecified as acute or chronic, without hemorrhage or perforation (principal); K29.70 Gastritis, unspecified, without bleeding; I48.92 Unspecified atrial flutter; I48.0 Paroxysmal atrial fibrillation; K21.9 Gastro-esophageal reflux disease without esophagitis; R74.8 Abnormal levels of other serum enzymes; H26.9 Unspecified cataract; E78.5 Hyperlipidemia, unspecified; I10 Essential (primary) hypertension; M19.049 Primary osteoarthritis, unspecified hand; I45.10 Unspecified right bundle-branch block; I25.10 Atherosclerotic heart disease of native coronary artery without angina pectoris; N40.0 Benign prostatic hyperplasia without lower urinary tract symptoms; Z79.899 Other long term (current) drug therapy; Z79.01 Long term (current) use of anticoagulants; Z91.02 Food additives allergy status; Z87.01 Personal history of pneumonia (recurrent); Z87.09 Personal history of other diseases of the respiratory system; Z90.49 Acquired absence of other specified parts of digestive tract; Z82.3 Family history of stroke; Z20.822 Contact with and (suspected) exposure to COVID-19
CPT/HCPCS: 93005 ×2; 99285; 36415; 83880; 80061; 80053; 82550; 83690 ×2; 83735; 84484 ×2; 85025; 85610; 85730; 87635; 71046; G0378 ×2

== ENCOUNTER → 2022-11-15 | Outpatient (CLI) | payer MEDICARE ==
[2022-11-15 18:19] LABS: HGB 13.5 g/dL (13.0-17.0); MCH 29.9 pg (27.0-32.0); MCHC 32.9 g/dL (32.0-37.0); MCV 90.7 fL (80.0-97.0); Mean Platelet Volume 11.3 fL (9.5-12.2); NRBC Per 100 WBC 0 /100 WBCS (0.0-0.0); Platelet Count 253 X 10*3/uL (140-440); RBC 4.52 X 10*6/uL (4.40-5.60); RDW 13.6 % (11.5-14.5); WBC 7.56 X 10*3/uL (4.50-10.00)
== END | disposition home or self-care (01) ==
LOC: LABWHC1 10:58
PROVIDERS: ATTEND Orthopaedic Surgery Sports Medicine
DX: Z01.818 Encounter for other preprocedural examination (principal); M25.561 Pain in right knee; M17.11 Unilateral primary osteoarthritis, right knee; R00.1 Bradycardia, unspecified; R94.31 Abnormal electrocardiogram [ECG] [EKG]
CPT/HCPCS: 36415; 85027; 93005

== ENCOUNTER 2023-04-28 15:40 | Inpatient (IN) | payer MEDICARE ==
--- NOTE | 2023-04-28 16:10 | ED ---
General Adult HPI - General Chief complaint: Arrhythmia/Palpitations Stated complaint: elevated heart rate Time Seen by Provider: 04/28/23 15:54 Source: patient Mode of arrival: ambulatory Limitations: no limitations - History of Present Illness Initial comments: Dictation was produced using [employer] dictation software. please excuse any grammatical, word or spelling errors. Chief Complaint: 72-year-old male presents emergency for palpitations History of Present Illness: Patient 72-year-old nice past medical history of atrial fibrillation. Patient started to feel palpitations approximately 5 hours prior to arrival. He was instructed by his isobutylene operator chief come to the emergency department. Prior to coming to the emergency department he was told to take extra doses of his beta wes. Seemed to have helped. Patient has been suffering from cold and flu symptoms for the last 7 days. He was prescribed antibiotics and prednisone. Patient otherwise has no complaints. No chest pain. The ROS documented in this emergency department record has been reviewed and confirmed by me. Those systems with pertinent positive or negative responses have been documented in the HPI. All other systems are other negative and/or noncontributory. - Related Data Home Medications Medication Instructions Recorded Confirmed Montelukast [Singulair] 10 mg PO HS@2300 08/26/15 04/28/23 Atorvastatin Calcium 10 mg PO HS@2300 08/31/16 04/28/23 Fluticasone Nasal [place] [Flonase 1 spray EA NOSTRIL HS@2300 07/13/18 04/28/23 Nasal [place]] Losartan [Cozaar] 50 mg PO HS@2300 12/06/19 04/28/23 Albuterol Inhaler [Ventolin Hfa 2 puff INHALATION RT-Q4H PRN 11/25/20 04/28/23 Inhaler] Cetirizine HCl 10 mg PO HS@2300 11/25/20 04/28/23 Advair Diskus (Unknown) 1 puff INHALATION RT-HS@2300 04/28/23 04/28/23 Amoxic-Pot Clav 875-125Mg 1 tab PO BID 04/28/23 04/28/23 [Augmentin 875-125] Dronedarone [Multaq] 200 mg PO DAILY@1900 04/28/23 04/28/23 Dronedarone [Multaq] 400 mg PO DAILY@0700 04/28/23 04/28/23 Esomeprazole Magnesium [NexIUM] 80 mg PO DAILY@0700 04/28/23 04/28/23 Rivaroxaban [Xarelto] 20 mg PO HS@2300 04/28/23 04/28/23 predniSONE [Deltasone] 40 mg PO DAILY 04/28/23 04/28/23 Allergies Allergy/AdvReac Type Severity Reaction Status Date / Time Yeast Allergy Nausea & Verified 04/28/23 17:51 Vomiting Review of Systems ROS Statement: Those systems with pertinent positive or pertinent negative responses have been documented in the HPI. ROS Other: All systems not noted in ROS Statement are negative. Past Medical History Past Medical History: Atrial Fibrillation, Atrial Flutter, Chest Pain / Angina, Eye Disorder, GERD/Reflux, Hyperlipidemia, Hypertension, Osteoarthritis (OA), Pneumonia, Prostate Disorder Additional Past Medical History / Comment(s): Paroxysmal Afib, aflutter, atach, RVR, bronchitis, BPH, bilateral astigmatism, sinus problems, BPH with outflow obstruction but none since TURP, arthritis in fingers. History of Any Multi-Drug Resistant Organisms: None Reported Past Surgical History: Ablation, Appendectomy, Cardiac Ablation, Cholecystectomy, Prostate Surgery Additional Past Surgical History / Comment(s): 12/13/17 PVI/cryoablation of 4 pulmonary veins, cardiac ablations with last time being 12/24/19, BESSIE/cardioversions, colonoscopy, bilateral cataract removals, TURP. Past Anesthesia/Blood Transfusion Reactions: No Reported Reaction Past Psychological History: No Psychological Hx Reported Smoking Status: Never smoker Past Alcohol Use History: None Reported Past Drug Use History: None Reported - Past Family History Father History Unknown: Yes Family Medical History: CVA/TIA Additional Family Medical History / Comment(s): Father had a CVA. He lived to be 75 yrs. old. Mother History Unknown: Yes Family Medical History: CVA/TIA Additional Family Medical History / Comment(s): Mother had a CVA x 2. He lived to be 82 yrs old. General Exam - General Exam Comments Initial Comments: PHYSICAL EXAM: General Impression: Alert and oriented x3, not in acute distress HEENT: Normocephalic atraumatic, extra-ocular movements intact, pupils equal and reactive to light bilaterally, mucous membranes moist. Cardiovascular: Tachycardic Chest: Able to complete full sentences, no retractions, no tachypnea Abdomen: abdomen soft, non-tender, non-distended, no organomegaly Musculoskeletal: Pulses present and equal in all extremities, no peripheral edema Motor: no focal deficits noted Neurological: CN II-XII grossly intact, no focal motor or sensory deficits noted Skin: Intact with no visualized rashes Psych: Normal affect and mood Limitations: no limitations Course Vital Signs 04/28/23 04/28/23 04/28/23 15:44 16:28 17:25 Temperature 98.2 F Pulse Rate 125 H 123 H Pulse Rate [ 123 H Left Sitting Pulse Oximetery ] Respiratory 22 18 Rate Blood Pressure 120/75 110/66 O2 Sat by Pulse 97 98 Oximetry 04/28/23 04/28/23 17:44 18:07 Temperature Pulse Rate 123 H 121 H Pulse Rate [ Left Sitting Pulse Oximetery ] Respiratory 18 20 Rate Blood Pressure 105/71 106/70 O2 Sat by Pulse 98 95 Oximetry - Reevaluation(s) Reevaluation #1: 04/28/23 18:03 Patient given IV metoprolol. He had a transient reduction in his blood pressure however he rebounded to what he reports is his baseline. Patient heart rate however continued to be 120s. Case is discussed with cardiology who recommends that patient be started on oral metoprolol given that his heart rate is not significantly elevated that point once his blood pressure improves then he be started on Cardizem. EKG Findings - EKG Comments: EKG Findings:: My EKG interpretation: Ventricular rate 123, a flutter versus sinus tachycardia, right bundle branch block, QRS 135, QTc 392. No GA prolongation, no QTC prolongation, no ST or T-wave changes noted. EKG compared to [default value] showing no changes. Overall, this EKG is unremarkable Medical Decision Making - Medical Decision Making Was pt. sent in by a medical professional or institution (, PA, ORACLE SECURITY CONSULTANT, urgent care, hospital, or retirement...) When possible be specific @ -No Did you speak to anyone other than the patient for history (EMS, parent, family, police, friend...)? What history was obtained from this source @ -At the bedside states that patient has history of A. fib Did you review nursing and triage notes (agree or disagree)? Why? @ -I reviewed and agree with nursing and triage notes Were old charts reviewed (outside hosp., previous admission, EMS record, old EKG, old radiological studies, urgent care reports/EKG's, retirement records)? Report findings @ -Prior charts reviewed. Echocardiogram from 2020 shows no heart failure Differential Diagnosis (chest pain, altered mental status, abdominal pain women, abdominal pain men, vaginal bleeding, musculoskeletal, weakness, fever, dyspnea, syncope, headache, dizziness, GI bleed, back pain, seizure, CVA, palpatations, m ental health)? @ - Differential Palpitations: Ventricular arrhythmias, atrial arrhythmias, myocardial infarction, anemia, thyrotoxicosis, electrolyte imbalance, hypokalemia, pulmonary embolism, pulmonary disease, drugs, alcohol, anxiety, stress.... This is not meant to be an all-inclusive list. EKG interpreted by me (3pts min.). @ -See above X-rays interpreted by me (1pt min.). @ -Nonacute CT interpreted by me (1pt min.). @ -None done U/S interpreted by me (1pt. min.). @ -None done What testing was considered but not performed or refused? (CT, X-rays, U/S, labs)? Why? @ -None What meds were considered but not given or refused? Why? @ -None Did you discuss the management of the patient with other professionals (professionals i.e. , PA, ORACLE SECURITY CONSULTANT, lab, RT, psych nurse, social professionals, systems admin, teacher, tourist information officer, assistant case manager)? Give summary @ -Case discussed with on-call cardiology as described above. Labs, clinical presentation and escutcheon with cardiology was discussed with Dr. Godinez for admission Was smoking cessation discussed for >3mins.? @ -No Was critical care preformed (if so, how long)? @ -Yes, 33 minutes Were there social determinants of health that impacted care today? How? (Homelessness, low income, unemployed, alcoholism, drug addiction, transportation, low edu. Level, literacy, decrease access to med. care, snf, rehab)? @ -No Was there de-escalation of care discussed even if they declined (Discuss DNR or withdrawal of care, Hospice)? DNR status @ -No What co-morbidities impacted this encounter? (DM, HTN, Smoking, COPD, CAD, Cancer, CVA, ARF, Chemo, Hep., AIDS, mental health diagnosis, sleep apnea, morbid obesity)? @ -None Was patient admitted / discharged? Hospital course, mention meds given and route, prescriptions, significant lab abnormalities, going to OR and other pertinent info. @ -72-year-old male past medical history of A. fib/A flutter presents to the emergency department for rapid ventricular rate. Patient had brief episode of hypotension after been given IV metoprolol. Case is discussed with isobutylene operator chief described above. Patient be admitted for further care. Undiagnosed new problem with uncertain prognosis? @ -No Drug Therapy requiring intensive monitoring for toxicity (Heparin, Nitro, Insulin, Cardizem)? @ -No Were any procedures done? @ -No Diagnosis/symptom? Acute, or Chronic, or Acute on Chronic? Uncomplicated (without systemic symptoms) or Complicated (systemic symptoms)? @ -1. A flutter with RVR Side effects of treatment? @ -No Exacerbation, Progression, or Severe Exacerbation? @ -No Poses a threat to life or bodily function? How? (Chest pain, [place], [place], pneumonia, PE, COPD, DKA, ARF, appy, cholecystitis, CVA, Diverticulitis, Homicidal, Suicidal, threat to staff... and all critical care pts) @ -yes - Lab Data Result diagrams: 04/28/23 16:36 04/28/23 16:36 Lab Results 04/28/23 04/28/23 04/28/23 Range/Units 16:36 16:36 16:36 WBC 7.9 (3.8-10.6) k/uL RBC 4.27 L (4.30-5.90) m/uL Hgb 12.6 L (13.0-17.5) gm/dL Hct 37.4 L (39.0-53.0) % MCV 87.7 (80.0-100.0) fL MCH 29.6 (25.0-35.0) pg MCHC 33.7 (31.0-37.0) g/dL RDW 14.3 (11.5-15.5) % Plt Count 245 (150-450) k/uL MPV 8.1 Neutrophils % 89 % Lymphocytes % 6 % Monocytes % 4 % Eosinophils % 1 % Basophils % 0 % Neutrophils # 7.0 (1.3-7.7) k/uL Lymphocytes # 0.5 L (1.0-4.8) k/uL Monocytes # 0.3 (0-1.0) k/uL Eosinophils # 0.0 (0-0.7) k/uL Basophils # 0.0 (0-0.2) k/uL PT 12.3 H (9.0-12.0) sec INR 1.2 H (<1.2) APTT 26.9 (22.0-30.0) sec Sodium 138 (137-145) mmol/L Potassium 4.2 (3.5-5.1) mmol/L Chloride 105 (98-107) mmol/L Carbon Dioxide 24 (22-30) mmol/L Anion Gap 9 mmol/L BUN 18 (9-20) mg/dL Creatinine 0.89 (0.66-1.25) mg/dL Est GFR (CKD-EPI)AfAm >90 (>60 ml/min/1.73 sqM) Est GFR (CKD-EPI)NonAf 86 (>60 ml/min/1.73 sqM) Glucose 122 H (74-99) mg/dL Calcium 9.0 (8.4-10.2) mg/dL Total Bilirubin 0.9 (0.2-1.3) mg/dL AST 43 (17-59) U/L ALT 40 (4-49) U/L Alkaline Phosphatase 100 (38-126) U/L Troponin I (0.000-0.034) ng/mL Total Protein 5.9 L (6.3-8.2) g/dL Albumin 3.4 L (3.5-5.0) g/dL TSH 1.010 (0.465-4.680) mIU/L 04/28/23 Range/Units 16:36 WBC (3.8-10.6) k/uL RBC (4.30-5.90) m/uL Hgb (13.0-17.5) gm/dL Hct (39.0-53.0) % MCV (80.0-100.0) fL MCH (25.0-35.0) pg MCHC (31.0-37.0) g/dL RDW (11.5-15.5) % Plt Count (150-450) k/uL MPV Neutrophils % % Lymphocytes % % Monocytes % % Eosinophils % % Basophils % % Neutrophils # (1.3-7.7) k/uL Lymphocytes # (1.0-4.8) k/uL Monocytes # (0-1.0) k/uL Eosinophils # (0-0.7) k/uL Basophils # (0-0.2) k/uL PT (9.0-12.0) sec INR (<1.2) APTT (22.0-30.0) sec Sodium (137-145) mmol/L Potassium (3.5-5.1) mmol/L Chloride (98-107) mmol/L Carbon Dioxide (22-30) mmol/L Anion Gap mmol/L BUN (9-20) mg/dL Creatinine (0.66-1.25) mg/dL Est GFR (CKD-EPI)AfAm (>60 ml/min/1.73 sqM) Est GFR (CKD-EPI)NonAf (>60 ml/min/1.73 sqM) Glucose (74-99) mg/dL Calcium (8.4-10.2) mg/dL Total Bilirubin (0.2-1.3) mg/dL AST (17-59) U/L ALT (4-49) U/L Alkaline Phosphatase (38-126) U/L Troponin I <0.012 (0.000-0.034) ng/mL Total Protein (6.3-8.2) g/dL Albumin (3.5-5.0) g/dL TSH (0.465-4.680) mIU/L Disposition Clinical Impression: Atrial flutter Disposition: ADMITTED IP TO THIS HOSP Condition: Fair Referrals: Johann Rubalcava MD [Primary Care Provider] - 1-2 days Decision Time: 18:00
[2023-04-28 16:43] LABS: Basophils % (A) 0 %; Eosinophils % (A) 1 %; HCT 37.4 % (39.0-53.0); HGB 12.6 gm/dL (13.0-17.5); Lymphocytes # (A) 0.5 k/uL (1.0-4.8); Lymphocytes % (A) 6 %; MCH 29.6 pg (25.0-35.0); MCHC 33.7 g/dL (31.0-37.0); MCV 87.7 fL (80.0-100.0); Mean Platelet Volume 8.1; Monocytes # (A) 0.3 k/uL (0-1.0); Monocytes % (A) 4 %; Neutrophils % (A) 89 %; Platelet Count 245 k/uL (150-450); RBC 4.27 m/uL (4.30-5.90); RDW 14.3 % (11.5-15.5); WBC 7.9 k/uL (3.8-10.6)
--- NOTE | 2023-04-28 16:53 | XR ---
EXAMINATION TYPE: XR chest 2V DATE OF EXAM: 04/28/2023 4:48 PM COMPARISON: Chest radiographs from 01/15/2021, CTA chest 12/03/2020 TECHNIQUE: XR chest 2V Frontal and lateral views of the chest. CLINICAL INDICATION:Male, 72 years old with history of palpitations; FINDINGS: Lungs/Pleura: There is no evidence of pleural effusion, focal consolidation, or pneumothorax. Pulmonary vascularity: Unremarkable. Heart/mediastinum: Cardiomediastinal silhouette is prominent in size. Musculoskeletal: No acute osseous pathology. Mild multilevel degenerative disc disease of the thoraci c spine. IMPRESSION: Chronic changes without acute process.
[2023-04-28 16:57] LABS: ALT 40 U/L (4-49); AST 43 U/L (17-59); African American GFR (CKD) >90 (>60 ml/min/1.73 sqM); Albumin 3.4 g/dL (3.5-5.0); Alkaline Phosphatase 100 U/L (38-126); Anion Gap 9 mmol/L; Blood Urea Nitrogen 18 mg/dL (9-20); Carbon Dioxide 24 mmol/L (22-30); Chloride 105 mmol/L (98-107); Glucose 122 mg/dL (74-99); Non-African American GFR(CKD) 86 (>60 ml/min/1.73 sqM); Potassium 4.2 mmol/L (3.5-5.1); Sodium 138 mmol/L (137-145); Total Bilirubin 0.9 mg/dL (0.2-1.3); Total Protein 5.9 g/dL (6.3-8.2)
[2023-04-28] MEDS ORDERED: SODIUM CHLORIDE 0.9% 1,000 ML IV STA (17:18)
[2023-04-28] MEDS ORDERED: METOPROLOL TARTRATE 5 MG/5 ML VIAL IVP STA (17:18)
[2023-04-28 17:39] LABS: INR 1.2 (<1.2); Partial Thromboplastin Time 26.9 sec (22.0-30.0); Prothrombin Time 12.3 sec (9.0-12.0)
[2023-04-28] MEDS ORDERED: NALOXONE 0.4 MG/ML 1 ML VIAL IV PRN (18:16)
[2023-04-28] MEDS ORDERED: ONDANSETRON 4 MG/2 ML VIAL IVP PRN (18:16)
[2023-04-28] MEDS: SODIUM CHLORIDE 0.9% 1,000 ML IV SCH (18:40)
[2023-04-28] MEDS ORDERED: ALBUTEROL NEBULIZED 2.5 MG/3 ML INHALATION PRN (19:18)
[2023-04-28] MEDS ORDERED: LACTULOSE 20 GM/30 ML CUP PO PRN (19:19)
[2023-04-28] MEDS ORDERED: MELATONIN 3 MG TABLET PO PRN (19:19)
[2023-04-28] MEDS ORDERED: ACETAMINOPHEN TAB 325 MG TAB PO PRN (19:19)
[2023-04-28] MEDS ORDERED: CALCIUM CARBONATE 500 MG CHEWABLE PO PRN (19:19)
[2023-04-28] MEDS ORDERED: LORazepam 0.5 MG TAB PO PRN (19:19)
[2023-04-28] MEDS ORDERED: METOPROLOL TARTRATE 25 MG TAB PO SCH (21:00)
--- NOTE | 2023-04-28 21:57 | P.HPIM ---
History of Present Illness H&P Date: 04/28/23 Chief Complaint: Heart racing History of presenting complaint: This is a [address] Rubalcava. Equine Dentist Dr. NERY Fernandes. Chronic stable medical conditions include hypertension, GERD, primary osteoarthritis, moderate persistent asthma, atrial fibrillation on anticoagulation,ascending aorta aneurysm 4.4 cm. in August 2019 patient had a cardiac catheterization t hat was negative. Dr. Chriss Katz- ablation was carried out for atrial tachycardia. Patient today presents with his heart rates into the 150s. Patient's had what he describes as a cold for 7 days. His cough especially worse today. Green sputum. No fever no chills. Appetite is good. Admitted to the ER. Cartilage E was informed. No dizziness no lightheadedness. Review of systems: GEN.: Tired EYES: None HEENT: None NECK: None RESPIRATORY: As above CARDIOVASCULAR: As above GASTROINTESTINAL: heartburn GENITOURINARY: None MUSCULOSKELETAL: Pain in the joints LYMPHATICS: None HEMATOLOGICAL: None PSYCHIATRY: None NEUROLOGICAL: None Past medical history to include: Hypertension, GERD, primary osteoarthritis, moderate persistent asthma, atrial fibrillation/atrial tachycardia ablation, on anticoagulation,, BPH treated with TURP. Negative cardiac catheterization in 2019 Social history: , retired, no smoking. Alcohol rarely. .Physical examination: VITAL SIGNS: 98.8, 124, 20, 10 7 x 67, 95% room air GENERAL: Laying in bed, comfortable EYES: Pupils equal. Conjunctiva normal. HEENT: External appearance of nose and ears normal, oral cavity grossly normal. NECK: JVD not raised; masses not palpable. HEART: Heart sounds irregular; no edema. LUNGS: Respiratory rate normal; clear to auscultation. ABDOMEN: Soft, nontender, liver spleen not palpable, no masses palpable. PSYCH: Alert and oriented x3; mood and affect normal. Lymphatics: No lymph nodes palpable in the neck and axilla NEUROLOGICAL: Cranial nerves grossly intact. Power and sensation grossly intact INVESTIGATIONS, reviewed in the clinical context: White count 7.9 hemoglobin 12.6 platelets 245 sodium 13 potassium 4.2 creatinine 0.89 TSH 1.010 EKG tracing personally reviewed by me-atrial flutter/tachycardia with a rate of 122 Chest x-ray film personally reviewed by me-clear Assessment and plan: -Recurrent atrial flutter fibrillation uncontrolled with a prior ablation 3. Now presented with uncontrolled heart rate. Patient was previously seen by Dr. Chriss Katz. multaq -4.4 cm ascending aorta aneurysm, Annual follow-up -Essential hypertension Lopressor -GERD Nexium -Primary osteoarthritis Pain medications needed -Moderate persistent asthma Ventolin when necessary Cardiology/EP's consulted. Home medications to continue. Discussed with patient. Past Medical History Past Medical History: Atrial Fibrillation, Atrial Flutter, Chest Pain / Angina, Eye Disorder, GERD/Reflux, Hyperlipidemia, Hypertension, Osteoarthritis (OA), P neumonia, Prostate Disorder Additional Past Medical History / Comment(s): Paroxysmal Afib, aflutter, atach, RVR, bronchitis, BPH, bilateral astigmatism, sinus problems, BPH with outflow obstruction but none since TURP, arthritis in fingers. History of Any Multi-Drug Resistant Organisms: None Reported Past Surgical History: Ablation, Appendectomy, Cardiac Ablation, Cholecystectomy, Prostate Surgery Additional Past Surgical History / Comment(s): 12/13/17 PVI/cryoablation of 4 pulmonary veins, cardiac ablations with last time being 12/24/19, BESSIE/cardioversions, colonoscopy, bilateral cataract removals, TURP. Past Anesthesia/Blood Transfusion Reactions: No Reported Reaction Past Psychological History: No Psychological Hx Reported Smoking Status: Never smoker Past Alcohol Use History: None Reported Past Drug Use History: None Reported - Past Family History Father History Unknown: Yes Family Medical History: CVA/TIA Additional Family Medical History / Comment(s): Father had a CVA. He lived to be 75 yrs. old. Mother History Unknown: Yes Family Medical History: CVA/TIA Additional Family Medical History / Comment(s): Mother had a CVA x 2. He lived to be 82 yrs old. Medications and Allergies Home Medications Medication Instructions Recorded Confirmed Type Montelukast [Singulair] 10 mg PO HS@2300 08/26/15 04/28/23 History Atorvastatin Calcium 10 mg PO HS@2300 08/31/16 04/28/23 History Fluticasone Nasal [place] [Flonase 1 spray EA NOSTRIL HS@2300 07/13/18 04/28/23 History Nasal [place]] Losartan [Cozaar] 50 mg PO HS@2300 12/06/19 04/28/23 History Albuterol Inhaler [Ventolin Hfa 2 puff INHALATION RT-Q4H PRN 11/25/20 04/28/23 History Inhaler] Cetirizine HCl 10 mg PO HS@0 11/25/20 04/28/23 History Advair Diskus (Unknown) 1 puff INHALATION RT-HS@229904/28/23 04/28/23 History Amoxic-Pot Clav 875-125Mg 1 tab PO BID 04/28/23 04/28/23 History [Augmentin 875-125] Dronedarone [Multaq] 200 mg PO DAILY@189904/28/23 04/28/23 History Dronedarone [Multaq] 400 mg PO DAILY@69904/28/23 04/28/23 History Esomeprazole Magnesium [NexIUM] 80 mg PO DAILY@69904/28/23 04/28/23 History Rivaroxaban [Xarelto] 20 mg PO HS@229904/28/23 04/28/23 History predniSONE [Deltasone] 40 mg PO DAILY 04/28/23 04/28/23 History Allergies Allergy/AdvReac Type Severity Reaction Status Date / Time Yeast Allergy Nausea & Verified 04/28/23 17:51 Vomiting Physical Exam Vitals: Vital Signs Temp Pulse Pulse Pulse Resp BP BP 04/28/23 20:00 98.8 F 124 H 20 107/67 04/28/23 19:43 123 H 18 119/50 04/28/23 19:18 124 H 18 108/80 04/28/23 18:07 121 H 20 106/70 04/28/23 17:44 123 H 18 105/71 04/28/23 17:25 123 H 18 110/66 04/28/23 16:28 123 H 04/28/23 15:44 98.2 F 125 H 22 120/75 Pulse Ox 04/28/23 20:00 95 04/28/23 19:43 95 04/28/23 19:18 95 04/28/23 18:07 95 04/28/23 17:44 98 04/28/23 17:25 98 04/28/23 16:28 04/28/23 15:44 97 Intake and Output 04/28/23 04/28/23 04/28/23 06:59 14:59 22:59 Other: Weight 104.326 kg Results CBC & Chem 7: 04/28/23 16:36 04/28/23 16:36 Labs: Abnormal Lab Results - Last 24 Hours (Table) 04/28/23 04/28/23 04/28/23 Range/Units 16:36 16:36 16:36 RBC 4.27 L (4.30-5.90) m/uL Hgb 12.6 L (13.0-17.5) gm/dL Hct 37.4 L (39.0-53.0) % Lymphocytes # 0.5 L (1.0-4.8) k/uL PT 12.3 H (9.0-12.0) sec INR 1.2 H (<1.2) Glucose 122 H (74-99) mg/dL Total Protein 5.9 L (6.3-8.2) g/dL Albumin 3.4 L (3.5-5.0) g/dL
[2023-04-28] MEDS ORDERED: LOSARTAN 50 MG TAB PO SCH (23:00)
[2023-04-28] MEDS: ATORVASTATIN 10 MG TAB PO SCH (23:11)
[2023-04-28] MEDS: RIVAROXABAN 20 MG TAB PO SCH (23:11)
[2023-04-28] MEDS: MONTELUKAST 10 MG TAB PO SCH (23:11)
[2023-04-28] MEDS ORDERED: DRONEDARONE 400 MG TAB PO SCH (23:45)
[2023-04-29] MEDS: guaiFENesin SYRUP 100MG/5ML 200 MG/10 ML CUP PO PRN ×2 (02:34→09:01)
[2023-04-29] MEDS: PANTOPRAZOLE 40 MG TABLET PO SCH (06:09)
[2023-04-29] MEDS ORDERED: DRONEDARONE 400 MG TAB PO SCH (07:00)
[2023-04-29] MEDS: predniSONE 20 MG TAB PO SCH (09:01)
[2023-04-29] MEDS: METOPROLOL TARTRATE 50 MG TAB PO SCH ×2 (09:02→20:55)
[2023-04-29] MEDS: SODIUM CHLORIDE 0.9% 1,000 ML IV SCH ×2 (09:02→21:07)
--- NOTE | 2023-04-29 10:31 | P.CRDCN ---
History of Present Illness History of present illness: HISTORY OF PRESENT ILLNESS: This is a 72-year-old male with a past medical history significant for ascending aortic aneurysm, valvular heart disease, atrial fibrillation with previous cardioversion, atrial flutter with previous ablation, and atrial tachycardia with previous ablation. Patient follows in the office with Dr. Fernandes. We have been asked to see the patient in consultation for aflutter. Patient examined at the bedside. The patient states he has been having cold symptoms for the past week. He states he went to his primary care physician yesterday and was told he had a sinus infection. He was started on antibiotics and steroids. He states that once he got home he began to cough pretty consistently. He states that he put his oxygen sensor on his finger and his heart rate was noted to be in the [id number]. He does report feeling some palpitations at that time. He states that he took extra metoprolol but his heart rate did not come down so he called Dr. Fernandes's office and was told to take an extra metoprolol again and if his heart rate does not come down and to come to the emergency room. The patient currently denies chest pain or pressure. He denies shortness of breath. He reports sinus congestion and a frequent hacking nonproductive cough. The patient states that he recently wore a 2 week Holter monitor but does not know the results of that yet. The patient also reports over the past 2 months he has had 4-5 episodes of sustained palpitations in which he took extra Multaq at home. * EKG reveals atrial tachycardia * Chest xray chronic changes without acute process * Laboratory data: WBC 7.9. Hemoglobin 12.6. Platelet count 145. Sodium 138. Potassium 4.2. BUN 18. Creatinine 0.89. Troponin negative 1 TSH 1.010 * Current home cardiac medications include Xarelto 20 mg at night, losartan 50 mg at night, Multaq 400mg in the morning and 200mg in the evening * Most recent echocardiogram obtained in July 2022 revealing ejection fraction 55%, aneurysmal ascending aorta 4.5 cm, [id number] AR, [id number]-ta-eeibufyq MR, [id number]-cl-rbvhylcg TR * Cardiac catheterization history: August 2019 revealing right dominant system with no significant obstructive CAD REVIEW OF SYSTEMS: At the time of my exam: CONSTITUTIONAL: Denies fever or chills. HEENT: Denies blurred vision, vision changes, or eye pain. Denies hemoptysis CARDIOVASCULAR: Denies chest pain. Denies orthopnea. Denies PND. Denies palpitations RESPIRATORY: Denies shortness of breath. GASTROINTESTINAL: Denies abdominal pain. Denies nausea or vomiting. HEMATOLOGIC: Denies bleeding disorders. GENITOURINARY: Denies any blood in urine. SKIN: Denies pruitis. Denies rash. PHYSICAL EXAM: VITAL SIGNS: Reviewed. GENERAL: Well-developed in no acute distress. HEENT: Head is normocephalic. Pupils are equal, round. Sclerae anicteric. Mucous membranes of the mouth are moist. Neck supple. No JVD or thyromegaly LUNGS: Respirations even and unlabored. Lungs essentially clear to auscultation bilaterally. HEART: Regular rate and rhythm. S1 and S2 heard. ABDOMEN: Soft. Nondistended. Nontender. EXTREMITIES: Normal range of motion. No clubbing or cyanosis. Peripheral pulses intact. No lower extremity edema NEUROLOGIC: Awake and alert. Oriented x 3. ASSESSMENT: Upper respiratory infection Palpitations Atrial tachycardia with RVR History of atrial fibrillation with previous cardioversion History of atrial tachycardia with previous ablation History of atrial flutter with previous ablation Ascending aortic aneurysm Valvular heart disease Hypertension PLAN: Obtain 2D echo to assess cardiac structure and function Increase metoprolol to 50mg BID Change Multaq to 400mg BID Continue telemetry monitoring Dr. Katz consulted for EP evaluation Obtain records from cardiology office of recent event monitor Further recommendations pending patient course Nurse practitioner note has been reviewed by physician. Signing provider agrees with the documented findings, assessment, and plan of care. Past Medical History Past Medical History: Atrial Fibrillation, Atrial Flutter, Chest Pain / Angina, Eye Disorder, GERD/Reflux, Hyperlipidemia, Hypertension, Osteoarthritis (OA), Pneumonia, Prostate Disorder Additional Past Medical History / Comment(s): Paroxysmal Afib, aflutter, atach, RVR, bronchitis, BPH, bilateral astigmatism, sinus problems, BPH with outflow obstruction but none since TURP, arthritis in fingers. History of Any Multi-Drug Resistant Organisms: None Reported Past Surgical History: Ablation, Appendectomy, Cardiac Ablation, Cholecystectomy, Prostate Surgery Additional Past Surgical History / Comment(s): 12/13/17 PVI/cryoablation of 4 pulmonary veins, cardiac ablations with last time being 12/24/19, BESSIE/cardioversions, colonoscopy, bilateral cataract removals, TURP. Past Anesthesia/Blood Transfusion Reactions: No Reported Reaction Past Psychological History: No Psychological Hx Reported Smoking Status: Never smoker Past Alcohol Use History: None Reported Past Drug Use History: None Reported - Past Family History Father History Unknown: Yes Family Medical History: CVA/TIA Additional Family Medical History / Comment(s): Father had a CVA. He lived to be 75 yrs. old. Mother History Unknown: Yes Family Medical History: CVA/TIA Additional Family Medical History / Comment(s): Mother had a CVA x 2. He lived to be 82 yrs old. Medications and Allergies Home Medications Medication Instructions Recorded Confirmed Type Montelukast [Singulair] 10 mg PO HS@2300 08/26/15 04/28/23 History Atorvastatin Calcium 10 mg PO HS@2300 08/31/16 04/28/23 History Fluticasone Nasal [place] [Flonase 1 spray EA NOSTRIL HS@2300 07/13/18 04/28/23 History Nasal [place]] Losartan [Cozaar] 50 mg PO HS@2300 12/06/19 04/28/23 History Albuterol Inhaler [Ventolin Hfa 2 puff INHALATION RT-Q4H PRN 11/25/20 04/28/23 History Inhaler] Cetirizine HCl 10 mg PO HS@0 11/25/20 04/28/23 History Amoxic-Pot Clav 875-125Mg 1 tab PO BID 04/28/23 04/28/23 History [Augmentin 875-125] Dronedarone [Multaq] 200 mg PO DAILY@19004/28/23 04/28/23 History Dronedarone [Multaq] 400 mg PO DAILY@69904/28/23 04/28/23 History Esomeprazole Magnesium [NexIUM] 80 mg PO DAILY@69904/28/23 04/28/23 History Rivaroxaban [Xarelto] 20 mg PO HS@229904/28/23 04/28/23 History predniSONE [Deltasone] 40 mg PO DAILY 04/28/23 04/28/23 History Fluticasone Propion/Salmeterol 1 puff INHALATION RT-HS 04/29/23 04/29/23 History [Advair 250-50 Diskus] Allergies Allergy/AdvReac Type Severity Reaction Status Date / Time Yeast Allergy Nausea & Verified 04/28/23 17:51 Vomiting Physical Exam Vitals: Vital Signs Temp Pulse Pulse Pulse Pulse Resp BP 04/29/23 09:00 98.2 F 132 H 20 04/29/23 04:00 97.6 F 126 H 18 04/29/23 00:00 98.0 F 126 H 18 04/28/23 20:00 98.8 F 124 H 20 04/28/23 19:43 123 H 18 119/50 04/28/23 19:18 124 H 18 108/80 04/28/23 18:07 121 H 20 106/70 04/28/23 17:44 123 H 18 105/71 04/28/23 17:25 123 H 18 110/66 04/28/23 16:28 123 H 04/28/23 15:44 98.2 F 125 H 22 120/75 BP Pulse Ox 04/29/23 09:00 107/72 95 04/29/23 04:00 113/77 96 04/29/23 00:00 111/64 95 04/28/23 20:00 107/67 95 04/28/23 19:43 95 04/28/23 19:18 95 04/28/23 18:07 95 04/28/23 17:44 98 04/28/23 17:25 98 04/28/23 16:28 04/28/23 15:44 97 Intake and Output 04/28/23 04/29/23 04/29/23 22:59 06:59 14:59 Intake Total 1065 118 Balance 1065 118 Intake: IV 525 Sodium Chloride 0.9% 1, 525 000 ml @ 75 mls/hr IV . [id number] [facility] Rx#:[id number] Oral 540 118 Other: Voiding Method Toilet Toilet # Voids 5 Weight 104.326 kg 104.2 kg Results 04/28/23 16:36 04/28/23 16:36 Cardiac Enzymes 04/28/23 04/28/23 Range/Units 16:36 16:36 AST 43 (17-59) U/L Troponin I <0.012 (0.000-0.034) ng/mL Coagulation 04/28/23 Range/Units 16:36 PT 12.3 H (9.0-12.0) sec APTT 26.9 (22.0-30.0) sec CBC 04/28/23 Range/Units 16:36 WBC 7.9 (3.8-10.6) k/uL RBC 4.27 L (4.30-5.90) m/uL Hgb 12.6 L (13.0-17.5) gm/dL Hct 37.4 L (39.0-53.0) % Plt Count 245 (150-450) k/uL Comprehensive Metabolic Panel 04/28/23 Range/Units 16:36 Sodium 138 (137-145) mmol/L Potassium 4.2 (3.5-5.1) mmol/L Chloride 105 (98-107) mmol/L Carbon Dioxide 24 (22-30) mmol/L BUN 18 (9-20) mg/dL Creatinine 0.89 (0.66-1.25) mg/dL Glucose 122 H (74-99) mg/dL Calcium 9.0 (8.4-10.2) mg/dL AST 43 (17-59) U/L ALT 40 (4-49) U/L Alkaline Phosphatase 100 (38-126) U/L Total Protein 5.9 L (6.3-8.2) g/dL Albumin 3.4 L (3.5-5.0) g/dL Current Medications Generic Name Dose Route Start Last Admin Trade Name Freq PRN Reason Stop Dose Admin Acetaminophen 650 mg 04/28/23 19:19 Acetaminophen Tab 325 Mg Tab PO Q6HR PRN Mild Pain or Fever > 100.5 Albuterol Sulfate 2.5 mg 04/28/23 19:18 Albuterol Nebulized 2.5 Mg/3 Ml INHALATION RT-Q4H PRN Shortness Of Breath Atorvastatin Calcium 10 mg 04/28/23 23:00 04/28/23 23:11 Atorvastatin 10 Mg Tab PO 10 mg HS@2300 [facility] Administration Budesonide/Formoterol Fumarate 2 puff 04/29/23 23:00 Symbicort 80-4.5 Mcg Inhaler INHALATION RT-HS@2300 [facility] Calcium Carbonate/Glycine 1,000 mg 04/28/23 19:19 Calcium Carbonate 500 Mg Chewable PO Q4HR PRN Dyspepsia Dronedarone 400 mg 04/29/23 17:30 Dronedarone 400 Mg Tab PO AC-BID [facility] Guaifenesin 200 mg 04/28/23 23:53 04/29/23 09:01 Guaifenesin Syrup 100mg/5ml 200 Mg/10 Ml Cup PO 200 mg Q6HR PRN Administration Cough Sodium Chloride 1,000 mls @ 75 mls/hr 04/28/23 18:30 04/29/23 09:02 Saline 0.9% IV 75 mls/hr .[id number] [facility] Administration Lactulose 20 gm 04/28/23 19:19 Lactulose 20 Gm/30 Ml Cup PO DAILY PRN Constipation Lorazepam 0.5 mg 04/28/23 19:19 Lorazepam 0.5 Mg Tab PO Q6HR PRN Anxiety Melatonin 3 mg 04/28/23 19:19 Melatonin 3 Mg Tablet PO HS PRN Insomnia Metoprolol Tartrate 50 mg 04/29/23 09:00 04/29/23 09:02 Metoprolol Tartrate 50 Mg Tab PO 50 mg BID [facility] Administration Montelukast Sodium 10 mg 04/28/23 23:00 04/28/23 23:11 Montelukast 10 Mg Tab PO 10 mg HS@2300 [facility] Administration Naloxone HCl 0.2 mg 04/28/23 18:16 Naloxone 0.4 Mg/Ml 1 Ml Vial IV Q2M PRN Opioid Reversal Ondansetron HCl 4 mg 04/28/23 18:16 Ondansetron 4 Mg/2 Ml Vial IVP Q8HR PRN Nausea And Vomiting Pantoprazole Sodium 80 mg 04/29/23 07:00 04/29/23 06:09 Pantoprazole 40 Mg Tablet PO 80 mg DAILY@0700 [facility] Administration Prednisone 40 mg 04/29/23 09:00 04/29/23 09:01 Prednisone 20 Mg Tab PO 40 mg DAILY [facility] Administration Rivaroxaban 20 mg 04/28/23 23:00 04/28/23 23:11 Rivaroxaban 20 Mg Tab PO 20 mg HS@2300 [facility] Administration Protocol Intake and Output 04/28/23 04/29/23 04/29/23 22:59 06:59 14:59 Intake Total 1065 118 Balance 1065 118 Intake: IV 525 Sodium Chloride 0.9% 1, 525 000 ml @ 75 mls/hr IV . [id number] [facility] Rx#:[id number] Oral 540 118 Other: Voiding Method Toilet Toilet # Voids 5 Weight 104.326 kg 104.2 kg 04/28/23 16:36 04/28/23 16:36
[2023-04-29] MEDS ORDERED: METOPROLOL TARTRATE 50 MG TAB PO STA (11:53)
--- NOTE | 2023-04-29 14:19 | P.PN ---
Progress Note - Text Progress Note Date: 04/29/23 Chief Complaint: Heart racing History of presenting complaint: This is a [address] Rubalcava. Healthcare Consulting Manager Dr. NERY Fernandes. Chronic stable medical conditions include hypertension, GERD, primary osteoarthritis, moderate persistent asthma, atrial fibrillation on anticoagulation,ascending aorta aneurysm 4.4 cm. in August 2019 patient had a cardiac catheterization that was negative. Dr. Chriss Katz- ablation was carried out for atrial tachycardia. Patient today presents with his heart rates into the 150s. Patient's had what he describes as a cold for 7 days. His cough especially worse today. Green sputum. No fever no chills. Appetite is good. Admitted to the ER. Cartilage E was informed. No dizziness no lightheadedness. April 29: Per cardiology multaq changed to 400 mg twice a day. Await input from Dr. Chriss Katz. Intermittent cough. Patient told to sit up in a chair. Reflux symptoms present. Remains in a flutter tachycardia/ Active Medications Acetaminophen (Acetaminophen Tab 325 Mg Tab) 650 mg PO Q6HR PRN PRN Reason: Mild Pain or Fever > 100.5 Albuterol Sulfate (Albuterol Nebulized 2.5 Mg/3 Ml) 2.5 mg INHALATION RT-Q4H PRN PRN Reason: Shortness Of Breath Atorvastatin Calcium (Atorvastatin 10 Mg Tab) 10 mg PO HS@2300 [facility] Last Admin: 04/28/23 23:11 Dose: 10 mg Budesonide/Formoterol Fumarate (Symbicort 80-4.5 Mcg Inhaler) 2 puff INHALATION RT-HS@2300 [facility] Calcium Carbonate/Glycine (Calcium Carbonate 500 Mg Chewable) 1,000 mg PO Q4HR PRN PRN Reason: Dyspepsia Dronedarone (Dronedarone 400 Mg Tab) 400 mg PO AC-BID [facility] Guaifenesin (Guaifenesin Syrup 100mg/5ml 200 Mg/10 Ml Cup) 200 mg PO Q6HR PRN PRN Reason: Cough Last Admin: 04/29/23 09:01 Dose: 200 mg Sodium Chloride (Saline 0.9%) 1,000 mls @ 75 mls/hr IV .[id number] [facility] Last Admin: 04/29/23 09:02 Dose: 75 mls/hr Lactulose (Lactulose 20 Gm/30 Ml Cup) 20 gm PO DAILY PRN PRN Reason: Constipation Lorazepam (Lorazepam 0.5 Mg Tab) 0.5 mg PO Q6HR PRN PRN Reason: Anxiety Melatonin (Melatonin 3 Mg Tablet) 3 mg PO HS PRN PRN Reason: Insomnia Metoprolol Tartrate (Metoprolol Tartrate 50 Mg Tab) 50 mg PO BID [facility] Last Admin: 04/29/23 09:02 Dose: 50 mg Montelukast Sodium (Montelukast 10 Mg Tab) 10 mg PO HS@2300 [facility] Last Admin: 04/28/23 23:11 Dose: 10 mg Naloxone HCl (Naloxone 0.4 Mg/Ml 1 Ml Vial) 0.2 mg IV Q2M PRN PRN Reason: Opioid Reversal Ondansetron HCl (Ondansetron 4 Mg/2 Ml Vial) 4 mg IVP Q8HR PRN PRN Reason: Nausea And Vomiting Pantoprazole Sodium (Pantoprazole 40 Mg Tablet) 80 mg PO DAILY@0700 [facility] Last Admin: 04/29/23 06:09 Dose: 80 mg Prednisone (Prednisone 20 Mg Tab) 40 mg PO DAILY [facility] Last Admin: 04/29/23 09:01 Dose: 40 mg Rivaroxaban (Rivaroxaban 20 Mg Tab) 20 mg PO HS@2300 [facility]; Protocol Last Admin: 04/28/23 23:11 Dose: 20 mg Past medical history to include: Hypertension, GERD, primary osteoarthritis, moderate persistent asthma, atrial fibrillation/atrial tachycardia ablation, on anticoagulation,, BPH treated with TURP. Negative cardiac catheterization in 2019 Social history: , retired, no smoking. Alcohol rarely. .Physical examination: VITAL SIGNS: 97.4, 1:30, 20, 105/60, 97% room air GENERAL: Laying in bed, comfortable EYES: Pupils equal. Conjunctiva normal. HEENT: External appearance of nose and ears normal, oral cavity grossly normal. NECK: JVD not raised; masses not palpable. HEART: Heart sounds irregular; no edema. LUNGS: Respiratory rate normal; clear to auscultation. ABDOMEN: Soft, nontender, liver spleen not palpable, no masses palpable. PSYCH: Alert and oriented x3; mood and affect normal. Lymphatics: No lymph nodes palpable in the neck and axilla NEUROLOGICAL: Cranial nerves grossly intact. Power and sensation grossly intact INVESTIGATIONS, reviewed in the clinical context: Influenza type A/B, RSV, COVID-19: Not detected White count 7.9 hemoglobin 12.6 platelets 245 sodium 13 potassium 4.2 creatinine 0.89 TSH 1.010 EKG tracing personally reviewed by me-atrial flutter/tachycardia with a rate of 122 Chest x-ray film personally reviewed by me-clear Assessment and plan: -Recurrent atrial flutter fibrillation with a prior ablation 3. Remains uncontrolled Pending input from EP.. multaq increased to 4 mg twice a day -Acute viral tracheobronchitis Symptomatic treatment. Warm water with salt gargle. -4.4 cm ascending aorta aneurysm, Annual follow-up -Essential hypertension Lopressor -GERD Nexium -Primary osteoarthritis Pain medications needed -Moderate persistent asthma Ventolin when necessary Dose amount of back increased. Await input from EP. Patient is set up in a chair. Continue other medications.
[2023-04-29] MEDS: DRONEDARONE 400 MG TAB PO SCH (16:49)
--- NOTE | 2023-04-29 17:38 | CA ---
Transthoracic Echo Report Name: Dung Sahni Age: 72 Gender: M : 1950 Exam Date: 04/29/2023 13:59 Exam Location: [place] [facility] Ht (in): Wt (lb): Ordering Physician: Zee Lord Attending/Referring Phys: [id number], Pop Water Systems Engineer Dayo Marmolejo Procedure CPT: Indications: LV function, tachycardia Cardiac Hx: Technical Quality: Technically difficult study Contrast 1: Lumason Total Dose (mL): 5 Contrast 2: Agitated Saline Total Dose (mL): 10 MEASUREMENTS (Male / Female) Normal Values 2D ECHO LV Diastolic Diameter PLAX 4.4 cm 4.2 - 5.9 / 3.9 - 5.3 cm LV Systolic Diameter PLAX 3.0 cm IVS Diastolic Thickness 1.6 cm 0.6 - 1.0 / 0.6 - 0.9 cm LVPW Diastolic Thickness 1.3 cm 0.6 - 1.0 / 0.6 - 0.9 cm LV Relative Wall Thickness 0.7 RV Internal Dim ED PLAX 2.7 cm LVOT Diameter 2.4 cm Aortic Root Diameter 4.1 cm LA Systolic Diameter LX 3.5 cm 3.0 - 4.0 / 2.7 - 3.8 cm LV Diastolic Volume MOD BP 39.3 cm??? 67 - 155 / 56 - 104 cm??? LV Systolic Volume MOD BP 16.3 cm??? 22 - 58 / 19 - 49 cm??? LV Ejection Fraction MOD BP 58.4 % >= 55 % LV Diastolic Volume MOD 4C 37.5 cm??? LV Systolic Volume MOD 4C 18.7 cm??? LV Ejection Fraction MOD 4C 50.1 % LV Diastolic Length 4C 5.7 cm LV Systolic Length 4C 5.1 cm LV Diastolic Volume MOD 2C 38.9 cm??? LV Systolic Volume MOD 2C 13.7 cm??? LV Ejection Fraction MOD 2C 64.8 % LV Diastolic Length 2C 6.0 cm LV Systolic Length 2C 4.9 cm LA Volume 72.2 cm??? 18 - 58 / 22 - 52 cm??? Ascending Aorta Diameter 3.7 cm DOPPLER AV Peak Velocity 87.7 cm/s AV Peak Gradient 3.1 mmHg LVOT Peak Velocity 85.3 cm/s LVOT Peak Gradient 2.9 mmHg AV Area Cont Eq pk 4.4 cm??? MV Peak Velocity 119.1 cm/s MV Peak Gradient 5.7 mmHg MV Mean Velocity 63.8 cm/s MV Mean Gradient 2.1 mmHg MV Velocity Time Integral 23.1 cm MR Peak Velocity 211.5 cm/s MR Peak Gradient 17.9 mmHg Mitral E Point Velocity 92.6 cm/s Mitral A Point Velocity 87.8 cm/s Mitral E to A Ratio 1.1 MV Deceleration Time 61.8 ms TR Peak Velocity 248.3 cm/s TR Peak Gradient 24.7 mmHg Right Ventricular Systolic Press 29.7 mmHg PV Peak Velocity 74.9 cm/s PV Peak Gradient 2.2 mmHg FINDINGS Left Ventricle Left ventricular ejection fraction is estimated at 55-60 %. Right Ventricle Normal right ventricular size. Right Atrium Normal right atrial size. Left Atrium Mild left atrial dilatation. Mitral Valve Structurally normal mitral valve. Trace to mild MR. Aortic Valve Trileaflet aortic valve. No aortic valve stenosis or regurgitation. Tricuspid Valve Tricuspid valve not well visualized. Mild TR. RVSP= 27mmhg. Pulmonic Valve Pulmonic valve not well visualized. No pulmonic regurgitation. Pericardium Normal pericardium. Aorta Aortic Root jocelyne=41mm CONCLUSIONS Normal LV systolic function Previewed by: Dr. Beka Miller MD (Electronically Signed) Final Date: 29 April 2023 17:37
[2023-04-29] MEDS: RIVAROXABAN 20 MG TAB PO SCH (20:54)
[2023-04-29] MEDS: MONTELUKAST 10 MG TAB PO SCH (20:55)
[2023-04-29] MEDS: ATORVASTATIN 10 MG TAB PO SCH (20:55)
[2023-04-29] MEDS: SYMBICORT 80-4.5 MCG INHALER INHALATION SCH (21:53)
[2023-04-30] MEDS: guaiFENesin SYRUP 100MG/5ML 200 MG/10 ML CUP PO PRN ×3 (01:14→16:34)
[2023-04-30] MEDS: PANTOPRAZOLE 40 MG TABLET PO SCH (06:17)
[2023-04-30] MEDS: DRONEDARONE 400 MG TAB PO SCH ×2 (06:18→16:34)
[2023-04-30 07:24] LABS: Calcium 9.3 mg/dL (8.4-10.2); Potassium 3.9 mmol/L (3.5-5.1)
[2023-04-30] MEDS: predniSONE 20 MG TAB PO SCH (08:52)
[2023-04-30] MEDS: METOPROLOL TARTRATE 50 MG TAB PO SCH ×3 (08:52→20:29)
--- NOTE | 2023-04-30 15:23 | P.PN ---
Progress Note - Text Progress Note Date: 04/30/23 Chief Complaint: Heart racing History of presenting complaint: This is a [address] Rubalcava. Ultrasonic Solderer Dr. NERY Fernandes. Chronic stable medical conditions include hypertension, GERD, primary osteoarthritis, moderate persistent asthma, atrial fibrillation on anticoagulation,ascending aorta aneurysm 4.4 cm. in August 2019 patient had a cardiac catheterization that was negative. Dr. Chriss Katz- ablation was carried out for atrial tachycardia. Patient today presents with his heart rates into the 150s. Patient's had what he describes as a cold for 7 days. His cough especially worse today. Green sputum. No fever no chills. Appetite is good. Admitted to the ER. Cartilage E was informed. No dizziness no lightheadedness. April 29: Per cardiology multaq changed to 400 mg twice a day. Await input from Dr. Chriss Katz. Intermittent cough. Patient told to sit up in a chair. Reflux symptoms present. Remains in a flutter tachycardia/ April 30: In a recliner. Intermittent cough present. Awaiting input from EP. No chest pain or palpitation. Heart rate remains up. Active Medications Acetaminophen (Acetaminophen Tab 325 Mg Tab) 650 mg PO Q6HR PRN PRN Reason: Mild Pain or Fever > 100.5 Albuterol Sulfate (Albuterol Nebulized 2.5 Mg/3 Ml) 2.5 mg INHALATION RT-Q4H PRN PRN Reason: Shortness Of Breath Atorvastatin Calcium (Atorvastatin 10 Mg Tab) 10 mg PO HS@2300 [facility] Last Admin: 04/29/23 20:55 Dose: 10 mg Budesonide/Formoterol Fumarate (Symbicort 80-4.5 Mcg Inhaler) 2 puff INHALATION RT-HS@2300 [facility] Last Admin: 04/29/23 21:53 Dose: 2 puff Calcium Carbonate/Glycine (Calcium Carbonate 500 Mg Chewable) 1,000 mg PO Q4HR PRN PRN Reason: Dyspepsia Dronedarone (Dronedarone 400 Mg Tab) 400 mg PO AC-BID [facility] Last Admin: 04/30/23 06:18 Dose: 400 mg Guaifenesin (Guaifenesin Syrup 100mg/5ml 200 Mg/10 Ml Cup) 200 mg PO Q6HR PRN PRN Reason: Cough Last Admin: 04/30/23 08:51 Dose: 200 mg Sodium Chloride (Saline 0.9%) 1,000 mls @ 75 mls/hr IV .[id number] [facility] Last Admin: 04/29/23 21:07 Dose: Not Given Lactulose (Lactulose 20 Gm/30 Ml Cup) 20 gm PO DAILY PRN PRN Reason: Constipation Lorazepam (Lorazepam 0.5 Mg Tab) 0.5 mg PO Q6HR PRN PRN Reason: Anxiety Melatonin (Melatonin 3 Mg Tablet) 3 mg PO HS PRN PRN Reason: Insomnia Metoprolol Tartrate (Metoprolol Tartrate 50 Mg Tab) 50 mg PO BID [facility] Last Admin: 04/30/23 08:52 Dose: 50 mg Montelukast Sodium (Montelukast 10 Mg Tab) 10 mg PO HS@2300 [facility] Last Admin: 04/29/23 20:55 Dose: 10 mg Naloxone HCl (Naloxone 0.4 Mg/Ml 1 Ml Vial) 0.2 mg IV Q2M PRN PRN Reason: Opioid Reversal Ondansetron HCl (Ondansetron 4 Mg/2 Ml Vial) 4 mg IVP Q8HR PRN PRN Reason: Nausea And Vomiting Pantoprazole Sodium (Pantoprazole 40 Mg Tablet) 80 mg PO DAILY@0700 [facility] Last Admin: 04/30/23 06:17 Dose: 80 mg Prednisone (Prednisone 20 Mg Tab) 40 mg PO DAILY [facility] Last Admin: 04/30/23 08:52 Dose: 40 mg Rivaroxaban (Rivaroxaban 20 Mg Tab) 20 mg PO HS@2300 [facility]; Protocol Last Admin: 04/29/23 20:54 Dose: 20 mg Past medical history to include: Hypertension, GERD, primary osteoarthritis, moderate persistent asthma, atrial fibrillation/atrial tachycardia ablation, on anticoagulation,, BPH treated with TURP. Negative cardiac catheterization in 2019 Social history: , retired, no smoking. Alcohol rarely. .Physical examination: VITAL SIGNS: 97.8, 1:30, 18, 129/71, 97% room air GENERAL: Laying in bed, comfortable EYES: Pupils equal. Conjunctiva normal. HEENT: External appearance of nose and ears normal, oral cavity grossly normal. NECK: JVD not raised; masses not palpable. HEART: Heart sounds irregular; no edema. LUNGS: Respiratory rate normal; clear to auscultation. ABDOMEN: Soft, nontender, liver spleen not palpable, no masses palpable. PSYCH: Alert and oriented x3; mood and affect normal. Lymphatics: No lymph nodes palpable in the neck and axilla NEUROLOGICAL: Cranial nerves grossly intact. Power and sensation grossly intact INVESTIGATIONS, reviewed in the clinical context: April 30: Potassium 3.9 creatinine 1.07 Influenza type A/B, RSV, COVID-19: Not detected White count 7.9 hemoglobin 12.6 platelets 245 sodium 13 potassium 4.2 creatinine 0.89 TSH 1.010 EKG tracing personally reviewed by me-atrial flutter/tachycardia with a rate of 122 Chest x-ray film personally reviewed by me-clear Assessment and plan: -Recurrent atrial flutter fibrillation with a prior ablation 3. Remains u ncontrolled Pending input from EP.. multaq - 400 mg twice a day -Acute viral tracheobronchitis Symptomatic treatment. Warm water with salt gargle. -4.4 cm ascending aorta aneurysm, Annual follow-up -Essential hypertension Lopressor -GERD Nexium -Primary osteoarthritis Pain medications needed -Moderate persistent asthma Ventolin when necessary Continue current medications. Await input from EP.
--- NOTE | 2023-04-30 16:55 | P.PN ---
Subjective Progress Note Date: 04/30/23 This is a 72-year-old male with a past medical history significant for ascending aortic aneurysm, valvular heart disease, atrial fibrillation with previous cardioversion, atrial flutter with previous ablation, and atrial tachycardia with previous ablation. Patient follows in the office with Dr. Fernandes. We have been asked to see the patient in consultation for aflutter. Patient examined at the bedside. The patient states he has been having cold symptoms for the past week. He states he went to his primary care physician yesterday and was told he had a sinus infection. He was started on antibiotics and steroids. He states that once he got home he began to cough pretty consistently. He states that he put his oxygen sensor on his finger and his heart rate was noted to be in the [id number]. He does report feeling some palpitations at that time. He states that he took extra metoprolol but his heart rate did not come down so he called Dr. Fernandes's office and was told to take an extra metoprolol again and if his heart rate does not come down and to come to the emergency room. The patient currently denies chest pain or pressure. He denies shortness of breath. He reports sinus congestion and a frequent hacking nonproductive cough. The patient states that he recently wore a 2 week Holter monitor but does not know the results of that yet. The patient also reports over the past 2 months he has had 4-5 episodes of sustained palpitations in which he took extra Multaq at home. 04/30/2023 Patient was seen and examined sitting up in a chair next to the bed. He is overall feeling a bit better. His breathing and wheezing have improved somewhat. Echocardiogram with Doppler study showed a normal LV systolic function with an ejection fraction of 55-60%, mild TR. He remains in atrial flutter. Blood pressure has been stable. He remained on multaq 400 mg by mouth twice a day and metoprolol titrate 50 mg by mouth twice a day. He remains anticoagulated. Objective - Vital Signs Vital signs: Vital Signs Temp 97.8 F 04/30/23 08:55 Pulse 132 H 04/30/23 16:35 Resp 18 04/30/23 16:35 BP 126/89 04/30/23 16:35 Pulse Ox 97 04/30/23 16:35 FiO2 Intake & Output 04/29/23 04/30/23 04/30/23 18:59 06:59 18:59 Intake Total 236 800 Balance 236 800 Intake: IV 20 Invasive Line 1 20 Oral 236 780 Other: Voiding Method Toilet Toilet Toilet # Voids 2 3 1 - Exam VITAL SIGNS: Reviewed. GENERAL: Well-developed in no acute distress. HEENT: Head is normocephalic. Pupils are equal, round. Sclerae anicteric. Mucous membranes of the mouth are moist. Neck supple. No JVD or thyromegaly LUNGS: Respirations even and unlabored. Lungs reveal faint expiratory wheezing throughout. HEART: Irregular rate and rhythm. S1 and S2 heard. ABDOMEN: Soft. Nondistended. Nontender. EXTREMITIES: Normal range of motion. No clubbing or cyanosis. Peripheral pulses intact. No lower extremity edema NEUROLOGIC: Awake and alert. Oriented x 3. - Labs CBC & Chem 7: 04/28/23 16:36 04/30/23 06:58 Assessment and Plan Assessment: Upper respiratory infection Atrial tachycardia with RVR History of atrial fibrillation with previous cardioversion History of atrial tachycardia with previous ablation History of atrial flutter with previous ablation Ascending aortic aneurysm Valvular heart disease Hypertension Plan: From cardiology's perspective medications were reviewed and will continue the same. Anticipate improvement of her rates once upper respiratory infection improves. Continue telemetry monitoring. We will continue to follow the patient provide further recommendations accordingly. SENIOR ENERGY TRADER note has been reviewed, I agree with a documented findings and plan of care. Patient was seen and examined.
[2023-04-30] MEDS ORDERED: SODIUM CHLORIDE 0.65% NASAL SPRAY 44 ML BTL NASAL PRN (19:47)
[2023-04-30] MEDS: RIVAROXABAN 20 MG TAB PO SCH (20:29)
[2023-04-30] MEDS: MONTELUKAST 10 MG TAB PO SCH (20:29)
[2023-04-30] MEDS: ATORVASTATIN 10 MG TAB PO SCH (20:30)
[2023-04-30] MEDS: SODIUM CHLORIDE 0.9% 1,000 ML IV SCH (20:34)
[2023-04-30] MEDS: SYMBICORT 80-4.5 MCG INHALER INHALATION SCH (20:57)
[2023-05-01] MEDS: SODIUM CHLORIDE 0.9% 1,000 ML IV SCH ×2 (02:08→17:57)
[2023-05-01] MEDS: PANTOPRAZOLE 40 MG TABLET PO SCH (06:50)
[2023-05-01] MEDS: DRONEDARONE 400 MG TAB PO SCH ×2 (06:50→16:35)
[2023-05-01] MEDS: guaiFENesin SYRUP 100MG/5ML 200 MG/10 ML CUP PO PRN ×2 (06:50→12:36)
[2023-05-01] MEDS: predniSONE 20 MG TAB PO SCH (09:23)
[2023-05-01] MEDS: METOPROLOL TARTRATE 50 MG TAB PO SCH (09:23)
--- NOTE | 2023-05-01 14:37 | P.PN ---
Progress Note - Text Progress Note Date: 05/01/23 Chief Complaint: Heart racing History of presenting complaint: This is a [address] Rubalcava. Art Gallery Director Dr. NERY Fernandes. Chronic stable medical conditions include hypertension, GERD, primary osteoarthritis, moderate persistent asthma, atrial fibrillation on anticoagulation,ascending aorta aneurysm 4.4 cm. in August 2019 patient had a cardiac catheterization that was negative. Dr. Chriss Katz- ablation was carried out for atrial tachycardia. Patient today presents with his heart rates into the 150s. Patient's had what he describes as a cold for 7 days. His cough especially worse today. Green sputum. No fever no chills. Appetite is good. Admitted to the ER. Cartilage E was informed. No dizziness no lightheadedness. April 29: Per cardiology multaq changed to 400 mg twice a day. Await input from Dr. Chriss Katz. Intermittent cough. Patient told to sit up in a chair. Reflux symptoms present. Remains in a flutter tachycardia/ April 30: In a recliner. Intermittent cough present. Awaiting input from EP. No chest pain or palpitation. Heart rate remains up. April: Remains in atrial tachycardia. Late in the 130s. Remains on Lopressor and multaq. Weight EP input. Did ambulate in the hallway. No symptoms. Active Medications Acetaminophen (Acetaminophen Tab 325 Mg Tab) 650 mg PO Q6HR PRN PRN Reason: Mild Pain or Fever > 100.5 Albuterol Sulfate (Albuterol Nebulized 2.5 Mg/3 Ml) 2.5 mg INHALATION RT-Q4H PRN PRN Reason: Shortness Of Breath Atorvastatin Calcium (Atorvastatin 10 Mg Tab) 10 mg PO HS@2300 [facility] Last Admin: 04/30/23 20:30 Dose: 10 mg Budesonide/Formoterol Fumarate (Symbicort 80-4.5 Mcg Inhaler) 2 puff INHALATION RT-HS@2300 [facility] Last Admin: 04/30/23 20:57 Dose: 2 puff Calcium Carbonate/Glycine (Calcium Carbonate 500 Mg Chewable) 1,000 mg PO Q4HR PRN PRN Reason: Dyspepsia Dronedarone (Dronedarone 400 Mg Tab) 400 mg PO AC-BID [facility] Last Admin: 05/01/23 06:50 Dose: 400 mg Guaifenesin (Guaifenesin Syrup 100mg/5ml 200 Mg/10 Ml Cup) 200 mg PO Q6HR PRN PRN Reason: Cough Last Admin: 05/01/23 12:36 Dose: 200 mg Sodium Chloride (Saline 0.9%) 1,000 mls @ 75 mls/hr IV .[id number] [facility] Last Admin: 05/01/23 02:08 Dose: Not Given Lactulose (Lactulose 20 Gm/30 Ml Cup) 20 gm PO DAILY PRN PRN Reason: Constipation Lorazepam (Lorazepam 0.5 Mg Tab) 0.5 mg PO Q6HR PRN PRN Reason: Anxiety Melatonin (Melatonin 3 Mg Tablet) 3 mg PO HS PRN PRN Reason: Insomnia Last Admin: 04/30/23 20:29 Dose: 3 mg Metoprolol Tartrate (Metoprolol Tartrate 50 Mg Tab) 50 mg PO TID [facility] Last Admin: 05/01/23 09:23 Dose: 50 mg Montelukast Sodium (Montelukast 10 Mg Tab) 10 mg PO HS@2300 [facility] Last Admin: 04/30/23 20:29 Dose: 10 mg Naloxone HCl (Naloxone 0.4 Mg/Ml 1 Ml Vial) 0.2 mg IV Q2M PRN PRN Reason: Opioid Reversal Ondansetron HCl (Ondansetron 4 Mg/2 Ml Vial) 4 mg IVP Q8HR PRN PRN Reason: Nausea And Vomiting Pantoprazole Sodium (Pantoprazole 40 Mg Tablet) 80 mg PO DAILY@0700 [facility] Last Admin: 05/01/23 06:50 Dose: 80 mg Prednisone (Prednisone 20 Mg Tab) 40 mg PO DAILY [facility] Last Admin: 05/01/23 09:23 Dose: 40 mg Rivaroxaban (Rivaroxaban 20 Mg Tab) 20 mg PO HS@2300 [facility]; Protocol Last Admin: 04/30/23 20:29 Dose: 20 mg Sodium Chloride (Sodium Chloride 0.65% Nasal [place] 44 Ml Btl) 2 spray NASAL QID PRN PRN Reason: Congestion Last Admin: 04/30/23 20:28 Dose: 2 spray Past medical history to include: Hypertension, GERD, primary osteoarthritis, moderate persistent asthma, atrial fibrillation/atrial tachycardia ablation, on anticoagulation,, BPH treated with TURP. Negative cardiac catheterization in 2019 Social history: , retired, no smoking. Alcohol rarely. .Physical examination: VITAL SIGNS: 98.4, 1:30, 18, 115/74, 96% room air GENERAL: Up in chair comfortable EYES: Pupils equal. Conjunctiva normal. HEENT: External appearance of nose and ears normal, oral cavity grossly normal. NECK: JVD not raised; masses not palpable. HEART: Heart sounds irregular; no edema. LUNGS: Respiratory rate normal; clear to auscultation. ABDOMEN: Soft, nontender, liver spleen not palpable, no masses palpable. PSYCH: Alert and oriented x3; mood and affect normal. Lymphatics: No lymph nodes palpable in the neck and axilla NEUROLOGICAL: Cranial nerves grossly intact. Power and sensation grossly intact INVESTIGATIONS, reviewed in the clinical context: April 30: Potassium 3.9 creatinine 1.07 Influenza type A/B, RSV, COVID-19: Not detected White count 7.9 hemoglobin 12.6 platelets 245 sodium 13 potassium 4.2 creatinine 0.89 TSH 1.010 EKG tracing personally reviewed by me-atrial flutter/tachycardia with a rate of 122 Chest x-ray film personally reviewed by me-carolyn Assessment and plan: -Recurrent atrial flutter fibrillation with a prior ablation 3. Remains uncontrolled Pending input from EP.. multaq - 400 mg twice a day. Lopressor -Acute viral tracheobronchitis Symptomatic treatment. Warm water with salt gargle. -4.4 cm ascending aorta aneurysm, Annual follow-up -Essential hypertension Lopressor -GERD Nexium -Primary osteoarthritis Pain medications needed -Moderate persistent asthma Ventolin when necessary Continue current medications. Discussed with patient. Awaiting evaluation by EP service.
--- NOTE | 2023-05-01 16:11 | P.PN ---
Subjective Progress Note Date: 05/01/23 This is a 72-year-old male with a past medical history significant for ascending aortic aneurysm, valvular heart disease, atrial fibrillation with previous cardioversion, atrial flutter with previous ablation, and atrial tachycardia with previous ablation. Patient follows in the office with Dr. Fernandes. We have been asked to see the patient in consultation for aflutter. Patient examined at the bedside. The patient states he has been having cold symptoms for the past week. He states he went to his primary care physician yesterday and was told he had a sinus infection. He was started on antibiotics and steroids. He states that once he got home he began to cough pretty consistently. He states that he put his oxygen sensor on his finger and his heart rate was noted to be in the [id number]. He does report feeling some palpitations at that time. He states that he took extra metoprolol but his heart rate did not come down so he called Dr. Fernandes's office and was told to take an extra metoprolol again and if his heart rate does not come down and to come to the emergency room. The patient currently denies chest pain or pressure. He denies shortness of breath. He reports sinus congestion and a frequent hacking nonproductive cough. The patient states that he recently wore a 2 week Holter monitor but does not know the results of that yet. The patient also reports over the past 2 months he has had 4-5 episodes of sustained palpitations in which he took extra Multaq at home. 04/30/2023 Patient was seen and examined sitting up in a chair next to the bed. He is overall feeling a bit better. His breathing and wheezing have improved somewhat. Echocardiogram with Doppler study showed a normal LV systolic function with an ejection fraction of 55-60%, mild TR. He remains in atrial flutter. Blood pressure has been stable. He remained on multaq 400 mg by mouth twice a day and metoprolol titrate 50 mg by mouth twice a day. He remains anticoagulated. 05/01/2023 Patient was seen and examined resting comfortably in chair. He overall feels about the same as yesterday. Heart rate remains in the 130s. He is currently on multaq 400 mg by mouth twice a day and metoprolol for heart rate 50 mg by mouth 3 times a day. He remains anticoagulated. He is to have a cough that is a bit better today but persistent. Objective - Vital Signs Vital signs: Vital Signs Temp 98.4 F 05/01/23 05:00 Pulse 132 H 05/01/23 12:00 Resp 18 05/01/23 12:00 BP 115/74 05/01/23 12:00 Pulse Ox 96 05/01/23 12:00 FiO2 Intake & Output 04/30/23 05/01/23 05/01/23 18:59 06:59 18:59 Intake Total 1160 360 Output Total 0 Balance 1160 360 Intake: IV 20 Invasive Line 1 20 Oral 1140 360 Output: Urine 0 Stool 0 Urine/Stool Mix 0 Emesis 0 Oral Regurgitation 0 Other 0 Other: Voiding Method Toilet Toilet Toilet # Voids 2 1 0 # Bowel Movements 0 - Exam VITAL SIGNS: Reviewed. GENERAL: Well-developed in no acute distress. HEENT: Head is normocephalic. Pupils are equal, round. Sclerae anicteric. Mucous membranes of the mouth are moist. Neck supple. No JVD or thyromegaly LUNGS: Respirations even and unlabored. Lungs reveal faint expiratory wheezing throughout. HEART: Irregular rate and rhythm. S1 and S2 heard. ABDOMEN: Soft. Nondistended. Nontender. EXTREMITIES: Normal range of motion. No clubbing or cyanosis. Peripheral pulses intact. No lower extremity edema NEUROLOGIC: Awake and alert. Oriented x 3. - Labs CBC & Chem 7: 04/28/23 16:36 04/30/23 06:58 Assessment and Plan Assessment: Upper respiratory infection Atrial tachycardia with RVR History of atrial fibrillation with previous cardioversion History of atrial tachycardia with previous ablation History of atrial flutter with previous ablation Ascending aortic aneurysm Valvular heart disease Hypertension Plan: From cardiology's perspective we will increase metoprolol to 75 mg by mouth 3 times a day and continue Multaq. Continue telemetry monitoring. If heart rate remains poorly controlled would recommend cardioversion. As last resort patient may require PPM and AV node ablation if heart remains uncontrolled. CONSERVATION WORKER note has been reviewed, I agree with a documented findings and plan of care. Patient was seen and examined.
[2023-05-01] MEDS: METOPROLOL TARTRATE 25 MG TAB PO SCH ×2 (16:34→21:31)
[2023-05-01] MEDS: SYMBICORT 80-4.5 MCG INHALER INHALATION SCH (20:48)
[2023-05-01] MEDS: MONTELUKAST 10 MG TAB PO SCH (22:57)
[2023-05-01] MEDS: ATORVASTATIN 10 MG TAB PO SCH (22:57)
[2023-05-01] MEDS: RIVAROXABAN 20 MG TAB PO SCH (22:57)
[2023-05-02] MEDS: DRONEDARONE 400 MG TAB PO SCH ×2 (06:33→16:35)
[2023-05-02] MEDS: PANTOPRAZOLE 40 MG TABLET PO SCH (06:33)
[2023-05-02] MEDS: SODIUM CHLORIDE 0.9% 1,000 ML IV SCH ×2 (06:36→18:17)
[2023-05-02] MEDS: METOPROLOL TARTRATE 25 MG TAB PO SCH ×2 (09:13→16:35)
[2023-05-02] MEDS: predniSONE 20 MG TAB PO SCH (09:13)
--- NOTE | 2023-05-02 10:51 | P.PN ---
Subjective HISTORY OF PRESENTING ILLNESS This is a 72-year-old male with a past medical history significant for ascending aortic aneurysm, valvular heart disease, atrial fibrillation with previous cardioversion, atrial flutter with previous ablation, and atrial tachycardia with previous ablation. Patient follows in the office with Dr. Fernandes. We have been asked to see the patient in consultation for aflutter. Patient examined at the bedside. The patient states he has been having cold symptoms for the past week. He states he went to his primary care physician yesterday and was told he had a sinus infection. He was started on antibiotics and steroids. He states that once he got home he began to cough pretty consistently. He states that he put his oxygen sensor on his finger and his heart rate was noted to be in the [id number]. He does report feeling some palpitations at that time. He states that he took extra metoprolol but his heart rate did not come down so he called Dr. Fernandes's office and was told to take an extra metoprolol again and if his heart rate does not come down and to come to the emergency room. The patient currently denies chest pain or pressure. He denies shortness of breath. He reports sinus congestion and a frequent hacking nonproductive cough. The patient states that he recently wore a 2 week Holter monitor but does not know the results of that yet. The patient also reports over the past 2 months he has had 4-5 episodes of sustained palpitations in which he took extra Multaq at home. 04/30/2023 Patient was seen and examined sitting up in a chair next to the bed. He is overall feeling a bit better. His breathing and wheezing have improved somewhat. Echocardiogram with Doppler study showed a normal LV systolic function with an ejection fraction of 55-60%, mild TR. He remains in atrial flutter. Blood pressure has been stable. He remained on multaq 400 mg by mouth twice a day and metoprolol titrate 50 mg by mouth twice a day. He remains anticoagulated. 05/01/2023 Patient was seen and examined resting comfortably in chair. He overall feels about the same as yesterday. Heart rate remains in the 130s. He is currently on multaq 400 mg by mouth twice a day and metoprolol for heart rate 50 mg by mouth 3 times a day. He remains anticoagulated. He is to have a cough that is a bit better today but persistent. 05/02 Patient seen and examined. Patient still admits to palpitations and heart rate still in the 130s. Denies any chest pain or pressure. Still somewhat short of breath and still with a persistent cough. PHYSICAL EXAMINATION Vital signs reviewed. CONSTITUTIONAL: No apparent distress. HEENT: Head is normocephalic. Pupils are equal, round. Sclerae anicteric. Mucous membranes of the mouth are moist. No JVD. No carotid bruit. CHEST EXAMINATION: Lungs are clear to auscultation. No chest wall tenderness is noted on palpation or with deep breathing. HEART EXAMINATION: Regular rate and tachycardic. S1, S2 heard. No murmurs, gallops or rub. ABDOMEN: Soft, nontender. Positive bowel sounds. EXTREMITIES: 2+ peripheral pulses, no lower extremity edema and no calf tenderness. NEUROLOGIC EXAMINATION: Patient is awake, alert and oriented x3. Assessment: Upper respiratory infection Atrial tachycardia with RVR History of atrial fibrillation with previous cardioversion History of atrial tachycardia with previous ablation History of atrial flutter with previous ablation Ascending aortic aneurysm Valvular heart disease Hypertension Plan: Continue with current rate controlling medications as well as multaq. He continues to be in Aflutter with RVR. Discussed risks and benefits of BESSIE cardioversion and patient is agreeable. Schedule BESSIE/cardioversion for today. Objective - Vital Signs Vital signs: Vital Signs Temp 97.8 F 05/02/23 09:11 Pulse 135 H 05/02/23 09:11 Resp 18 05/02/23 09:11 BP 110/64 05/02/23 09:11 Pulse Ox 97 05/02/23 09:11 FiO2 Intake & Output 05/01/23 05/02/23 05/02/23 18:59 06:59 18:59 Intake Total 480 0 Output Total 0 Balance 480 0 Intake: Oral 480 0 Output: Urine 0 Stool 0 Urine/Stool Mix 0 Emesis 0 Oral Regurgitation 0 Other 0 Other: Voiding Method Toilet Toilet Toilet # Voids 2 1 # Bowel Movements 0 - Labs CBC & Chem 7: 04/28/23 16:36 04/30/23 06:58
[2023-05-02] MEDS ORDERED: SODIUM CHLORIDE 0.9% 1,000 ML IV ONE ×2 (12:47)
[2023-05-02] MEDS ORDERED: LIDOCAINE 2% INJ 20 MG/ML (2 ML VIAL) ONE (13:00)
[2023-05-02] MEDS ORDERED: PROPOFOL 10 MG/ML 20 ML VIAL IV ONE (13:00)
--- NOTE | 2023-05-02 13:14 | P.TEE ---
Description of Procedure(s): Procedure performed: Transesophageal Echocardiogram with color flow doppler, pulsed wave doppler and continuous wave doppler, synchronized cardioversion Moderate conscious sedation: Moderate conscious sedation was supplied by anesthesia, see separate report. Complications: none Indications: Atrial tachycardia with RVR PROCEDURE: After the risks, benefits and alternatives of the above mentioned procedure was explained in detail with the patient, informed consent was obtained. Patient was brought to the lab in a fasting state. Patient was given IV Versed and Fentanyl for sedation. The throat was sprayed with Hurricane to anesthetize the throat. A lubricated Omni probe was then introduced into the esophagus and stomach and multiple views were obtained. 2D echo with color flow doppler, pulsed wave doppler and continuous wave doppler was utilized. Agitated saline bubbles were injected to assess for any intra-atrial shunt. The probe was then removed. There was no thrombus noted and therefore patient underwent synchronized cardioversion x 1 with 200J with resultant sinus rhythm. Patient tolerated the procedure well. Patient was transferred to the post procedure area in stable and satisfactory condition. FINDINGS: 1. The aortic valve is tricupsid and functioning normally with mild to moderate aortic insufficiency.. 2. The mitral valve appears be normal with mild mitral regurgitation. 3. Tricuspid valve and mild tricuspid regurgitation. 4. The interatrial septum has a defect with left to right color flow and + bubble study, possibly from prior ablation. 5. Left atrial appendage is free of clot. 6. Left ventricular ejection fraction is 50-55% with global hypokinesis. 7. Moderately dilated left atrium.
[2023-05-02 13:39] VITALS: RESP 16
[2023-05-02 16:37] VITALS: BP 110/64; PULSE 64; TEMP 97.5
--- NOTE | 2023-05-02 20:19 | P.DS ---
Providers Date of admission: 04/28/23 18:17 Expected date of discharge: 05/02/23 Attending physician: Alfredo Godinez Consults: 04/28/23 17:58 Consult Physician Routine Consulting Provider: Beka Miller Consult Reason/Comments: aflutter Do you want consulting provider notified?: Already Contacted 04/28/23 21:54 Consult Physician Routine Consulting Provider: Chriss Katz Consult Reason/Comments: Recurrent atrial tachycardia/flutter after ablation Do you want consulting provider notified?: Yes, Notify in am Primary care physician: Johann Khadar [facility] Course: Chief Complaint: Heart racing History of presenting complaint: This is a [address] Rubalcava. [facility] Dr. NERY Fernandes. Chronic stable medical conditions include hypertension, GERD, primary osteoarthritis, moderate persistent asthma, atrial fibrillation on anticoagulation,ascending aorta aneurysm 4.4 cm. in August 2019 patient had a cardiac catheterization that was negative. Dr. Chriss Katz- ablation was carried out for atrial tachycardia. Patient today presents with his heart rates into the 150s. Patient's had what he describes as a cold for 7 days. His cough especially worse today. Green sputum. No fever no chills. Appetite is good. Admitted to the ER. Cartilage E was informed. No dizziness no lightheadedness. April 29: Per cardiology multaq changed to 400 mg twice a day. Await input from Dr. Chriss Katz. Intermittent cough. Patient told to sit up in a chair. Reflux symptoms present. Remains in a flutter tachycardia/ April 30: In a recliner. Intermittent cough present. Awaiting input from EP. No chest pain or palpitation. Heart rate remains up. April 4r: Remains in atrial tachycardia. Late in the 130s. Remains on Lopressor and multaq. Weight EP input. Did ambulate in the hallway. No symptoms. May 02: Patient is having any symptoms. This afternoon was cardioverted. Following a BESSIE. No thrombus. Went into sinus rhythm. Patient follow-up with his waitangi tribunal member this coming Tuesday. Late in the day, I called the patient at home and discussed his medications. Discussion and discharge planning more than 35 minutes Past medical history to include: Hypertension, GERD, primary osteoarthritis, moderate persistent asthma, atrial fibrillation/atrial tachycardia ablation, on anticoagulation,, BPH treated with TURP. Negative cardiac catheterization in 2019 Social history: , retired, no smoking. Alcohol rarely. .Physical examination: VITAL SIGNS: 97.5, 64, 16, 110/64, 98% room air GENERAL: Up in chair comfortable EYES: Pupils equal. Conjunctiva normal. HEENT: External appearance of nose and ears normal, oral cavity grossly normal. NECK: JVD not raised; masses not palpable. HEART: Heart sounds irregular; no edema. LUNGS: Respiratory rate normal; clear to auscultation. ABDOMEN: Soft, nontender, liver spleen not palpable, no masses palpable. PSYCH: Alert and oriented x3; mood and affect normal. Lymphatics: No lymph nodes palpable in the neck and axilla NEUROLOGICAL: Cranial nerves grossly intact. Power and sensation grossly intact INVESTIGATIONS, reviewed in the clinical context: April 30: Potassium 3.9 creatinine 1.07 Influenza type A/B, RSV, COVID-19: Not detected White count 7.9 hemoglobin 12.6 platelets 245 sodium 13 potassium 4.2 creatinine 0.89 TSH 1.010 EKG tracing personally reviewed by me-atrial flutter/tachycardia with a rate of 122 Chest x-ray film personally reviewed by me-carolyn Assessment and plan: -Recurrent atrial flutter fibrillation with a prior ablation 3. Cardioverted to sinus rhythm today. .. multaq - 400 mg twice a day. Lopressor 75 mg 3 times a day -BESSIE: Negative for thrombus -Acute viral tracheobronchitis Symptomatic treatment. Warm water with salt gargle. -4.4 cm ascending aorta aneurysm, Annual follow-up -Essential hypertension Lopressor -GERD Nexium -Primary osteoarthritis Pain medications needed -Moderate persistent asthma Ventolin when necessary Disposition: Home Plan - Discharge Summary Discharge Rx Participant: No New Discharge Prescriptions: Continue Montelukast [Singulair] 10 mg PO HS@2300 Atorvastatin Calcium 10 mg PO HS@2300 Fluticasone Nasal [place] [Flonase Nasal [place]] 1 spray EA NOSTRIL HS@2300 Albuterol Inhaler [Ventolin Hfa Inhaler] 2 puff INHALATION RT-Q4H PRN PRN Reason: Shortness Of Breath Esomeprazole Magnesium [NexIUM] 80 mg PO DAILY@0700 Dronedarone [Multaq] 400 mg PO DAILY@0700 Rivaroxaban [Xarelto] 20 mg PO HS@2300 Fluticasone Propion/Salmeterol [Advair 250-50 Diskus] 1 puff INHALATION RT-HS Discontinued Losartan [Cozaar] 50 mg PO HS@2300 Cetirizine HCl 10 mg PO HS@2300 Dronedarone [Multaq] 200 mg PO DAILY@1900 Amoxic-Pot Clav 875-125Mg [Augmentin 875-125] 1 tab PO BID predniSONE [Deltasone] 40 mg PO DAILY Discharge Medication List Montelukast [Singulair] 10 mg PO HS@2300 08/26/15 [History] Atorvastatin Calcium 10 mg PO HS@2300 08/31/16 [History] Fluticasone Nasal [place] [Flonase Nasal [place]] 1 spray EA NOSTRIL HS@2300 07/13/18 [History] Albuterol Inhaler [Ventolin Hfa Inhaler] 2 puff INHALATION RT-Q4H PRN 11/25/20 [History] Dronedarone [Multaq] 400 mg PO DAILY@69904/28/23 [History] Esomeprazole Magnesium [NexIUM] 80 mg PO DAILY@69904/28/23 [History] Rivaroxaban [Xarelto] 20 mg PO HS@229904/28/23 [History] Fluticasone Propion/Salmeterol [Advair 250-50 Diskus] 1 puff INHALATION RT-HS 04/29/23 [History] Follow up Appointment(s)/Referral(s): wait[employer] tribunal memberdr [Other] - 1 Week Johann Rubalcava MD [Primary Care Provider] - 1-2 days
--- NOTE | 2023-05-03 09:47 | CDI ---
Documentation Clarification Form Date: 05/03/2023 09:10:19 AM From: Eufemia Serna RN, CCDS Admit Date: 04/28/2023 06:17:00 PM Patient Name: Dung Sahni Visit Number: [id number] Discharge Date: 05/02/2023 07:12:00 PM ATTENTION: The Clinical Documentation Specialists (CDI) and [facility] Coding Staff appreciate your assistance in clarifying documentation. Please respond to the clarification below the line at the bottom and electronically sign. The CDI & [facility] Coding staff will review the response and follow-up if needed. Please note: Queries are made part of the Legal Health Record. If you have any questions, please contact the author of this message via ITS. Dr. Thompson Shah Atrial Flutter is documented in the consult and subsequent progress notes. Additional clarification regarding the type of Atrial Flutter is requested. History/Risk factors: Atrial flutter with previous ablation, Atrial fibrillation with previous cardioversion, Atrial tachycardia with previous ablation, Valvular heart disease Clinical Indicators: 72-year-old present with complaints of heart rate noted to be in 120s-150s. He does report feeling some palpitations at that time. He states that he took extra Metoprolol, but his heart rate did not come down. 04/28 EKG/telemetry: Atrial flutter/tachycardia with rapid ventricular response 123 BPM 04/29 ECHO: Left systolic function with an EF OF 55-60 %, MILD TR, He remains in atrial flutter 05/02 VS: 110/39822 18 97.8 97 % 04/29 Cardiology: EKG reveals atrial tachycardia 05/02 Cardiology progress note. He continues to be in Aflutter with RVR. Plan BESSEI. Treatment: Cardiac/Telemetry monitoring 05/02 BESSIE Lopressor 75 MG PO TID Xarelto 20 MG PO hs Please clarify the type of Atrial Flutter, if known: [X ] Typical/Type I [ ] Atypical/Type II [ ] Other, please specify [ ] Unable to determine (Template Last Revised: January 2021) MTDD
== END 2023-05-02 19:12 | disposition left against medical advice (07) | DRG 310 ==
LOC: EC 15:40 → 3SCARD 18:17
PROVIDERS: ADMIT Hospitalist; ATTEND Hospitalist
PROC: B24BZZ4 Ultrasonography of Heart with Aorta, Transesophageal (ICD-10-PCS; principal; 2023-05-02 12:55)
PROC: 5A2204Z Restoration of Cardiac Rhythm, Single (ICD-10-PCS; principal; 2023-05-02 12:55)
DX: I48.3 Typical atrial flutter (principal); Z79.01 Long term (current) use of anticoagulants; I48.0 Paroxysmal atrial fibrillation; I08.3 Combined rheumatic disorders of mitral, aortic and tricuspid valves; E78.5 Hyperlipidemia, unspecified; I10 Essential (primary) hypertension; K21.9 Gastro-esophageal reflux disease without esophagitis; J45.40 Moderate persistent asthma, uncomplicated; I47.1 Supraventricular tachycardia; J20.8 Acute bronchitis due to other specified organisms; N40.0 Benign prostatic hyperplasia without lower urinary tract symptoms; Z90.79 Acquired absence of other genital organ(s); H52.203 Unspecified astigmatism, bilateral; M19.049 Primary osteoarthritis, unspecified hand; F41.9 Anxiety disorder, unspecified; I71.21 Aneurysm of the ascending aorta, without rupture; Z87.01 Personal history of pneumonia (recurrent); K59.00 Constipation, unspecified; Z79.51 Long term (current) use of inhaled steroids; Z79.899 Other long term (current) drug therapy; Z28.21 Immunization not carried out because of patient refusal; Z20.822 Contact with and (suspected) exposure to COVID-19
CPT/HCPCS: 36415; 71046; 80048; 80053; 84443; 84484; 85025; 85610; 85730; 87636; 92960; 93005; 93306; 93312; 93320; 93325; 94640; 96361; 96374; 99291

== ENCOUNTER 2023-05-31 03:27 | Inpatient (IN) | payer MEDICARE ==
[2023-05-31 03:36] VITALS: TEMP 98.5
[2023-05-31 04:17] LABS: Basophils % (A) 0 %; Eosinophils # (A) 0.2 k/uL (0-0.7); Eosinophils % (A) 4 %; HCT 39.1 % (39.0-53.0); Lymphocytes # (A) 1.7 k/uL (1.0-4.8); Lymphocytes % (A) 27 %; MCH 30.1 pg (25.0-35.0); MCHC 33.2 g/dL (31.0-37.0); MCV 90.7 fL (80.0-100.0); Mean Platelet Volume 8.1; Monocytes # (A) 0.4 k/uL (0-1.0); Monocytes % (A) 7 %; Neutrophils # (A) 3.9 k/uL (1.3-7.7); Neutrophils % (A) 61 %; Platelet Count 200 k/uL (150-450); RBC 4.31 m/uL (4.30-5.90); RDW 14.1 % (11.5-15.5); WBC 6.4 k/uL (3.8-10.6)
[2023-05-31 04:19] LABS: ALT 25 U/L (4-49); AST 27 U/L (17-59); African American GFR (CKD) >90 (>60 ml/min/1.73 sqM); Albumin 3.2 g/dL (3.5-5.0); Alkaline Phosphatase 117 U/L (38-126); Anion Gap 6 mmol/L; Blood Urea Nitrogen 16 mg/dL (9-20); Calcium 8.7 mg/dL (8.4-10.2); Carbon Dioxide 26 mmol/L (22-30); Chloride 110 mmol/L (98-107); Glucose 97 mg/dL (74-99); Magnesium 1.9 mg/dL (1.6-2.3); Non-African American GFR(CKD) 80 (>60 ml/min/1.73 sqM); Potassium 3.9 mmol/L (3.5-5.1); Sodium 142 mmol/L (137-145); Total Bilirubin 0.7 mg/dL (0.2-1.3); Total Protein 5.7 g/dL (6.3-8.2)
[2023-05-31 04:39] LABS: INR 1.3 (<1.2); Prothrombin Time 13.5 sec (9.0-12.0)
[2023-05-31] MEDS ORDERED: METOPROLOL TARTRATE 50 MG TAB PO STA (05:16)
[2023-05-31] MEDS ORDERED: DRONEDARONE 400 MG TAB PO ONE (05:30)
--- NOTE | 2023-05-31 06:14 | ED ---
Arrhythmia/Palpitations HPI - General Chief Complaint: Arrhythmia/Palpitations Stated Complaint: Increased Heart Rate Time Seen by Provider: 05/31/23 03:42 Source: patient Mode of arrival: ambulatory Limitations: no limitations - History of Present Illness Initial Comments: This patient is 73-year-old man with history of atrial flutter, nonischemic card iomyopathy, who presents with the onset of palpitations and some episodic chest pain and dyspnea since last night. The patient states that when he checked his heart rate at home and was in the 130s. He did try taking additional doses of beta wes which she was advised to do. When that did not work the patient phoned the tension machine operator cardiology number and was advised comes emergency Department for evaluation. The patient states that currently he is not having pain or dyspnea. MD Complaint: rapid heart beat -: hour(s) Context: occurred during rest Arrhythmia History: atrial fibrillation, history of ablation Associated Symptoms: chest pain, shortness of breath - Related Data Home Medications Medication Instructions Recorded Confirmed Montelukast [Singulair] 10 mg PO HS@2300 08/26/15 04/28/23 Atorvastatin Calcium 10 mg PO HS@2300 08/31/16 04/28/23 Fluticasone Nasal [place] [Flonase 1 spray EA NOSTRIL HS@2300 07/13/18 04/28/23 Nasal [place]] Albuterol Inhaler [Ventolin Hfa 2 puff INHALATION RT-Q4H PRN 11/25/20 04/28/23 Inhaler] Esomeprazole Magnesium [NexIUM] 80 mg PO DAILY@0700 04/28/23 04/28/23 Rivaroxaban [Xarelto] 20 mg PO HS@2300 04/28/23 04/28/23 Fluticasone Propion/Salmeterol 1 puff INHALATION RT-HS 04/29/23 04/29/23 [Advair 250-50 Diskus] Previous Rx's Medication Instructions Recorded Dronedarone [Multaq] 400 mg PO BID #0 05/02/23 Metoprolol Tartrate [Lopressor] 75 mg PO TID #90 tablet 05/02/23 Allergies Allergy/AdvReac Type Severity Reaction Status Date / Time Yeast Allergy Nausea & Verified 05/31/23 03:33 Vomiting Review of Systems ROS Statement: Those systems with pertinent positive or pertinent negative responses have been documented in the HPI. ROS Other: All systems not noted in ROS Statement are negative. Constitutional: Denies: fever Respiratory: Reports: dyspnea. Denies: cough Cardiovascular: Reports: as per HPI, chest pain, palpitations. Denies: orthopnea, edema, syncope Gastrointestinal: Denies: abdominal pain, nausea, vomiting Genitourinary: Denies: dysuria, hematuria Musculoskeletal: Denies: back pain Skin: Denies: rash Neurological: Denies: headache, weakness Past Medical History Past Medical History: Atrial Fibrillation, Atrial Flutter, Chest Pain / Angina, Eye Disorder, GERD/Reflux, Hyperlipidemia, Hypertension, Osteoarthritis (OA), Pneumonia, Prostate Disorder Additional Past Medical History / Comment(s): Paroxysmal Afib, aflutter, atach, RVR, bronchitis, BPH, bilateral astigmatism, sinus problems, BPH with outflow obstruction but none since TURP, arthritis in fingers. History of Any Multi-Drug Resistant Organisms: None Reported Past Surgical History: Ablation, Appendectomy, Cardiac Ablation, Cholecystectomy, Joint Replacement, Prostate Surgery Additional Past Surgical History / Comment(s): 12/13/17 PVI/cryoablation of 4 pulmonary veins, cardiac ablations with last time being 12/24/19, BESSIE/cardioversions, colonoscopy, bilateral cataract removals, TURP. Past Anesthesia/Blood Transfusion Reactions: No Reported Reaction Past Psychological History: No Psychological Hx Reported Smoking Status: Never smoker Past Alcohol Use History: None Reported Past Drug Use History: None Reported - Past Family History Father History Unknown: Yes Family Medical History: CVA/TIA Additional Family Medical History / Comment(s): Father had a CVA. He lived to be 75 yrs. old. Mother History Unknown: Yes Family Medical History: CVA/TIA Additional Family Medical History / Comment(s): Mother had a CVA x 2. He lived to be 82 yrs old. General Exam Limitations: no limitations General appearance: alert, in no apparent distress Head exam: Present: atraumatic, normocephalic Eye exam: Present: normal appearance. Absent: scleral icterus, conjunctival injection Neck exam: Present: normal inspection Respiratory exam: Present: normal lung sounds bilaterally. Absent: respiratory distress, wheezes, rales, rhonchi, stridor Cardiovascular Exam: Present: tachycardia, normal heart sounds. Absent: systolic murmur, diastolic murmur, rubs, gallop GI/Abdominal exam: Present: soft. Absent: distended, tenderness, guarding, rebound, rigid, mass Extremities exam: Present: normal inspection, normal capillary refill. Absent: pedal edema, calf tenderness Back exam: Present: normal inspection. Absent: CVA tenderness (R), CVA tenderness (L) Neurological exam: Present: alert Skin exam: Present: warm, dry, intact, normal color. Absent: rash Course Vital Signs 05/31/23 05/31/23 05/31/23 03:33 03:49 03:50 Temperature 98.5 F Pulse Rate 115 H 114 H Pulse Rate [ Ticketing Clerk ] Respiratory 18 18 Rate Blood Pressure 124/83 O2 Sat by Pulse 98 94 L 95 Oximetry 05/31/23 05/31/23 05/31/23 03:51 04:00 04:15 Temperature Pulse Rate 113 H Pulse Rate [ 114 H Ticketing Clerk ] Respiratory 18 Rate Blood Pressure 133/93 129/101 O2 Sat by Pulse 97 Oximetry 05/31/23 05/31/23 05/31/23 04:30 04:45 05:30 Temperature Pulse Rate 112 H 120 H 112 H Pulse Rate [ Ticketing Clerk ] Respiratory 19 22 18 Rate Blood Pressure 135/106 118/94 126/90 O2 Sat by Pulse 95 96 96 Oximetry 05/31/23 06:00 Temperature Pulse Rate 112 H Pulse Rate [ Ticketing Clerk ] Respiratory 18 Rate Blood Pressure 130/105 O2 Sat by Pulse 92 L Oximetry EKG Findings - EKG Comments: EKG Findings:: The underlying rhythm appears to be atrial flutter with rate approximately 113 bpm - EKG Results: EKG: interpreted by ERMD, normal axis, normal ST/T EKG shows: tachycardia (Rate approximately 113 bpm) - Blocks, [place], Hypertrophy, ST Abn: AV and intraventricular conduction: right bundle branch block (fixed/intermitt ent, complete/incomplete) Medical Decision Making - Lab Data Result diagrams: 05/31/23 03:55 05/31/23 03:55 Lab Results 05/31/23 05/31/23 05/31/23 Range/Units 03:55 03:55 03:55 WBC 6.4 (3.8-10.6) k/uL RBC 4.31 (4.30-5.90) m/uL Hgb 13.0 (13.0-17.5) gm/dL Hct 39.1 (39.0-53.0) % MCV 90.7 (80.0-100.0) fL MCH 30.1 (25.0-35.0) pg MCHC 33.2 (31.0-37.0) g/dL RDW 14.1 (11.5-15.5) % Plt Count 200 (150-450) k/uL MPV 8.1 Neutrophils % 61 % Lymphocytes % 27 % Monocytes % 7 % Eosinophils % 4 % Basophils % 0 % Neutrophils # 3.9 (1.3-7.7) k/uL Lymphocytes # 1.7 (1.0-4.8) k/uL Monocytes # 0.4 (0-1.0) k/uL Eosinophils # 0.2 (0-0.7) k/uL Basophils # 0.0 (0-0.2) k/uL PT 13.5 H (9.0-12.0) sec INR 1.3 H (<1.2) APTT 33.0 H (22.0-30.0) sec Sodium 142 (137-145) mmol/L Potassium 3.9 (3.5-5.1) mmol/L Chloride 110 H (98-107) mmol/L Carbon Dioxide 26 (22-30) mmol/L Anion Gap 6 mmol/L BUN 16 (9-20) mg/dL Creatinine 0.95 (0.66-1.25) mg/dL Est GFR (CKD-EPI)AfAm >90 (>60 ml/min/1.73 sqM) Est GFR (CKD-EPI)NonAf 80 (>60 ml/min/1.73 sqM) Glucose 97 (74-99) mg/dL Calcium 8.7 (8.4-10.2) mg/dL Magnesium 1.9 (1.6-2.3) mg/dL Total Bilirubin 0.7 (0.2-1.3) mg/dL AST 27 (17-59) U/L ALT 25 (4-49) U/L Alkaline Phosphatase 117 (38-126) U/L Troponin I (0.000-0.034) ng/mL Total Protein 5.7 L (6.3-8.2) g/dL Albumin 3.2 L (3.5-5.0) g/dL 05/31/23 Range/Units 03:55 WBC (3.8-10.6) k/uL RBC (4.30-5.90) m/uL Hgb (13.0-17.5) gm/dL Hct (39.0-53.0) % MCV (80.0-100.0) fL MCH (25.0-35.0) pg MCHC (31.0-37.0) g/dL RDW (11.5-15.5) % Plt Count (150-450) k/uL MPV Neutrophils % % Lymphocytes % % Monocytes % % Eosinophils % % Basophils % % Neutrophils # (1.3-7.7) k/uL Lymphocytes # (1.0-4.8) k/uL Monocytes # (0-1.0) k/uL Eosinophils # (0-0.7) k/uL Basophils # (0-0.2) k/uL PT (9.0-12.0) sec INR (<1.2) APTT (22.0-30.0) sec Sodium (137-145) mmol/L Potassium (3.5-5.1) mmol/L Chloride (98-107) mmol/L Carbon Dioxide (22-30) mmol/L Anion Gap mmol/L BUN (9-20) mg/dL Creatinine (0.66-1.25) mg/dL Est GFR (CKD-EPI)AfAm (>60 ml/min/1.73 sqM) Est GFR (CKD-EPI)NonAf (>60 ml/min/1.73 sqM) Glucose (74-99) mg/dL Calcium (8.4-10.2) mg/dL Magnesium (1.6-2.3) mg/dL Total Bilirubin (0.2-1.3) mg/dL AST (17-59) U/L ALT (4-49) U/L Alkaline Phosphatase (38-126) U/L Troponin I <0.012 (0.000-0.034) ng/mL Total Protein (6.3-8.2) g/dL Albumin (3.5-5.0) g/dL Disposition Clinical Impression: Atrial flutter Disposition: ADMITTED IP TO THIS HOSP Condition: Good Referrals: Johann Rubalcava MD [Primary Care Provider] - 1-2 days
[2023-05-31] MEDS ORDERED: NON FORMULARY DRUG (Esomeprazole Magnesium [Nexium] 40 MG Capsule.Dr) PO SCH (07:00)
--- NOTE | 2023-05-31 07:20 | XR ---
EXAM: XR Chest, 2 Views CLINICAL HISTORY: ITS.REASON XR Reason: dysrhythmia TECHNIQUE: Frontal and lateral views of the chest. COMPARISON: April 28, 2023 IMPRESSION: 1. No acute cardiopulmonary abnormality. 2. Cardiomegaly.
[2023-05-31] MEDS ORDERED: NITROGLYCERIN SL TABS 0.4 MG TAB SUBLINGUAL PRN (08:13)
[2023-05-31] MEDS ORDERED: PANTOPRAZOLE 40 MG TABLET PO SCH (10:12)
[2023-05-31 11:17] VITALS: RESP 18
--- NOTE | 2023-05-31 12:50 | P.HPIM ---
History of Present Illness H&P Date: 05/31/23 Chief Complaint: Heart racing History of presenting complaint: This is a [address] Rubalcava. Light Armored Reconnaissance Officer Dr. NERY Fernandes. Chronic stable medical conditions include hypertension, GERD, primary osteoarthritis, moderate persistent asthma, atrial fibrillation on anticoagulation,ascending aorta aneurysm 4.4 cm. in August 2019 patient had a cardiac catheterization t hat was negative. Dr. Chriss Katz- ablation was carried out for atrial tachycardia. Patient reviewed in April 2023 with atrial flutter fibrillation. Was cardioverted following BESSIE. Around midnight last night patient felt his heart racing. Heart rate was about 122. He took some metoprolol and multaq. Symptoms did not improve. He called a [facility]. Dr. Katz was director of curriculum and instruction. I asked the patient to come to the ER. In the ER patient received 1 dose of metoprolol 100 mg and multaq 400 mg once. About 7:00 this morning patient went back to sinus rhythm. Currently heart rate is in the 40s. Denied any shortness of breath dizziness lightheadedness. Currently comfortable watching television. Pending evaluation by cardiology. Review of systems: GEN.: None EYES: None HEENT: None NECK: None RESPIRATORY: None CARDIOVASCULAR: As above GASTROINTESTINAL: None GENITOURINARY: None MUSCULOSKELETAL: None LYMPHATICS: None HEMATOLOGICAL: None PSYCHIATRY: None NEUROLOGICAL: None Past medical history to include: Hypertension, GERD, primary osteoarthritis, moderate persistent asthma, atrial fibrillation/atrial tachycardia ablation, on anticoagulation,, BPH treated with TURP. Negative cardiac catheterization in 2018 Social history: , retired, no smoking. Alcohol rarely. .Physical examination: VITAL SIGNS: 98.5, 115, 18, 124/83, 98% on wasn't dictation GENERAL: Up in a recliner comfortable EYES: Pupils equal. Conjunctiva normal. HEENT: External appearance of nose and ears normal, oral cavity grossly normal. NECK: JVD not raised; masses not palpable. HEART: Heart sounds normal; no edema. LUNGS: Respiratory rate normal; clear to auscultation. ABDOMEN: Soft, nontender, liver spleen not palpable, no masses palpable. PSYCH: Alert and oriented x3; mood and affect normal. Lymphatics: No lymph nodes palpable in the neck and axilla NEUROLOGICAL: Cranial nerves grossly intact. Power and sensation grossly intact INVESTIGATIONS, reviewed in the clinical context: White count 6.4 hemoglobin 13 platelets 200 sodium 142 potassium 3.9 creatinine 0.95 Troponin I less than 0.012 EKG tracing personally reviewed by me-possible atrial tachycardia with a rate of 113. Right bundle branch block pattern. Chest x-ray film personally reviewed by me-no infiltrates, cardiomegaly Assessment and plan: -Recurrent atrial flutter/tachycardia with a prior ablation 3. Uncontrolled on presentation. On multaq and Lopressor. Currently back in sinus rhythm with a heart rate in the 40s. Cardiology consulted. Xarelto -4.4 cm ascending aorta aneurysm, Annual follow-up -Essential hypertension Lopressor -GERD Nexium -Primary osteoarthritis Pain medications needed -Moderate persistent asthma Ventolin when necessary. Singulair Past Medical History Past Medical History: Atrial Fibrillation, Atrial Flutter, Chest Pain / Angina, Eye Disorder, GERD/Reflux, Hyperlipidemia, Hypertension, Osteoarthritis (OA), Pneumonia, Prostate Disorder Additional Past Medical History / Comment(s): Paroxysmal Afib, aflutter, atach, RVR, bronchitis, BPH, bilateral astigmatism, sinus problems, BPH with outflow obstruction but none since TURP, arthritis in fingers. History of Any Multi-Drug Resistant Organisms: None Reported Past Surgical History: Ablation, Appendectomy, Cardiac Ablation, Cholecystectomy, Joint Replacement, Prostate Surgery Additional Past Surgical History / Comment(s): 12/13/17 PVI/cryoablation of 4 pulmonary veins, cardiac ablations with last time being 12/24/19, BESSIE/cardioversions, colonoscopy, bilateral cataract removals, TURP. Past Anesthesia/Blood Transfusion Reactions: No Reported Reaction Past Psychological History: No Psychological Hx Reported Smoking Status: Never smoker Past Alcohol Use History: None Reported Past Drug Use History: None Reported - Past Family History Father History Unknown: Yes Family Medical History: CVA/TIA Additional Family Medical History / Comment(s): Father had a CVA. He lived to be 75 yrs. old. Mother History Unknown: Yes Family Medical History: CVA/TIA Additional Family Medical History / Comment(s): Mother had a CVA x 2. He lived to be 82 yrs old. Medications and Allergies Home Medications Medication Instructions Recorded Confirmed Type Montelukast [Singulair] 10 mg PO HS 08/26/15 05/31/23 History Atorvastatin Calcium 10 mg PO HS 08/31/16 05/31/23 History Albuterol Inhaler [Ventolin Hfa 2 puff INHALATION RT-Q4H PRN 11/25/20 05/31/23 History Inhaler] Esomeprazole Magnesium [NexIUM] 40 mg PO HS 04/28/23 05/31/23 History Rivaroxaban [Xarelto] 20 mg PO HS 04/28/23 05/31/23 History Dronedarone [Multaq] 200 mg PO BID 05/31/23 05/31/23 History Losartan Potassium 50 mg PO HS 05/31/23 05/31/23 History Metoprolol Tartrate [Lopressor] 25 mg PO BID 05/31/23 05/31/23 History Allergies Allergy/AdvReac Type Severity Reaction Status Date / Time Yeast Allergy Nausea & Verified 05/31/23 11:25 Vomiting Physical Exam Vitals: Vital Signs Temp Pulse Pulse Resp BP Pulse Ox 05/31/23 09:00 48 L 22 122/78 97 05/31/23 08:00 48 L 15 112/99 98 05/31/23 07:00 113 H 14 121/91 95 05/31/23 06:00 112 H 18 130/105 92 L 05/31/23 05:30 112 H 18 126/90 96 05/31/23 04:45 120 H 22 118/94 96 05/31/23 04:30 112 H 19 135/106 95 05/31/23 04:15 113 H 18 129/101 97 05/31/23 04:00 133/93 05/31/23 03:51 114 H 05/31/23 03:50 114 H 18 95 05/31/23 03:49 94 L 05/31/23 03:33 98.5 F 115 H 18 124/83 98 Intake and Output 05/30/23 05/31/23 05/31/23 22:59 06:59 14:59 Other: Weight 104.326 kg Results CBC & Chem 7: 05/31/23 03:55 05/31/23 03:55 Labs: Abnormal Lab Results - Last 24 Hours (Table) 05/31/23 05/31/23 Range/Units 03:55 03:55 PT 13.5 H (9.0-12.0) sec INR 1.3 H (<1.2) APTT 33.0 H (22.0-30.0) sec Chloride 110 H (98-107) mmol/L Total Protein 5.7 L (6.3-8.2) g/dL Albumin 3.2 L (3.5-5.0) g/dL
[2023-05-31 13:27] VITALS: BP 122/78; PULSE 44
--- NOTE | 2023-05-31 13:46 | P.DS ---
Providers Date of admission: 05/31/23 08:14 Expected date of discharge: 05/31/23 Attending physician: Alfredo Godinez Consults: 05/31/23 08:13 Consult Physician Urgent Consulting Provider: [facility] Consult Reason/Comments: Atrial flutter with rapid ventricular response Do you want consulting provider notified?: Yes Primary care physician: Johann [facility] Course: Chief Complaint: Heart racing History of presenting complaint: This is a [address] Rubalcava. Crew Attendant Dr. NERY Fernandes. Chronic stable medical conditions include hypertension, GERD, primary osteoarthritis, moderate persistent asthma, atrial fibrillation on anticoagulation,ascending aorta aneurysm 4.4 cm. in August 2019 patient had a cardiac catheterization that was negative. Dr. Chriss Katz- ablation was carried out for atrial tachycardia. Patient reviewed in April 2023 with atrial flutter fibrillation. Was cardioverted following BESSIE. Around midnight last night patient felt his heart racing. Heart rate was about 122. He took some metoprolol and multaq. Symptoms did not improve. He called a [facility]ology [facility]. Dr. Katz was inventory control specialist. I asked the patient to come to the ER. In the ER patient received 1 dose of metoprolol 100 mg and multaq 400 mg once. About 7:00 this morning patient went back to sinus rhythm. Currently heart rate is in the 40s. Denied any shortness of breath dizziness lightheadedness. Currently comfortable watching television. Pending evaluation by cardiology. Patient was later seen by Dr. Mike Miller from cardiology. Patient is to be discharged on his home medications and follow-up with his own customer sales service manager. Past medical history to include: Hypertension, GERD, primary osteoarthritis, moderate persistent asthma, atrial fibrillation/atrial tachycardia ablation, on anticoagulation,, BPH treated with TURP. Negative cardiac catheterization in 2018 Social history: , retired, no smoking. Alcohol rarely. .Physical examination: VITAL SIGNS: 97, 68, 16, 1.5/66, 98% room air GENERAL: Up in a recliner comfortable EYES: Pupils equal. Conjunctiva normal. HEENT: External appearance of nose and ears normal, oral cavity grossly normal. NECK: JVD not raised; masses not palpable. HEART: Heart sounds normal; no edema. LUNGS: Respiratory rate normal; clear to auscultation. ABDOMEN: Soft, nontender, liver spleen not palpable, no masses palpable. PSYCH: Alert and oriented x3; mood and affect normal. Lymphatics: No lymph nodes palpable in the neck and axilla NEUROLOGICAL: Cranial nerves grossly intact. Power and sensation grossly intact INVESTIGATIONS, reviewed in the clinical context: White count 6.4 hemoglobin 13 platelets 200 sodium 142 potassium 3.9 creatinine 0.95 Troponin I less than 0.012 EKG tracing personally reviewed by me-possible atrial tachycardia with a rate of 113. Right bundle branch block pattern. Chest x-ray film personally reviewed by me-no infiltrates, cardiomegaly Assessment and plan: -Recurrent atrial flutter/tachycardia with a prior ablation 3. Uncontrolled on presentation. Now back in sinus rhythm On multaq and Lopressor. Xarelto -4.4 cm ascending aorta aneurysm, Annual follow-up -Essential hypertension Lopressor -GERD Nexium -Primary osteoarthritis Pain medications needed -Moderate persistent asthma Ventolin when necessary. Singulair Disposition: Home Plan - Discharge Summary New Discharge Prescriptions: Continue Montelukast [Singulair] 10 mg PO HS Atorvastatin Calcium 10 mg PO HS Albuterol Inhaler [Ventolin Hfa Inhaler] 2 puff INHALATION RT-Q4H PRN PRN Reason: Shortness Of Breath Esomeprazole Magnesium [NexIUM] 40 mg PO HS Losartan Potassium 50 mg PO HS Metoprolol Tartrate [Lopressor] 25 mg PO BID Dronedarone [Multaq] 200 mg PO BID Rivaroxaban [Xarelto] 20 mg PO HS Discharge Medication List Montelukast [Singulair] 10 mg PO HS 08/26/15 [History] Atorvastatin Calcium 10 mg PO HS 08/31/16 [History] Albuterol Inhaler [Ventolin Hfa Inhaler] 2 puff INHALATION RT-Q4H PRN 11/25/20 [History] Esomeprazole Magnesium [NexIUM] 40 mg PO HS 04/28/23 [History] Rivaroxaban [Xarelto] 20 mg PO HS 04/28/23 [History] Dronedarone [Multaq] 200 mg PO BID 05/31/23 [History] Losartan Potassium 50 mg PO HS 05/31/23 [History] Metoprolol Tartrate [Lopressor] 25 mg PO BID 05/31/23 [History] Follow up Appointment(s)/Referral(s): Cardiology, [Other] - 1 Week Johann Rubalcava MD [Primary Care Provider] - 1-2 days
--- NOTE | 2023-05-31 15:17 | CONS ---
CONSULTATION CHIEF COMPLAINT: Palpitations. HISTORY OF PRESENT ILLNESS: Dung is a 73-year-old gentleman with a history of ascending aortic aneurysm; atrial fibrillation, status post cardioversion; atrial flutter, status post ablation; and atrial tachycardia, who follows with Dr. NERY Fernandes in the office regularly, presented to hospital recently with atrial flutter and underwent cardioversion for the same. The patient underwent BESSIE and cardioversion and has jajk-da-zvclabih aortic insufficiency. He comes in this time complaining of sustained palpitations, was found to be in atrial flutter with rapid ventricular rate and converted back to sinus rhythm spontaneously. His predominant symptom was sustained palpitations. He is currently on Xarelto for anticoagulation and takes Lopressor 25 b.i.d. At the time of my evaluation, he is in sinus bradycardia with a heart rate of 45 beats per minute, and he is also on Multaq 400 mg p.o. b.i.d., which he was already on. PAST MEDICAL HISTORY: Significant for atrial fibrillation, flutter, atrial tachycardia, and hypertension. MEDICATIONS AT HOME: Include: 1. Multaq 200 b.i.d. 2. Losartan 50 daily. 3. Lipitor. 4. Xarelto. 5. Singulair. 6. Lopressor. ALLERGIES: Yeast. FAMILY HISTORY: Negative for premature coronary artery disease. SOCIAL HISTORY: Negative for current smoking, EtOH, or drug abuse. REVIEW OF SYSTEMS: 14 out of 14 review of systems has been performed. Pertinents are as documented. PHYSICAL EXAMINATION: VITAL SIGNS: Heart rate is 49 beats per minute, blood pressure is 120/70, respiratory rate is 18, O2 saturation is 99% on room air. NECK: There is no jugular venous distention. Carotid upstroke is normal. There is no bruit. CHEST: Reveals good air entry bilaterally. HEART: Reveals first and second heart sounds. No gallop. No murmur. No rub. ABDOMEN: Soft and nontender. EXTREMITIES: Did not reveal any edema. LABORATORY DATA: Troponin is negative. Hemoglobin is normal. Platelet count is 200. Potassium is 3.9, creatinine is 0.9. ASSESSMENT: Atypical atrial flutter with poorly-controlled ventricular rate. PLAN: The patient is doing well, converted back to sinus rhythm. He is on Multaq. He will be discharged home. Hold the metoprolol for heart rate less than 70. Follow up with Cardiology in the office. MMODL / IJN: [id number] /
[2023-05-31] MEDS ORDERED: SYMBICORT 80-4.5 MCG INHALER INHALATION SCH (20:00)
[2023-05-31] MEDS ORDERED: DRONEDARONE 400 MG TAB PO SCH (21:00)
[2023-05-31] MEDS ORDERED: ATORVASTATIN 10 MG TAB PO SCH (23:00)
[2023-05-31] MEDS ORDERED: RIVAROXABAN 20 MG TAB PO SCH (23:00)
[2023-05-31] MEDS ORDERED: MONTELUKAST 10 MG TAB PO SCH (23:00)
[2023-06-01] MEDS ORDERED: ASPIRIN 325 MG TAB PO SCH (09:00)
== END 2023-05-31 14:39 | disposition home or self-care (01) | DRG 310 ==
LOC: EC 03:27 → 3SCARD 08:14
PROVIDERS: ADMIT Hospitalist; ATTEND Hospitalist
DX: I48.4 Atypical atrial flutter (principal); I10 Essential (primary) hypertension; I47.1 Supraventricular tachycardia; E78.5 Hyperlipidemia, unspecified; I35.1 Nonrheumatic aortic (valve) insufficiency; I71.21 Aneurysm of the ascending aorta, without rupture; J45.40 Moderate persistent asthma, uncomplicated; K21.9 Gastro-esophageal reflux disease without esophagitis; M19.91 Primary osteoarthritis, unspecified site; N40.0 Benign prostatic hyperplasia without lower urinary tract symptoms; Z79.01 Long term (current) use of anticoagulants; Z79.899 Other long term (current) drug therapy; Z82.3 Family history of stroke; Z88.8 Allergy status to other drugs, medicaments and biological substances
CPT/HCPCS: 36415; 71046; 80053; 83735; 84484; 85025; 85610; 85730; 93005

== ENCOUNTER → 2023-08-09 | Outpatient (CLI) | payer MEDICARE ==
[2023-08-10 00:54] LABS: Peanut IgE <0.10 kU/L; Walnut IgE (Food) <0.10 kU/L
[2023-08-10 13:06] LABS: Chocolate IgE Class CLASS 0; Coffee IgE <0.10 kU/L (<0.10); Coffee IgE Class CLASS 0; Gluten IgE Class CLASS 0; Latex IgE Class CLASS 0; Oat IgE Class CLASS 0; Yeast Bakers/Brew IgE <0.10 kU/L (<0.10); Yeast Bakers/Brew IgE Class CLASS 0
[2023-08-10 13:07] LABS: Avocado Class CLASS 0; Banana IgE Class CLASS 0; Hazelnut IgE <0.10 kU/L (<0.10); Hazelnut IgE Class CLASS 0; Kiwi IgE <0.10 kU/L (<0.10); Kiwi IgE Class CLASS 0; Tea IgE <0.10 kU/L (<0.10); Tea IgE Class CLASS 0
== END | disposition home or self-care (01) ==
LOC: LABWHC1 13:26
PROVIDERS: ATTEND Otolaryngology
DX: J30.89 Other allergic rhinitis (principal)
CPT/HCPCS: 36415; 86003

== ENCOUNTER 2023-09-26 20:26 | Observation (INO) | payer MEDICARE ==
--- NOTE | 2023-09-26 20:46 | ED ---
Chest Pain HPI - General Chief Complaint: Chest Pain Stated Complaint: Chest pain Time Seen by Provider: 09/26/23 20:33 Source: patient, EMS, old records reviewed Mode of arrival: EMS Limitations: no limitations - History of Present Illness Initial Comments: This is a 73-year-old male to the ER today for evaluation today. Patient presents to the emergency department for evaluation regards to chest pain patient states he's been in A. fib with RVR for a few weeks now and see his wharf hand who lands to take admitted to the hospital in about 2 weeks for treatment of his atrial fibrillation. Patient states he is being deaf chest pain and shortness of breath especially with exertion MD Complaint: chest pain, other (Shortness of breath and chest pain with exertion) Onset: during exertion Pain Location: substernal, left chest Severity: moderate Severity scale (1-10): 4 Quality: aching, heaviness Consistency: constant Improves With: nothing Context: recent illness Anginal Symptoms: diaphoresis, dyspnea, sense of impending doom Other Symptoms: palpitations Treatments Prior to Arrival: none - Related Data Home Medications Medication Instructions Recorded Confirmed Montelukast [Singulair] 10 mg PO HS 08/26/15 05/31/23 Atorvastatin Calcium 10 mg PO HS 08/31/16 05/31/23 Albuterol Inhaler [Ventolin Hfa 2 puff INHALATION RT-Q4H PRN 11/25/20 05/31/23 Inhaler] Esomeprazole Magnesium [NexIUM] 40 mg PO HS 04/28/23 05/31/23 Rivaroxaban [Xarelto] 20 mg PO HS 04/28/23 05/31/23 Dronedarone [Multaq] 200 mg PO BID 05/31/23 05/31/23 Losartan Potassium 50 mg PO HS 05/31/23 05/31/23 Metoprolol Tartrate [Lopressor] 25 mg PO BID 05/31/23 05/31/23 Allergies Allergy/AdvReac Type Severity Reaction Status Date / Time Yeast Allergy Nausea & Verified 09/26/23 20:34 Vomiting Review of Systems ROS Statement: Those systems with pertinent positive or pertinent negative responses have been documented in the HPI. ROS Other: All systems not noted in ROS Statement are negative. EKG Findings - EKG Comments: EKG Findings:: EKG is a flutter 128 QRS 140 QTC 399 - EKG Results: EKG: interpreted by JEWELL EKG shows: atrial fibrillation Past Medical History Past Medical History: Atrial Fibrillation, Atrial Flutter, Chest Pain / Angina, Eye Disorder, GERD/Reflux, Hyperlipidemia, Hypertension, Osteoarthritis (OA), Pneumonia, Prostate Disorder Additional Past Medical History / Comment(s): Paroxysmal Afib, aflutter, atach, RVR, bronchitis, BPH, bilateral astigmatism, sinus problems, BPH with outflow obstruction but none since TURP, arthritis in fingers. History of Any Multi-Drug Resistant Organisms: None Reported Past Surgical History: Ablation, Appendectomy, Cardiac Ablation, Cholecystectomy, Joint Replacement, Prostate Surgery Additional Past Surgical History / Comment(s): 12/13/17 PVI/cryoablation of 4 pulmonary veins, cardiac ablations with last time being 12/24/19, BESSIE/cardioversions, colonoscopy, bilateral cataract removals, TURP. Past Anesthesia/Blood Transfusion Reactions: No Reported Reaction Past Psychological History: No Psychological Hx Reported Smoking Status: Never smoker Past Alcohol Use History: None Reported Past Drug Use History: None Reported - Past Family History Father History Unknown: Yes Family Medical History: CVA/TIA Additional Family Medical History / Comment(s): Father had a CVA. He lived to be 75 yrs. old. Mother History Unknown: Yes Family Medical History: CVA/TIA Additional Family Medical History / Comment(s): Mother had a CVA x 2. He lived to be 82 yrs old. General Exam Limitations: no limitations General appearance: alert, in no apparent distress, anxious Head exam: Present: atraumatic, normocephalic, normal inspection Eye exam: Present: normal appearance, PERRL, EOMI. Absent: scleral icterus, conjunctival injection, periorbital swelling ENT exam: Present: normal exam, mucous membranes moist Neck exam: Present: normal inspection. Absent: tenderness, meningismus, lymphadenopathy Respiratory exam: Present: normal lung sounds bilaterally. Absent: respiratory distress, wheezes, rales, rhonchi, stridor Cardiovascular Exam: Present: tachycardia, irregular rhythm, normal heart sounds. Absent: systolic murmur, diastolic murmur, rubs, gallop, clicks GI/Abdominal exam: Present: soft, normal bowel sounds. Absent: distended, tenderness, guarding, rebound, rigid Extremities exam: Present: normal inspection, full ROM, normal capillary refill. Absent: tenderness, pedal edema, joint swelling, calf tenderness Back exam: Present: normal inspection Neurological exam: Present: alert, oriented X3, CN II-XII intact Psychiatric exam: Present: normal affect, normal mood Skin exam: Present: warm, dry, intact, normal color. Absent: rash Course Vital Signs 09/26/23 20:28 Temperature 98.1 F Pulse Rate 129 H Respiratory 18 Rate Blood Pressure 153/103 O2 Sat by Pulse 98 Oximetry - Reevaluation(s) Reevaluation #1: 09/26/23 22:18 medical record is reviewed Reevaluation #2: 09/26/23 22:19 Patient informed results and questions answered Reevaluation #3: 09/26/23 22:19 Patient symptoms are improving Reevaluation #4: 09/26/23 22:18 Was pt. sent in by a medical professional or institution ([facility], [employer], urgent care, hospital, or custodial...) When possible be specific @ -no Did you speak to anyone other than the patient for history (EMS, parent, family, police, friend...)? What history was obtained from this source @ -no Did you review nursing and triage notes (agree or disagree)? Why? @ -agree Are old charts reviewed (outside hosp., previous admission, EMS record, old EKG, old radiological studies, urgent care reports/EKG's, custodial records)? Report findings @ -yes Differential Diagnosis (chest pain, altered mental status, abdominal pain women, abdominal pain men, vaginal bleeding, weakness, fever, dyspnea, syncope, headache, dizziness, GI bleed, back pain, seizure, CVA, palpatations, mental health, musculoskeletal)? @ -prior EKG interpreted by me (3pts min.). @ -yes X-rays interpreted by me (1pt min.). @ -yes CT interpreted by me (1pt min.). @ -no U/S interpreted by me (1pt. min.). @ -no What testing was considered but not performed or refused? (CT, X-rays, U/S, labs )? Why? @ -none What meds were considered but not given or refused? Why? @ -none Did you discuss the management of the patient with other professionals (professionals i.e. [facility], [employer]ISHER POLISHER, lab, RT, psych nurse, social contact worker, busgirl, teacher, armored vehicle officer, casework supervisor)? Give summary @ -no Was smoking cessation discussed for >3mins.? @ -no Was critical care preformed (if so, how long)? @ -no Were there social determinants of health that impacted care today? How? (Homelessness, low income, unemployed, alcoholism, drug addiction, transportation, low edu. Level, literacy, decrease access to med. care, custodial, rehab)? @ -none Was there de-escalation of care discussed even if they declined (Discuss DNR or withdrawal of care, Hospice)? DNR status @ -no What co-morbidities impacted this encounter? (DM, HTN, Smoking, COPD, CAD, Cancer, CVA, ARF, Chemo, Hep., AIDS, mental health diagnosis, sleep apnea, morbid obesity)? @ -none Was patient admitted / discharged? Hospital course, mention meds given and route, prescriptions, significant lab abnormalities, going to OR and other pertinent info. @ - Undiagnosed new problem with uncertain prognosis? @ -no Drug Therapy requiring intensive monitoring for toxicity (Heparin, Nitro, Insulin, Cardizem)? @ -no Were any procedures done? @ -no Diagnosis/symptom? @ - Acute, or Chronic, or Acute on Chronic? @ -Acute Uncomplicated (without systemic symptoms) or Complicated (systemic symptoms)? @ -Complicated Side effects of treatment? @ -no Exacerbation, Progression, or Severe Exacerbation? @ -exacerbation Poses a threat to life or bodily function? How? (Chest pain, [place], [place], pneumonia, PE, COPD, DKA, ARF, appy, cholecystitis, CVA, Diverticulitis, Homicidal, Suicidal, threat to staff... and all critical care pts) @ -yes Reevaluation #5: 09/26/23 22:18 Differential Chest Pain: Stable Angina, Unstable Angina, STEMI, NSTEMI Aortic Dissection, Pneumothorax, Musculoskeletal, Esophageal Spasm GERD, Cholecystitis, Pancreatitis, Zoster, this is not meant to be an all-inclusive list. Differential Palpitations Ventricular arrhythmias, atrial arrhythmias, myocardial infarction, anemia, thyrotoxicosis, electrolyte imbalance, hypokalemia, pulmonary embolism, pulmonary disease, drugs, alcohol, anxiety, stress.... This is not meant to be an all-inclusive list. - Consultations Consultation #1: Spoke with Dr. Godinez agrees to admit this patient Chest Pain MDM - MDM 73 male to the emergency department for evaluation. Patient presents today for evaluation of chest pain shortness of breath with exertion in persistent atrial fibrillation with RVR. Patient will be admitted for cardiology evaluation Critical Care Time Critical Care Time: Yes Total Critical Care Time: 31 Disposition Clinical Impression: Atrial fibrillation with RVR, Atrial fibrillation, Chest pain, Atypical chest pain, Rapid atrial fibrillation, Atrial flutter Disposition: ADMITTED IP TO THIS HOSP Condition: Fair Is patient prescribed a controlled substance at d/c from ED?: No Referrals: Johann Rubalcava MD [Primary Care Provider] - 1-2 days Time of Disposition: 22:10
[2023-09-26] MEDS ORDERED: SODIUM CHLORIDE 0.9% 1,000 ML IV STA (21:11)
[2023-09-26] MEDS ORDERED: DILTIAZEM DRIP BOLUS FROM BAG 1 MG SOLN IV ONE (21:12)
[2023-09-26 21:25] LABS: Basophils % (A) 0 %; Eosinophils # (A) 0.1 k/uL (0-0.7); Eosinophils % (A) 1 %; HCT 40.5 % (39.0-53.0); HGB 13.5 gm/dL (13.0-17.5); Lymphocytes # (A) 1.6 k/uL (1.0-4.8); Lymphocytes % (A) 17 %; MCH 29.7 pg (25.0-35.0); MCHC 33.2 g/dL (31.0-37.0); MCV 89.4 fL (80.0-100.0); Mean Platelet Volume 7.7; Monocytes # (A) 0.7 k/uL (0-1.0); Monocytes % (A) 7 %; Neutrophils # (A) 6.8 k/uL (1.3-7.7); Neutrophils % (A) 74 %; Platelet Count 229 k/uL (150-450); RBC 4.53 m/uL (4.30-5.90); RDW 13.9 % (11.5-15.5); WBC 9.1 k/uL (3.8-10.6)
[2023-09-26 21:34] LABS: INR 1.1 (<1.2); Prothrombin Time 11.7 sec (10.0-12.5)
[2023-09-26 21:40] LABS: ALT 47 U/L (4-49); AST 53 U/L (17-59); African American GFR (CKD) >90 (>60 ml/min/1.73 sqM); Albumin 3.6 g/dL (3.5-5.0); Alkaline Phosphatase 116 U/L (38-126); Anion Gap 8 mmol/L; Blood Urea Nitrogen 16 mg/dL (9-20); Calcium 9.4 mg/dL (8.4-10.2); Carbon Dioxide 23 mmol/L (22-30); Chloride 107 mmol/L (98-107); Glucose 131 mg/dL (74-99); Lipase 79 U/L (23-300); Magnesium 1.9 mg/dL (1.6-2.3); Non-African American GFR(CKD) 85 (>60 ml/min/1.73 sqM); Potassium 4.2 mmol/L (3.5-5.1); Sodium 138 mmol/L (137-145); Total Bilirubin 0.6 mg/dL (0.2-1.3); Total Protein 6.3 g/dL (6.3-8.2)
[2023-09-26] MEDS: DILTIAZEM 125 MG in SODIUM CHLORIDE 0.9% 100 ML IV SCH (21:42)
[2023-09-26 21:47] LABS: NT-Pro-B-Type Natriuretic Pept 635 pg/mL
--- NOTE | 2023-09-26 22:06 | XR ---
EXAMINATION TYPE: XR chest 2V DATE OF EXAM: 09/26/2023 9:16 PM CLINICAL INDICATION:Male, 73 years old with history of Chest Pain; [facility] COMPARISON: Chest radiographs from 05/31/2023 TECHNIQUE: XR chest 2V Frontal and lateral views of the chest. FINDINGS: Lungs/Pleura: There is no evidence of pleural effusion, focal consolidation, or pneumothorax. Pulmonary vascularity: Unremarkable. Heart/mediastinum: Cardiomediastinal silhouette is enlarged and stable. Musculoskeletal: No acute osseous pathology. IMPRESSION: 1. No acute cardiopulmonary disease/process. 2. Similar cardiomegaly.
[2023-09-26] MEDS ORDERED: MORPHINE SULFATE 4 MG/ML SYRINGE IV PRN (22:15)
[2023-09-26] MEDS ORDERED: SODIUM CHLORIDE 0.9% 1,000 ML IV SCH (22:15)
[2023-09-26] MEDS ORDERED: NALOXONE 0.4 MG/ML 1 ML VIAL IV PRN (22:15)
[2023-09-26] MEDS ORDERED: ONDANSETRON 4 MG/2 ML VIAL IVP PRN (22:15)
[2023-09-27 03:59] LABS: Basophils % (A) 0 %; Eosinophils # (A) 0.1 k/uL (0-0.7); Eosinophils % (A) 2 %; HCT 39.8 % (39.0-53.0); HGB 13.3 gm/dL (13.0-17.5); Lymphocytes # (A) 2.5 k/uL (1.0-4.8); Lymphocytes % (A) 27 %; MCHC 33.5 g/dL (31.0-37.0); MCV 89.5 fL (80.0-100.0); Mean Platelet Volume 8.4; Monocytes # (A) 0.6 k/uL (0-1.0); Monocytes % (A) 7 %; Neutrophils # (A) 5.8 k/uL (1.3-7.7); Neutrophils % (A) 63 %; Platelet Count 224 k/uL (150-450); RBC 4.45 m/uL (4.30-5.90); RDW 13.9 % (11.5-15.5); WBC 9.2 k/uL (3.8-10.6)
[2023-09-27 04:15] LABS: ALT 43 U/L (4-49); AST 40 U/L (17-59); African American GFR (CKD) >90 (>60 ml/min/1.73 sqM); Albumin 3.2 g/dL (3.5-5.0); Alkaline Phosphatase 98 U/L (38-126); Anion Gap 6 mmol/L; Blood Urea Nitrogen 15 mg/dL (9-20); Calcium 9.2 mg/dL (8.4-10.2); Carbon Dioxide 27 mmol/L (22-30); Chloride 108 mmol/L (98-107); Glucose 100 mg/dL (74-99); Magnesium 1.9 mg/dL (1.6-2.3); Non-African American GFR(CKD) 86 (>60 ml/min/1.73 sqM); Phosphorus 3.8 mg/dL (2.5-4.5); Potassium 4.1 mmol/L (3.5-5.1); Sodium 141 mmol/L (137-145); Total Bilirubin 0.7 mg/dL (0.2-1.3); Total Protein 5.8 g/dL (6.3-8.2)
[2023-09-27] MEDS ORDERED: DILTIAZEM DRIP BOLUS FROM BAG 1 MG SOLN IV ONE (09:38)
[2023-09-27] MEDS ORDERED: METOPROLOL TARTRATE 25 MG TAB PO SCH (09:45)
[2023-09-27] MEDS ORDERED: SODIUM CHLORIDE 0.9% 1,000 ML IV SCH (11:15)
--- NOTE | 2023-09-27 11:26 | P.CRDCN ---
History of Present Illness History of present illness: HISTORY OF PRESENT ILLNESS: This is a 73-year-old male with a past medical history significant for atrial fibrillation/flutter, atrial tachycardia, hypertension, hyperlipidemia, and previous ablation. Patient follows in the office with Dr. Fernandes and Dr. Katz. We have been asked to see the patient in consultation for "known". Patient examined at the bedside. patient presents to hospital with a chief complaint of shortness of breath. Patient states yesterday he was walking across a field for a volleyball game when he began to have shortness of breath and chest discomfort. He states that he was able to drive himself home and then spoke to his son on the phone who told him to come to the hospital for further evaluation. The patient currently denies any chest pain or pressure. He denies any shortness of breath. Telemetry reveals atrial tachycardia with a heart rate in the 120s. It is noted that the patient was seen in the office by Dr. Katz on September 23, 2023. Plan was to admit the patient to the hospital on October 10 for Dofetilide treatment with admission from 3-5 days. * EKG reveals atrial tachycardia with a heart rate of 128. Right bundle branch block. * Chest xray negative for acute process. Similar cardiomegaly * Current home cardiac medications include atorvastatin 10 mg at night, losartan 50 mg at night, metoprolol tartrate 25 mg twice a day, and Xarelto 20 mg at night * Most recent echocardiogram obtained in April 2023 revealing normal LV systolic function, trace to mild MR and mild TR * Patient underwent BESSIE and cardioversion in April [address] Shah * Patient underwent stress echocardiogram in November 2020 which was negative for ischemia REVIEW OF SYSTEMS: At the time of my exam: CONSTITUTIONAL: Denies fever or chills. HEENT: Denies blurred vision, vision changes, or eye pain. Denies hemoptysis CARDIOVASCULAR: Denies chest pain. Denies orthopnea. Denies PND. Denies palpitations RESPIRATORY: Denies shortness of breath. GASTROINTESTINAL: Denies abdominal pain. Denies nausea or vomiting. HEMATOLOGIC: Denies bleeding disorders. GENITOURINARY: Denies any blood in urine. SKIN: Denies pruitis. Denies rash. PHYSICAL EXAM: VITAL SIGNS: Reviewed. GENERAL: Well-developed in no acute distress. HEENT: Head is normocephalic. Pupils are equal, round. Sclerae anicteric. Mucous membranes of the mouth are moist. Neck supple. No JVD or thyromegaly LUNGS: Respirations even and unlabored. Lungs essentially clear to auscultation bilaterally. HEART: Tachycardic. Irregular rate and rhythm. S1 and S2 heard. ABDOMEN: Soft. Nondistended. Nontender. EXTREMITIES: Normal range of motion. No clubbing or cyanosis. Peripheral pulses intact. No lower extremity edema NEUROLOGIC: Awake and alert. Oriented x 3. ASSESSMENT: Chest pain and shortness of breath Atrial tachycardia Persistent typical atrial flutter/atrial fibrillation History of BESSIE and cardioversion, April 2023 Hypertension Hyperlipidemia History of previous ablation PLAN: Continue current cardiac medications Increase metoprolol tartrate to 50 mg twice a day Given additional Cardizem bolus of 7.5 mg Increase Cardizem drip to 10 mg an hour Await further recommendations from Dr. Katz Nurse practitioner note has been reviewed by physician. Signing provider agrees with the documented findings, assessment, and plan of care. Past Medical History Past Medical History: Atrial Fibrillation, Atrial Flutter, Chest Pain / Angina, Eye Disorder, GERD/Reflux, Hyperlipidemia, Hypertension, Osteoarthritis (OA), Pneumonia, Prostate Disorder Additional Past Medical History / Comment(s): Paroxysmal Afib, aflutter, atach, RVR, bronchitis, BPH, bilateral astigmatism, sinus problems, BPH with outflow obstruction but none since TURP, arthritis in fingers. History of Any Multi-Drug Resistant Organisms: None Reported Past Surgical History: Ablation, Appendectomy, Cardiac Ablation, Cholecystectomy, Joint Replacement, Prostate Surgery Additional Past Surgical History / Comment(s): 12/13/17 PVI/cryoablation of 4 pulmonary veins, cardiac ablations with last time being 12/24/19, BESSIE/cardiovers ions, colonoscopy, bilateral cataract removals, TURP. Past Anesthesia/Blood Transfusion Reactions: No Reported Reaction Past Psychological History: No Psychological Hx Reported Smoking Status: Never smoker Past Alcohol Use History: None Reported Past Drug Use History: None Reported - Past Family History Father History Unknown: Yes Family Medical History: CVA/TIA Additional Family Medical History / Comment(s): Father had a CVA. He lived to be 75 yrs. old. Mother History Unknown: Yes Family Medical History: CVA/TIA Additional Family Medical History / Comment(s): Mother had a CVA x 2. He lived to be 82 yrs old. Medications and Allergies Home Medications Medication Instructions Recorded Confirmed Type Atorvastatin Calcium 10 mg PO HS 08/31/16 09/26/23 History Albuterol Inhaler [Ventolin Hfa 2 puff INHALATION RT-Q4H PRN 11/25/20 09/26/23 History Inhaler] Esomeprazole Magnesium [NexIUM] 80 mg PO DAILY 04/28/23 09/26/23 History Rivaroxaban [Xarelto] 20 mg PO HS 04/28/23 09/26/23 History Losartan Potassium 50 mg PO HS 05/31/23 09/26/23 History Metoprolol Tartrate [Lopressor] 25 mg PO BID 05/31/23 09/26/23 History Allergies Allergy/AdvReac Type Severity Reaction Status Date / Time Yeast Allergy Nausea & Verified 09/26/23 22:40 Vomiting Physical Exam Vitals: Vital Signs Temp Pulse Resp BP Pulse Ox 09/27/23 07:00 75 18 114/85 98 09/27/23 04:00 64 16 101/66 96 09/27/23 03:00 80 16 116/84 96 09/27/23 02:00 56 L 16 130/92 96 09/27/23 01:00 76 18 124/91 99 09/27/23 00:00 75 18 116/85 96 09/26/23 22:30 79 18 131/92 97 09/26/23 21:34 103 H 18 148/79 97 09/26/23 20:28 98.1 F 129 H 18 153/103 98 Intake and Output 09/26/23 09/27/23 09/27/23 22:59 06:59 14:59 Other: Weight 104.326 kg Results 09/27/23 03:41 09/27/23 03:41 Cardiac Enzymes 09/26/23 09/26/23 09/27/23 Range/Units 21:14 21:14 00:56 AST 53 (17-59) U/L Troponin I <0.012 0.016 (0.000-0.034) ng/mL 09/27/23 09/27/23 Range/Units 03:41 03:41 AST 40 (17-59) U/L Troponin I 0.018 (0.000-0.034) ng/mL Coagulation 09/26/23 Range/Units 21:14 PT 11.7 (10.0-12.5) sec APTT 26.0 (22.0-30.0) sec CBC 09/26/23 09/27/23 Range/Units 21:14 03:41 WBC 9.1 9.2 (3.8-10.6) k/uL RBC 4.53 4.45 (4.30-5.90) m/uL Hgb 13.5 13.3 (13.0-17.5) gm/dL Hct 40.5 39.8 (39.0-53.0) % Plt Count 229 224 (150-450) k/uL Comprehensive Metabolic Panel 09/26/23 09/27/23 Range/Units 21:14 03:41 Sodium 138 141 (137-145) mmol/L Potassium 4.2 4.1 (3.5-5.1) mmol/L Chloride 107 108 H (98-107) mmol/L Carbon Dioxide 23 27 (22-30) mmol/L BUN 16 15 (9-20) mg/dL Creatinine 0.90 0.88 (0.66-1.25) mg/dL Glucose 131 H 100 H (74-99) mg/dL Calcium 9.4 9.2 (8.4-10.2) mg/dL AST 53 40 (17-59) U/L ALT 47 43 (4-49) U/L Alkaline Phosphatase 116 98 (38-126) U/L Total Protein 6.3 5.8 L (6.3-8.2) g/dL Albumin 3.6 3.2 L (3.5-5.0) g/dL Current Medications Generic Name Dose Route Start Last Admin Trade Name Freq PRN Reason Stop Dose Admin Diltiazem HCl 125 mg/ Sodium 125 mls @ 5 mls/hr 09/26/23 21:15 09/26/23 21:42 Chloride IV 5 mg/hr .Q24H CHITRA 5 mls/hr Administration 5 MG/HR Sodium Chloride 1,000 mls @ 75 mls/hr 09/26/23 22:15 09/26/23 22:45 Saline 0.9% IV 75 mls/hr .[id number] CHITRA Administration Morphine Sulfate 4 mg 09/26/23 22:15 Morphine Sulfate 4 Mg/Ml Syringe IV Q4HR PRN Severe Pain (Scale 7 to 10) Naloxone HCl 0.2 mg 09/26/23 22:15 Naloxone 0.4 Mg/Ml 1 Ml Vial IV Q2M PRN Opioid Reversal Ondansetron HCl 4 mg 09/26/23 22:15 Ondansetron 4 Mg/2 Ml Vial IVP Q8HR PRN Nausea And Vomiting Intake and Output 09/26/23 09/27/23 09/27/23 22:59 06:59 14:59 Other: Weight 104.326 kg 09/27/23 03:41 09/27/23 03:41
[2023-09-27] MEDS: PANTOPRAZOLE 40 MG TABLET PO SCH ×2 (11:55→17:22)
[2023-09-27] MEDS ORDERED: CALCIUM CARBONATE 500 MG CHEWABLE PO PRN (12:45)
[2023-09-27] MEDS ORDERED: MELATONIN 3 MG TABLET PO PRN (12:45)
[2023-09-27] MEDS ORDERED: ALPRAZolam 0.25 MG TAB PO PRN (12:45)
[2023-09-27] MEDS ORDERED: LACTULOSE 20 GM/30 ML CUP PO PRN (12:45)
[2023-09-27] MEDS ORDERED: ACETAMINOPHEN TAB 325 MG TAB PO PRN (12:45)
[2023-09-27 15:40] VITALS: RESP 16
[2023-09-27] MEDS ORDERED: SODIUM CHLORIDE 0.9% 1,000 ML IV ONE ×2 (16:00)
--- NOTE | 2023-09-27 16:20 | P.EPPROC ---
- EP Procedure Note Electrophysiology Procedure Note: Diagnosis Persistent atrial tachycardia with RVR, drug refractory Failed flecainide Failed Multaq Symptomatic with shortness of breath with minimal exertion Procedure Successful electrical cardioversion with 120 J biphasic shock in the AP configuration to sinus rhythm Plan Continue Xarelto Stop diltiazem Reduce metoprolol to 25 mg twice daily May be discharged home within 12-24 hours
[2023-09-27] MEDS: DILTIAZEM 125 MG in SODIUM CHLORIDE 0.9% 100 ML IV SCH (17:22)
--- NOTE | 2023-09-27 18:11 | P.HPIM ---
History of Present Illness H&P Date: 09/27/23 Chief Complaint: Chest pain This is a [address] Rubalcava. Community Health Counselor Dr. NERY Fernandes. Chronic stable medical conditions include hypertension, GERD, primary osteoarthritis, moderate persistent asthma, atrial fibrillation on anticoagulation,ascending aorta aneurysm 4.4 cm. in August 2019 patient had a cardiac catheterization that was negative. Dr. Chriss Katz- ablation was carried out for atrial tachycardia. Patient reviewed in April 2023 with atrial flutter fibrillation. Was cardioverted following BESSIE. Patient yesterday developed chest pressure and shortness of breath. Persisted. Found to be in atrial tachycardia with rapid ventricular rate. Patient has failed outpatient flecainide and multaq. Was started on Cardizem drip in the ER. Artery still in the 120s. This after plan is for Dr. Chriss Katz to do cardioversion. Patient is on Xarelto. Also on beta wes.. Review of systems: GEN.: None EYES: None HEENT: None NECK: None RESPIRATORY: As above CARDIOVASCULAR: As above GASTROINTESTINAL: None GENITOURINARY: None MUSCULOSKELETAL: None LYMPHATICS: None HEMATOLOGICAL: None PSYCHIATRY: None NEUROLOGICAL: None Past medical history to include: Hypertension, GERD, primary osteoarthritis, moderate persistent asthma, atrial fibrillation/atrial tachycardia ablation, on anticoagulation,, BPH treated with TURP. Negative cardiac catheterization in 2018 Social history: , retired, no smoking. Alcohol rarely. .Physical examination: VITAL SIGNS: 88.1, 129, 18, 140/79, 97% room air GENERAL: Up in a recliner comfortable EYES: Pupils equal. Conjunctiva normal. HEENT: External appearance of nose and ears normal, oral cavity grossly normal. NECK: JVD not raised; masses not palpable. HEART: Heart sounds irregular; no edema. LUNGS: Respiratory rate normal; clear to auscultation. ABDOMEN: Soft, nontender, liver spleen not palpable, no masses palpable. PSYCH: Alert and oriented x3; mood and affect normal. Lymphatics: No lymph nodes palpable in the neck and axilla NEUROLOGICAL: Cranial nerves grossly intact. Power and sensation grossly intact INVESTIGATIONS, reviewed in the clinical context: September 27: White count 9.2 hemoglobin 13.3 platelets 224 sodium 141 potassium 4.1 creatinine 0.88 TSH 2.4 EKG tracing personally reviewed by wv-atrial tachycardia with a rate of 128. Some ST-T wave changes. Chest x-ray film personally reviewed by me-some cardiomegaly Assessment and plan: -Recurrent atrial tachycardia with a prior ablation 3. Uncontrolled Patient has failed multaq and flecainide. Currently on IV Cardizem drip. Beta wes. Dr. Chriss Katz from electrophysiology consulted. Plan for cardioversion later today. -4.4 cm ascending aorta aneurysm, Annual follow-up -Essential hypertension Lopressor -GERD Nexium -Primary osteoarthritis Pain medications needed -Moderate persistent asthma Ventolin when necessary. Harleen Discussed with patient and . Pending cardioversion. Past Medical History Past Medical History: Atrial Fibrillation, Atrial Flutter, Chest Pain / Angina, Eye Disorder, GERD/Reflux, Hyperlipidemia, Hypertension, Osteoarthritis (OA), Pneumonia, Prostate Disorder Additional Past Medical History / Comment(s): Paroxysmal Afib, aflutter, atach, RVR, bronchitis, BPH, bilateral astigmatism, sinus problems, BPH with outflow obstruction but none since TURP, arthritis in fingers. History of Any Multi-Drug Resistant Organisms: None Reported Past Surgical History: Ablation, Appendectomy, Cardiac Ablation, Cholecystectomy, Joint Replacement, Prostate Surgery Additional Past Surgical History / Comment(s): 12/13/17 PVI/cryoablation of 4 pulmonary veins, cardiac ablations with last time being 12/24/19, BESSIE/cardioversions, colonoscopy, bilateral cataract removals, TURP. Past Anesthesia/Blood Transfusion Reactions: No Reported Reaction Past Psychological History: No Psychological Hx Reported Additional Psychological History / Comment(s): Pt resides with his spouse. He is retired. He is independent. He uses no assistive device. He drives. No past service. Smoking Status: Never smoker Past Alcohol Use History: None Reported Past Drug Use History: None Reported - Past Family History Father History Unknown: Yes Family Medical History: CVA/TIA Additional Family Medical History / Comment(s): Father had a CVA. He lived to be 75 yrs. old. Mother History Unknown: Yes Family Medical History: CVA/TIA Additional Family Medical History / Comment(s): Mother had a CVA x 2. He lived to be 82 yrs old. Medications and Allergies Home Medications Medication Instructions Recorded Confirmed Type Atorvastatin Calcium 10 mg PO HS 08/31/16 09/26/23 History Albuterol Inhaler [Ventolin Hfa 2 puff INHALATION RT-Q4H PRN 11/25/20 09/26/23 History Inhaler] Esomeprazole Magnesium [NexIUM] 80 mg PO DAILY 04/28/23 09/26/23 History Rivaroxaban [Xarelto] 20 mg PO HS 04/28/23 09/26/23 History Losartan Potassium 50 mg PO HS 05/31/23 09/26/23 History Metoprolol Tartrate [Lopressor] 25 mg PO BID 05/31/23 09/26/23 History Allergies Allergy/AdvReac Type Severity Reaction Status Date / Time Yeast Allergy Nausea & Verified 09/26/23 22:40 Vomiting Physical Exam Vitals: Vital Signs Temp Pulse Pulse Resp BP BP Pulse Ox 09/27/23 17:23 63 16 103/61 96 09/27/23 16:47 60 16 115/61 98 09/27/23 16:32 78 18 117/81 98 09/27/23 16:17 67 18 112/70 100 09/27/23 16:09 122 H 16 132/60 98 09/27/23 15:30 98.1 F 126 H 16 137/65 97 09/27/23 13:35 128 H 18 120/106 98 09/27/23 11:57 128 H 18 121/93 98 09/27/23 11:00 128 H 18 121/93 96 09/27/23 09:00 129 H 18 113/81 94 L 09/27/23 08:00 129 H 18 118/86 97 09/27/23 07:00 75 18 114/85 98 09/27/23 04:00 64 16 101/66 96 09/27/23 03:00 80 16 116/84 96 09/27/23 02:00 56 L 16 130/92 96 09/27/23 01:00 76 18 124/91 99 09/27/23 00:00 75 18 116/85 96 09/26/23 22:30 79 18 131/92 97 09/26/23 21:34 103 H 18 148/79 97 09/26/23 20:28 98.1 F 129 H 18 153/103 98 Intake and Output 09/27/23 09/27/23 09/27/23 06:59 14:59 22:59 Intake Total 100 Balance 100 Intake: IV 100 Other: Weight 104.326 kg Results CBC & Chem 7: 09/27/23 03:41 09/27/23 03:41 Labs: Abnormal Lab Results - Last 24 Hours (Table) 09/26/23 09/27/23 Range/Units 21:14 03:41 Chloride 108 H (98-107) mmol/L Glucose 131 H 100 H (74-99) mg/dL Total Protein 5.8 L (6.3-8.2) g/dL Albumin 3.2 L (3.5-5.0) g/dL Thrombosis Risk Factor Assmnt - Choose All That Apply Each Factor Represents 1 point: Obesity (BMI >25) Each Risk Factor Represents 2 Points: Age 61-74 years Thrombosis Risk Factor Assessment Total Risk Factor Score: 3 Thrombosis Risk Factor Assessment Level: Moderate Risk
[2023-09-27] MEDS: METOPROLOL TARTRATE 25 MG TAB PO SCH (20:10)
[2023-09-27] MEDS ORDERED: RIVAROXABAN 20 MG TAB PO SCH (21:00)
[2023-09-27] MEDS ORDERED: METOPROLOL TARTRATE 50 MG TAB PO SCH (21:00)
[2023-09-27] MEDS ORDERED: ATORVASTATIN 10 MG TAB PO SCH (21:00)
[2023-09-27] MEDS ORDERED: LOSARTAN 50 MG TAB PO SCH (21:00)
[2023-09-28] MEDS: PANTOPRAZOLE 40 MG TABLET PO SCH (06:15)
[2023-09-28] MEDS: METOPROLOL TARTRATE 25 MG TAB PO SCH (08:08)
[2023-09-28 08:22] VITALS: BP 112/57; PULSE 70; TEMP 98.1
--- NOTE | 2023-09-28 12:32 | P.PN ---
Subjective HISTORY OF PRESENT ILLNESS: This is a 73-year-old male with a past medical history significant for atrial fibrillation/flutter, atrial tachycardia, hypertension, hyperlipidemia, and previous ablation. Patient follows in the office with Dr. Fernandes and Dr. Katz. We have been asked to see the patient in consultation for "known". Patient examined at the bedside. patient presents to hospital with a chief complaint of shortness of breath. Patient states yesterday he was walking across a field for a volleyball game when he began to have shortness of breath and chest discomfort. He states that he was able to drive himself home and then spoke to his son on the phone who told him to come to the hospital for further evalu ation. The patient currently denies any chest pain or pressure. He denies any shortness of breath. Telemetry reveals atrial tachycardia with a heart rate in the 120s. It is noted that the patient was seen in the office by Dr. Katz on September 23, 2023. Plan was to admit the patient to the hospital on October 10 for Dofetilide treatment with admission from 3-5 days. * EKG reveals atrial tachycardia with a heart rate of 128. Right bundle branch block. * Chest xray negative for acute process. Similar cardiomegaly * Current home cardiac medications include atorvastatin 10 mg at night, losartan 50 mg at night, metoprolol tartrate 25 mg twice a day, and Xarelto 20 mg at night * Most recent echocardiogram obtained in April 2023 revealing normal LV systolic function, trace to mild MR and mild TR * Patient underwent BESSIE and cardioversion in April [address] Shah * Patient underwent stress echocardiogram in November 2020 which was negative for ischemia 09/28/2023 Patient is status post cardioversion yesterday. He is maintaining sinus mechanism this morning. He denies chest pain or pressure. He denies shortness of breath. Vital signs are stable. PHYSICAL EXAM: VITAL SIGNS: Reviewed. GENERAL: Well-developed in no acute distress. HEENT: Head is normocephalic. Pupils are equal, round. Sclerae anicteric. Mucous membranes of the mouth are moist. Neck supple. No JVD or thyromegaly LUNGS: Respirations even and unlabored. Lungs essentially clear to auscultation bilaterally. HEART: Tachycardic. Irregular rate and rhythm. S1 and S2 heard. ABDOMEN: Soft. Nondistended. Nontender. EXTREMITIES: Normal range of motion. No clubbing or cyanosis. Peripheral pulses intact. No lower extremity edema NEUROLOGIC: Awake and alert. Oriented x 3. ASSESSMENT: Chest pain and shortness of breath Atrial tachycardia, status post cardioversion Persistent typical atrial flutter/atrial fibrillation History of BESSIE and cardioversion, April 2023 Hypertension Hyperlipidemia History of previous ablation PLAN: Increase metoprolol tartrate 25 mg 3 times a day Continue additional cardiac medications Patient is stable for discharge home today from a cardiac standpoint Nurse practitioner note has been reviewed by physician. Signing provider agrees with the documented findings, assessment, and plan of care. Objective - Vital Signs Vital signs: Vital Signs Temp 98.1 F 09/28/23 08:11 Pulse 70 09/28/23 08:11 Resp 16 09/28/23 08:11 BP 112/57 09/28/23 08:11 Pulse Ox 97 09/28/23 08:11 FiO2 Intake & Output 09/27/23 09/28/23 09/28/23 18:59 06:59 18:59 Intake Total 50 20 120 Balance 50 20 120 Weight 104.326 kg Intake: IV 50 20 10 Invasive Line 1 20 10 Oral 110 - Labs CBC & Chem 7: 09/27/23 03:41 09/27/23 03:41
[2023-09-28] MEDS ORDERED: METOPROLOL TARTRATE 25 MG TAB PO SCH (16:00)
--- NOTE | 2023-09-28 18:22 | P.DS ---
Providers Date of admission: 09/26/23 22:15 Expected date of discharge: 09/28/23 Attending physician: Alfredo Godinez Consults: 09/26/23 22:15 Consult Physician Routine Consulting Provider: Chriss Katz Consult Reason/Comments: known Do you want consulting provider notified?: Yes Primary care physician: Johann Rubalcava [facility] Course: Chief Complaint: Chest pain This is a [address] Rubalcava. Dental Insurance Coordinator Dr. NERY Fernandes. Chronic stable medical conditions include hypertension, GERD, primary osteoarthritis, moderate persistent asthma, atrial fibrillation on anticoagulation,ascending aorta aneurysm 4.4 cm. in August 2019 patient had a cardiac catheterization that was negative. Dr. Chriss Katz- ablation was carried out for atrial t achycardia. Patient reviewed in April 2023 with atrial flutter fibrillation. Was cardioverted following BESSIE. Patient yesterday developed chest pressure and shortness of breath. Persisted. Found to be in atrial tachycardia with rapid ventricular rate. Patient has failed outpatient flecainide and multaq. Was started on Cardizem drip in the ER. Artery still in the 120s. This after plan is for Dr. Chriss Katz to do cardioversion. Patient is on Xarelto. Also on beta wes.. September 28: Patient was cardioverted successfully yesterday. Patient to be discharged on metoprolol 25 mg 3 times a day. Patient will follow-up with Dr. Chriss Katz outpatient. Patient up and about. No aortic symptoms currently. Past medical history to include: Hypertension, GERD, primary osteoarthritis, moderate persistent asthma, atrial fibrillation/atrial tachycardia ablation, on anticoagulation,, BPH treated with TURP. Negative cardiac catheterization in 2018 Social history: , retired, no smoking. Alcohol rarely. .Physical examination: VITAL SIGNS: 98.1, 70, 16, 112/57, 97% room air GENERAL: Sitting up comfortable EYES: Pupils equal. Conjunctiva normal. HEENT: External appearance of nose and ears normal, oral cavity grossly normal. NECK: JVD not raised; masses not palpable. HEART: Heart sounds irregular; no edema. LUNGS: Respiratory rate normal; clear to auscultation. ABDOMEN: Soft, nontender, liver spleen not palpable, no masses palpable. PSYCH: Alert and oriented x3; mood and affect normal. Lymphatics: No lymph nodes palpable in the neck and axilla NEUROLOGICAL: Cranial nerves grossly intact. Power and sensation grossly intact INVESTIGATIONS, reviewed in the clinical context: September 27: White count 9.2 hemoglobin 13.3 platelets 224 sodium 141 potassium 4.1 creatinine 0.88 TSH 2.4 EKG tracing personally reviewed by me-atrial tachycardia with a rate of 128. Some ST-T wave changes. Chest x-ray film personally reviewed by me-some cardiomegaly Assessment and plan: -Recurrent atrial tachycardia with a prior ablation 3. . Cardioverted. Sinus rhythm Patient has failed multaq and flecainide. . Lopressor increased to 25 mg [address] Chriss Katz from electrophysiology following. -4.4 cm ascending aorta aneurysm, Annual follow-up -Essential hypertension Lopressor -GERD Nexium -Primary osteoarthritis Pain medications needed -Moderate persistent asthma Ventolin when necessary. Singulair Disposition: Home Plan - Discharge Summary Discharge Rx Participant: No New Discharge Prescriptions: Continue Atorvastatin Calcium 10 mg PO HS Albuterol Inhaler [Ventolin Hfa Inhaler] 2 puff INHALATION RT-Q4H PRN PRN Reason: Shortness Of Breath Esomeprazole Magnesium [NexIUM] 80 mg PO DAILY Losartan Potassium 50 mg PO HS Rivaroxaban [Xarelto] 20 mg PO HS Changed Metoprolol Tartrate [Lopressor] 25 mg PO TID #0 Discharge Medication List Atorvastatin Calcium 10 mg PO HS 08/31/16 [History] Albuterol Inhaler [Ventolin Hfa Inhaler] 2 puff INHALATION RT-Q4H PRN 11/25/20 [History] Esomeprazole Magnesium [NexIUM] 80 mg PO DAILY 04/28/23 [History] Rivaroxaban [Xarelto] 20 mg PO HS 04/28/23 [History] Losartan Potassium 50 mg PO HS 05/31/23 [History] Metoprolol Tartrate [Lopressor] 25 mg PO TID #0 09/28/23 [Rx] Follow up Appointment(s)/Referral(s): Alisia Fernandes MD [STAFF PHYSICIAN] - 1 Week (Unable to reach office staff. Please call to schedule follow up appoitment) Johann Rubalcava MD [Primary Care Provider] - 1-2 days (Please call to schedule follow up appoitmet) Patient Instructions/Handouts: A-fib (Atrial Fibrillation) (IP) Activity/Diet/Wound Care/Special Instructions: No driving for 24 hours Continue Xarelto Metoprolol 25 mg three times daily Discharge Disposition: HOME SELF-CARE
== END 2023-09-28 12:28 | disposition home or self-care (01) ==
LOC: EC 20:26 → 3SCARD 22:15
PROVIDERS: ADMIT Hospitalist; ATTEND Hospitalist
DX: I47.19 Other supraventricular tachycardia (principal); I48.0 Paroxysmal atrial fibrillation; I71.21 Aneurysm of the ascending aorta, without rupture; K21.9 Gastro-esophageal reflux disease without esophagitis; E78.5 Hyperlipidemia, unspecified; I10 Essential (primary) hypertension; N40.1 Benign prostatic hyperplasia with lower urinary tract symptoms; N13.8 Other obstructive and reflux uropathy; J45.40 Moderate persistent asthma, uncomplicated; M19.91 Primary osteoarthritis, unspecified site; Z79.01 Long term (current) use of anticoagulants; Z79.899 Other long term (current) drug therapy
CPT/HCPCS: 96361; 96374; 96375; 99291; 36415; 93005; 92960; 83880; 80053 ×2; 84443; 83690; 83735 ×2; 84100; 84484 ×2; 85025 ×2; 85610; 85730; 71046; G0378 ×3

== ENCOUNTER 2023-10-10 12:12 | Inpatient (IN) | payer MEDICARE ==
[2023-10-10] MEDS ORDERED: MAGNESIUM SULFATE-D5W PMX 1 GM in DEXTROSE/WATER 1 100ML.BAG IVPB PRN (14:34)
--- NOTE | 2023-10-10 14:49 | P.HPCAR ---
History of Present Illness HISTORY OF PRESENT ILLNESS: This is a 73-year-old male with a past medical history significant for atrial fi brillation/flutter, atrial tachycardia, hypertension, hyperlipidemia, and previous ablation. Patient follows in the office with Dr. Fernandes and Dr. Katz. Patient is directly admitted to the hospital today to begin dofetilide treatment. Patient was hospitalized last month secondary to atrial tachycardia. He underwent cardioversion on 09/26/2023. He is maintaining sinus mechanism with heart rate in the 50s at the time of examination. He denies any chest pain or pressure. Denies any shortness of breath. EKG completed upon admission to the hospital revealed sinus bradycardia. QT <410 per personal review of Dr. Katz. * Current home cardiac medications include atorvastatin 10 mg at night, losartan 50 mg at night, metoprolol tartrate 25 mg twice a day, and Xarelto 20 mg at night * Most recent echocardiogram obtained in April 2023 revealing normal LV systolic function, trace to mild MR and mild TR * Patient underwent BESSIE and cardioversion in April [address] Shah * Patient underwent repeat cardioversion on 09/26/[address] Katz * Patient underwent stress echocardiogram in November 2020 which was negative for ischemia REVIEW OF SYSTEMS: At the time of my exam: CONSTITUTIONAL: Denies fever or chills. HEENT: Denies blurred vision, vision changes, or eye pain. Denies hemoptysis CARDIOVASCULAR: Denies chest pain. Denies orthopnea. Denies PND. Denies palpitations RESPIRATORY: Denies shortness of breath. GASTROINTESTINAL: Denies abdominal pain. Denies nausea or vomiting. HEMATOLOGIC: Denies bleeding disorders. GENITOURINARY: Denies any blood in urine. SKIN: Denies pruitis. Denies rash. PHYSICAL EXAM: VITAL SIGNS: Reviewed. GENERAL: Well-developed in no acute distress. HEENT: Head is normocephalic. Pupils are equal, round. Sclerae anicteric. Mucous membranes of the mouth are moist. Neck supple. No JVD or thyromegaly LUNGS: Respirations even and unlabored. Lungs essentially clear to auscultation bilaterally. HEART: Regular rate and rhythm. S1 and S2 heard. ABDOMEN: Soft. Nondistended. Nontender. EXTREMITIES: Normal range of motion. No clubbing or cyanosis. Peripheral pulses intact. No lower extremity edema NEUROLOGIC: Awake and alert. Oriented x 3. ASSESSMENT: Atrial tachycardia, status post electrical cardioversion on 09/26/2023, currently maintaining sinus mechanism Persistent typical atrial flutter/atrial fibrillation History of BESSIE and cardioversion, April 2023 Hypertension Hyperlipidemia History of previous ablation PLAN: Resume home cardiac medications Continue labs and EKG per dofetilide protocol Patient to receive 125 mg of dofetilide tonight and tomorrow morning Continue telemetry monitoring Further recommendations pending patient's course Nurse practitioner note has been reviewed by physician. Signing provider agrees with the documented findings, assessment, and plan of care. 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 History of Any Multi-Drug Resistant Organisms: None Reported Past Surgical History: Ablation, Appendectomy, Cardiac Ablation, Cholecystectomy, Joint Replacement, Prostate Surgery Additional Past Surgical History / Comment(s): 12/13/17 PVI/cryoablation of 4 pulmonary veins, cardiac ablations with last time being 12/24/19, BESSIE/cardioversions, colonoscopy, bilateral cataract removals, TURP. Past Anesthesia/Blood Transfusion Reactions: No Reported Reaction Smoking Status: Never smoker - Past Family History Father History Unknown: Yes Family Medical History: CVA/TIA Additional Family Medical History / Comment(s): Father had a CVA. He lived to be 75 yrs. old. Mother History Unknown: Yes Family Medical History: CVA/TIA Additional Family Medical History / Comment(s): Mother had a CVA x 2. He lived to be 82 yrs old. Physical Examination Vital Signs Temp Pulse Resp BP Pulse Ox 10/10/23 12:59 98.0 F 58 L 16 111/69 96 Intake and Output 10/09/23 10/10/23 10/10/23 22:59 06:59 14:59 Other: # Voids 1 Weight 107.9 kg Results 10/10/23 14:15 10/10/23 14:15 Current Medications Generic Name Dose Route Start Last Admin Trade Name Freq PRN Reason Stop Dose Admin Atorvastatin Calcium 10 mg 10/10/23 21:00 Atorvastatin 10 Mg Tab PO HS CHITRA Magnesium Sulfate/Dextrose 1 100 mls @ 100 mls/hr 10/10/23 14:34 gm/ IV Solution IVPB 10/11/23 15:44 ONCE PRN Tachyarrhythmias Losartan Potassium 50 mg 10/10/23 21:00 Losartan 50 Mg Tab PO HS CHITRA Metoprolol Tartrate 50 mg 10/10/23 21:00 Metoprolol Tartrate 25 Mg Tab PO BID CHITRA Pantoprazole Sodium 40 mg 10/11/23 09:00 Pantoprazole 40 Mg Tablet PO DAILY CHITRA Rivaroxaban 20 mg 10/10/23 21:00 Rivaroxaban 20 Mg Tab PO HS CHITRA Protocol Intake and Output 10/09/23 10/10/23 10/10/23 22:59 06:59 14:59 Other: # Voids 1 Weight 107.9 kg Patient Weight 10/11/23 06:59 Weight 107.9 kg
[2023-10-10 14:56] LABS: Basophils % (A) 0 %; Eosinophils # (A) 0.2 k/uL (0-0.7); Eosinophils % (A) 4 %; HCT 37.9 % (39.0-53.0); HGB 12.6 gm/dL (13.0-17.5); Lymphocytes # (A) 1.7 k/uL (1.0-4.8); Lymphocytes % (A) 27 %; MCH 29.6 pg (25.0-35.0); MCHC 33.1 g/dL (31.0-37.0); MCV 89.3 fL (80.0-100.0); Monocytes # (A) 0.6 k/uL (0-1.0); Monocytes % (A) 10 %; Neutrophils # (A) 3.8 k/uL (1.3-7.7); Neutrophils % (A) 58 %; Platelet Count 254 k/uL (150-450); RBC 4.24 m/uL (4.30-5.90); RDW 13.9 % (11.5-15.5); WBC 6.6 k/uL (3.8-10.6)
[2023-10-10 15:10] LABS: African American GFR (CKD) 83 (>60 ml/min/1.73 sqM); Anion Gap 8 mmol/L; Blood Urea Nitrogen 17 mg/dL (9-20); Calcium 9.1 mg/dL (8.4-10.2); Carbon Dioxide 25 mmol/L (22-30); Chloride 107 mmol/L (98-107); Glucose 98 mg/dL (74-99); Magnesium 1.8 mg/dL (1.6-2.3); Non-African American GFR(CKD) 72 (>60 ml/min/1.73 sqM); Potassium 4.3 mmol/L (3.5-5.1); Sodium 140 mmol/L (137-145)
[2023-10-10] MEDS: MAGNESIUM SULFATE-D5W PMX 1 GM in DEXTROSE/WATER 1 100ML.BAG IVPB SCH ×2 (17:57→19:01)
[2023-10-10] MEDS: DOFETILIDE 125 MCG CAP PO SCH (17:58)
[2023-10-10] MEDS: LOSARTAN 50 MG TAB PO SCH (20:48)
[2023-10-10] MEDS: ATORVASTATIN 10 MG TAB PO SCH (20:48)
[2023-10-10] MEDS: RIVAROXABAN 20 MG TAB PO SCH (20:49)
[2023-10-10] MEDS ORDERED: METOPROLOL TARTRATE 50 MG TAB PO SCH (21:00)
[2023-10-10] MEDS ORDERED: METOPROLOL TARTRATE 25 MG TAB PO SCH (21:00)
[2023-10-11] MEDS: DOFETILIDE 125 MCG CAP PO SCH ×2 (05:59→17:51)
[2023-10-11 08:55] LABS: African American GFR (CKD) >90 (>60 ml/min/1.73 sqM); Anion Gap 4 mmol/L; Blood Urea Nitrogen 18 mg/dL (9-20); Carbon Dioxide 28 mmol/L (22-30); Chloride 107 mmol/L (98-107); Glucose 93 mg/dL (74-99); Non-African American GFR(CKD) 86 (>60 ml/min/1.73 sqM); Potassium 4.5 mmol/L (3.5-5.1); Sodium 139 mmol/L (137-145)
[2023-10-11] MEDS: PANTOPRAZOLE 40 MG TABLET PO SCH (09:12)
[2023-10-11] MEDS: SPIRONOLACTONE 25 MG TAB PO SCH (09:12)
[2023-10-11] MEDS: MAGNESIUM OXIDE 400 MG TAB PO SCH (09:12)
[2023-10-11] MEDS: METOPROLOL SUCCINATE (ER) 25 MG TAB.ER.24H PO SCH (09:55)
--- NOTE | 2023-10-11 11:19 | P.PN ---
Subjective HISTORY OF PRESENT ILLNESS: This is a 73-year-old male with a past medical history significant for atrial fibrillation/flutter, atrial tachycardia, hypertension, hyperlipidemia, and previous ablation. Patient follows in the office with Dr. Fernandes and Dr. Katz. Patient is directly admitted to the hospital today to begin dofetilide treatment. Patient was hospitalized last month secondary to atrial tachycardia. He underwent cardioversion on 09/26/2023. He is maintaining sinus mechanism with heart rate in the 50s at the time of examination. He denies any chest pain or pressure. Denies any shortness of breath. EKG completed upon admission to the hospital revealed sinus bradycardia. QT <410 per personal review of Dr. Katz. * Current home cardiac medications include atorvastatin 10 mg at night, losartan 50 mg at night, metoprolol tartrate 25 mg twice a day, and Xarelto 20 mg at night * Most recent echocardiogram obtained in April 2023 revealing normal LV systolic function, trace to mild MR and mild TR * Patient underwent BESSIE and cardioversion in April [address] Shah * Patient underwent repeat cardioversion on 09/26/[address] Katz * Patient underwent stress echocardiogram in November 2020 which was negative for ischemia Addendum entered and electronically signed by Chriss Katz MD 10/10/23 17:29: Procedures performed so far #1 Pulmonary vein isolation in November 2017 #2 Subsequently in October 2018 Ablation of the anterior antrum of the right superior pulmonary vein, ablation of the left atrial drainage, ablation of the left atrial roof using RF Ablation the caval tricuspid isthmus resulting in termination of the tachycardia and resumption of sinus rhythm #3 In November 2019 Focal atrial tachycardia in the groove between the left atrial appendage and the left inferior pulmonary vein Mitral reentry with successful ablation Focal atrial tachycardia anterior wall below the roof Septal focal atrial tachycardia bump termination Repeat RF ablation in the left atrial roof Failed Multaq failed flecainide Plan Dofetilide 125 g by mouth twice daily Patient's absolute QT interval is between 460-1480 ms Fusion between T waves and U wave noted with right bundle branch block pattern 10/11/2023 Patient examined this morning at the bedside. Patient denies chest pain or pressure. He denies shortness of breath. He denies any side effects from initiation of dofetilide yesterday. He has been up ambulating in the hallway this morning. Telemetry reveals sinus bradycardia. Absolute QT interval this morning on EKG is 480. PHYSICAL EXAM: VITAL SIGNS: Reviewed. GENERAL: Well-developed in no acute distress. HEENT: Head is normocephalic. Pupils are equal, round. Sclerae anicteric. Mucous membranes of the mouth are moist. Neck supple. No JVD or thyromegaly LUNGS: Respirations even and unlabored. Lungs essentially clear to auscultation bilaterally. HEART: Regular rate and rhythm. S1 and S2 heard. ABDOMEN: Soft. Nondistended. Nontender. EXTREMITIES: Normal range of motion. No clubbing or cyanosis. Peripheral pulses intact. No lower extremity edema NEUROLOGIC: Awake and alert. Oriented x 3. ASSESSMENT: Atrial tachycardia, status post electrical cardioversion on 09/26/2023, currently maintaining sinus mechanism Persistent typical atrial flutter/atrial fibrillation History of BESSIE and cardioversion, April 2023 Hypertension Hyperlipidemia History of previous ablation PLAN: Continue current cardiac medications Change metoprolol tartrate to metoprolol succinate and decrease dose to 25 mg daily Continue labs and EKG per dofetilide protocol. Continue to monitor absolute QT. Continue 125 mcg of dofetilide BID Continue telemetry monitoring Further recommendations pending patient's course Nurse practitioner note has been reviewed by physician. Signing provider agrees with the documented findings, assessment, and plan of care. Objective - Vital Signs Vital signs: Vital Signs Temp 97.9 F 10/11/23 09:00 Pulse 55 L 10/11/23 09:00 Resp 18 10/11/23 09:00 BP 136/74 10/11/23 09:00 Pulse Ox 96 10/11/23 09:00 FiO2 Intake & Output 10/10/23 10/11/23 10/11/23 18:59 06:59 18:59 Intake Total 240 780 210 Balance 240 780 210 Weight 107.9 kg Intake: IV 10 Invasive Line 1 10 Oral 240 780 200 Other: Voiding Method Toilet Toilet # Voids 1 1 - Labs CBC & Chem 7: 10/10/23 14:15 10/11/23 08:24 Labs: Abnormal Lab Results - Last 24 Hours (Table) 10/10/23 Range/Units 14:15 RBC 4.24 L (4.30-5.90) m/uL Hgb 12.6 L (13.0-17.5) gm/dL Hct 37.9 L (39.0-53.0) %
[2023-10-11] MEDS: ATORVASTATIN 10 MG TAB PO SCH (20:56)
[2023-10-11] MEDS: LOSARTAN 50 MG TAB PO SCH (20:56)
[2023-10-11] MEDS: RIVAROXABAN 20 MG TAB PO SCH (20:56)
[2023-10-12] MEDS: DOFETILIDE 125 MCG CAP PO SCH ×2 (05:53→18:14)
[2023-10-12] MEDS: SPIRONOLACTONE 25 MG TAB PO SCH (08:26)
[2023-10-12] MEDS: METOPROLOL SUCCINATE (ER) 25 MG TAB.ER.24H PO SCH (08:26)
[2023-10-12] MEDS: MAGNESIUM OXIDE 400 MG TAB PO SCH (08:26)
[2023-10-12] MEDS: PANTOPRAZOLE 40 MG TABLET PO SCH (08:26)
[2023-10-12 11:16] LABS: African American GFR (CKD) >90 (>60 ml/min/1.73 sqM); Anion Gap 9 mmol/L; Blood Urea Nitrogen 15 mg/dL (9-20); Calcium 9.5 mg/dL (8.4-10.2); Carbon Dioxide 28 mmol/L (22-30); Chloride 105 mmol/L (98-107); Glucose 72 mg/dL (74-99); Magnesium 1.9 mg/dL (1.6-2.3); Non-African American GFR(CKD) 86 (>60 ml/min/1.73 sqM); Potassium 3.9 mmol/L (3.5-5.1); Sodium 142 mmol/L (137-145)
--- NOTE | 2023-10-12 12:35 | P.PN ---
Subjective HISTORY OF PRESENT ILLNESS: This is a 73-year-old male with a past medical history significant for atrial fibrillation/flutter, atrial tachycardia, hypertension, hyperlipidemia, and previous ablation. Patient follows in the office with Dr. Fernandes and Dr. Katz. Patient is directly admitted to the hospital today to begin dofetilide treatment. Patient was hospitalized last month secondary to atrial tachycardia. He underwent cardioversion on 09/26/2023. He is maintaining sinus mechanism with heart rate in the 50s at the time of examination. He denies any chest pain or pressure. Denies any shortness of breath. EKG completed upon admission to the hospital revealed sinus bradycardia. QT <410 per personal review of Dr. Katz. * Current home cardiac medications include atorvastatin 10 mg at night, losartan 50 mg at night, metoprolol tartrate 25 mg twice a day, and Xarelto 20 mg at night * Most recent echocardiogram obtained in April 2023 revealing normal LV systolic function, trace to mild MR and mild TR * Patient underwent BESSIE and cardioversion in April [address] Shah * Patient underwent repeat cardioversion on 09/26/[address] Katz * Patient underwent stress echocardiogram in November 2020 which was negative for ischemia Addendum entered and electronically signed by Chriss Katz MD 10/10/23 17:29: Procedures performed so far #1 Pulmonary vein isolation in November 2017 #2 Subsequently in October 2018 Ablation of the anterior antrum of the right superior pulmonary vein, ablation of the left atrial drainage, ablation of the left atrial roof using RF Ablation the caval tricuspid isthmus resulting in termination of the tachycardia and resumption of sinus rhythm #3 In November 2019 Focal atrial tachycardia in the groove between the left atrial appendage and the left inferior pulmonary vein Mitral reentry with successful ablation Focal atrial tachycardia anterior wall below the roof Septal focal atrial tachycardia bump termination Repeat RF ablation in the left atrial roof Failed Multaq failed flecainide Plan Dofetilide 125 g by mouth twice daily Patient's absolute QT interval is between 460-1480 ms Fusion between T waves and U wave noted with right bundle branch block pattern 10/11/2023 Patient examined this morning at the bedside. Patient denies chest pain or pressure. He denies shortness of breath. He denies any side effects from initiation of dofetilide yesterday. He has been up ambulating in the hallway this morning. Telemetry reveals sinus bradycardia. Absolute QT interval this morning on EKG is 480. 10/12/2023 Patient examined this morning at the bedside. Patient denies chest pain or pr essure. He denies shortness of breath. Telemetry reveals sinus bradycardia. Absolute QT interval this morning on EKG is less than 500. PHYSICAL EXAM: VITAL SIGNS: Reviewed. GENERAL: Well-developed in no acute distress. HEENT: Head is normocephalic. Pupils are equal, round. Sclerae anicteric. Mucous membranes of the mouth are moist. Neck supple. No JVD or thyromegaly LUNGS: Respirations even and unlabored. Lungs essentially clear to auscultation bilaterally. HEART: Regular rate and rhythm. S1 and S2 heard. ABDOMEN: Soft. Nondistended. Nontender. EXTREMITIES: Normal range of motion. No clubbing or cyanosis. Peripheral pulses intact. No lower extremity edema NEUROLOGIC: Awake and alert. Oriented x 3. ASSESSMENT: Atrial tachycardia, status post electrical cardioversion on 09/26/2023, currently maintaining sinus mechanism Persistent typical atrial flutter/atrial fibrillation History of BESSIE and cardioversion, April 2023 Hypertension Hyperlipidemia History of previous ablation PLAN: Continue current cardiac medications Continue labs and EKG per dofetilide protocol. Continue to monitor absolute QT. Continue 125 mcg of dofetilide BID Continue telemetry monitoring Further recommendations pending patient's course Nurse practitioner note has been reviewed by physician. Signing provider agrees with the documented findings, assessment, and plan of care. Objective - Vital Signs Vital signs: Vital Signs Temp 97.8 F 10/12/23 08:24 Pulse 51 L 10/12/23 12:05 Resp 16 10/12/23 12:05 BP 122/72 10/12/23 12:05 Pulse Ox 97 10/12/23 12:05 FiO2 Intake & Output 10/11/23 10/12/23 10/12/23 18:59 06:59 18:59 Intake Total 430 540 250 Balance 430 540 250 Intake: IV 10 10 Invasive Line 1 10 10 Oral 420 540 240 Other: Voiding Method Toilet Toilet Toilet # Voids 2 1 1 - Labs CBC & Chem 7: 10/10/23 14:15 10/12/23 10:49 Labs: Abnormal Lab Results - Last 24 Hours (Table) 10/12/23 Range/Units 10:49 Glucose 72 L (74-99) mg/dL
[2023-10-12] MEDS: ATORVASTATIN 10 MG TAB PO SCH (19:58)
[2023-10-12] MEDS: RIVAROXABAN 20 MG TAB PO SCH (19:58)
[2023-10-12] MEDS: LOSARTAN 50 MG TAB PO SCH (19:59)
[2023-10-13] MEDS: DOFETILIDE 125 MCG CAP PO SCH (05:58)
[2023-10-13] MEDS: PANTOPRAZOLE 40 MG TABLET PO SCH (08:45)
[2023-10-13] MEDS: METOPROLOL SUCCINATE (ER) 25 MG TAB.ER.24H PO SCH (08:45)
[2023-10-13] MEDS: SPIRONOLACTONE 25 MG TAB PO SCH (08:45)
[2023-10-13] MEDS: MAGNESIUM OXIDE 400 MG TAB PO SCH (08:45)
[2023-10-13 09:09] VITALS: BP 118/72; PULSE 60; RESP 15; TEMP 97.9
[2023-10-13 09:32] LABS: Basophils % (A) 0 %; Eosinophils # (A) 0.3 k/uL (0-0.7); Eosinophils % (A) 4 %; HCT 42.7 % (39.0-53.0); HGB 14.3 gm/dL (13.0-17.5); Lymphocytes # (A) 2.1 k/uL (1.0-4.8); Lymphocytes % (A) 29 %; MCH 29.6 pg (25.0-35.0); MCHC 33.4 g/dL (31.0-37.0); MCV 88.6 fL (80.0-100.0); Monocytes # (A) 0.6 k/uL (0-1.0); Monocytes % (A) 7 %; Neutrophils # (A) 4.3 k/uL (1.3-7.7); Neutrophils % (A) 58 %; Platelet Count 269 k/uL (150-450); RBC 4.81 m/uL (4.30-5.90); RDW 13.9 % (11.5-15.5); WBC 7.4 k/uL (3.8-10.6)
[2023-10-13 09:55] LABS: African American GFR (CKD) >90 (>60 ml/min/1.73 sqM); Anion Gap 9 mmol/L; Blood Urea Nitrogen 14 mg/dL (9-20); Calcium 9.7 mg/dL (8.4-10.2); Carbon Dioxide 25 mmol/L (22-30); Chloride 106 mmol/L (98-107); Glucose 125 mg/dL (74-99); Magnesium 1.9 mg/dL (1.6-2.3); Non-African American GFR(CKD) 83 (>60 ml/min/1.73 sqM); Potassium 4.5 mmol/L (3.5-5.1); Sodium 140 mmol/L (137-145)
--- NOTE | 2023-10-13 10:46 | P.DS ---
Providers Date of admission: 10/10/23 12:12 Attending physician: Chriss Katz Primary care physician: Chriss Katz [facility] Course: HISTORY OF PRESENT ILLNESS: This is a 73-year-old male with a past medical history significant for atrial fi brillation/flutter, atrial tachycardia, hypertension, hyperlipidemia, and previous ablation. Patient follows in the office with Dr. Fernandes and Dr. Katz. Patient is directly admitted to the hospital today to begin dofetilide treatment. Patient was hospitalized last month secondary to atrial tachycardia. He underwent cardioversion on 09/26/2023. He is maintaining sinus mechanism with heart rate in the 50s at the time of examination. He denies any chest pain or pressure. Denies any shortness of breath. EKG completed upon admission to the hospital revealed sinus bradycardia. QT <410 per personal review of Dr. Katz. * Current home cardiac medications include atorvastatin 10 mg at night, losartan 50 mg at night, metoprolol tartrate 25 mg twice a day, and Xarelto 20 mg at night * Most recent echocardiogram obtained in April 2023 revealing normal LV systolic function, trace to mild MR and mild TR * Patient underwent BESSIE and cardioversion in April [address] Shah * Patient underwent repeat cardioversion on 09/26/[address] Katz * Patient underwent stress echocardiogram in November 2020 which was negative for ischemia Addendum entered and electronically signed by Chriss Katz MD 10/10/23 17:29: Procedures performed so far #1 Pulmonary vein isolation in November 2017 #2 Subsequently in October 2018 Ablation of the anterior antrum of the right superior pulmonary vein, ablation of the left atrial drainage, ablation of the left atrial roof using RF Ablation the caval tricuspid isthmus resulting in termination of the tachycardia and resumption of sinus rhythm #3 In November 2019 Focal atrial tachycardia in the groove between the left atrial appendage and the left inferior pulmonary vein Mitral reentry with successful ablation Focal atrial tachycardia anterior wall below the roof Septal focal atrial tachycardia bump termination Repeat RF ablation in the left atrial roof Failed Multaq failed flecainide Plan Dofetilide 125 g by mouth twice daily Patient's absolute QT interval is between 460-1480 ms Fusion between T waves and U wave noted with right bundle branch block pattern 10/11/2023 Patient examined this morning at the bedside. Patient denies chest pain or pressure. He denies shortness of breath. He denies any side effects from initiation of dofetilide yesterday. He has been up ambulating in the hallway this morning. Telemetry reveals sinus bradycardia. Absolute QT interval this morning on EKG is 480. 10/12/2023 Patient examined this morning at the bedside. Patient denies chest pain or pressure. He denies shortness of breath. Telemetry reveals sinus bradycardia. Absolute QT interval this morning on EKG is less than 500. 10/13/2023 Patient examined this morning at the bedside. Patient denies chest pain or pressure. He denies shortness of breath. Telemetry reveals sinus bradycardia. Absolute QT interval this morning on EKG is around 480. PHYSICAL EXAM: VITAL SIGNS: Reviewed. GENERAL: Well-developed in no acute distress. HEENT: Head is normocephalic. Pupils are equal, round. Sclerae anicteric. Mucous membranes of the mouth are moist. Neck supple. No JVD or thyromegaly LUNGS: Respirations even and unlabored. Lungs essentially clear to auscultation bilaterally. HEART: Regular rate and rhythm. S1 and S2 heard. ABDOMEN: Soft. Nondistended. Nontender. EXTREMITIES: Normal range of motion. No clubbing or cyanosis. Peripheral pulses intact. No lower extremity edema NEUROLOGIC: Awake and alert. Oriented x 3. ASSESSMENT: Atrial tachycardia, status post electrical cardioversion on 09/26/2023, currently maintaining sinus mechanism Persistent typical atrial flutter/atrial fibrillation History of BESSIE and cardioversion, April 2023 Hypertension Hyperlipidemia History of previous ablation PLAN: The patient will continue on dofetilide 125 g twice a day Continue additional cardiac medications The patient was deemed stable for discharge home today per Dr. Katz Nurse practitioner note has been reviewed by physician. Signing provider agrees with the documented findings, assessment, and plan of care. Plan - Discharge Summary New Discharge Prescriptions: New Dofetilide [Tikosyn] 125 mcg PO Q12HR@0600,1800 #180 cap Metoprolol Succinate (ER) [Toprol XL] 25 mg PO DAILY #90 tab Dofetilide [Tikosyn] 125 mcg PO Q12HR #14 cap Spironolactone [Aldactone] 12.5 mg PO DAILY@0800 #90 tab Magnesium Oxide [Mag-Ox] 400 mg PO DAILY #90 tab Continue Atorvastatin Calcium 10 mg PO HS Losartan Potassium 50 mg PO HS Rivaroxaban [Xarelto] 20 mg PO HS Discontinued Metoprolol Tartrate [Lopressor] 25 mg PO BID No Action Albuterol Inhaler [Ventolin Hfa Inhaler] 2 puff INHALATION RT-Q4H PRN PRN Reason: Shortness Of Breath Esomeprazole Magnesium [NexIUM] 80 mg PO DAILY Discharge Medication List Atorvastatin Calcium 10 mg PO HS 08/31/16 [History] Albuterol Inhaler [Ventolin Hfa Inhaler] 2 puff INHALATION RT-Q4H PRN 11/25/20 [History] Esomeprazole Magnesium [NexIUM] 80 mg PO DAILY 04/28/23 [History] Rivaroxaban [Xarelto] 20 mg PO HS 04/28/23 [History] Losartan Potassium 50 mg PO HS 05/31/23 [History] Dofetilide [Tikosyn] 125 mcg PO Q12HR #14 cap 10/13/23 [Rx] Dofetilide [Tikosyn] 125 mcg PO Q12HR@0600,1800 #180 cap 10/13/23 [Rx] Magnesium Oxide [Mag-Ox] 400 mg PO DAILY #90 tab 10/13/23 [Rx] Metoprolol Succinate (ER) [Toprol XL] 25 mg PO DAILY #90 tab 10/13/23 [Rx] Spironolactone [Aldactone] 12.5 mg PO DAILY@0800 #90 tab 10/13/23 [Rx] Follow up Appointment(s)/Referral(s): Chriss Katz MD [Primary Care Provider] - 1 Week
== END 2023-10-13 11:10 | disposition home or self-care (01) | DRG 310 ==
LOC: 3SCARD 12:12
PROVIDERS: ADMIT Internal Medicine Clinical Cardiac Electrophysiology; ATTEND Internal Medicine Clinical Cardiac Electrophysiology
DX: I47.19 Other supraventricular tachycardia (principal); I10 Essential (primary) hypertension; E78.5 Hyperlipidemia, unspecified; I48.3 Typical atrial flutter; K21.9 Gastro-esophageal reflux disease without esophagitis; I48.19 Other persistent atrial fibrillation; R00.1 Bradycardia, unspecified; I45.10 Unspecified right bundle-branch block; N40.0 Benign prostatic hyperplasia without lower urinary tract symptoms; M19.049 Primary osteoarthritis, unspecified hand; Z79.899 Other long term (current) drug therapy; Z79.01 Long term (current) use of anticoagulants; Z87.01 Personal history of pneumonia (recurrent)
CPT/HCPCS: 80048; 83735; 84443; 85025

== ENCOUNTER → 2024-01-04 | Outpatient (CLI) | payer MEDICARE ==
[2024-01-04 11:28] LABS: African American GFR (CKD) >90 (>60 ml/min/1.73 sqM); Blood Urea Nitrogen 21 mg/dL (9-20); Non-African American GFR(CKD) 85 (>60 ml/min/1.73 sqM)
--- NOTE | 2024-01-04 12:29 | CT ---
EXAMINATION TYPE: CT angio chest DATE OF EXAM: 01/04/2024 COMPARISON: 12/03/2018 HISTORY: Follow up for anerusym of aorta. CT DLP: 1051.8 mGycm CONTRAST: CTA thoracic aorta with 3-D reconstruction is performed and without and with IV Contrast, patient inj ected with 100ml mL of Isovue 370. Contrast CTA of the thoracic aorta was performed from the lung apex through the upper abdomen. 3D re construction imaging obtained at a separate workstation. CT Chest: THORACIC AORTA: Ascending thoracic aortic aneurysm measuring 4.1 cm AP dimension unchanged from prior study. Mild atheromatous changes seen. There is no evidence for dissection or periaortic collection . LUNGS: The lungs are clear and free of infiltrate or atelectasis. No pulmonary nodule or mass is det ected. No pleural effusion or CT evidence of interstitial lung disease. MEDIASTINUM: No evidence for mediastinal hematoma. The heart is not enlarged. No evidence for med iastinal mass or adenopathy. HILAR STRUCTURES: No evidence for mass. No hilar adenopathy is appreciated. OTHER: No significant abnormality. IMPRESSION- 1. Mild stable ascending thoracic aortic aneurysm. 2. Mild cardiomegaly.
== END | disposition home or self-care (01) ==
LOC: RADCTMAIN 10:11
PROVIDERS: ATTEND Internal Medicine Interventional Cardiology
DX: I71.21 Aneurysm of the ascending aorta, without rupture (principal); I51.7 Cardiomegaly
CPT/HCPCS: 82565; 84520; 71275; 36415; Q9967

== ENCOUNTER 2024-03-28 17:45 | Emergency (ER) | payer MEDICARE ==
[2024-03-28 18:23] VITALS: RESP 18
--- NOTE | 2024-03-28 18:33 | ED ---
General Adult HPI - General Chief complaint: Shortness of Breath Stated complaint: Numbness in hands and legs Time Seen by Provider: 03/28/24 18:01 Source: patient, RN notes reviewed, old records reviewed Mode of arrival: ambulatory Limitations: no limitations - History of Present Illness Initial comments: 73-year-old male presenting for evaluation of cough and mild dyspnea. Symptoms have been progressive over the past 1 month. Cough is productive. No fever. No central chest pain. Patient states he has had increased fatigue and generalized weakness. He also reports some tingling in his hands and feet. - Related Data Home Medications Medication Instructions Recorded Confirmed Atorvastatin Calcium 10 mg PO HS 08/31/16 10/10/23 Albuterol Inhaler [Ventolin Hfa 2 puff INHALATION RT-Q4H PRN 11/25/20 10/10/23 Inhaler] Esomeprazole Magnesium [NexIUM] 80 mg PO DAILY 04/28/23 10/10/23 Rivaroxaban [Xarelto] 20 mg PO HS 04/28/23 10/10/23 Losartan Potassium 50 mg PO HS 05/31/23 10/10/23 Previous Rx's Medication Instructions Recorded Dofetilide [Tikosyn] 125 mcg PO Q12HR #14 cap 10/13/23 Dofetilide [Tikosyn] 125 mcg PO Q12HR@0600,1800 #180 cap 10/13/23 Magnesium Oxide [Mag-Ox] 400 mg PO DAILY #90 tab 10/13/23 Metoprolol Succinate (ER) [Toprol 25 mg PO DAILY #90 tab 10/13/23 XL] Spironolactone [Aldactone] 12.5 mg PO DAILY@0800 #90 tab 10/13/23 Allergies Allergy/AdvReac Type Severity Reaction Status Date / Time Yeast Allergy Nausea & Verified 03/28/24 17:50 Vomiting Review of Systems ROS Statement: Those systems with pertinent positive or pertinent negative responses have been documented in the HPI. ROS Other: All systems not noted in ROS Statement are negative. Past Medical History Past Medical History: Atrial Fibrillation, Atrial Flutter, Chest Pain / Angina, Eye Disorder, GERD/Reflux, Hyperlipidemia, Hypertension, Osteoarthritis (OA), Pneumonia, Prostate Disorder Additional Past Medical History / Comment(s): Paroxysmal Afib, aflutter, atach, RVR, bronchitis, BPH, bilateral astigmatism, sinus problems, BPH with outflow obstruction but none since TURP, arthritis in fingers. History of Any Multi-Drug Resistant Organisms: None Reported Past Surgical History: Ablation, Appendectomy, Cardiac Ablation, Cholec ystectomy, Joint Replacement, Prostate Surgery Additional Past Surgical History / Comment(s): 12/13/17 PVI/cryoablation of 4 pulmonary veins, cardiac ablations with last time being 12/24/19, BESSIE/cardioversions, colonoscopy, bilateral cataract removals, TURP. Past Anesthesia/Blood Transfusion Reactions: No Reported Reaction Past Psychological History: No Psychological Hx Reported Smoking Status: Never smoker Past Alcohol Use History: None Reported Past Drug Use History: None Reported - Past Family History Father History Unknown: Yes Family Medical History: CVA/TIA Additional Family Medical History / Comment(s): Father had a CVA. He lived to be 75 yrs. old. Mother History Unknown: Yes Family Medical History: CVA/TIA Additional Family Medical History / Comment(s): Mother had a CVA x 2. He lived to be 82 yrs old. General Exam Limitations: no limitations General appearance: alert, in no apparent distress Head exam: Present: atraumatic, normocephalic Eye exam: Present: normal appearance, PERRL ENT exam: Present: normal exam Neck exam: Present: normal inspection. Absent: tenderness, meningismus Respiratory exam: Present: wheezes. Absent: respiratory distress, rhonchi Cardiovascular Exam: Present: regular rate, normal rhythm GI/Abdominal exam: Present: soft. Absent: distended, tenderness, guarding Extremities exam: Present: normal inspection, normal capillary refill. Absent: pedal edema, calf tenderness Neurological exam: Present: alert, oriented X3, CN II-XII intact. Absent: motor sensory deficit Psychiatric exam: Present: normal affect, normal mood Skin exam: Present: warm, dry, intact. Absent: cyanosis, diaphoretic Course Vital Signs 03/28/24 03/28/24 17:48 19:49 Temperature 98.3 F Pulse Rate 73 72 Respiratory 18 Rate Blood Pressure 135/96 O2 Sat by Pulse 96 Oximetry Medical Decision Making - Medical Decision Making Was pt. sent in by a medical professional or institution (, PA, REHABILITATION SERVICES DIRECTOR, urgent care, hospital, or alf...) When possible be specific @ -No Did you speak to anyone other than the patient for history (EMS, parent, family, police, friend...)? What history was obtained from this source @ -No Did you review nursing and triage notes (agree or disagree)? Why? @ -I reviewed and agree with nursing and triage notes Were old charts reviewed (outside hosp., previous admission, EMS record, old EKG, old radiological studies, urgent care reports/EKG's, alf records)? Report findings @ -No old charts were reviewed Differential Diagnosis differential Dyspnea: Coronary syndrome, arrhythmia, tamponade, asthma, COPD, pulmonary embolism, pneumonia, pneumothorax, pulmonary effusion, anaphylaxis, diabetic ketoacidosis, flailed chest, pulmonary contusion, diaphragmatic rupture, anemia, neuromuscular, this is not meant to be an all-inclusive list. EKG interpreted by me (3pts min.). @EKG: Sinus rhythm incomplete right bundle branch block, rate of 81, LA interval 164, QRS duration 117, QTc [address] segment elevation. X-rays interpreted by me (1pt min.). @Chest x-ray negative for acute cardiopulmonary disease CT interpreted by me (1pt min.). @ -None done U/S interpreted by me (1pt. min.). @ -None done What testing was considered but not performed or refused? (CT, X-rays, U/S, labs)? Why? @ -None What meds were considered but not given or refused? Why? @ -None Did you discuss the management of the patient with other professionals (professionals i.e. , PA, REHABILITATION SERVICES DIRECTOR, lab, RT, psych nurse, social welfare administrator, manager diversity, teacher, protection officer, lining caser)? Give summary @ -No Was smoking cessation discussed for >3mins.? @ -No Was critical care preformed (if so, how long)? @ -No Were there social determinants of health that impacted care today? How? (Homelessness, low income, unemployed, alcoholism, drug addiction, transpo rtation, low edu. Level, literacy, decrease access to med. care, long term, rehab)? @ -No Was there de-escalation of care discussed even if they declined (Discuss DNR or withdrawal of care, Hospice)? DNR status @ -No What co-morbidities impacted this encounter? (DM, HTN, Smoking, COPD, CAD, Cancer, CVA, ARF, Chemo, Hep., AIDS, mental health diagnosis, sleep apnea, morbid obesity)? @Hypertension, atrial fibrillation Was patient admitted / discharged? Hospital course, mention meds given and route, prescriptions, significant lab abnormalities, going to OR and other pertinent info. @73-year-old male with chronic cough over the past 1 month. No associated chest pain or palpitations. No lower extremity pain or swelling. He is on Xarelto with history of A-fib. Patient also reports of fatigue over this time. He has tingling in the hands without focal numbness or weakness. Vital signs are stab le. He is in sinus rhythm. He has a normal CBC, normal CMP, negative troponin, negative BNP. Chest x-ray is clear. He does have bronchospastic cough and wheezing. Will treat with a course of steroids and albuterol and recommend the patient should follow initially with his primary care provider regarding these ongoing symptoms. Undiagnosed new problem with uncertain prognosis? @ -No Drug Therapy requiring intensive monitoring for toxicity (Heparin, Nitro, Insulin, Cardizem)? @ -No Were any procedures done? @ -No Diagnosis/symptom? @ -[Chronic cough Acute, or Chronic, or Acute on Chronic? @ -Chronic Uncomplicated (without systemic symptoms) or Complicated (systemic symptoms)? @ -Default Side effects of treatment? @ -No Exacerbation, Progression, or Severe Exacerbation? @ -No Poses a threat to life or bodily function? How? (Chest pain, USA, [place], pneumonia, PE, COPD, DKA, ARF, appy, cholecystitis, CVA, Diverticulitis, Homicidal, Suicidal, threat to staff... and all critical care pts) @ -No - Lab Data Result diagrams: 03/28/24 18:34 03/28/24 18:34 Lab Results 03/28/24 03/28/24 03/28/24 Range/Units 18:34 18:34 18:34 WBC 8.1 (3.8-10.6) k/uL RBC 4.72 (4.30-5.90) m/uL Hgb 13.9 (13.0-17.5) gm/dL Hct 43.1 (39.0-53.0) % MCV 91.4 (80.0-100.0) fL MCH 29.5 (25.0-35.0) pg MCHC 32.3 (31.0-37.0) g/dL RDW 13.4 (11.5-15.5) % Plt Count 154 (150-450) k/uL MPV 8.1 Neutrophils % 68 % Lymphocytes % 19 % Monocytes % 7 % Eosinophils % 4 % Basophils % 0 % Neutrophils # 5.6 (1.3-7.7) k/uL Lymphocytes # 1.6 (1.0-4.8) k/uL Monocytes # 0.6 (0-1.0) k/uL Eosinophils # 0.3 (0-0.7) k/uL Basophils # 0.0 (0-0.2) k/uL PT 10.6 (10.0-12.5) sec INR 1.0 (<1.2) APTT 25.0 (22.0-30.0) sec Sodium 140 (137-145) mmol/L Potassium 4.6 (3.5-5.1) mmol/L Chloride 110 H (98-107) mmol/L Carbon Dioxide 27 (22-30) mmol/L Anion Gap 3 mmol/L BUN 17 (9-20) mg/dL Creatinine 1.15 (0.66-1.25) mg/dL Est GFR (CKD-EPI)AfAm 74 (>60 ml/min/1.73 sqM) Est GFR (CKD-EPI)NonAf 64 (>60 ml/min/1.73 sqM) Glucose 101 H (74-99) mg/dL Calcium 8.7 (8.4-10.2) mg/dL Magnesium 2.0 (1.6-2.3) mg/dL Total Bilirubin 0.7 (0.2-1.3) mg/dL AST 28 (17-59) U/L ALT 42 (4-49) U/L Alkaline Phosphatase 123 (38-126) U/L Troponin I (0.000-0.034) ng/mL NT-Pro-B Natriuret Pep 146 pg/mL Total Protein 5.7 L (6.3-8.2) g/dL Albumin 3.1 L (3.5-5.0) g/dL Influenza Type A (PCR) (Not Detectd) Influenza Type B (PCR) (Not Detectd) RSV (PCR) (Not Detectd) SARS-CoV-2 (PCR) (Not Detectd) 03/28/24 03/28/24 Range/Units 18:34 18:34 WBC (3.8-10.6) k/uL RBC (4.30-5.90) m/uL Hgb (13.0-17.5) gm/dL Hct (39.0-53.0) % MCV (80.0-100.0) fL MCH (25.0-35.0) pg MCHC (31.0-37.0) g/dL RDW (11.5-15.5) % Plt Count (150-450) k/uL MPV Neutrophils % % Lymphocytes % % Monocytes % % Eosinophils % % Basophils % % Neutrophils # (1.3-7.7) k/uL Lymphocytes # (1.0-4.8) k/uL Monocytes # (0-1.0) k/uL Eosinophils # (0-0.7) k/uL Basophils # (0-0.2) k/uL PT (10.0-12.5) sec INR (<1.2) APTT (22.0-30.0) sec Sodium (137-145) mmol/L Potassium (3.5-5.1) mmol/L Chloride (98-107) mmol/L Carbon Dioxide (22-30) mmol/L Anion Gap mmol/L BUN (9-20) mg/dL Creatinine (0.66-1.25) mg/dL Est GFR (CKD-EPI)AfAm (>60 ml/min/1.73 sqM) Est GFR (CKD-EPI)NonAf (>60 ml/min/1.73 sqM) Glucose (74-99) mg/dL Calcium (8.4-10.2) mg/dL Magnesium (1.6-2.3) mg/dL Total Bilirubin (0.2-1.3) mg/dL AST (17-59) U/L ALT (4-49) U/L Alkaline Phosphatase (38-126) U/L Troponin I <0.012 (0.000-0.034) ng/mL NT-Pro-B Natriuret Pep pg/mL Total Protein (6.3-8.2) g/dL Albumin (3.5-5.0) g/dL Influenza Type A (PCR) Not Detected (Not Detectd) Influenza Type B (PCR) Not Detected (Not Detectd) RSV (PCR) Not Detected (Not Detectd) SARS-CoV-2 (PCR) Not Detected (Not Detectd) Disposition Clinical Impression: Chronic cough Disposition: HOME SELF-CARE Condition: Good Instructions (If sedation given, give patient instructions): Chronic Cough (ED) Is patient prescribed a controlled substance at d/c from ED?: No Referrals: Johann Rubalcava MD [Primary Care Provider] - 1-2 days Time of Disposition: 19:20
[2024-03-28 18:43] LABS: Basophils % (A) 0 %; Eosinophils # (A) 0.3 k/uL (0-0.7); Eosinophils % (A) 4 %; HCT 43.1 % (39.0-53.0); HGB 13.9 gm/dL (13.0-17.5); Lymphocytes # (A) 1.6 k/uL (1.0-4.8); Lymphocytes % (A) 19 %; MCH 29.5 pg (25.0-35.0); MCHC 32.3 g/dL (31.0-37.0); MCV 91.4 fL (80.0-100.0); Mean Platelet Volume 8.1; Monocytes # (A) 0.6 k/uL (0-1.0); Monocytes % (A) 7 %; Neutrophils # (A) 5.6 k/uL (1.3-7.7); Neutrophils % (A) 68 %; Platelet Count 154 k/uL (150-450); RBC 4.72 m/uL (4.30-5.90); RDW 13.4 % (11.5-15.5); WBC 8.1 k/uL (3.8-10.6)
[2024-03-28 18:49] LABS: Prothrombin Time 10.6 sec (10.0-12.5)
[2024-03-28 18:52] LABS: ALT 42 U/L (4-49); AST 28 U/L (17-59); African American GFR (CKD) 74 (>60 ml/min/1.73 sqM); Albumin 3.1 g/dL (3.5-5.0); Alkaline Phosphatase 123 U/L (38-126); Anion Gap 3 mmol/L; Blood Urea Nitrogen 17 mg/dL (9-20); Calcium 8.7 mg/dL (8.4-10.2); Carbon Dioxide 27 mmol/L (22-30); Chloride 110 mmol/L (98-107); Glucose 101 mg/dL (74-99); Non-African American GFR(CKD) 64 (>60 ml/min/1.73 sqM); Potassium 4.6 mmol/L (3.5-5.1); Sodium 140 mmol/L (137-145); Total Bilirubin 0.7 mg/dL (0.2-1.3); Total Protein 5.7 g/dL (6.3-8.2)
[2024-03-28 19:00] LABS: NT-Pro-B-Type Natriuretic Pept 146 pg/mL
--- NOTE | 2024-03-28 19:03 | XR ---
EXAMINATION TYPE: XR chest 2V DATE OF EXAM: 03/28/2024 6:57 PM CLINICAL INDICATION:Male, 73 years old with history of difficulty breathing; [facility] COMPARISON: Chest radiographs from 09/26/2023 TECHNIQUE: XR chest 2V Frontal and lateral views of the chest. FINDINGS: Lungs/Pleura: There is no evidence of pleural effusion, focal consolidation, or pneumothorax. Pulmonary vascularity: Unremarkable. Heart/mediastinum: Cardiomediastinal silhouette is unremarkable. Musculoskeletal: No acute osseous pathology. IMPRESSION: No acute cardiopulmonary disease/process.
[2024-03-28] MEDS: ALBUTEROL NEBULIZED 2.5 MG/3 ML INHALATION STA ×2 (19:48→20:46)
[2024-03-28] MEDS: IPRATROPIUM 0.5 MG/2.5 ML NEBU INHALATION STA (20:42)
[2024-03-28 21:17] VITALS: BP 128/99; PULSE 80; TEMP 98.6
== END 2024-03-28 20:48 | disposition home or self-care (01) ==
LOC: EC 17:45
DX: G89.29 Other chronic pain (principal); R05.9 Cough, unspecified; I45.10 Unspecified right bundle-branch block; I10 Essential (primary) hypertension; I48.0 Paroxysmal atrial fibrillation; Z79.899 Other long term (current) drug therapy; Z79.01 Long term (current) use of anticoagulants; Z88.8 Allergy status to other drugs, medicaments and biological substances
CPT/HCPCS: 36415; 71046; 80053; 83735; 83880; 84484; 85025; 85610; 85730; 87636; 93005; 94640; 99285

== ENCOUNTER → 2024-04-06 | Outpatient (CLI) | payer MEDICARE ==
[2024-04-06 19:08] LABS: Basophils # (A) 0.02 X 10*3/uL (0.00-0.10); Basophils % (A) 0.3 %; Eosinophils # (A) 0.26 X 10*3/uL (0.04-0.35); Eosinophils % (A) 3.4 %; HCT 38.2 % (39.6-50.0); HGB 12.4 g/dL (13.0-17.0); Lymphocytes # (A) 1.86 X 10*3/uL (0.90-5.00); Lymphocytes % (A) 24.2 %; MCH 29.5 pg (27.0-32.0); MCHC 32.5 g/dL (32.0-37.0); MCV 90.7 FL (80.0-97.0); Mean Platelet Volume 10.7 FL (9.5-12.2); Monocytes # (A) 0.72 X 10*3/uL (0.20-1.00); Monocytes % (A) 9.4 %; NRBC Per 100 WBC 0 X 10*3/uL (0.00-0.01); Neutrophils % (A) 62.4 %; Platelet Count 213 X 10*3/uL (140-440); RBC 4.21 X 10*6/uL (4.40-5.60); RDW 13.5 % (11.5-14.5); WBC 7.68 X 10*3/uL (4.50-10.00)
[2024-04-06 20:18] LABS: Calcium 8.8 mg/dL (8.7-10.3); Carbon Dioxide 23.9 mmol/L (21.6-31.8); Chloride 107 mmol/L (96-109); Glucose 113 mg/dL (70-110); Potassium 4.5 mmol/L (3.5-5.5); Sodium 141 mmol/L (135-145)
== END | disposition home or self-care (01) ==
LOC: LABWHC1 11:04
PROVIDERS: ATTEND Pediatrics
DX: R73.03 Prediabetes (principal); I48.91 Unspecified atrial fibrillation; D64.9 Anemia, unspecified
CPT/HCPCS: 36415; 80048; 83036; 83735; 85025

== ENCOUNTER → 2024-10-16 | Outpatient (CLI) | payer MEDICARE ==
[2024-10-16 19:45] LABS: BUN/Creat Ratio 15.73 Ratio (12.00-20.00); Blood Urea Nitrogen 17.3 mg/dL (9.0-27.0); Calcium 9.4 mg/dL (8.7-10.3); Carbon Dioxide 26.4 mmol/L (21.6-31.8); Chloride 107 mmol/L (96-109); Glucose 106 mg/dL (70-110); Magnesium 1.8 mg/dL (1.5-2.4); Potassium 4.4 mmol/L (3.5-5.5); Sodium 142 mmol/L (135-145)
== END | disposition home or self-care (01) ==
LOC: LABWHC1 12:25
PROVIDERS: ATTEND Internal Medicine Clinical Cardiac Electrophysiology
DX: I48.19 Other persistent atrial fibrillation (principal)
CPT/HCPCS: 36415; 80048; 83735

== ENCOUNTER → 2025-05-15 | Outpatient (CLI) | payer MEDICARE | END | disposition home or self-care (01) | LOC: LABWHC1 09:47 | PROVIDERS: ATTEND Internal Medicine Clinical Cardiac Electrophysiology | DX: Z53.9 Procedure and treatment not carried out, unspecified reason (principal) ==

== ENCOUNTER 2025-05-17 09:50 | Emergency (ER) | payer MEDICARE ==
--- NOTE | 2025-05-17 11:01 | ED ---
General Adult HPI - General Chief complaint: Chest Pain Stated complaint: chest pain Time Seen by Provider: 05/17/25 10:29 Source: patient Mode of arrival: wheelchair Limitations: no limitations - History of Present Illness Initial comments: Dictation was produced using [employer] dictation software. please excuse any grammatical, word or spelling errors. Chief Complaint: 75-year-old male with no history of coronary artery disease presents with chest pain History of Present Illness: Patient is a 75-year-old male who is has past medical history of A-fib a flutter. States that for the last couple days he has been having these intermittent episodes of sharp left lower anterior chest pain. Not associated diaphoresis or nausea. Nonradiating. States that it is not worse with deep inspiration or coughing. Asymptomatic currently at the bedside. The ROS documented in this emergency department record has been reviewed and confirmed by me. Those systems with pertinent positive or negative responses have been documented in the HPI. All other systems are other negative and/or noncontributory. - Related Data Home Medications Medication Instructions Recorded Confirmed Atorvastatin Calcium 10 mg PO DAILY 08/31/16 03/28/24 Albuterol Inhaler [Ventolin Hfa 2 puff INHALATION RT-Q4H PRN 11/25/20 03/28/24 Inhaler] Esomeprazole Magnesium [NexIUM] 80 mg PO DAILY 04/28/23 03/28/24 Rivaroxaban [Xarelto] 20 mg PO DAILY 04/28/23 03/28/24 Losartan Potassium 50 mg PO DAILY 05/31/23 03/28/24 Dofetilide [Tikosyn] 125 mcg PO Q12HR@0700,1900 03/28/24 03/28/24 Loratadine [Claritin] 10 mg PO DAILY 03/28/24 03/28/24 Metoprolol Succinate (ER) [Toprol 12.5 mg PO DAILY 03/28/24 03/28/24 XL] Montelukast [Singulair] 10 mg PO HS 03/28/24 03/28/24 Spironolactone [Aldactone] 12.5 mg PO DAILY 03/28/24 03/28/24 Previous Rx's Medication Instructions Recorded Magnesium Oxide [Mag-Ox] 400 mg PO DAILY #90 tab 10/13/23 Albuterol Nebulized [Ventolin 2.5 mg INHALATION Q8HR #75 ml 03/28/24 Nebulized] Allergies Allergy/AdvReac Type Severity Reaction Status Date / Time Yeast AdvReac Nausea & Verified 05/17/25 10:08 Vomiting Review of Systems ROS Statement: Those systems with pertinent positive or pertinent negative responses have been documented in the HPI. ROS Other: All systems not noted in ROS Statement are negative. Past Medical History Past Medical History: Atrial Fibrillation, Atrial Flutter, Chest Pain / Angina, Eye Disorder, GERD/Reflux, Hyperlipidemia, Hypertension, Osteoarthritis (OA), Pneumonia, Prostate Disorder Additional Past Medical History / Comment(s): Paroxysmal Afib, aflutter, atach, RVR, bronchitis, BPH, bilateral astigmatism, sinus problems, BPH with outflow obstruction but none since TURP, arthritis in fingers. History of Any Multi-Drug Resistant Organisms: None Reported Past Surgical History: Ablation, Appendectomy, Cardiac Ablation, Cholecystectomy, Joint Replacement, Prostate Surgery Additional Past Surgical History / Comment(s): 12/13/17 PVI/cryoablation of 4 pulmonary veins, cardiac ablations with last time being 12/24/19, BESSIE/cardioversions, colonoscopy, bilateral cataract removals, TURP. Past Anesthesia/Blood Transfusion Reactions: No Reported Reaction Past Psychological History: No Psychological Hx Reported Smoking Status: Never smoker Past Alcohol Use History: None Reported Past Drug Use History: None Reported - Past Family History Father History Unknown: Yes Family Medical History: CVA/TIA Additional Family Medical History / Comment(s): Father had a CVA. He lived to be 75 yrs. old. Mother History Unknown: Yes Family Medical History: CVA/TIA Additional Family Medical History / Comment(s): Mother had a CVA x 2. He lived to be 82 yrs old. General Exam - General Exam Comments Initial Comments: PHYSICAL EXAM: General Impression: Alert and oriented x3, not in acute distress HEENT: Normocephalic atraumatic, extra-ocular movements intact, pupils equal and reactive to light bilaterally, mucous membranes moist. Cardiovascular: Heart regular rate and rhythm Chest: Able to complete full sentences, no retractions, no tachypnea Abdomen: abdomen soft, non-tender, non-distended, no organomegaly Musculoskeletal: Pulses present and equal in all extremities, no peripheral edema Motor: no focal deficits noted Neurological: CN II-XII grossly intact, no focal motor or sensory deficits noted Skin: Intact with no visualized rashes Psych: Normal affect and mood Limitations: no limitations Course Vital Signs 05/17/25 10:06 Temperature 98.0 F Pulse Rate 56 L Respiratory 20 Rate Blood Pressure 138/89 O2 Sat by Pulse 97 Oximetry Medical Decision Making - Medical Decision Making Was pt. sent in by a medical professional or institution (, PA, NURSE QUALITY, urgent care, hospital, or [facility]...) When possible be specific @ -No Did you speak to anyone other than the patient for history (EMS, parent, family, police, friend...)? What history was obtained from this source @ -No Did you review nursing and triage notes (agree or disagree)? Why? @ -I reviewed and agree with nursing and triage notes Were old charts reviewed (outside hosp., previous admission, EMS record, old EKG, old radiological studies, urgent care reports/EKG's, [facility] records)? Report findings @ -No old charts were reviewed Differential Diagnosis (chest pain, altered mental status, abdominal pain women, abdominal pain men, vaginal bleeding, musculoskeletal, weakness, fever, dyspnea, syncope, headache, dizziness, GI bleed, back pain, seizure, CVA, palpatations, mental health)? @ -Differential Chest Pain: Stable Angina, Unstable Angina, STEMI, NSTEMI Aortic Dissection, Pneumothorax, Musculoskeletal, Esophageal Spasm GERD, Cholecystitis, Pancreatitis, Zoster, this is not meant to be an all-inclusive list. EKG interpreted by me (3pts min.). @ -See above X-rays interpreted by me (1pt min.). @ -X-ray is nonacute CT interpreted by me (1pt min.). @ -None done U/S interpreted by me (1pt. min.). @ -None done What testing was considered but not performed or refused? (CT, X-rays, U/S, labs)? Why? @ -None What meds were considered but not given or refused? Why? @ -None Was smoking cessation discussed for >3mins.? @ -No Were there social determinants of health that impacted care today? How? (Homelessness, low income, unemployed, alcoholism, drug addiction, transportation, low edu. Level, literacy, decrease access to med. care, half-way, rehab)? @ -No Was there de-escalation of care discussed even if they declined (Discuss DNR or withdrawal of care, Hospice)? DNR status @ -No What co-morbidities impacted this encounter? (DM, HTN, Smoking, COPD, CAD, Cancer, CVA, ARF, Chemo, Hep., AIDS, mental health diagnosis, sleep apnea, morbid obesity)? @ -None Was patient admitted / discharged? Hospital course, mention meds given and route, prescriptions, significant lab abnormalities, going to OR and other pertinent info. @ -75-year-old male with atypical chest pain. Vital signs upon arrival are within acceptable limits. Laboratory evaluation obtained. Labs unremarkable. Troponin negative. X-ray nonacute. Patient given Lidoderm patch advised follow-up primary care doctor. Patient's symptoms very atypical for acute coronary syndrome. Patient discharged Did you discuss the management of the patient with other professionals (professionals i.e. , PA, NURSE QUALITY, lab, RT, psych nurse, social media strategist, deck supervisor, t eacher, facilities officer, nurse case management)? Give summary @ -No Was critical care preformed (if so, how long)? @ -No Undiagnosed new problem with uncertain prognosis? @ -No Drug Therapy requiring intensive monitoring for toxicity (Heparin, Nitro, Insulin, Cardizem)? @ -No Were any procedures done? @ -No Diagnosis/symptom? Acute, or Chronic, or Acute on Chronic? Uncomplicated (without systemic symptoms) or Complicated (systemic symptoms)? @ -Atypical chest pain Side effects of treatment? @ -No Exacerbation, Progression, or Severe Exacerbation? @ -No Poses a threat to life or bodily function? How? (Chest pain, USA, [place], pneumonia, PE, COPD, DKA, ARF, appy, cholecystitis, CVA, Diverticulitis, Homicidal, Suicidal, threat to staff... and all critical care pts) @ -No - Lab Data Result diagrams: 05/17/25 10:55 05/17/25 10:55 Lab Results 05/17/25 05/17/25 05/17/25 Range/Units 10:55 10:55 10:55 WBC 7.03 (4.50-10.00) 10*3/uL RBC 4.51 (4.40-5.60) 10*6/uL Hgb 13.5 (13.0-17.0) g/dL Hct 39.5 L (39.6-50.0) % MCV 87.6 (80.0-97.0) fL MCH 29.9 (27.0-32.0) pg MCHC 34.2 (32.0-37.0) g/dL Plt Count 239 (140-440) 10*3/uL MPV 10.9 (9.5-12.2) fL Immature Gran % (Auto) 0.1 % Neutrophils % 56.6 % Lymphocytes % 27.0 % Monocytes % 11.9 % Eosinophils % 4.1 % Basophils % 0.3 % Immature Gran # 0.01 (0.00-0.04) 10*3/uL Neutrophils # 3.97 (1.80-7.70) 10*3/uL Lymphocytes # 1.90 (0.90-5.00) 10*3/uL Monocytes # 0.84 (0.20-1.00) 10*3/uL Eosinophils # 0.29 (0.04-0.35) 10*3/uL Basophils # 0.02 (0.00-0.10) 10*3/uL PT 12.7 H (10.0-12.5) sec INR 1.2 H (<1.2) APTT 28.6 (22.0-30.0) sec Sodium 139 (137-145) mmol/L Potassium 4.1 (3.5-5.1) mmol/L Chloride 108 H (98-107) mmol/L Carbon Dioxide 25 (22-30) mmol/L Anion Gap 6 mmol/L BUN 15 (9-20) mg/dL Creatinine 0.94 (0.66-1.25) mg/dL Est GFR (CKD-EPI)AfAm >90 (>60 ml/min/1.73 sqM) Est GFR (CKD-EPI)NonAf 80 (>60 ml/min/1.73 sqM) Glucose 89 (74-99) mg/dL Calcium 9.5 (8.4-10.2) mg/dL Magnesium 1.9 (1.6-2.3) mg/dL Total Bilirubin 0.7 (0.2-1.3) mg/dL AST 30 (17-59) U/L ALT 26 (4-49) U/L Alkaline Phosphatase 101 (38-126) U/L Troponin I (0.000-0.034) ng/mL Total Protein 6.3 (6.3-8.2) g/dL Albumin 3.7 (3.5-5.0) g/dL 05/17/25 Range/Units 10:55 WBC (4.50-10.00) 10*3/uL RBC (4.40-5.60) 10*6/uL Hgb (13.0-17.0) g/dL Hct (39.6-50.0) % MCV (80.0-97.0) fL MCH (27.0-32.0) pg MCHC (32.0-37.0) g/dL Plt Count (140-440) 10*3/uL MPV (9.5-12.2) fL Immature Gran % (Auto) % Neutrophils % % Lymphocytes % % Monocytes % % Eosinophils % % Basophils % % Immature Gran # (0.00-0.04) 10*3/uL Neutrophils # (1.80-7.70) 10*3/uL Lymphocytes # (0.90-5.00) 10*3/uL Monocytes # (0.20-1.00) 10*3/uL Eosinophils # (0.04-0.35) 10*3/uL Basophils # (0.00-0.10) 10*3/uL PT (10.0-12.5) sec INR (<1.2) APTT (22.0-30.0) sec Sodium (137-145) mmol/L Potassium (3.5-5.1) mmol/L Chloride (98-107) mmol/L Carbon Dioxide (22-30) mmol/L Anion Gap mmol/L BUN (9-20) mg/dL Creatinine (0.66-1.25) mg/dL Est GFR (CKD-EPI)AfAm (>60 ml/min/1.73 sqM) Est GFR (CKD-EPI)NonAf (>60 ml/min/1.73 sqM) Glucose (74-99) mg/dL Calcium (8.4-10.2) mg/dL Magnesium (1.6-2.3) mg/dL Total Bilirubin (0.2-1.3) mg/dL AST (17-59) U/L ALT (4-49) U/L Alkaline Phosphatase (38-126) U/L Troponin I <0.012 (0.000-0.034) ng/mL Total Protein (6.3-8.2) g/dL Albumin (3.5-5.0) g/dL Disposition Clinical Impression: Chest pain Disposition: HOME SELF-CARE Condition: Fair Instructions (If sedation given, give patient instructions): Costochondritis (ED) Is patient prescribed a controlled substance at d/c from ED?: No Referrals: Johann Rubalcava MD [Primary Care Provider] - 1-2 days Time of Disposition: 12:24
--- NOTE | 2025-05-17 11:06 | XR ---
EXAMINATION TYPE: XR chest 2V DATE OF EXAM: 05/17/2025 10:51 AM COMPARISON: 01/14/2025 CLINICAL INDICATION: Male, 75 years old with history of Chest Pain: Shortness of breath TECHNIQUE: XR chest 2V views of the chest are obtained. FINDINGS: Scattered senescent parenchymal changes noted. Hyperinflation compatible with COPD. No evidence for infiltrate. No evidence for atelectasis. Heart size is stable. Mediastinal structures are stable and grossly unremarkable. No evidence for hilar prominence. Degenerative changes dorsal spine. IMPRESSION: 1. No evidence for acute pulmonary disease. [facility], , 05/17/2025 11:04 AM
[2025-05-17 11:20] LABS: Basophils # (A) 0.02 10*3/uL (0.00-0.10); Basophils % (A) 0.3 %; Eosinophils # (A) 0.29 10*3/uL (0.04-0.35); Eosinophils % (A) 4.1 %; HCT 39.5 % (39.6-50.0); HGB 13.5 g/dL (13.0-17.0); MCH 29.9 pg (27.0-32.0); MCHC 34.2 g/dL (32.0-37.0); MCV 87.6 fL (80.0-97.0); Mean Platelet Volume 10.9 fL (9.5-12.2); Monocytes # (A) 0.84 10*3/uL (0.20-1.00); Monocytes % (A) 11.9 %; Neutrophils # (A) 3.97 10*3/uL (1.80-7.70); Neutrophils % (A) 56.6 %; Platelet Count 239 10*3/uL (140-440); RBC 4.51 10*6/uL (4.40-5.60); RDW 13.2 % (11.5-14.5); WBC 7.03 10*3/uL (4.50-10.00)
[2025-05-17 11:27] LABS: ALT 26 U/L (4-49); AST 30 U/L (17-59); African American GFR (CKD) >90 (>60 ml/min/1.73 sqM); Albumin 3.7 g/dL (3.5-5.0); Alkaline Phosphatase 101 U/L (38-126); Anion Gap 6 mmol/L; Blood Urea Nitrogen 15 mg/dL (9-20); Calcium 9.5 mg/dL (8.4-10.2); Carbon Dioxide 25 mmol/L (22-30); Chloride 108 mmol/L (98-107); Glucose 89 mg/dL (74-99); Magnesium 1.9 mg/dL (1.6-2.3); Non-African American GFR(CKD) 80 (>60 ml/min/1.73 sqM); Potassium 4.1 mmol/L (3.5-5.1); Sodium 139 mmol/L (137-145); Total Bilirubin 0.7 mg/dL (0.2-1.3); Total Protein 6.3 g/dL (6.3-8.2)
[2025-05-17 11:33] LABS: INR 1.2 (<1.2); Partial Thromboplastin Time 28.6 sec (22.0-30.0); Prothrombin Time 12.7 sec (10.0-12.5)
[2025-05-17] MEDS: LIDOCAINE 4% PATCH TOPICAL ONE (12:34)
[2025-05-17 12:40] VITALS: BP 145/76; PULSE 52; RESP 18; TEMP 98.2
== END 2025-05-17 12:39 | disposition home or self-care (01) ==
LOC: EC 09:50
DX: R07.9 Chest pain, unspecified (principal); Z88.8 Allergy status to other drugs, medicaments and biological substances
CPT/HCPCS: 36415; 71046; 80053; 83735; 84484; 85025; 85610; 85730; 93005; 99285